=== PATIENT | male | born 1940 | race Caucasian/White ===

== ENCOUNTER → 2021-05-20 15:35 | Outpatient (BNVA) | payer MEDICARE, SELFPAY | PROVIDERS: PCP Internal Medicine; Referring Provider Internal Medicine; Visit Provider Nurse Practitioner Family | DX: K58.2 Mixed irritable bowel syndrome (principal); R19.7 Diarrhea, unspecified; R14.0 Abdominal distension (gaseous) | CPT/HCPCS: 99212 ==

== ENCOUNTER 2021-05-26 08:30 | Outpatient (REF) | payer MEDICARE, SELFPAY ==
[2021-05-26 10:03] LABS: C Reactive Protein 0.17 mg/dL (< or = 0.50)
[2021-05-26 10:14] LABS: TSH reflex Free T4 1.93 uIU/mL (0.32-4.0)
[2021-05-29 09:52] LABS: Transglutaminase Ab IgG <1.0 U/mL; Transglutaminase IgA <1.0 U/mL
== END 2021-05-26 08:31 | disposition home or self-care (01) ==
LOC: HO.LAB 08:30
PROVIDERS: PCP Internal Medicine; Visit Provider Nurse Practitioner Family
DX: R10.11 Right upper quadrant pain (principal); R14.0 Abdominal distension (gaseous); K58.9 Irritable bowel syndrome, unspecified; Z12.11 Encounter for screening for malignant neoplasm of colon
CPT/HCPCS: 36415; 83516; 84443; 86140

== ENCOUNTER 2022-01-04 22:23 | Emergency (ER) | payer MEDICARE, SELFPAY ==
[2022-01-04 22:40] VITALS: BP 160/74; PULSE 76; RESP 18; TEMP 35.8; O2SAT 98; BMI 31.2
--- NOTE | 2022-01-05 00:38 | ED.SKABFB ---
HPI - Skin/Abscess/Foreign Bdy General Chief complaint: Skin/Abscess/Foreign Body Stated complaint: rash all over Time Seen by Provider: 01/05/22 00:38 Source: patient Mode of arrival: ambulatory Limitations: no limitations History of Present Illness HPI narrative: Patient is a 81 year old male presenting to the emergency department today with 3-4 days of a rash. Patient states that he cleaned his women nurse out and ever since has been itchy all over with a rash all over his body. Patient states that the rash is itchy. Patient denies any dizziness, lightheadedness, abdominal pain, nausea, vomiting, fever, chills, blurry vision, double vision, loss of vision, chest pain, difficulty breathing, shortness of breath, back pain, night sweats, pain with urination, increased urinary frequency, increased urinary urgency, blood in his urine or stool, syncope or a near syncopal episode, recent trauma or falls, bowel incontinence, bladder incontinence, bowel retention, bladder retention, or any other complaints at this time. MD complaint: rash Onset (ago): day(s) (4) Location: generalized Severity: mild Severity scale (1-10): 3 Quality: constant Relieving factors: none Exacerbating factors: none Context: none Treatments prior to arrival: none Related Data Home Medications Medication Instructions Recorded Confirmed aspirin 81 mg capsule 81 mg PO DAILY 05/20/21 cholecalciferol (vitamin D3) 50 50 mcg PO DAILY 05/20/21 mcg (2,000 unit) capsule levothyroxine 25 mcg capsule 25 mcg PO DAILY 05/20/21 losartan 100 mg tablet 100 mg PO DAILY 05/20/21 simvastatin 40 mg tablet 40 mg PO DAILY 05/20/21 Previous Rx's Medication Instructions Recorded prednisone 20 mg tablet 20 mg PO DAILY 10 days #15 tabs 01/05/22 Allergies Allergy/AdvReac Type Severity Reaction Status Date / Time No Known Allergies Allergy Verified 05/20/21 15:58 Review of Systems Constitutional: Constitutional: Reports no additional constitutional complaints, Denies chills, Denies fever(s) and Denies night sweats Eyes: Eyes: Reports no additional eye complaints, Denies blurry vision, Denies change in vision, Denies diplopia, Denies eye discharge, Denies loss of vision and Denies eye pain ENT: Denies dizziness Cardiovascular: Cardiovascular: Reports no additional cardiovascular complaints, Denies chest pain, Denies lightheadedness, Denies Loss of Consciousness and Denies dyspnea Respiratory: Respiratory: Reports no additional respiratory complaints and Denies dyspnea Gastrointestinal: Gastrointestinal: Reports no additional gastrointestinal complaints, Denies abdominal pain, Denies melena, Denies hematochezia, Denies change in bowel habits and Denies change in stool character Genitourinary: Genitourinary: Reports no additional male genitourinary complaints, Denies hematuria, Denies oliguria, Denies difficulty urinating, Denies dysuria, Denies urinary frequency, Denies urinary hesitancy, Denies urinary incontinence and Denies urinary urgency Musculoskeletal: Musculoskeletal: Reports no additional musculoskeletal complaints, Denies numbness and Denies tingling Integumentary/Breasts: Skin/Breast: Reports rash Neurologic: Denies dizziness, Denies loss of vision, Denies numbness and Denies tingling Psychiatric: Psychiatric: Reports no additional psychiatric complaints Endocrine: Endocrine: Reports no additional endocrine complaints Hematologic/Lymphatic: Hematologic/Lymphatic: Reports no additional hematologic/lymphatic complaints Allergic/Immunologic: Allergic/Immunologic: Reports no additional allergic/immunologic complaints PMFSH Past Medical History Attestation statement: The following information was validated with the patient. Source: old records reviewed Surgical History H/O melanoma excision History of surgery on arm Hx of colonoscopy Family History Family History Father Lung cancer Mother Heart disease Social History Social History Advance Directives: No Advance Directives Information Provided: Yes Physical Exam Vital Signs: Vital Signs: Last Vital Signs Temp 96.5 F L 01/04/22 22:40 Pulse 76 01/04/22 22:40 Resp 18 01/04/22 22:40 BP 160/74 H 01/04/22 22:40 Pulse Ox 98 01/04/22 22:40 O2 Del Method 01/04/22 22:40 BMI result Body Mass Index 31.2 Const: General: cooperative, no acute distress, alert and awake Nutritional Appearance: well nourished Orientation/consciousness: patient oriented x3 Limitations: no limitations HEENT: Head: Yes normal to inspection and Yes atraumatic Ears: hearing grossly normal bilaterally and external ears normal General nose exam: Normal external nose present, no nasal discharge noted and no epistaxis Face and sinus: Yes normal facial exam, No abrasion and No laceration Mouth: Normal oral and palatal mucosa present, no drooling and no muffled voice Eyes: General: appearance normal, both eyes and all related structures Periorbital: periorbital findings normal Eyelids: Yes eyelids normal Conjunctivae: conjunctivae normal Pupils: Equal, round and reactive pupils present EOM: EOMs intact bilaterally Neck: Neck: Yes normal visual inspection, Yes full ROM and Yes no lymphadenopathy Chest: Chest palpation & inspection: normal inspection of the chest Resp: Effort & Inspection: normal respiratory effort and able to speak in complete sentences GI: Inspection: Yes normal to inspection Skin: Other: urticaria Neuro: General: patient oriented x3 and moves all extremities Cranial nerves: Yes Equal, round and reactive pupils present Cognition (Neuro): normal cognition Motor exam (neuro): 5/5 motor strength present throughout Sensory Exam: Normal double simultaneous stimulation for sensation Coordination: [id number] test normal Extrem: General: Yes normal to inspection, Yes full ROM and Yes capillary refill normal Psych: Appearance: grossly normal Mental Status: mental status grossly normal Affect: normal affect Attitude: cooperative Thought process: Normal thought process present Thought content: Normal thought content present Insight: Good insight present (Psych) MDM - Skin/Abscess/Foreign Bdy MDM Narrative Medical decision making narrative: Patient is a 81 year old male presenting to the emergency department today with a rash. Patient's physical exam showed a diffuse break out of urticaria. I explained my physical exam findings to the patient. I answered all questions asked by the patient. Patient received PO Prednisone which he stated helped his itching significantly. I stressed the importance of the patient taking his medication as prescribed. I stressed the importance of the patient following up with his primary care provider. I stressed the importance of the patient returning to the emergency department immediately if his symptoms were to worsen or if he were to develop any dizziness, shortness of breath, difficulty breathing, chest pain, blurry vision, loss of vision, nausea, vomiting, abdominal pain, fever, chills, back pain, or any other complaints. Patient verbalized agreement and understanding with this treatment plan and discharge. Differential Diagnosis Differential diagnosis: Likely urticaria Medical Records Attestation: I reviewed the patient's medical records. Discharge Plan Discharge Clinical Impression: Urticaria Patient Disposition: Home, Self-Care Instructions: Urticaria (ED) Additional Instructions: Take Benadryl OTC as needed. Follow up with your primary care provider. Return to the emergency department immediately if your symptoms worsen or if you develop any dizziness, shortness of breath, difficulty breathing, chest pain, blurry vision, loss of vision, nausea, vomiting, abdominal pain, fever, chills, back pain, or any other complaints. Prescriptions: New prednisone 20 mg tablet 20 mg PO DAILY 10 Days Qty: 15 0RF Rx Instructions: Take 2 tablets for 5 days then 1 tablet for 5 days No Action levothyroxine 25 mcg capsule 25 mcg PO DAILY aspirin 81 mg capsule 81 mg PO DAILY losartan 100 mg tablet 100 mg PO DAILY simvastatin 40 mg tablet 40 mg PO DAILY cholecalciferol (vitamin D3) 50 mcg (2,000 unit) capsule 50 mcg PO DAILY Referrals: [facility] [Provider Group] (Call to establish and follow up with a primary care provider. If you have a primary care provider, please follow up with them. ) [facility] Primary [facility], [place] [Provider Group] (Call to establish and follow up with a primary care provider. If you have a primary care provider, please follow up with them. ) [facility],[place] [Provider Group] (Call to establish and follow up with a primary care provider. If you have a primary care provider, please follow up with them. ) Adalberto Vasquez MD [Physician] - (If symptoms persist, call to establish and follow up with an sheeter waxer operator. ) Raj Aguirre DO [Physician] - (If symptoms persist, call to establish and follow up with an sheeter waxer operator. ) Interventions: ED Discharge Assessment Last Done: 01/05/22 01:12 Print Language: Canadian
[2022-01-05] MEDS: predniSONE 20 MG TABLET 40 MG PO (01:11)
== END 2022-01-05 01:13 | disposition home or self-care (01) ==
PROVIDERS: Emergency Provider Internal Medicine
DX: L50.9 Urticaria, unspecified (principal)
CPT/HCPCS: 99283; 99284

== ENCOUNTER 2022-02-04 14:20 | Outpatient (REF) | payer MEDICARE, SELFPAY ==
[2022-02-04 15:37] LABS: Influenza A PCR NEGATIVE (Negative); Influenza B PCR NEGATIVE (Negative); Resp Syncy Virus RNA Qual PCR NEGATIVE (Negative); SARS COV2 PCR INHOUSE POSITIVE (Negative)
== END 2022-02-04 14:21 | disposition home or self-care (01) ==
LOC: HO.LNP 14:20
PROVIDERS: Visit Provider Internal Medicine
DX: Z20.822 Contact with and (suspected) exposure to COVID-19 (principal); R09.89 Other specified symptoms and signs involving the circulatory and respiratory systems
CPT/HCPCS: 0241U

== ENCOUNTER 2022-05-13 17:46 | Inpatient (IN) | payer MEDICARE, SELFPAY ==
[2022-05-13] VITALS (7 sets, daily range): BP systolic 87–171; BP diastolic 63–93; PULSE 67–104; RESP 11–22; TEMP 36.7–37.2; O2SAT 98–100; BMI 30.8
--- NOTE | 2022-05-13 | ECG_ITS ---
Test Reason : CHEST PAIN Blood Pressure : / mmHG Vent. Rate : 084 BPM Atrial Rate : 000 BPM P-R Int : 000 ms QRS Dur : 090 ms QT Int : 400 ms P-R-T Axes : 000 -13 048 degrees QTc Int : 472 ms Right sided leads Atrial fibrillation Inferior infarct (cited on or before 13-MAY-2022) Anterolateral infarct , age undetermined Abnormal ECG When compared with ECG of 13-MAY-2022 20:47, Anterior infarct is now Present Anterolateral infarct is now Present T wave inversion now evident in Anterior leads Referred By: Hoa Shetty Electronically Signed By:Gerry Conn
--- NOTE | ~2022-05-13 | XR_ITS ---
EXAMINATION: XR CHEST CLINICAL INFORMATION: Chest pain. COMPARISON: None TECHNIQUE: Frontal view of the chest was obtained. FINDINGS: There is mild interstitial prominence but no focal airspace opacity, pleural effusion or pneumothorax. Cardiomediastinal silhouette is mildly prominent. No acute osseous abnormalities. Left axillary surgical clips are seen. XR/XR chest 1V IMPRESSION: 1. Mild interstitial prominence is indeterminate and could be associated with asthma, bronchitis, reactive airways disease or atypical viral infections. 2. No focal consolidation.
--- NOTE | 2022-05-13 18:30 | ECG_ITS ---
Test Reason : high blood pressure Blood Pressure : / mmHG Vent. Rate : 065 BPM Atrial Rate : 065 BPM P-R Int : 168 ms QRS Dur : 100 ms QT Int : 404 ms P-R-T Axes : 022 -20 054 degrees QTc Int : 420 ms Normal sinus rhythm Cannot rule out inferior infarct Minimal voltage criteria for LVH, may be normal variant ( [place] product ) Borderline ECG No previous ECGs available Referred By: Aníbal Rodriguez Electronically Signed By:Gerry Conn
--- NOTE | 2022-05-13 18:31 | ED_ITS ---
HPI - Chest Pain General Chief Complaint: Chest Pain Stated Complaint: chest and arm pain,elevated bp Time Seen by Provider: 05/13/22 19:48 Related Data Home Medications Medication Instructions Recorded Confirmed aspirin 81 mg capsule 81 mg PO DAILY 05/20/21 05/13/22 cholecalciferol (vitamin D3) 50 50 mcg PO DAILY 05/20/21 05/13/22 mcg (2,000 unit) capsule levothyroxine 25 mcg capsule 25 mcg PO DAILY 05/20/21 05/13/22 hydrochlorothiazide 25 mg tablet 50 mg PO DAILY 02/04/22 05/13/22 triamcinolone acetonide 0.1 % 1 appl topical BID PRN Rash 02/04/22 05/13/22 topical cream docusate sodium 100 mg tablet 100 mg PO DAILY PRN Constipation 05/13/22 05/13/22 Previous Rx's Medication Instructions Recorded atorvastatin 40 mg tablet 40 mg PO BEDTIME #1 tab 05/16/22 heparin (porcine) 25,000 unit/250 25,000 unit (250 mL) continuous IV 05/16/22 mL in 0.45 % sodium chloride IV infusion .Q0M #6,000 mL soln lisinopril 40 mg tablet 40 mg PO DAILY #1 tab 05/16/22 nitroglycerin 0.4 mg sublingual 0.4 mg sublingual Q5MX3 PRN cp #1 05/16/22 tablet (Nitrostat) tab Allergies Allergy/AdvReac Type Severity Reaction Status Date / Time No Known Allergies Allergy Verified 02/11/22 11:08 [facility] Past Medical History Medical History CVA (cerebral vascular accident) Fatigue Hypertension Hypothyroidism Surgical History H/O melanoma excision History of surgery on arm Hx of colonoscopy Family History Family History Father Lung cancer Mother Heart disease Social History Social History Household Members: Spouse Housing: House Do you presently have visiting nurse or other home services: No Patient Tobacco Use Status: Former Tobacco user Use of substances other than those prescribed or required for medical reasons: No Currently Displaying Signs/Symptoms of Drug Intoxication Withdrawal: No Have you been hit, kicked, punched, or otherwise hurt by someone within the past year? If so, by whom?: No Do you feel safe in your current relationship?: Yes Is there a partner from a previous relationship who is making you feel unsafe now?: No Are you made to feel afraid or neglected: No Advance Directives: No Advance Directives Information Provided: No Do you have thoughts of harming others: None Do you have a plan to hurt others: No Plan Recently lost weight without trying: No Eating poorly because of decreased appetite: No Poor oral hygiene: No service: No Physical Exam Vital Signs: Vital Signs: Last Vital Signs Temp 97.8 F 05/16/22 07:33 Pulse 64 05/16/22 07:33 Resp 20 05/16/22 07:33 BP 129/73 05/16/22 07:33 Pulse Ox 98 05/16/22 07:33 O2 Del Method 05/16/22 07:33 O2 Flow Rate 3 05/13/22 22:47 BMI result Body Mass Index 30.8 Course Course Course Narrative: RME: Chest pain and elevated blood pressure beginning this morning. Negative for any neuro deficits. SARS. labs, EKG, and chest xray ordered Medications Administered Generic Name Dose Route Start Last Admin Trade Name Nova PRN Reason Stop Dose Admin Aspirin 81 mg 05/14/22 09:00 05/16/22 07:45 Aspirin Enteric Coated 81 Mg Tablet. PO 81 mg DAILY CONRAD Administration Atorvastatin Calcium 40 mg 05/14/22 21:00 05/15/22 21:26 Atorvastatin Calcium 40 Mg Tablet PO 40 mg BEDTIME CONRAD Administration Heparin Sodium (Porcine) 3,900 unit 05/13/22 20:53 05/16/22 03:50 Heparin Sodium,Porcine 5,000 Unit/Ml Vial 40 unit/kg (3900 unit) 3,900 unit IVPUSH Administration PROTOCOL BOLUS PRN 40 unit/kg - Heparin Protocol Protocol Hydrochlorothiazide 50 mg 05/14/22 09:00 05/16/22 07:46 Hydrochlorothiazide 50 Mg Tablet PO 50 mg DAILY CONRAD Administration Protocol Heparin Sodium/Sodium Chloride 25,000 unit in 250 mls @ 0 mls/hr 05/13/22 21:00 05/16/22 03:53 Heparin Sodium,Porcine/1/2ns IVCONT 11.25 units/kg/hr .Q0M CONRAD 10.97 mls/hr Titration Protocol Per Protocol Levothyroxine Sodium 25 mcg 05/14/22 07:00 05/16/22 05:06 Levothyroxine Sodium 25 Mcg Tablet PO 25 mcg DAILY@0600 CONRAD Administration Lisinopril 40 mg 05/15/22 10:00 05/16/22 07:45 Lisinopril 40 Mg Tablet PO 40 mg DAILY CONRAD Administration Protocol Nitroglycerin 0.4 mg 05/13/22 19:59 05/13/22 20:13 Nitroglycerin 0.4 Mg Tab.Subl SUBLINGUAL 0.4 mg Q5MX3 PRN Administration cp Sodium Chloride 3 ml 05/14/22 00:00 05/16/22 07:46 0.9 % Sodium Chloride Flush 3 Ml Syringe IVFLUSH 3 ml QSHIFT [facility] Administration Vitamin D 50 mcg 05/14/22 09:00 05/16/22 07:46 Cholecalciferol (Vitamin D3) 25 Mcg Tablet PO 50 mcg DAILY [facility] Administration Discontinued Medications Generic Name Dose Route Start Last Admin Trade Name Freq PRN Reason Stop Dose Admin Heparin Sodium (Porcine) 4,000 unit 05/13/22 20:53 05/13/22 21:12 Heparin Sodium,Porcine 5,000 Unit/Ml Vial IVPUSH 05/13/22 20:54 4,000 unit ONCE ONE Administration Sodium Chloride 1,000 mls @ 999 mls/hr 05/13/22 20:45 05/13/22 21:52 Ns IVCONT 05/13/22 21:45 Infused .Q1H1M CONRAD Infusion Lisinopril 20 mg 05/14/22 09:00 05/15/22 23:56 Lisinopril 20 Mg Tablet PO Not Given DAILY [facility] Protocol Metoprolol Tartrate 2.5 mg 05/13/22 21:33 05/13/22 21:41 Metoprolol Tartrate 5 Mg/5 Ml Vial IVPUSH 05/13/22 21:34 2.5 mg ONCE ONE Administration Morphine Sulfate 2 mg 05/13/22 19:59 05/13/22 20:12 Morphine Sulfate 2 Mg/Ml Cartridge IVPUSH 05/13/22 20:00 2 mg ONCE ONE Administration Protocol MDM - Chest Pain Lab Data Result diagrams: 05/16/22 03:08 05/14/22 06:01 Labs: Lab Results 05/13/22 05/13/22 05/13/22 Range/Units 19:10 19:10 19:10 WBC 8.3 (4.8-10.8) X10*3/uL RBC 4.82 (4.60-5.80) X10*6/uL Hgb 14.7 (14.0-18.0) g/dl Hct 41.6 L (42.0-52.0) % MCV 86.3 (80.0-98.0) fL MCH 30.5 (27.0-33.0) pg MCHC 35.3 (31.0-36.0) g/dl RDW 12.6 (11.0-16.0) % Plt Count 217 (160-400) X10*3/uL MPV 10.6 (9.4-12.4) fL Immature Gran % (Auto) 0.2 (0.0-0.4) % Neut % (Auto) 65.7 (45-73) % Lymph % (Auto) 21.1 (20-40) % [place]pie % (Auto) 9.1 (2-11) % Eos % (Auto) 3.1 (0-4) % Baso % (Auto) 0.8 (0-2) % Lymph # (Auto) 1.8 (1.2-4.9) X10*3/uL [place] # (Auto) 0.8 (0.1-1.2) X10*3/uL Eos # (Auto) 0.3 (0.0-0.4) X10*3/uL Baso # (Auto) 0.1 (0.0-0.2) X10*3/uL Abs Immat Gran (auto) 0.02 (0.00-0.03) X10*3/uL Absolute Neuts (auto) 5.5 (2.0-8.3) x10*3/uL Absolute Nucleated RBC 0.000 (0.0-0.012) X10*3/uL Nucleated RBC % (auto) 0.0 (0.0-0.2) /100WBC PT (10.0-13.1) SEC INR (0.9-1.1) APTT (26.0-36.4) SEC Sodium 136 (135-145) mmol/L Potassium 4.0 (3.3-5.1) mmol/L Chloride 99 (96-108) mmol/L Carbon Dioxide 29 (22-29) mmol/L Anion Gap 12 (12-20) BUN 23 H (9-16) mg/dL Creatinine 1.09 (0.5-1.4) mg/dL Estim Creat Clear Calc 64.3 Estimated GFR > 60 Random Glucose 93 (60-115) mg/dL Calcium 9.3 (8.4-10.2) mg/dL Total Bilirubin 0.5 (0.0-1.0) mg/dL AST 24 (5-37) U/L ALT 35 (0-40) U/L Alkaline Phosphatase 69 (39-117) U/L Troponin I High Sens 195.6 H* (<3.5-35.0) ng/L B-Natriuretic Peptide (<100) pg/mL Total Protein 7.0 (6.5-8.0) g/dL Albumin 4.4 (3.5-5.0) g/dL Lipase 46 (8-78) U/L Influenza Type A (PCR) (Negative) Influenza Type B (PCR) (Negative) RSV RNA Qual (PCR) (Negative) SARS-CoV-2 RNA (RT-PCR) (Negative) 05/13/22 05/13/22 05/13/22 Range/Units 19:10 19:10 20:09 WBC (4.8-10.8) X10*3/uL RBC (4.60-5.80) X10*6/uL Hgb (14.0-18.0) g/dl Hct (42.0-52.0) % MCV (80.0-98.0) fL MCH (27.0-33.0) pg MCHC (31.0-36.0) g/dl RDW (11.0-16.0) % Plt Count (160-400) X10*3/uL MPV (9.4-12.4) fL Immature Gran % (Auto) (0.0-0.4) % Neut % (Auto) (45-73) % Lymph % (Auto) (20-40) % [place] % (Auto) (2-11) % Eos % (Auto) (0-4) % Baso % (Auto) (0-2) % Lymph # (Auto) (1.2-4.9) X10*3/uL [place] # (Auto) (0.1-1.2) X10*3/uL Eos # (Auto) (0.0-0.4) X10*3/uL Baso # (Auto) (0.0-0.2) X10*3/uL Abs Immat Gran (auto) (0.00-0.03) X10*3/uL Absolute Neuts (auto) (2.0-8.3) x10*3/uL Absolute Nucleated RBC (0.0-0.012) X10*3/uL Nucleated RBC % (auto) (0.0-0.2) /100WBC PT 11.6 (10.0-13.1) SEC INR 1.0 (0.9-1.1) APTT 32.7 (26.0-36.4) SEC Sodium (135-145) mmol/L Potassium (3.3-5.1) mmol/L Chloride (96-108) mmol/L Carbon Dioxide (22-29) mmol/L Anion Gap (12-20) BUN (9-16) mg/dL Creatinine (0.5-1.4) mg/dL Estim Creat Clear Calc Estimated GFR Random Glucose (60-115) mg/dL Calcium (8.4-10.2) mg/dL Total Bilirubin (0.0-1.0) mg/dL AST (5-37) U/L ALT (0-40) U/L Alkaline Phosphatase (39-117) U/L Troponin I High Sens 218.1 H* (<3.5-35.0) ng/L B-Natriuretic Peptide 21 (<100) pg/mL Total Protein (6.5-8.0) g/dL Albumin (3.5-5.0) g/dL Lipase (8-78) U/L Influenza Type A (PCR) (Negative) Influenza Type B (PCR) (Negative) RSV RNA Qual (PCR) (Negative) SARS-CoV-2 RNA (RT-PCR) (Negative) 05/13/22 Range/Units 21:04 WBC (4.8-10.8) X10*3/uL RBC (4.60-5.80) X10*6/uL Hgb (14.0-18.0) g/dl Hct (42.0-52.0) % MCV (80.0-98.0) fL MCH (27.0-33.0) pg MCHC (31.0-36.0) g/dl RDW (11.0-16.0) % Plt Count (160-400) X10*3/uL MPV (9.4-12.4) fL Immature Gran % (Auto) (0.0-0.4) % Neut % (Auto) (45-73) % Lymph % (Auto) (20-40) % [place] % (Auto) (2-11) % Eos % (Auto) (0-4) % Baso % (Auto) (0-2) % Lymph # (Auto) (1.2-4.9) X10*3/uL [place] # (Auto) (0.1-1.2) X10*3/uL Eos # (Auto) (0.0-0.4) X10*3/uL Baso # (Auto) (0.0-0.2) X10*3/uL Abs Immat Gran (auto) (0.00-0.03) X10*3/uL Absolute Neuts (auto) (2.0-8.3) x10*3/uL Absolute Nucleated RBC (0.0-0.012) X10*3/uL Nucleated RBC % (auto) (0.0-0.2) /100WBC PT (10.0-13.1) SEC INR (0.9-1.1) APTT (26.0-36.4) SEC Sodium (135-145) mmol/L Potassium (3.3-5.1) mmol/L Chloride (96-108) mmol/L Carbon Dioxide (22-29) mmol/L Anion Gap (12-20) BUN (9-16) mg/dL Creatinine (0.5-1.4) mg/dL Estim Creat Clear Calc Estimated GFR Random Glucose (60-115) mg/dL Calcium (8.4-10.2) mg/dL Total Bilirubin (0.0-1.0) mg/dL AST (5-37) U/L ALT (0-40) U/L Alkaline Phosphatase (39-117) U/L Troponin I High Sens (<3.5-35.0) ng/L B-Natriuretic Peptide (<100) pg/mL Total Protein (6.5-8.0) g/dL Albumin (3.5-5.0) g/dL Lipase (8-78) U/L Influenza Type A (PCR) NEGATIVE (Negative) Influenza Type B (PCR) NEGATIVE (Negative) RSV RNA Qual (PCR) NEGATIVE (Negative) SARS-CoV-2 RNA (RT-PCR) NEGATIVE (Negative) Discharge Plan Discharge Clinical Impression: Non-ST elevation NE (NSTEMI) Patient Disposition: Admitted As Inpatient Interventions: Admission Worksheet (ED) Last Done: 05/14/22 01:56 Discharge Date/Time: 05/14/22 01:57
[2022-05-13 19:16] LABS: MANUAL DIFF FLAG NO
[2022-05-13 19:18] LABS: Basophils Absolute Auto 0.1 X10*3/uL (0.0-0.2); Basophils Percent Auto 0.8 % (0-2); Eosinophils Absolute Auto 0.3 X10*3/uL (0.0-0.4); Eosinophils Percent Auto 3.1 % (0-4); Hematocrit 41.6 % (42.0-52.0); Hemoglobin 14.7 g/dl (14.0-18.0); Imm Gran Abs Auto 0.02 X10*3/uL (0.00-0.03); Imm Gran Pct Auto 0.2 % (0.0-0.4); Lymphocytes Absolute Auto 1.8 X10*3/uL (1.2-4.9); Lymphocytes Percent Auto 21.1 % (20-40); Mean Corpuscular HGB Conc 35.3 g/dl (31.0-36.0); Mean Corpuscular Hemoglobin 30.5 pg (27.0-33.0); Mean Corpuscular Volume 86.3 fL (80.0-98.0); Mean Platelet Volume 10.6 fL (9.4-12.4); Monocytes Absolute Auto 0.8 X10*3/uL (0.1-1.2); Monocytes Percent Auto 9.1 % (2-11); Neutrophils Absolute Auto 5.5 x10*3/uL (2.0-8.3); Neutrophils Percent Auto 65.7 % (45-73); Platelet Count 217 X10*3/uL (160-400); Red Blood Count 4.82 X10*6/uL (4.60-5.80); Red Cell Distribution Width 12.6 % (11.0-16.0); White Blood Count 8.3 X10*3/uL (4.8-10.8)
[2022-05-13 19:23] LABS: Prothrombin Time 11.6 SEC (10.0-13.1)
[2022-05-13 19:26] LABS: Partial Thromboplastin Time 32.7 SEC (26.0-36.4)
[2022-05-13 19:32] LABS: Alanine Aminotransferase 35 U/L (0-40); Albumin Level 4.4 g/dL (3.5-5.0); Alkaline Phosphatase 69 U/L (39-117); Anion Gap 12 (12-20); Aspartate Amino Transferase 24 U/L (5-37); Bilirubin Total 0.5 mg/dL (0.0-1.0); Blood Urea Nitrogen 23 mg/dL (9-16); Calcium 9.3 mg/dL (8.4-10.2); Carbon Dioxide 29 mmol/L (22-29); Chloride 99 mmol/L (96-108); Creatinine Clr Calc Pharmacy 64.3; Estimated Glomerular Filt Rate > 60; Glucose Random 93 mg/dL (60-115); Lipase 46 U/L (8-78); Sodium 136 mmol/L (135-145)
[2022-05-13 19:37] LABS: B Type Natriuretic Peptide 21 pg/mL (<100)
[2022-05-13 19:48] LABS: Troponin-I High Sensitivity 195.6 ng/L (<3.5-35.0)
--- NOTE | 2022-05-13 19:49 | ECG_ITS ---
Test Reason : CHEST PAIN Blood Pressure : / mmHG Vent. Rate : 067 BPM Atrial Rate : 067 BPM P-R Int : 178 ms QRS Dur : 100 ms QT Int : 416 ms P-R-T Axes : 033 -26 056 degrees QTc Int : 439 ms Normal sinus rhythm Moderate voltage criteria for LVH, may be normal variant ( R in aVL , [place] product ) Borderline ECG When compared with ECG of 13-MAY-2022 19:01, No significant change was found Referred By: Hoa Shetty Electronically Signed By:Gerry Conn
[2022-05-13] MEDS: Morphine Sulfate 2 MG/ML CARTRIDGE IVPUSH (20:12)
[2022-05-13] MEDS: Nitroglycerin 0.4 MG TAB.SUBL SUBLINGUAL (20:13)
--- NOTE | 2022-05-13 20:17 | PC.NURSE ---
lab called for critical troponin result on this patient. this RN went in room, iv placed, repeat troponin drawn, repeat ekg done by PCT. patient on cardiac surgeon, placed on 2L NC O2 not for oxygenation but for decreased demand on the heart. morphine iv and nitro sublingual given for chest pain and blood pressures. call perez within reach. pt in no apparent distress, only reporting 3/10 pain currently. will continue to monitor closely.
--- NOTE | 2022-05-13 20:30 | ED.CHESTPAIN ---
HPI - Chest Pain General Chief Complaint: Chest Pain <Hoa Shetty NP - Last Filed: 05/14/22 01:48> Stated Complaint: chest and arm pain,elevated bp <Hoa Shetty NP - Last Filed: 05/14/22 01:48> Time Seen by Provider: 05/13/22 19:48 <Hoa Shetty NP - Last Filed: 05/14/22 01:48> Source: patient <Hoa Shetty NP - Last Filed: 05/14/22 01:48> Mode of arrival: ambulatory <Hoa Shetty NP - Last Filed: 05/14/22 01:48> Limitations: no limitations <Hoa Shetty NP - Last Filed: 05/14/22 01:48> History of Present Illness HPI narrative: 81-year-old male presents for substernal chest pain that is radiating to bilateral arms. This pain started at 11:30 while he was walking the [email or web address] for exercise. He has a stop, sit down and catch his breath because of fatigue. He reports intermittent arm pain over the past few days but no significant chest pain, does report having a new medication lisinopril for hypertension that he started a few weeks ago. He has not had a prior cardiac event, denies fevers, chills, edema, dizziness, lightheadedness, palpitations or and diaphoresis. <Hoa Shetty NP - Last Filed: 05/14/22 01:48> MD complaint: chest pain <Hoa Shetty NP - Last Filed: 05/14/22 01:48> Onset (ago): hour(s) (Several hours prior to arrival) <Hoa Shetty NP - Last Filed: 05/14/22 01:48> Timing of current episode: constant <Hoa Shetty NP - Last Filed: 05/14/22 01:48> Prior episodes: No <Hoa Shetty NP - Last Filed: 05/14/22 01:48> Onset: during exertion <Hoa Shetty NP - Last Filed: 05/14/22 01:48> Pain location: substernal <Hoa Shetty NP - Last Filed: 05/14/22 01:48> Pain radiation: right arm and left arm <Hoa Shetty NP - Last Filed: 05/14/22 01:48> Severity: moderate <Hoa Shetty NP - Last Filed: 05/14/22 01:48> Pain scale (0-10): 5 <Hoa Shetty NP - Last Filed: 05/14/22 01:48> Quality: tightness and heaviness <Hoa Shetty NP - Last Filed: 05/14/22 01:48> Relieving factors: nothing <Hoa Shetty NP - Last Filed: 05/14/22 01:48> Exacerbating factors: exertion <Hoa Shetty NP - Last Filed: 05/14/22 01:48> Associated symptoms: dyspnea <Hoa Shetty NP - Last Filed: 05/14/22 01:48> Treatment prior to arrival: none <Hoa Shetty NP - Last Filed: 05/14/22 01:48> Risk Factors Coronary artery disease risk factors: hypertension <Hoa Shetty NP - Last Filed: 05/14/22 01:48> Thoracic aortic dissection risk factors: none <Hoa Shetty NP - Last Filed: 05/14/22 01:48> Related Data Home Medications: Home Medications Medication Instructions Recorded Confirmed aspirin 81 mg capsule 81 mg PO DAILY 05/20/21 05/13/22 cholecalciferol (vitamin D3) 50 50 mcg PO DAILY 05/20/21 05/13/22 mcg (2,000 unit) capsule levothyroxine 25 mcg capsule 25 mcg PO DAILY 05/20/21 05/13/22 simvastatin 40 mg tablet 40 mg PO DAILY 05/20/21 05/13/22 hydrochlorothiazide 25 mg tablet 50 mg PO DAILY 02/04/22 05/13/22 triamcinolone acetonide 0.1 % 1 appl topical BID PRN Rash 02/04/22 05/13/22 topical cream docusate sodium 100 mg tablet 100 mg PO DAILY PRN Constipation 05/13/22 05/13/22 lisinopril 20 mg tablet 1 tab PO DAILY 05/13/22 05/13/22 <Hoa Shetty NP - Last Filed: 05/14/22 01:48> Allergies/Adverse Reactions: Allergies Allergy/AdvReac Type Severity Reaction Status Date / Time No Known Allergies Allergy Verified 02/11/22 11:08 <Hoa Shetty NP - Last Filed: 05/14/22 01:48> Review of Systems Review of Systems: Constitutional: No Weight loss, No Fever, No Chills, No Night Sweats, No Fatigue, No Malaise ENT/Mouth: No Hearing loss, No Ear Pain, No Nasal Congestion, No Sinus Pain, No Hoarseness, No sore throat, No Rhinorrhea, No Swallowing Difficulty Eyes: No Eye Pain, No Swelling, No Redness, No Foreign Body, No Discharge, No Vision Changes Cardiovascular: pos Chest Pain, pos SOB, no Dyspnea on Exertion, No Orthopnea, No Edema, No Palpitations Respiratory: No Cough, No Sputum, No Wheezing, No Smoke Exposure, No Dyspnea Gastrointestinal: No Nausea, No Vomiting, No Diarrhea, No abdominal Pain, No Hematochezia, No Melena Genitourinary: No irregular bleeding, No Dysuria, No Urinary Frequency, No Hematuria, No Urinary Incontinence, No Urgency, No Flank Pain, No Urinary Flow Changes, No Hesitancy Musculoskeletal: No joint pain, No Myalgias, No Joint Swelling Skin: No Skin Lesions, No rash Neuro: No Weakness, No Numbness, No Paresthesias, No Loss of Consciousness, No Dizziness, No Headache Psych: No Anxiety/Panic, No Depression, No SI/HI/AH/VH Heme/Lymph: No Bruising, No Bleeding,No Lymphadenopathy Endocrine: No Polyuria, No Polydipsia, No Temperature Intolerance <Hoa Shetty NP - Last Filed: 05/14/22 01:48> Yes all other systems are reviewed and are negative <Hoa Shetty NP - Last Filed: 05/14/22 01:48> [facility] Past Medical History Attestation statement: The following information was validated with the patient. <Hoa Shetty NP - Last Filed: 05/14/22 01:48> Source: old records reviewed <Hoa Shetty NP - Last Filed: 05/14/22 01:48> Medical History: Medical History Fatigue <Hoa Shetty NP - Last Filed: 05/14/22 01:48> Surgical History: Surgical History H/O melanoma excision History of surgery on arm Hx of colonoscopy <Hoa Shetty NP - Last Filed: 05/14/22 01:48> Family History Family History: Family History Father Lung cancer Mother Heart disease <Hoa Shetty NP - Last Filed: 05/14/22 01:48> Social History Social History: Social History Household Members: Spouse Housing: House Do you presently have visiting nurse or other home services: No Patient Tobacco Use Status: Former Tobacco user Use of substances other than those prescribed or required for medical reasons: No Have you been hit, kicked, punched, or otherwise hurt by someone within the past year? If so, by whom?: No Do you feel safe in your current relationship?: Yes Is there a partner from a previous relationship who is making you feel unsafe now?: No Are you made to feel afraid or neglected: No Advance Directives: No Advance Directives Information Provided: No Do you have thoughts of harming others: None Do you have a plan to hurt others: No Plan Recently lost weight without trying: No Eating poorly because of decreased appetite: No Poor oral hygiene: No <Hoa Shetty NP - Last Filed: 05/14/22 01:48> Physical Exam Vital Signs: Vital Signs: Last Vital Signs Temp 97.1 F 05/14/22 02:50 Pulse 70 05/14/22 02:50 Resp 20 05/14/22 02:50 BP 127/80 05/14/22 02:50 Pulse Ox 98 05/14/22 02:50 O2 Del Method 05/14/22 02:50 O2 Flow Rate 3 05/13/22 22:47 BMI result Body Mass Index 30.8 <Hoa Shetty NP - Last Filed: 05/14/22 01:48> Vital Signs: Last Vital Signs Temp 97.1 F 05/14/22 02:50 Pulse 70 05/14/22 02:50 Resp 20 05/14/22 02:50 BP 127/80 05/14/22 02:50 Pulse Ox 98 05/14/22 02:50 O2 Del Method 05/14/22 02:50 O2 Flow Rate 3 05/13/22 22:47 BMI result Body Mass Index 30.8 <Cole Yeboah MD - Last Filed: 05/14/22 02:56> Appearance: Alert. Oriented X3. No acute distress. Eyes: Pupils equal, round and reactive to light. ENT: Pharynx normal. Neck: Normal inspection. Neck supple. CVS: Normal heart rate and rhythm. Pulses normal. Respiratory: No respiratory distress. Breath sounds normal. Abdomen: Soft and nontender. Obese. Skin: Skin warm and dry. Normal skin color. Normal skin turgor. Extremities: No lower extremity edema. Moves all extremities against resistance. Gait not assessed for safety. Neuro: No motor deficit. No sensory deficit. Cranial nerves 2-12 intact. <Hoa Shetty NP - Last Filed: 05/14/22 01:48> Course Course Course Narrative: 81-year-old male presents with several hours of the sternal chest pain radiating to bilateral arms. Stated that he has had bilateral arm pain for a few days but the chest pain started today around 11 30 while he was walking in the [email or web address]. The pain worsened with exertion, patient needed to sit down to catch his breath and was quite fatigued. Patient reports that this has never happened to him before, he does not have any prior history of cardiac events. Patient's labs were drawn while he was in the emergency department waiting room, upon his arrival to the emergency department main rooms, it was noted that his troponin was elevated at 195.6. 19:55 troponin elevated 195.6, order for stat repeat EKG and troponins. 19:57 discussion with Cardiology via tiger text, plan is to start heparin once patient is pain-free. 20:25 patient's heart rate noted to be in the 40s after 2 mg of morphine, and 1 tablet of sublingual nitro. Patient no longer in pain. Stated that the morphine made him feel worse. Patient has 1 L of fluids running. 20:[address] Conn, multiple EKGs, heparin ordered. Patient no longer has chest pain. Blood pressures have improved, 128/81 at this time. 21:34 patient admitted by hospitalist team for NSTEMI. Patient's heart rate in the 130s, order for metoprolol 2.5 IV. I did discuss this plan with Dr. Conn and Dr Yeboah, all agree with this plan <Hoa Shetty NP - Last Filed: 05/14/22 01:48> Consultations Consultation #1: [email or web address] <Hoa Shetty NP - Last Filed: 05/14/22 01:48> Time: 07:57 <Hoa Shetty NP - Last Filed: 05/14/22 01:48> Consultation #2: [email or web address] <Hoa Shetty NP - Last Filed: 05/14/22 01:48> Time: 21:35 <Hoa Shetty NP - Last Filed: 05/14/22 01:48> Medications Administered Generic Name Dose Route Start Last Admin Trade Name Freq PRN Reason Stop Dose Admin Heparin Sodium/Sodium Chloride 25,000 unit in 250 mls @ 0 mls/hr 05/13/22 21:00 05/13/22 21:35 Heparin Sodium,Porcine/1/2ns IVCONT 10.25 units/kg/hr .Q0M CONRAD 10 mls/hr Administration Protocol Per Protocol Nitroglycerin 0.4 mg 05/13/22 19:59 05/13/22 20:13 Nitroglycerin 0.4 Mg Tab.Subl SUBLINGUAL 0.4 mg Q5MX3 PRN Administration cp Sodium Chloride 3 ml 05/14/22 00:00 05/14/22 01:09 0.9 % Sodium Chloride Flush 3 Ml Syringe IVFLUSH Not Given QSHIFT CONRAD Discontinued Medications Generic Name Dose Route Start Last Admin Trade Name Freq PRN Reason Stop Dose Admin Heparin Sodium (Porcine) 4,000 unit 05/13/22 20:53 05/13/22 21:12 Heparin Sodium,Porcine 5,000 Unit/Ml Vial IVPUSH 05/13/22 20:54 4,000 unit ONCE ONE Administration Sodium Chloride 1,000 mls @ 999 mls/hr 05/13/22 20:45 05/13/22 21:52 Ns IVCONT 05/13/22 21:45 Infused .Q1H1M CONRAD Infusion Metoprolol Tartrate 2.5 mg 05/13/22 21:33 05/13/22 21:41 Metoprolol Tartrate 5 Mg/5 Ml Vial IVPUSH 05/13/22 21:34 2.5 mg ONCE ONE Administration Morphine Sulfate 2 mg 05/13/22 19:59 05/13/22 20:12 Morphine Sulfate 2 Mg/Ml Cartridge IVPUSH 05/13/22 20:00 2 mg ONCE ONE Administration Protocol <Hoa Shetty NP - Last Filed: 05/14/22 01:48> Medications Administered Generic Name Dose Route Start Last Admin Trade Name Freq PRN Reason Stop Dose Admin Heparin Sodium/Sodium Chloride 25,000 unit in 250 mls @ 0 mls/hr 05/13/22 21:00 05/13/22 21:35 Heparin Sodium,Porcine/1/2ns IVCONT 10.25 units/kg/hr .Q0M CONRAD 10 mls/hr Administration Protocol Per Protocol Nitroglycerin 0.4 mg 05/13/22 19:59 05/13/22 20:13 Nitroglycerin 0.4 Mg Tab.Subl SUBLINGUAL 0.4 mg Q5MX3 PRN Administration cp Sodium Chloride 3 ml 05/14/22 00:00 05/14/22 01:09 0.9 % Sodium Chloride Flush 3 Ml Syringe IVFLUSH Not Given QSHIFT CONRAD Discontinued Medications Generic Name Dose Route Start Last Admin Trade Name Freq PRN Reason Stop Dose Admin Heparin Sodium (Porcine) 4,000 unit 05/13/22 20:53 05/13/22 21:12 Heparin Sodium,Porcine 5,000 Unit/Ml Vial IVPUSH 05/13/22 20:54 4,000 unit ONCE ONE Administration Sodium Chloride 1,000 mls @ 999 mls/hr 05/13/22 20:45 05/13/22 21:52 Ns IVCONT 05/13/22 21:45 Infused .Q1H1M CONRAD Infusion Metoprolol Tartrate 2.5 mg 05/13/22 21:33 05/13/22 21:41 Metoprolol Tartrate 5 Mg/5 Ml Vial IVPUSH 05/13/22 21:34 2.5 mg ONCE ONE Administration Morphine Sulfate 2 mg 05/13/22 19:59 05/13/22 20:12 Morphine Sulfate 2 Mg/Ml Cartridge IVPUSH 05/13/22 20:00 2 mg ONCE ONE Administration Protocol <Cole Yeboah MD - Last Filed: 05/14/22 02:56> MDM - Chest Pain MDM Narrative Medical decision making narrative: Patient's troponin drawn in triage was positive. Initial EKG was unremarkable. Patient was treated with aspirin and nitroglycerin sublingual. He became bradycardic and then went into atrial fibrillation, still bradycardic. Patient was bolused with normal saline his blood pressure improved. Dr. Conn was consulted by the PA and reviewed the patient's EKGs. Patient subsequently became tachycardic in AFib and was treated with metoprolol IV. Patient was started on heparin and admitted to the hospital. Critical care time for this life-threatening illness exclusive of all other billable procedures was approximately 45 minutes including initial evaluation of the patient, ordering tests, x-ray interpretation, EKG interpretation, medical consultation, documentation, reevaluation. <Cole Yeboah MD - Last Filed: 05/14/22 02:56> Differential Diagnosis Differential diagnosis: Likely pneumothorax, atypical chest pain, st elevation myocardial infarction, costochondritis and chest pain <Hoa Shetty NP - Last Filed: 05/14/22 01:48> Differential diagnosis: NSTEMI <Hoa Shetty NP - Last Filed: 05/14/22 01:48> Medical Records Data Attestation: I reviewed the patient's medical records. <Hoa Shetty NP - Last Filed: 05/14/22 01:48> Lab Data Attestation: I reviewed the patient's lab results. <Hoa Shetty NP - Last Filed: 05/14/22 01:48> Result diagrams: : 05/13/22 19:10 05/13/22 19:10 <Hoa Shetty NP - Last Filed: 05/14/22 01:48> Labs: Lab Results 05/13/22 05/13/22 05/13/22 Range/Units 19:10 19:10 19:10 WBC 8.3 (4.8-10.8) X10*3/uL RBC 4.82 (4.60-5.80) X10*6/uL Hgb 14.7 (14.0-18.0) g/dl Hct 41.6 L (42.0-52.0) % MCV 86.3 (80.0-98.0) fL MCH 30.5 (27.0-33.0) pg MCHC 35.3 (31.0-36.0) g/dl RDW 12.6 (11.0-16.0) % Plt Count 217 (160-400) X10*3/uL MPV 10.6 (9.4-12.4) fL Immature Gran % (Auto) 0.2 (0.0-0.4) % Neut % (Auto) 65.7 (45-73) % Lymph % (Auto) 21.1 (20-40) % [place] % (Auto) 9.1 (2-11) % Eos % (Auto) 3.1 (0-4) % Baso % (Auto) 0.8 (0-2) % Lymph # (Auto) 1.8 (1.2-4.9) X10*3/uL [place] # (Auto) 0.8 (0.1-1.2) X10*3/uL Eos # (Auto) 0.3 (0.0-0.4) X10*3/uL Baso # (Auto) 0.1 (0.0-0.2) X10*3/uL Abs Immat Gran (auto) 0.02 (0.00-0.03) X10*3/uL Absolute Neuts (auto) 5.5 (2.0-8.3) x10*3/uL Absolute Nucleated RBC 0.000 (0.0-0.012) X10*3/uL Nucleated RBC % (auto) 0.0 (0.0-0.2) /100WBC PT (10.0-13.1) SEC INR (0.9-1.1) APTT (26.0-36.4) SEC Sodium 136 (135-145) mmol/L Potassium 4.0 (3.3-5.1) mmol/L Chloride 99 (96-108) mmol/L Carbon Dioxide 29 (22-29) mmol/L Anion Gap 12 (12-20) BUN 23 H (9-16) mg/dL Creatinine 1.09 (0.5-1.4) mg/dL Estim Creat Clear Calc 64.3 Estimated GFR > 60 Random Glucose 93 (60-115) mg/dL Calcium 9.3 (8.4-10.2) mg/dL Total Bilirubin 0.5 (0.0-1.0) mg/dL AST 24 (5-37) U/L ALT 35 (0-40) U/L Alkaline Phosphatase 69 (39-117) U/L Troponin I High Sens 195.6 H* (<3.5-35.0) ng/L B-Natriuretic Peptide (<100) pg/mL Total Protein 7.0 (6.5-8.0) g/dL Albumin 4.4 (3.5-5.0) g/dL Lipase 46 (8-78) U/L Influenza Type A (PCR) (Negative) Influenza Type B (PCR) (Negative) RSV RNA Qual (PCR) (Negative) SARS-CoV-2 RNA (RT-PCR) (Negative) 05/13/22 05/13/22 05/13/22 Range/Units 19:10 19:10 20:09 WBC (4.8-10.8) X10*3/uL RBC (4.60-5.80) X10*6/uL Hgb (14.0-18.0) g/dl Hct (42.0-52.0) % MCV (80.0-98.0) fL MCH (27.0-33.0) pg MCHC (31.0-36.0) g/dl RDW (11.0-16.0) % Plt Count (160-400) X10*3/uL MPV (9.4-12.4) fL Immature Gran % (Auto) (0.0-0.4) % Neut % (Auto) (45-73) % Lymph % (Auto) (20-40) % [place] % (Auto) (2-11) % Eos % (Auto) (0-4) % Baso % (Auto) (0-2) % Lymph # (Auto) (1.2-4.9) X10*3/uL [place] # (Auto) (0.1-1.2) X10*3/uL Eos # (Auto) (0.0-0.4) X10*3/uL Baso # (Auto) (0.0-0.2) X10*3/uL Abs Immat Gran (auto) (0.00-0.03) X10*3/uL Absolute Neuts (auto) (2.0-8.3) x10*3/uL Absolute Nucleated RBC (0.0-0.012) X10*3/uL Nucleated RBC % (auto) (0.0-0.2) /100WBC PT 11.6 (10.0-13.1) SEC INR 1.0 (0.9-1.1) APTT 32.7 (26.0-36.4) SEC Sodium (135-145) mmol/L Potassium (3.3-5.1) mmol/L Chloride (96-108) mmol/L Carbon Dioxide (22-29) mmol/L Anion Gap (12-20) BUN (9-16) mg/dL Creatinine (0.5-1.4) mg/dL Estim Creat Clear Calc Estimated GFR Random Glucose (60-115) mg/dL Calcium (8.4-10.2) mg/dL Total Bilirubin (0.0-1.0) mg/dL AST (5-37) U/L ALT (0-40) U/L Alkaline Phosphatase (39-117) U/L Troponin I High Sens 218.1 H* (<3.5-35.0) ng/L B-Natriuretic Peptide 21 (<100) pg/mL Total Protein (6.5-8.0) g/dL Albumin (3.5-5.0) g/dL Lipase (8-78) U/L Influenza Type A (PCR) (Negative) Influenza Type B (PCR) (Negative) RSV RNA Qual (PCR) (Negative) SARS-CoV-2 RNA (RT-PCR) (Negative) 05/13/22 Range/Units 21:04 WBC (4.8-10.8) X10*3/uL RBC (4.60-5.80) X10*6/uL Hgb (14.0-18.0) g/dl Hct (42.0-52.0) % MCV (80.0-98.0) fL MCH (27.0-33.0) pg MCHC (31.0-36.0) g/dl RDW (11.0-16.0) % Plt Count (160-400) X10*3/uL MPV (9.4-12.4) fL Immature Gran % (Auto) (0.0-0.4) % Neut % (Auto) (45-73) % Lymph % (Auto) (20-40) % [place] % (Auto) (2-11) % Eos % (Auto) (0-4) % Baso % (Auto) (0-2) % Lymph # (Auto) (1.2-4.9) X10*3/uL [place] # (Auto) (0.1-1.2) X10*3/uL Eos # (Auto) (0.0-0.4) X10*3/uL Baso # (Auto) (0.0-0.2) X10*3/uL Abs Immat Gran (auto) (0.00-0.03) X10*3/uL Absolute Neuts (auto) (2.0-8.3) x10*3/uL Absolute Nucleated RBC (0.0-0.012) X10*3/uL Nucleated RBC % (auto) (0.0-0.2) /100WBC PT (10.0-13.1) SEC INR (0.9-1.1) APTT (26.0-36.4) SEC Sodium (135-145) mmol/L Potassium (3.3-5.1) mmol/L Chloride (96-108) mmol/L Carbon Dioxide (22-29) mmol/L Anion Gap (12-20) BUN (9-16) mg/dL Creatinine (0.5-1.4) mg/dL Estim Creat Clear Calc Estimated GFR Random Glucose (60-115) mg/dL Calcium (8.4-10.2) mg/dL Total Bilirubin (0.0-1.0) mg/dL AST (5-37) U/L ALT (0-40) U/L Alkaline Phosphatase (39-117) U/L Troponin I High Sens (<3.5-35.0) ng/L B-Natriuretic Peptide (<100) pg/mL Total Protein (6.5-8.0) g/dL Albumin (3.5-5.0) g/dL Lipase (8-78) U/L Influenza Type A (PCR) NEGATIVE (Negative) Influenza Type B (PCR) NEGATIVE (Negative) RSV RNA Qual (PCR) NEGATIVE (Negative) SARS-CoV-2 RNA (RT-PCR) NEGATIVE (Negative) <Hoa Stoddardonato, [employer] - Last Filed: 05/14/22 01:48> Lab Results 05/13/22 05/13/22 05/13/22 Range/Units 19:10 19:10 19:10 WBC 8.3 (4.8-10.8) X10*3/uL RBC 4.82 (4.60-5.80) X10*6/uL Hgb 14.7 (14.0-18.0) g/dl Hct 41.6 L (42.0-52.0) % MCV 86.3 (80.0-98.0) fL MCH 30.5 (27.0-33.0) pg MCHC 35.3 (31.0-36.0) g/dl RDW 12.6 (11.0-16.0) % Plt Count 217 (160-400) X10*3/uL MPV 10.6 (9.4-12.4) fL Immature Gran % (Auto) 0.2 (0.0-0.4) % Neut % (Auto) 65.7 (45-73) % Lymph % (Auto) 21.1 (20-40) % [place] % (Auto) 9.1 (2-11) % Eos % (Auto) 3.1 (0-4) % Baso % (Auto) 0.8 (0-2) % Lymph # (Auto) 1.8 (1.2-4.9) X10*3/uL [place] # (Auto) 0.8 (0.1-1.2) X10*3/uL Eos # (Auto) 0.3 (0.0-0.4) X10*3/uL Baso # (Auto) 0.1 (0.0-0.2) X10*3/uL Abs Immat Gran (auto) 0.02 (0.00-0.03) X10*3/uL Absolute Neuts (auto) 5.5 (2.0-8.3) x10*3/uL Absolute Nucleated RBC 0.000 (0.0-0.012) X10*3/uL Nucleated RBC % (auto) 0.0 (0.0-0.2) /100WBC PT (10.0-13.1) SEC INR (0.9-1.1) APTT (26.0-36.4) SEC Sodium 136 (135-145) mmol/L Potassium 4.0 (3.3-5.1) mmol/L Chloride 99 (96-108) mmol/L Carbon Dioxide 29 (22-29) mmol/L Anion Gap 12 (12-20) BUN 23 H (9-16) mg/dL Creatinine 1.09 (0.5-1.4) mg/dL Estim Creat Clear Calc 64.3 Estimated GFR > 60 Random Glucose 93 (60-115) mg/dL Calcium 9.3 (8.4-10.2) mg/dL Total Bilirubin 0.5 (0.0-1.0) mg/dL AST 24 (5-37) U/L ALT 35 (0-40) U/L Alkaline Phosphatase 69 (39-117) U/L Troponin I High Sens 195.6 H* (<3.5-35.0) ng/L B-Natriuretic Peptide (<100) pg/mL Total Protein 7.0 (6.5-8.0) g/dL Albumin 4.4 (3.5-5.0) g/dL Lipase 46 (8-78) U/L Influenza Type A (PCR) (Negative) Influenza Type B (PCR) (Negative) RSV RNA Qual (PCR) (Negative) SARS-CoV-2 RNA (RT-PCR) (Negative) 05/13/22 05/13/22 05/13/22 Range/Units 19:10 19:10 20:09 WBC (4.8-10.8) X10*3/uL RBC (4.60-5.80) X10*6/uL Hgb (14.0-18.0) g/dl Hct (42.0-52.0) % MCV (80.0-98.0) fL MCH (27.0-33.0) pg MCHC (31.0-36.0) g/dl RDW (11.0-16.0) % Plt Count (160-400) X10*3/uL MPV (9.4-12.4) fL Immature Gran % (Auto) (0.0-0.4) % Neut % (Auto) (45-73) % Lymph % (Auto) (20-40) % [place] % (Auto) (2-11) % Eos % (Auto) (0-4) % Baso % (Auto) (0-2) % Lymph # (Auto) (1.2-4.9) X10*3/uL [place] # (Auto) (0.1-1.2) X10*3/uL Eos # (Auto) (0.0-0.4) X10*3/uL Baso # (Auto) (0.0-0.2) X10*3/uL Abs Immat Gran (auto) (0.00-0.03) X10*3/uL Absolute Neuts (auto) (2.0-8.3) x10*3/uL Absolute Nucleated RBC (0.0-0.012) X10*3/uL Nucleated RBC % (auto) (0.0-0.2) /100WBC PT 11.6 (10.0-13.1) SEC INR 1.0 (0.9-1.1) APTT 32.7 (26.0-36.4) SEC Sodium (135-145) mmol/L Potassium (3.3-5.1) mmol/L Chloride (96-108) mmol/L Carbon Dioxide (22-29) mmol/L Anion Gap (12-20) BUN (9-16) mg/dL Creatinine (0.5-1.4) mg/dL Estim Creat Clear Calc Estimated GFR Random Glucose (60-115) mg/dL Calcium (8.4-10.2) mg/dL Total Bilirubin (0.0-1.0) mg/dL AST (5-37) U/L ALT (0-40) U/L Alkaline Phosphatase (39-117) U/L Troponin I High Sens 218.1 H* (<3.5-35.0) ng/L B-Natriuretic Peptide 21 (<100) pg/mL Total Protein (6.5-8.0) g/dL Albumin (3.5-5.0) g/dL Lipase (8-78) U/L Influenza Type A (PCR) (Negative) Influenza Type B (PCR) (Negative) RSV RNA Qual (PCR) (Negative) SARS-CoV-2 RNA (RT-PCR) (Negative) 05/13/22 Range/Units 21:04 WBC (4.8-10.8) X10*3/uL RBC (4.60-5.80) X10*6/uL Hgb (14.0-18.0) g/dl Hct (42.0-52.0) % MCV (80.0-98.0) fL MCH (27.0-33.0) pg MCHC (31.0-36.0) g/dl RDW (11.0-16.0) % Plt Count (160-400) X10*3/uL MPV (9.4-12.4) fL Immature Gran % (Auto) (0.0-0.4) % Neut % (Auto) (45-73) % Lymph % (Auto) (20-40) % [place] % (Auto) (2-11) % Eos % (Auto) (0-4) % Baso % (Auto) (0-2) % Lymph # (Auto) (1.2-4.9) X10*3/uL [place] # (Auto) (0.1-1.2) X10*3/uL Eos # (Auto) (0.0-0.4) X10*3/uL Baso # (Auto) (0.0-0.2) X10*3/uL Abs Immat Gran (auto) (0.00-0.03) X10*3/uL Absolute Neuts (auto) (2.0-8.3) x10*3/uL Absolute Nucleated RBC (0.0-0.012) X10*3/uL Nucleated RBC % (auto) (0.0-0.2) /100WBC PT (10.0-13.1) SEC INR (0.9-1.1) APTT (26.0-36.4) SEC Sodium (135-145) mmol/L Potassium (3.3-5.1) mmol/L Chloride (96-108) mmol/L Carbon Dioxide (22-29) mmol/L Anion Gap (12-20) BUN (9-16) mg/dL Creatinine (0.5-1.4) mg/dL Estim Creat Clear Calc Estimated GFR Random Glucose (60-115) mg/dL Calcium (8.4-10.2) mg/dL Total Bilirubin (0.0-1.0) mg/dL AST (5-37) U/L ALT (0-40) U/L Alkaline Phosphatase (39-117) U/L Troponin I High Sens (<3.5-35.0) ng/L B-Natriuretic Peptide (<100) pg/mL Total Protein (6.5-8.0) g/dL Albumin (3.5-5.0) g/dL Lipase (8-78) U/L Influenza Type A (PCR) NEGATIVE (Negative) Influenza Type B (PCR) NEGATIVE (Negative) RSV RNA Qual (PCR) NEGATIVE (Negative) SARS-CoV-2 RNA (RT-PCR) NEGATIVE (Negative) <Cole Yeboah MD - Last Filed: 05/14/22 02:56> Imaging Data Chest x-ray: Attestation: I personally reviewed and interpreted this imaging study as follows: <Hoa Shetty NP - Last Filed: 05/14/22 01:48> Radiologist's impression: EXAMINATION: XR CHEST CLINICAL INFORMATION: Chest pain. COMPARISON: None TECHNIQUE: Frontal view of the chest was obtained. FINDINGS: There is mild interstitial prominence but no focal airspace opacity, pleural effusion or pneumothorax. Cardiomediastinal silhouette is mildly prominent. No acute osseous abnormalities. Left axillary surgical clips are seen. XR/XR chest 1V IMPRESSION: 1.? Mild interstitial prominence is indeterminate and could be associated with asthma, bronchitis, reactive airways disease or atypical viral infections. 2.? No focal consolidation. <Hoa Shetty NP - Last Filed: 05/14/22 01:48> ECG Data ECG #1: Attestation: I personally reviewed and interpreted this ECG as follows: <Hoa Shetty NP - Last Filed: 05/14/22 01:48> ECG interpretation date: 05/13/22 <Hoa Shetty NP - Last Filed: 05/14/22 01:48> ECG interpretation time: 19:01 <Hoa Shetty NP - Last Filed: 05/14/22 01:48> Prior ECG tracings: not available for review <Hoa Shetty NP - Last Filed: 05/14/22 01:48> Interpretation: Vent. rate 65 BPM HI interval 168 ms QRS duration 100 ms QT/QTc 404/420 ms P-R-T axes 22 -20 54 Normal sinus rhythm Possible Left atrial enlargement Minimal voltage criteria for LVH, may be normal variant ( [place] product ) Borderline ECG No previous ECGs available <Hoa Shetty NP - Last Filed: 05/14/22 01:48> ECG #2: Attestation: I personally reviewed and interpreted this ECG as follows: <Hoa Shetty NP - Last Filed: 05/14/22 01:48> ECG interpretation date: 05/13/22 <Hoa Shetty NP - Last Filed: 05/14/22 01:48> ECG interpretation time: 19:52 <Hoa Shetty NP - Last Filed: 05/14/22 01:48> Prior ECG tracings: available for review <Hoa Shetty NP - Last Filed: 05/14/22 01:48> Interpretation: Vent. rate 67 BPM HI interval 178 ms QRS duration 100 ms QT/QTc 416/439 ms P-R-T axes 33 -26 56 Normal sinus rhythm Moderate voltage criteria for LVH, may be normal variant ( R in aVL , Randolph product ) Borderline ECG When compared with ECG of 13-MAY-2022 19:01, No significant change was found <Hoa Shetty NP - Last Filed: 05/14/22 01:48> ECG #3: Interpretation: <Hoa Shetty NP - Last Filed: 05/14/22 01:48> Critical Care Time Critical Care Time Critical Care Time: Yes <Hoa Shetty NP - Last Filed: 05/14/22 01:48> Total Critical Care Time: 120 <Hoa Shetty NP - Last Filed: 05/14/22 01:48> Attestation: I have personally provided critical care time exclusive of time spent on separately billable procedures. Time includes review of laboratory data, radiology results, discussion with consultants, and monitoring for potential decompensation. Interventions were performed as documented. <VALDO Blackmon Last Filed: 05/14/22 01:48> Discharge Plan Discharge Clinical Impression: Non-ST elevation DE (NSTEMI) <Hoa Shetty NP - Last Filed: 05/14/22 01:48> Patient Disposition: Admitted As Inpatient <Hoa Shetty NP - Last Filed: 05/14/22 01:48> Interventions: Admission Worksheet (ED) Last Done: 05/14/22 01:56 <Hoa Shetty NP - Last Filed: 05/14/22 01:48> Discharge Date/Time: 05/14/22 01:57 <Hoa Shetty NP - Last Filed: 05/14/22 01:48>
--- NOTE | 2022-05-13 20:31 | PC.NURSE ---
pt became nauseous and slightly diaphoretic after morphine / nitro administration - ROLLER MECHANIC Hoa made aware. this RN and ROLLER MECHANIC at bedside to assess. patient stable.
[2022-05-13] MEDS: 0.9 % Sodium Chloride 1,000 ML 999 ML IVCONT (20:33)
--- NOTE | 2022-05-13 20:34 | ECG_ITS ---
Test Reason : BRADYCARDIA Blood Pressure : / mmHG Vent. Rate : 079 BPM Atrial Rate : 000 BPM P-R Int : 000 ms QRS Dur : 092 ms QT Int : 412 ms P-R-T Axes : 000 -12 032 degrees QTc Int : 472 ms Atrial fibrillation Inferior infarct , age undetermined Abnormal ECG No previous ECGs available Referred By: Hoa Shetty Electronically Signed By:Gerry Conn
[2022-05-13 20:41] LABS: Troponin-I High Sensitivity 218.1 ng/L (<3.5-35.0)
[2022-05-13] MEDS: Heparin Sodium,Porcine 5,000 UNIT/ML VIAL 4000 UNIT IVPUSH (21:12)
[2022-05-13] MEDS: Heparin Sodium,Porcine/1/2NS 25,000 UNIT/250 ML IV.SOLN 10 UNIT IVCONT (21:35)
[2022-05-13] MEDS: Metoprolol Tartrate 5 MG/5 ML VIAL 2.5 MG IVPUSH (21:41)
[2022-05-13 21:49] LABS: Influenza A PCR NEGATIVE (Negative); Influenza B PCR NEGATIVE (Negative); Resp Syncy Virus RNA Qual PCR NEGATIVE (Negative); SARS COV2 PCR INHOUSE NEGATIVE (Negative)
--- NOTE | 2022-05-13 22:05 | PHA.MEDREC ---
Pharmacy Consult ? Medication Reconciliation Pharmacy has completed the medication reconciliation. Patient and spouse reported all medications. Comfort Soliman, NathanD
--- NOTE | 2022-05-13 22:38 | PM.IMHP ---
History of Present Illness Date of Service: 05/13/22 Chief Complaint: chest pain 81-year-old male with past medical history of CVA, hypertension, hypothyroidism, presents to the hospital with complaints of midsternal chest pain while walking. Patient reports the chest pain to be pressure-like, radiating to arms bilaterally, as well as his chin lasting few minutes and resolving at rest. Pain is associated with shortness of breath, increased fatigue Patient reports intermittent similar episodes in the past 2 weeks, occurring with exertion, resolving with rest. He is also complaining of increased fatigue for the past 1 month, he reports that he was started on lisinopril about 2 weeks ago which felt like worsened his symptoms. Denies any abdominal pain, has been constipated, no headache or change in vision, no palpitations, no urinary symptoms and no lower extremity edema. No orthopnea or PND On arrival to the ED patient hemodynamically stable with slightly elevated blood pressure Labs are significant for WBC count of 8.3, hemoglobin of 14.7, initial troponin of 195, increased to 218, BNP of 21, COVID-19 positive EKG shows T-wave inversions in anterior leads Patient started on heparin and will be admitted further management Review of Systems Review of Systems: Yes all other systems are reviewed and are negative [facility] Medical History CVA (cerebral vascular accident) Fatigue Hypertension Hypothyroidism Family History Father Lung cancer Mother Heart disease Surgical History H/O melanoma excision History of surgery on arm Hx of colonoscopy Social History Household Members: Spouse Housing: House Do you presently have visiting nurse or other home services: No Patient Tobacco Use Status: Former Tobacco user Use of substances other than those prescribed or required for medical reasons: No Have you been hit, kicked, punched, or otherwise hurt by someone within the past year? If so, by whom?: No Do you feel safe in your current relationship?: Yes Is there a partner from a previous relationship who is making you feel unsafe now?: No Are you made to feel afraid or neglected: No Advance Directives: No Advance Directives Information Provided: No Do you have thoughts of harming others: None Do you have a plan to hurt others: No Plan Recently lost weight without trying: No Eating poorly because of decreased appetite: No Poor oral hygiene: No Meds Allergies Allergy/AdvReac Type Severity Reaction Status Date / Time No Known Allergies Allergy Verified 02/11/22 11:08 Active Medications: Current Medications Acetaminophen (Acetaminophen 325 Mg Tablet) 650 mg PO Q6H PRN PRN Reason: Pain, Mild (Pain Scale 1-3) Docusate Sodium (Docusate Sodium 100 Mg Capsule) 100 mg PO DAILY PRN PRN Reason: Constipation Heparin Sodium (Porcine) (Heparin Sodium,Porcine 5,000 Unit/Ml Vial) 3,900 unit 40 unit/kg (3900 unit) IVPUSH PROTOCOL BOLUS PRN; Protocol PRN Reason: 40 unit/kg - Heparin Protocol Heparin Sodium (Porcine) (Heparin Sodium,Porcine 5,000 Unit/Ml Vial) 7,800 unit 80 unit/kg (7800 unit) IVPUSH PROTOCOL BOLUS PRN; Protocol PRN Reason: 80 unit/kg - Heparin Protocol Heparin Sodium/Sodium Chloride (Heparin Sodium,Porcine/1/2ns) 25,000 unit in 250 mls @ 0 mls/hr IVCONT .Q0M CONRAD; Protocol Last Admin: 05/13/22 21:35 Dose: 10.25 units/kg/hr, 10 mls/hr Morphine Sulfate (Morphine Sulfate 4 Mg/Ml Cartridge) 4 mg IVPUSH Q4H PRN; Protocol PRN Reason: Chest Pain Nitroglycerin (Nitroglycerin 0.4 Mg Tab.Subl) 0.4 mg SUBLINGUAL Q5MX3 PRN PRN Reason: cp Last Admin: 05/13/22 20:13 Dose: 0.4 mg Ondansetron HCl (Ondansetron Hcl 4 Mg/2 Ml Vial) 4 mg IVPUSH Q8H PRN PRN Reason: Nausea and Vomiting Sodium Chloride (0.9 % Sodium Chloride Flush 3 Ml Syringe) 3 ml IVFLUSH QSHIFT [facility] Home Medications Medication Instructions Recorded Confirmed Last Taken Type aspirin 81 mg capsule 81 mg PO DAILY 05/20/21 05/13/22 05/13/22 History cholecalciferol (vitamin D3) 50 50 mcg PO DAILY 05/20/21 05/13/22 05/13/22 History mcg (2,000 unit) capsule levothyroxine 25 mcg capsule 25 mcg PO DAILY 05/20/21 05/13/22 05/13/22 History simvastatin 40 mg tablet 40 mg PO DAILY 05/20/21 05/13/22 05/13/22 History hydrochlorothiazide 25 mg tablet 50 mg PO DAILY 02/04/22 05/13/22 05/13/22 History triamcinolone acetonide 0.1 % 1 appl topical BID PRN Rash 02/04/22 05/13/22 Unknown History topical cream docusate sodium 100 mg tablet 100 mg PO DAILY PRN Constipation 05/13/22 05/13/22 Unknown History lisinopril 20 mg tablet 1 tab PO DAILY 05/13/22 05/13/22 05/13/22 History Physical Exam Vital Signs and Narrative: Vital Signs: Last Vital Signs Temp 98.9 F 05/13/22 19:24 Pulse 84 05/13/22 21:14 Resp 12 05/13/22 21:14 BP 139/91 H 05/13/22 21:14 Pulse Ox 100 05/13/22 21:14 O2 Del Method 05/13/22 21:14 O2 Flow Rate 3 05/13/22 21:14 BMI result Body Mass Index 30.8 Const: General: cooperative and no acute distress Orientation/consciousness: patient oriented x3 Eyes: General: appearance normal, both eyes and all related structures Resp: Effort & Inspection: normal respiratory effort Auscultation: clear to auscultation bilaterally Cardio: Rate: regular rate Rhythm: regular rhythm GI: Palpation (GI): Soft to palpation Auscultation: normal bowel sounds Skin: General skin exam: no rashes or lesions noted Neuro: General: patient oriented x3 Cognition (Neuro): normal cognition Extrem: General: Yes normal to inspection and Yes no pedal edema Results Labs CBC and Chem 7: 05/14/22 06:01 05/14/22 06:01 Labs: Laboratory Results - last 24 hr 05/13/22 05/13/22 05/13/22 19:10 19:10 19:10 MCV 86.3 MCH 30.5 MCHC 35.3 RDW 12.6 Plt Count 217 MPV 10.6 Immature Gran % (Auto) 0.2 Neut % (Auto) 65.7 Lymph % (Auto) 21.1 [place] % (Auto) 9.1 Eos % (Auto) 3.1 Baso % (Auto) 0.8 Lymph # (Auto) 1.8 [place] # (Auto) 0.8 Eos # (Auto) 0.3 Baso # (Auto) 0.1 Abs Immat Gran (auto) 0.02 Absolute Neuts (auto) 5.5 Absolute Nucleated RBC 0.000 Nucleated RBC % (auto) 0.0 PT INR APTT Anion Gap 12 Estim Creat Clear Calc 64.3 Estimated GFR > 60 Random Glucose 93 Calcium 9.3 Total Bilirubin 0.5 AST 24 ALT 35 Alkaline Phosphatase 69 Troponin I High Sens 195.6 H* B-Natriuretic Peptide Total Protein 7.0 Albumin 4.4 Lipase 46 Influenza Type A (PCR) Influenza Type B (PCR) RSV RNA Qual (PCR) SARS-CoV-2 RNA (RT-PCR) 05/13/22 05/13/22 05/13/22 19:10 19:10 20:09 MCV MCH MCHC RDW Plt Count MPV Immature Gran % (Auto) Neut % (Auto) Lymph % (Auto) [place] % (Auto) Eos % (Auto) Baso % (Auto) Lymph # (Auto) [place] # (Auto) Eos # (Auto) Baso # (Auto) Abs Immat Gran (auto) Absolute Neuts (auto) Absolute Nucleated RBC Nucleated RBC % (auto) PT 11.6 INR 1.0 APTT 32.7 Anion Gap Estim Creat Clear Calc Estimated GFR Random Glucose Calcium Total Bilirubin AST ALT Alkaline Phosphatase Troponin I High Sens 218.1 H* B-Natriuretic Peptide 21 Total Protein Albumin Lipase Influenza Type A (PCR) Influenza Type B (PCR) RSV RNA Qual (PCR) SARS-CoV-2 RNA (RT-PCR) 05/13/22 21:04 MCV MCH MCHC RDW Plt Count MPV Immature Gran % (Auto) Neut % (Auto) Lymph % (Auto) [place] % (Auto) Eos % (Auto) Baso % (Auto) Lymph # (Auto) [place] # (Auto) Eos # (Auto) Baso # (Auto) Abs Immat Gran (auto) Absolute Neuts (auto) Absolute Nucleated RBC Nucleated RBC % (auto) PT INR APTT Anion Gap Estim Creat Clear Calc Estimated GFR Random Glucose Calcium Total Bilirubin AST ALT Alkaline Phosphatase Troponin I High Sens B-Natriuretic Peptide Total Protein Albumin Lipase Influenza Type A (PCR) NEGATIVE Influenza Type B (PCR) NEGATIVE RSV RNA Qual (PCR) NEGATIVE SARS-CoV-2 RNA (RT-PCR) NEGATIVE Imaging Radiologist's Impressions: Impressions Chest X-Ray 05/13/22 18:57 IMPRESSION: 1. Mild interstitial prominence is indeterminate and could be associated with asthma, bronchitis, reactive airways disease or atypical viral infections. 2. No focal consolidation. Assessment and Plan (1) Non-ST elevation CO (NSTEMI): Status: Acute (2) SARS-CoV-2 positive: Status: Acute Plan 81-year-old male with past medical history of CVA, as well as hypertension and hypothyroidism presents to the hospital with complaints of chest pain found to have an NSTEMI # acute NSTEMI - elevated troponin, with typical chest pain as well as EKG changes suggestive of T-wave inversions - patient received nitro in the ED with a significant drop in BP - case was discussed with Cardiology, no evidence of posterior wall CO at this time therefore patient will be admitted and started on IV heparin drip - will order echocardiogram, continue aspirin, will switch to high-dose statin, continue lisinopril # hypertension - continue home antihypertensives # hypothyroidism - continue levothyroxine DVT prophylaxis: Heparin ggt given patient's acute NSTEMI patient required minimum tonight inpatient hospital stay for further management and monitor Quality Stroke Does the patient have a stroke diagnosis?: No VTE Prior VTE?: No VTE Risk Level:: Medical - moderate - high VTE Device Contraindication: Treatment Not Indicated VTE Drug Contraindication: N/A - Med Ordered
[2022-05-14 01:09] VITALS: BP 110/68; PULSE 72; RESP 17; O2SAT 100
--- NOTE | 2022-05-14 01:10 | PC.NURSE ---
pt's blood pressures have been holding steady about 100-120s systolic, patient has been laying slightly in trendelenburg position. HR remaining stable around 72. Pt has no current complaints or pain. heparin drip running. report called to [facility] RN.
[2022-05-14 01:51] LABS: Troponin-I High Sensitivity 214.2 ng/L (<3.5-35.0)
[2022-05-14 02:50] VITALS: BP 127/80; PULSE 70; RESP 20; TEMP 36.2; O2SAT 98
[2022-05-14 04:08] LABS: PTT Heparin Drip 48.1 SEC (53-77.9)
[2022-05-14] MEDS: Heparin Sodium,Porcine 5,000 UNIT/ML VIAL 3900 UNIT IVPUSH ×2 (04:16→17:59)
[2022-05-14 06:00] VITALS: BMI 30.2
[2022-05-14 06:08] LABS: MANUAL DIFF FLAG NO
[2022-05-14 06:23] LABS: Basophils Absolute Auto 0.1 X10*3/uL (0.0-0.2); Basophils Percent Auto 0.9 % (0-2); Eosinophils Absolute Auto 0.2 X10*3/uL (0.0-0.4); Eosinophils Percent Auto 3.1 % (0-4); Hematocrit 41.8 % (42.0-52.0); Hemoglobin 14.7 g/dl (14.0-18.0); Imm Gran Abs Auto 0.02 X10*3/uL (0.00-0.03); Imm Gran Pct Auto 0.3 % (0.0-0.4); Lymphocytes Absolute Auto 1.6 X10*3/uL (1.2-4.9); Lymphocytes Percent Auto 21.1 % (20-40); Mean Corpuscular HGB Conc 35.2 g/dl (31.0-36.0); Mean Corpuscular Hemoglobin 30.6 pg (27.0-33.0); Mean Corpuscular Volume 87.1 fL (80.0-98.0); Mean Platelet Volume 10.9 fL (9.4-12.4); Monocytes Absolute Auto 0.7 X10*3/uL (0.1-1.2); Monocytes Percent Auto 9.4 % (2-11); Neutrophils Percent Auto 65.2 % (45-73); Platelet Count 211 X10*3/uL (160-400); Red Cell Distribution Width 12.7 % (11.0-16.0); White Blood Count 7.7 X10*3/uL (4.8-10.8)
[2022-05-14 06:33] LABS: Prothrombin Time 11.9 SEC (10.0-13.1)
[2022-05-14 06:53] LABS: Anion Gap 10 (12-20); Blood Urea Nitrogen 20 mg/dL (9-16); Carbon Dioxide 30 mmol/L (22-29); Chloride 99 mmol/L (96-108); Creatinine Clr Calc Pharmacy 83.6; Estimated Glomerular Filt Rate > 60; Glucose Random 113 mg/dL (60-115); Potassium 3.8 mmol/L (3.3-5.1); Sodium 135 mmol/L (135-145)
--- NOTE | 2022-05-14 07:00 | CA_ITS ---
Transthoracic Echocardiogram Patient (Last, First, Middle): Parish Ibanez W Gender: Male Date of : 1940 Age: 81 Procedure Date: 05/14/2022 Procedure Type: Transthoracic Echocardiogram Location: [facility] [place] Height: 177.8 cm Weight: 95.26 kg BSA: 2.13 m2 Heart Rate: bpm BP: 140 / 90 mmHg Sharepoint Application Developer: Referring MD: Luis Miguel Nolasco MD Director Decision Support: Gerry Conn MD Symptoms: NSTEMI Study Quality: Fair w Contrast ECG Rhythm: Sinus Conclusions: - Normal left ventricular size and systolic function. There is severely increased left ventricular wall thickness. The visually estimated ejection fraction is between 60-65%. - E/E prime ratio is between 8 and 15 consistent with indeterminate filling pressures. - The mid anteroseptal segment is akinetic. - Normal right ventricular cavity size and systolic function. - There is mild dilatation of the ascending aorta measuring 3.80 cm. Findings Procedure Information Contrast agent, definity, is being given per protocol without apparent complications. Left Ventricle Normal left ventricular size and systolic function. There is severely increased left ventricular wall thickness. The visually estimated ejection fraction is between 60-65%. There is evidence of regional wall motion abnormalities. Abnormal diastolic function is noted. Spectral Doppler is indicative of an impaired relaxation filling pattern. E/E prime ratio is between 8 and 15 consistent with indeterminate filling pressures. Wall Motion Rest Echo Findings The mid anteroseptal segment is akinetic. Right Ventricle Normal right ventricular cavity size and systolic function. Atria The left atrium is normal in size. Aortic Valve There is a normal trileaflet aortic valve. There is moderate calcification of the aortic valve. There is moderate thickening of the aortic valve. There is mild aortic valve stenosis. There is no aortic valve regurgitation. Mitral Valve There is moderate mitral annular calcification. There is no mitral valve regurgitation. There is no mitral valve stenosis. Pulmonic Valve The pulmonic valve is likely normal. Tricuspid Valve Normal tricuspid valve structure. There is no tricuspid valve regurgitation. Normal right atrial pressure. There is no evidence of pulmonary hypertension. Great Vessels The pulmonary artery was not well visualized. There is mild dilatation of the ascending aorta measuring 3.80 cm. Venous The inferior vena cava is normal in size and collapses greater than 50% with inspiration. Pericardium/Pleural There is no evidence of pericardial effusion. Prior Study Comparison No prior study available for comparison. Measurements 2D Linear Measurements IVSd: 1.50 0.6-0.9/0.6-1.0 cm LVIDd: 3.50 3.9-5.3/4.2-5.9 cm LVIDd Index: 1.64 2.4-3.2/2.2-3.1 cm/m2 LVIDs: 2.46 2.0-3.6 cm LVPWd: 1.50 0.7-1.1 cm Ao Root: 3.70 2.1-3.5 cm LA Diam: 2.90 2.7-3.8/3.0-4.0 cm LAIDs Index: 1.36 1.5-2.3 cm/m2 LV Mass: 241.02 67-162/88-224 g LV Mass Index: 113.15 43-95/49-115 g/m2 LVOT Diam: 2.00 3.0+(-)1.3 cm Mitral Valve MV Pk E: 0.60 MV PK A: 1.26 MV Decel Time: 152.00 E/A: 0.50 E'Lateral: 7.40 E'Medial: 4.03 E/E' Med: 14.90 E/E' Lat: 8.10 PHT: 45.00 MVA PHT: 4.89 Decel [place]: 3.93 Aortic Valve AoV Pk Onel: 2.39 AoV Mn Onel: 1.57 AoV VTI: 0.45 AoV Pk Grad: 23.00 Aov Mn Grad: 12.00 CLAUDIO Cont.VTI: 1.45 LVOT LVOT Pk Onel: 1.02 LVOT Mn Onel: 0.66 LVOT VTI: 0.21 LVOT Pk Grad: 4.00 LVOT Mn Grad: 2.00 LVOT Diam: 2.00 LVOT Area: 3.14 Diastolic Function MV Pk E: 0.60 MV Pk A: 1.26 E/A: 0.50 E'Medial: 4.03 E/E' Med: 14.90 E' Laterial: 7.40 E/E' Lat: 8.10 Tricuspid Valve TR Pk Onel: 2.05 TR Pk Grad: 17.00 Great Vessels Aorta Ao Root-2D: 3.70 2.0-3.7 cm Ao Asc: 3.80 2.1-3.4 cm Pulmonary Valve PV Pk Onel: 1.28 Peak PV Grad: 7.00 Updated in Other Vendor System with Status of Final Gerry Conn MD electronically signed on 05/14/2022 3:40:16 PM with status of Final
[2022-05-14 07:10] VITALS: BP 140/90; PULSE 70; RESP 16; TEMP 36.3; O2SAT 99
[2022-05-14] MEDS: Levothyroxine Sodium 25 MCG TABLET PO (07:35)
[2022-05-14] MEDS: 0.9 % Sodium Chloride Flush 3 ML SYRINGE IVFLUSH (07:36)
[2022-05-14] MEDS: hydroCHLOROthiazide 50 MG TABLET PO (09:40)
[2022-05-14] MEDS: Aspirin Enteric Coated 81 MG TABLET.DR PO (09:40)
[2022-05-14] MEDS: Cholecalciferol (Vitamin D3) 25 MCG TABLET 50 MCG PO (09:40)
[2022-05-14] MEDS: lisinopriL 20 MG TABLET PO (09:40)
[2022-05-14 10:44] LABS: PTT Heparin Drip 106.7 SEC (53-77.9)
[2022-05-14 11:25] VITALS: BP 135/75; PULSE 75; RESP 17; TEMP 36.6; O2SAT 100
--- NOTE | 2022-05-14 12:10 | MHC.CM.PN ---
pt is covid poasitive left mwessage for pts dc plan tbd
--- NOTE | 2022-05-14 15:40 | P.PNIM_ITS ---
Subjective Subjective Date of Service: 05/14/22 Interval History: seen and examined this morning follow up for chest pain no chest pain at this time. no shortness of breath or palpitaitons Review of Systems Review of Systems: Yes all other systems are reviewed and are negative Constitutional Constitutional: Denies chills and Denies fever(s) Cardiovascular Cardiovascular: Reports chest pain, Denies palpitations and Denies dyspnea Respiratory Respiratory: Denies cough and Denies dyspnea Gastrointestinal Gastrointestinal: Denies abdominal pain, Denies nausea and Denies vomiting Endocrine Endocrine: Denies palpitations Physical Exam Vital Signs: Vital Signs: Last Vital Signs Temp 97.8 F 05/14/22 11:25 Pulse 75 05/14/22 11:25 Resp 17 05/14/22 11:25 BP 135/75 05/14/22 11:25 Pulse Ox 100 05/14/22 11:25 O2 Del Method 05/14/22 11:25 O2 Flow Rate 3 05/13/22 22:47 BMI result Body Mass Index 30.2 Const: General: cooperative, comfortable, alert and awake Nutritional Appearance: overweight Orientation/consciousness: patient oriented x3 Resp: Effort & Inspection: normal respiratory effort and able to speak in complete sentences Auscultation: clear to auscultation bilaterally Cardio: Rate: regular rate Heart sounds: S1 normal heart sound present and S2 normal heart sound present GI: Inspection: No distended Palpation (GI): Soft to palpation and nontender Neuro: General: patient oriented x3 and CN's II-XI intact bilaterally Extrem: General: Yes no pedal edema Objective Data Active Medications Acetaminophen (Acetaminophen 325 Mg Tablet) 650 mg PO Q6H PRN PRN Reason: Pain, Mild (Pain Scale 1-3) Aspirin (Aspirin Enteric Coated 81 Mg Tablet.) 81 mg PO DAILY [facility] Last Admin: 05/14/22 09:40 Dose: 81 mg Documented By: SARAH Atorvastatin Calcium (Atorvastatin Calcium 40 Mg Tablet) 40 mg PO BEDTIME [facility] Docusate Sodium (Docusate Sodium 100 Mg Capsule) 100 mg PO DAILY PRN PRN Reason: Constipation Docusate Sodium (Docusate Sodium 100 Mg Capsule) 100 mg PO DAILY PRN PRN Reason: Constipation Heparin Sodium (Porcine) (Heparin Sodium,Porcine 5,000 Unit/Ml Vial) 3,900 unit 40 unit/kg (3900 unit) IVPUSH PROTOCOL BOLUS PRN; Protocol PRN Reason: 40 unit/kg - Heparin Protocol Last Admin: 05/14/22 04:16 Dose: 3,900 unit Documented By: GURMEET Heparin Sodium (Porcine) (Heparin Sodium,Porcine 5,000 Unit/Ml Vial) 7,800 unit 80 unit/kg (7800 unit) IVPUSH PROTOCOL BOLUS PRN; Protocol PRN Reason: 80 unit/kg - Heparin Protocol Hydrochlorothiazide (Hydrochlorothiazide 50 Mg Tablet) 50 mg PO DAILY [facility]; Protocol Last Admin: 05/14/22 09:40 Dose: 50 mg Documented By: SARAH Heparin Sodium/Sodium Chloride (Heparin Sodium,Porcine/1/2ns) 25,000 unit in 250 mls @ 0 mls/hr IVCONT .Q0M [facility]; Protocol Last Titration: 05/14/22 12:04 Dose: 9.25 units/kg/hr, 9.02 mls/hr Documented By: MAIN Co-signed By: NEVAEH Levothyroxine Sodium (Levothyroxine Sodium 25 Mcg Tablet) 25 mcg PO DAILY@0600 [facility] Last Admin: 05/14/22 07:35 Dose: 25 mcg Documented By: MAIN Lisinopril (Lisinopril 20 Mg Tablet) 20 mg PO DAILY [facility]; Protocol Last Admin: 05/14/22 09:40 Dose: 20 mg Documented By: SARAH Morphine Sulfate (Morphine Sulfate 4 Mg/Ml Cartridge) 4 mg IVPUSH Q4H PRN; Protocol PRN Reason: Chest Pain Nitroglycerin (Nitroglycerin 0.4 Mg Tab.Subl) 0.4 mg SUBLINGUAL Q5MX3 PRN PRN Reason: cp Last Admin: 05/13/22 20:13 Dose: 0.4 mg Documented By: GIORGI Ondansetron HCl (Ondansetron Hcl 4 Mg/2 Ml Vial) 4 mg IVPUSH Q8H PRN PRN Reason: Nausea and Vomiting Sodium Chloride (0.9 % Sodium Chloride Flush 3 Ml Syringe) 3 ml IVFLUSH QSHIFT [facility] Last Admin: 05/14/22 07:36 Dose: 3 ml Documented By: MAIN Vitamin D (Cholecalciferol (Vitamin D3) 25 Mcg Tablet) 50 mcg PO DAILY [facility] Last Admin: 05/14/22 09:40 Dose: 50 mcg Documented By: SARAH Labs CBC & Chem 7: 05/14/22 06:01 05/14/22 06:01 Labs: Laboratory Results - last 24 hr 05/13/22 05/13/22 05/13/22 19:10 19:10 19:10 MCV 86.3 MCH 30.5 MCHC 35.3 RDW 12.6 Plt Count 217 MPV 10.6 Immature Gran % (Auto) 0.2 Neut % (Auto) 65.7 Lymph % (Auto) 21.1 [place] % (Auto) 9.1 Eos % (Auto) 3.1 Baso % (Auto) 0.8 Lymph # (Auto) 1.8 [place] # (Auto) 0.8 Eos # (Auto) 0.3 Baso # (Auto) 0.1 Abs Immat Gran (auto) 0.02 Absolute Neuts (auto) 5.5 Absolute Nucleated RBC 0.000 Nucleated RBC % (auto) 0.0 PT INR APTT aPTT Heparin Protocol Anion Gap 12 Estim Creat Clear Calc 64.3 Estimated GFR > 60 Random Glucose 93 Calcium 9.3 Total Bilirubin 0.5 AST 24 ALT 35 Alkaline Phosphatase 69 Troponin I High Sens 195.6 H* B-Natriuretic Peptide Total Protein 7.0 Albumin 4.4 Lipase 46 Influenza Type A (PCR) Influenza Type B (PCR) RSV RNA Qual (PCR) SARS-CoV-2 RNA (RT-PCR) 05/13/22 05/13/22 05/13/22 19:10 19:10 20:09 MCV MCH MCHC RDW Plt Count MPV Immature Gran % (Auto) Neut % (Auto) Lymph % (Auto) [place] % (Auto) Eos % (Auto) Baso % (Auto) Lymph # (Auto) [place] # (Auto) Eos # (Auto) Baso # (Auto) Abs Immat Gran (auto) Absolute Neuts (auto) Absolute Nucleated RBC Nucleated RBC % (auto) PT 11.6 INR 1.0 APTT 32.7 aPTT Heparin Protocol Anion Gap Estim Creat Clear Calc Estimated GFR Random Glucose Calcium Total Bilirubin AST ALT Alkaline Phosphatase Troponin I High Sens 218.1 H* B-Natriuretic Peptide 21 Total Protein Albumin Lipase Influenza Type A (PCR) Influenza Type B (PCR) RSV RNA Qual (PCR) SARS-CoV-2 RNA (RT-PCR) 05/13/22 05/14/22 05/14/22 21:04 00:55 03:39 MCV MCH MCHC RDW Plt Count MPV Immature Gran % (Auto) Neut % (Auto) Lymph % (Auto) [place] % (Auto) Eos % (Auto) Baso % (Auto) Lymph # (Auto) [place] # (Auto) Eos # (Auto) Baso # (Auto) Abs Immat Gran (auto) Absolute Neuts (auto) Absolute Nucleated RBC Nucleated RBC % (auto) PT INR APTT aPTT Heparin Protocol 48.1 L Anion Gap Estim Creat Clear Calc Estimated GFR Random Glucose Calcium Total Bilirubin AST ALT Alkaline Phosphatase Troponin I High Sens 214.2 H* B-Natriuretic Peptide Total Protein Albumin Lipase Influenza Type A (PCR) NEGATIVE Influenza Type B (PCR) NEGATIVE RSV RNA Qual (PCR) NEGATIVE SARS-CoV-2 RNA (RT-PCR) NEGATIVE 05/14/22 05/14/22 05/14/22 06:01 06:01 06:01 MCV 87.1 MCH 30.6 MCHC 35.2 RDW 12.7 Plt Count 211 MPV 10.9 Immature Gran % (Auto) 0.3 Neut % (Auto) 65.2 Lymph % (Auto) 21.1 [place] % (Auto) 9.4 Eos % (Auto) 3.1 Baso % (Auto) 0.9 Lymph # (Auto) 1.6 [place] # (Auto) 0.7 Eos # (Auto) 0.2 Baso # (Auto) 0.1 Abs Immat Gran (auto) 0.02 Absolute Neuts (auto) 5.0 Absolute Nucleated RBC 0.000 Nucleated RBC % (auto) 0.0 PT 11.9 INR 1.0 APTT aPTT Heparin Protocol Anion Gap 10 L Estim Creat Clear Calc 83.6 Estimated GFR > 60 Random Glucose 113 Calcium 9.0 Total Bilirubin AST ALT Alkaline Phosphatase Troponin I High Sens B-Natriuretic Peptide Total Protein Albumin Lipase Influenza Type A (PCR) Influenza Type B (PCR) RSV RNA Qual (PCR) SARS-CoV-2 RNA (RT-PCR) 05/14/22 10:06 MCV MCH MCHC RDW Plt Count MPV Immature Gran % (Auto) Neut % (Auto) Lymph % (Auto) [place] % (Auto) Eos % (Auto) Baso % (Auto) Lymph # (Auto) [place] # (Auto) Eos # (Auto) Baso # (Auto) Abs Immat Gran (auto) Absolute Neuts (auto) Absolute Nucleated RBC Nucleated RBC % (auto) PT INR APTT aPTT Heparin Protocol 106.7 H D Anion Gap Estim Creat Clear Calc Estimated GFR Random Glucose Calcium Total Bilirubin AST ALT Alkaline Phosphatase Troponin I High Sens B-Natriuretic Peptide Total Protein Albumin Lipase Influenza Type A (PCR) Influenza Type B (PCR) RSV RNA Qual (PCR) SARS-CoV-2 RNA (RT-PCR) Assessment and Plan (1) Non-ST elevation [place] (NSTEMI): Status: Acute Plan 81-year-old male with past medical history of CVA, as well as hypertension and hypothyroidism presents to the hospital with complaints of chest pain found to have an NSTEMI NSTEMI elevated troponin, with typical chest pain as well as EKG changes suggestive of T-wave inversions patient received nitro in the ED with a significant drop in BP continue IV heparin drip echo pending continue aspirin, witch to high-dose statin seen by cardiology - plan for 48 hours of heparin, and likely transfer to [facility] [place] for cardiac cath hypertension continue HCTZ, lisinopril hypothyroidism continue levothyroxine DVT prophylaxis:? Heparin ggt ?given patient's acute NSTEMI patient required minimum tonight inpatient hospital stay for further management and monitor Quality Stroke Does the patient have a stroke diagnosis?: No VTE Prior VTE?: No VTE Risk Level:: Medical - moderate - high VTE Device Contraindication: Treatment Not Indicated VTE Drug Contraindication: N/A - Med Ordered
[2022-05-14 15:58] VITALS: BP 156/86; PULSE 76; RESP 17; TEMP 36.8; O2SAT 99
--- NOTE | 2022-05-14 15:58 | P.CONCA_ITS ---
History of Present Illness History of Present Illness Date of Service: 05/14/22 Requesting physician: Rochelle Parry Chief complaint: NSTEMI Narrative: 81-year-old gentleman who is presenting for chest discomfort. He has been experiencing over the last couple of days chest pain which is a throbbing sensation along with bilateral shoulder and arm discomfort and jaw discomfort. He said these symptoms happened while walking and doing activities but and were happening with minimal activity and decided to come to the emergency department. In the ER he developed atrial fibrillation which it appears was paroxysmal and he is back in sinus rhythm at this stage. He has background of TIA. He also had some dynamic looking EKG changes with V1 V2 ST depressions but these improved without any significant intervention. He has been symptom free since then. He has history of coronary disease in mom who had bypass surgery when she was in her 70s, also has background of hypertension, hyperlipidemia. He is not diabetic. No bleeding issues in the past. COUNT INCLUDES [facility] Past Medical History Medical History CVA (cerebral vascular accident) Fatigue Hypertension Hypothyroidism Family History Family History Father Lung cancer Mother Heart disease Surgical History Surgical History H/O melanoma excision History of surgery on arm Hx of colonoscopy Social History Social History Household Members: Spouse Housing: House Do you presently have visiting nurse or other home services: No Patient Tobacco Use Status: Former Tobacco user Use of substances other than those prescribed or required for medical reasons: No Currently Displaying Signs/Symptoms of Drug Intoxication Withdrawal: No Have you been hit, kicked, punched, or otherwise hurt by someone within the past year? If so, by whom?: No Do you feel safe in your current relationship?: Yes Is there a partner from a previous relationship who is making you feel unsafe now?: No Are you made to feel afraid or neglected: No Advance Directives: No Advance Directives Information Provided: No Do you have thoughts of harming others: None Do you have a plan to hurt others: No Plan Recently lost weight without trying: No Eating poorly because of decreased appetite: No Poor oral hygiene: No service: No Meds Allergies Allergy/AdvReac Type Severity Reaction Status Date / Time No Known Allergies Allergy Verified 02/11/22 11:08 Active Medications: Current Medications Acetaminophen (Acetaminophen 325 Mg Tablet) 650 mg PO Q6H PRN PRN Reason: Pain, Mild (Pain Scale 1-3) Aspirin (Aspirin Enteric Coated 81 Mg Tablet.Dr) 81 mg PO DAILY [facility] Last Admin: 05/14/22 09:40 Dose: 81 mg Atorvastatin Calcium (Atorvastatin Calcium 40 Mg Tablet) 40 mg PO BEDTIME [facility] Docusate Sodium (Docusate Sodium 100 Mg Capsule) 100 mg PO DAILY PRN PRN Reason: Constipation Docusate Sodium (Docusate Sodium 100 Mg Capsule) 100 mg PO DAILY PRN PRN Reason: Constipation Heparin Sodium (Porcine) (Heparin Sodium,Porcine 5,000 Unit/Ml Vial) 3,900 unit 40 unit/kg (3900 unit) IVPUSH PROTOCOL BOLUS PRN; Protocol PRN Reason: 40 unit/kg - Heparin Protocol Last Admin: 05/14/22 04:16 Dose: 3,900 unit Heparin Sodium (Porcine) (Heparin Sodium,Porcine 5,000 Unit/Ml Vial) 7,800 unit 80 unit/kg (7800 unit) IVPUSH PROTOCOL BOLUS PRN; Protocol PRN Reason: 80 unit/kg - Heparin Protocol Hydrochlorothiazide (Hydrochlorothiazide 50 Mg Tablet) 50 mg PO DAILY [facility]; Protocol Last Admin: 05/14/22 09:40 Dose: 50 mg Heparin Sodium/Sodium Chloride (Heparin Sodium,Porcine/1/2ns) 25,000 unit in 250 mls @ 0 mls/hr IVCONT .Q0M [facility]; Protocol Last Titration: 05/14/22 12:04 Dose: 9.25 units/kg/hr, 9.02 mls/hr Levothyroxine Sodium (Levothyroxine Sodium 25 Mcg Tablet) 25 mcg PO DAILY@0600 [facility] Last Admin: 05/14/22 07:35 Dose: 25 mcg Lisinopril (Lisinopril 20 Mg Tablet) 20 mg PO DAILY [facility]; Protocol Last Admin: 05/14/22 09:40 Dose: 20 mg Morphine Sulfate (Morphine Sulfate 4 Mg/Ml Cartridge) 4 mg IVPUSH Q4H PRN; Protocol PRN Reason: Chest Pain Nitroglycerin (Nitroglycerin 0.4 Mg Tab.Subl) 0.4 mg SUBLINGUAL Q5MX3 PRN PRN Reason: cp Last Admin: 05/13/22 20:13 Dose: 0.4 mg Ondansetron HCl (Ondansetron Hcl 4 Mg/2 Ml Vial) 4 mg IVPUSH Q8H PRN PRN Reason: Nausea and Vomiting Sodium Chloride (0.9 % Sodium Chloride Flush 3 Ml Syringe) 3 ml IVFLUSH QSHIFT [facility] Last Admin: 05/14/22 07:36 Dose: 3 ml Vitamin D (Cholecalciferol (Vitamin D3) 25 Mcg Tablet) 50 mcg PO DAILY [facility] Last Admin: 05/14/22 09:40 Dose: 50 mcg Home Medications Medication Instructions Recorded Confirmed Last Taken Type aspirin 81 mg capsule 81 mg PO DAILY 05/20/21 05/13/22 05/13/22 History cholecalciferol (vitamin D3) 50 50 mcg PO DAILY 05/20/21 05/13/22 05/13/22 History mcg (2,000 unit) capsule levothyroxine 25 mcg capsule 25 mcg PO DAILY 05/20/21 05/13/22 05/13/22 History simvastatin 40 mg tablet 40 mg PO DAILY 05/20/21 05/13/22 05/13/22 History hydrochlorothiazide 25 mg tablet 50 mg PO DAILY 02/04/22 05/13/22 05/13/22 History triamcinolone acetonide 0.1 % 1 appl topical BID PRN Rash 02/04/22 05/13/22 Unknown History topical cream docusate sodium 100 mg tablet 100 mg PO DAILY PRN Constipation 05/13/22 05/13/22 Unknown History lisinopril 20 mg tablet 1 tab PO DAILY 05/13/22 05/13/22 05/13/22 History Physical Exam Vital Signs: Vital Signs: Last Vital Signs Temp 97.8 F 05/14/22 11:25 Pulse 75 05/14/22 11:25 Resp 17 05/14/22 11:25 BP 135/75 05/14/22 11:25 Pulse Ox 100 05/14/22 11:25 O2 Del Method 05/14/22 11:25 O2 Flow Rate 3 05/13/22 22:47 BMI result Body Mass Index 30.2 GENERAL APPEARANCE: in no acute distress, pleasant. NECK: no carotid bruit, no jugular venous distention. SKIN: no suspicious lesions, warm and dry. HEART: Systolic murmur aortic area with preserved 2nd heart sound, regular rate and rhythm. LUNGS: clear to auscultation bilaterally. ABDOMEN: soft, nontender. EXTREMITIES: no edema. PERIPHERAL PULSES: equal. NEUROLOGIC: No gross deficits, AAO X 3 Objective Labs and Meds Result diagrams: 05/14/22 06:01 05/14/22 06:01 Lab results: Laboratory Results - last 24 hr 05/13/22 05/13/22 05/13/22 19:10 19:10 19:10 WBC 8.3 RBC 4.82 Hgb 14.7 Hct 41.6 L MCV 86.3 MCH 30.5 MCHC 35.3 RDW 12.6 Plt Count 217 MPV 10.6 Immature Gran % (Auto) 0.2 Neut % (Auto) 65.7 Lymph % (Auto) 21.1 [place] % (Auto) 9.1 Eos % (Auto) 3.1 Baso % (Auto) 0.8 Lymph # (Auto) 1.8 [place] # (Auto) 0.8 Eos # (Auto) 0.3 Baso # (Auto) 0.1 Abs Immat Gran (auto) 0.02 Absolute Neuts (auto) 5.5 Absolute Nucleated RBC 0.000 Nucleated RBC % (auto) 0.0 PT INR APTT aPTT Heparin Protocol Sodium 136 Potassium 4.0 Chloride 99 Carbon Dioxide 29 Anion Gap 12 BUN 23 H Creatinine 1.09 Estim Creat Clear Calc 64.3 Estimated GFR > 60 Random Glucose 93 Calcium 9.3 Total Bilirubin 0.5 AST 24 ALT 35 Alkaline Phosphatase 69 Troponin I High Sens 195.6 H* B-Natriuretic Peptide Total Protein 7.0 Albumin 4.4 Lipase 46 Influenza Type A (PCR) Influenza Type B (PCR) RSV RNA Qual (PCR) SARS-CoV-2 RNA (RT-PCR) 05/13/22 05/13/22 05/13/22 19:10 19:10 20:09 WBC RBC Hgb Hct MCV MCH MCHC RDW Plt Count MPV Immature Gran % (Auto) Neut % (Auto) Lymph % (Auto) [place] % (Auto) Eos % (Auto) Baso % (Auto) Lymph # (Auto) [place] # (Auto) Eos # (Auto) Baso # (Auto) Abs Immat Gran (auto) Absolute Neuts (auto) Absolute Nucleated RBC Nucleated RBC % (auto) PT 11.6 INR 1.0 APTT 32.7 aPTT Heparin Protocol Sodium Potassium Chloride Carbon Dioxide Anion Gap BUN Creatinine Estim Creat Clear Calc Estimated GFR Random Glucose Calcium Total Bilirubin AST ALT Alkaline Phosphatase Troponin I High Sens 218.1 H* B-Natriuretic Peptide 21 Total Protein Albumin Lipase Influenza Type A (PCR) Influenza Type B (PCR) RSV RNA Qual (PCR) SARS-CoV-2 RNA (RT-PCR) 05/13/22 05/14/22 05/14/22 21:04 00:55 03:39 WBC RBC Hgb Hct MCV MCH MCHC RDW Plt Count MPV Immature Gran % (Auto) Neut % (Auto) Lymph % (Auto) [place] % (Auto) Eos % (Auto) Baso % (Auto) Lymph # (Auto) [place] # (Auto) Eos # (Auto) Baso # (Auto) Abs Immat Gran (auto) Absolute Neuts (auto) Absolute Nucleated RBC Nucleated RBC % (auto) PT INR APTT aPTT Heparin Protocol 48.1 L Sodium Potassium Chloride Carbon Dioxide Anion Gap BUN Creatinine Estim Creat Clear Calc Estimated GFR Random Glucose Calcium Total Bilirubin AST ALT Alkaline Phosphatase Troponin I High Sens 214.2 H* B-Natriuretic Peptide Total Protein Albumin Lipase Influenza Type A (PCR) NEGATIVE Influenza Type B (PCR) NEGATIVE RSV RNA Qual (PCR) NEGATIVE SARS-CoV-2 RNA (RT-PCR) NEGATIVE 05/14/22 05/14/22 05/14/22 06:01 06:01 06:01 WBC 7.7 RBC 4.80 Hgb 14.7 Hct 41.8 L MCV 87.1 MCH 30.6 MCHC 35.2 RDW 12.7 Plt Count 211 MPV 10.9 Immature Gran % (Auto) 0.3 Neut % (Auto) 65.2 Lymph % (Auto) 21.1 [place] % (Auto) 9.4 Eos % (Auto) 3.1 Baso % (Auto) 0.9 Lymph # (Auto) 1.6 [place] # (Auto) 0.7 Eos # (Auto) 0.2 Baso # (Auto) 0.1 Abs Immat Gran (auto) 0.02 Absolute Neuts (auto) 5.0 Absolute Nucleated RBC 0.000 Nucleated RBC % (auto) 0.0 PT 11.9 INR 1.0 APTT aPTT Heparin Protocol Sodium 135 Potassium 3.8 Chloride 99 Carbon Dioxide 30 H Anion Gap 10 L BUN 20 H Creatinine 0.83 Estim Creat Clear Calc 83.6 Estimated GFR > 60 Random Glucose 113 Calcium 9.0 Total Bilirubin AST ALT Alkaline Phosphatase Troponin I High Sens B-Natriuretic Peptide Total Protein Albumin Lipase Influenza Type A (PCR) Influenza Type B (PCR) RSV RNA Qual (PCR) SARS-CoV-2 RNA (RT-PCR) 05/14/22 10:06 WBC RBC Hgb Hct MCV MCH MCHC RDW Plt Count MPV Immature Gran % (Auto) Neut % (Auto) Lymph % (Auto) [place] % (Auto) Eos % (Auto) Baso % (Auto) Lymph # (Auto) [place] # (Auto) Eos # (Auto) Baso # (Auto) Abs Immat Gran (auto) Absolute Neuts (auto) Absolute Nucleated RBC Nucleated RBC % (auto) PT INR APTT aPTT Heparin Protocol 106.7 H D Sodium Potassium Chloride Carbon Dioxide Anion Gap BUN Creatinine Estim Creat Clear Calc Estimated GFR Random Glucose Calcium Total Bilirubin AST ALT Alkaline Phosphatase Troponin I High Sens B-Natriuretic Peptide Total Protein Albumin Lipase Influenza Type A (PCR) Influenza Type B (PCR) RSV RNA Qual (PCR) SARS-CoV-2 RNA (RT-PCR) Imaging Radiologist's impression: Impressions Chest X-Ray 05/13/22 18:57 IMPRESSION: 1. Mild interstitial prominence is indeterminate and could be associated with asthma, bronchitis, reactive airways disease or atypical viral infections. 2. No focal consolidation. Assessment and Plan (1) Acute coronary syndrome: Status: Acute (2) PAF (paroxysmal atrial fibrillation): Status: Acute Plan Pleasant 81 gentleman who is presenting for shoulder discomfort, chest discomfort and jaw discomfort off and on over the last couple days. In the ER here some dynamic changes along with hypotension after getting some nitroglycerin and morphine. He also developed paroxysmal atrial fibrillation in the ER. Overall his clinical story is quite concerning for acute coronary syndrome. He is on heparin drip appropriately for ACS as well as atrial fibrillation. We discussed about cardiac catheterization and is agreeable. We are going to transfer him on Tuesday for potential cardiac catheterization on Tuesday or Tuesday. Blood pressure is elevated. Continue home medications and titrate lisinopril if required. He will need long-term anticoagulation for atrial fibrillation. Would not start any Eliquis or Xarelto till cardiac catheterization. Thank you for allowing me to participate in the care of your patient. Please feel free to contact me if you have any questions. Procedures Date of Service Date of Service: 05/14/22
[2022-05-14 17:37] LABS: PTT Heparin Drip 48.9 SEC (53-77.9)
[2022-05-14] MEDS: Heparin Sodium,Porcine/1/2NS 25,000 UNIT/250 ML IV.SOLN 10.97 UNIT IVCONT (17:59)
[2022-05-14 19:24] VITALS: BP 139/74; PULSE 76; RESP 17; TEMP 36.7; O2SAT 99
[2022-05-14] MEDS: Atorvastatin Calcium 40 MG TABLET PO (19:38)
[2022-05-15] VITALS (7 sets, daily range): BP systolic 125–157; BP diastolic 62–77; PULSE 53–84; RESP 14–18; TEMP 36.5–37; O2SAT 95–98
[2022-05-15 00:32] LABS: PTT Heparin Drip 89.4 SEC (53-77.9)
[2022-05-15] MEDS: Levothyroxine Sodium 25 MCG TABLET PO (05:40)
[2022-05-15 07:01] LABS: Hemoglobin 15.4 g/dl (14.0-18.0); Mean Corpuscular HGB Conc 34.2 g/dl (31.0-36.0); Mean Corpuscular Volume 87.7 fL (80.0-98.0); Mean Platelet Volume 11.1 fL (9.4-12.4); Platelet Count 241 X10*3/uL (160-400); Red Blood Count 5.13 X10*6/uL (4.60-5.80); Red Cell Distribution Width 12.8 % (11.0-16.0)
[2022-05-15 07:06] LABS: PTT Heparin Drip 57.3 SEC (53-77.9)
[2022-05-15] MEDS: 0.9 % Sodium Chloride Flush 3 ML SYRINGE IVFLUSH (09:27)
[2022-05-15] MEDS: lisinopriL 40 MG TABLET PO (09:27)
[2022-05-15] MEDS: Aspirin Enteric Coated 81 MG TABLET.DR PO (09:27)
[2022-05-15] MEDS: hydroCHLOROthiazide 50 MG TABLET PO (09:27)
[2022-05-15] MEDS: Cholecalciferol (Vitamin D3) 25 MCG TABLET 50 MCG PO (09:27)
--- NOTE | 2022-05-15 10:54 | HO.PM.IMPN ---
Subjective Subjective Date of Service: 05/15/22 Interval History: seen and examined this morning follow up for chest pain no chest pain overnight or this morning no sob Review of Systems Review of Systems: Yes all other systems are reviewed and are negative Constitutional Constitutional: Denies chills and Denies fever(s) Cardiovascular Cardiovascular: Denies chest pain, Denies palpitations and Denies dyspnea Respiratory Respiratory: Denies cough and Denies dyspnea Gastrointestinal Gastrointestinal: Denies abdominal pain, Denies nausea and Denies vomiting Endocrine Endocrine: Denies palpitations Physical Exam Vital Signs: Vital Signs: Last Vital Signs Temp 98.1 F 05/15/22 08:00 Pulse 74 05/15/22 08:00 Resp 16 05/15/22 08:00 BP 157/62 H 05/15/22 08:00 Pulse Ox 96 05/15/22 08:00 O2 Del Method 05/15/22 08:00 O2 Flow Rate 3 05/13/22 22:47 BMI result Body Mass Index 30.0 Const: General: cooperative, comfortable, alert and awake Nutritional Appearance: overweight Orientation/consciousness: patient oriented x3 Resp: Effort & Inspection: normal respiratory effort and able to speak in complete sentences Auscultation: clear to auscultation bilaterally Cardio: Rate: regular rate Heart sounds: S1 normal heart sound present and S2 normal heart sound present GI: Inspection: No distended Palpation (GI): Soft to palpation and nontender Neuro: General: patient oriented x3 and CN's II-XI intact bilaterally Extrem: General: Yes no pedal edema Objective Data Active Medications Acetaminophen (Acetaminophen 325 Mg Tablet) 650 mg PO Q6H PRN PRN Reason: Pain, Mild (Pain Scale 1-3) Aspirin (Aspirin Enteric Coated 81 Mg Tablet.) 81 mg PO DAILY [facility] Last Admin: 05/15/22 09:27 Dose: 81 mg Documented By: SHARLENE Atorvastatin Calcium (Atorvastatin Calcium 40 Mg Tablet) 40 mg PO BEDTIME [facility] Last Admin: 05/14/22 19:38 Dose: 40 mg Documented By: ZORAIDA Docusate Sodium (Docusate Sodium 100 Mg Capsule) 100 mg PO DAILY PRN PRN Reason: Constipation Docusate Sodium (Docusate Sodium 100 Mg Capsule) 100 mg PO DAILY PRN PRN Reason: Constipation Heparin Sodium (Porcine) (Heparin Sodium,Porcine 5,000 Unit/Ml Vial) 3,900 unit 40 unit/kg (3900 unit) IVPUSH PROTOCOL BOLUS PRN; Protocol PRN Reason: 40 unit/kg - Heparin Protocol Last Admin: 05/14/22 17:59 Dose: 3,900 unit Documented By: MAIN Heparin Sodium (Porcine) (Heparin Sodium,Porcine 5,000 Unit/Ml Vial) 7,800 unit 80 unit/kg (7800 unit) IVPUSH PROTOCOL BOLUS PRN; Protocol PRN Reason: 80 unit/kg - Heparin Protocol Hydrochlorothiazide (Hydrochlorothiazide 50 Mg Tablet) 50 mg PO DAILY [facility]; Protocol Last Admin: 05/15/22 09:27 Dose: 50 mg Documented By: SHARLENE Heparin Sodium/Sodium Chloride (Heparin Sodium,Porcine/1/2ns) 25,000 unit in 250 mls @ 0 mls/hr IVCONT .Q0M [facility]; Protocol Last Titration: 05/15/22 00:43 Dose: 9.25 units/kg/hr, 9.02 mls/hr Documented By: ZORAIDA Co-signed By: MEL Levothyroxine Sodium (Levothyroxine Sodium 25 Mcg Tablet) 25 mcg PO DAILY@0600 [facility] Last Admin: 05/15/22 05:40 Dose: 25 mcg Documented By: ZORAIDA Lisinopril (Lisinopril 40 Mg Tablet) 40 mg PO DAILY [facility]; Protocol Last Admin: 05/15/22 09:27 Dose: 40 mg Documented By: SHARLENE Morphine Sulfate (Morphine Sulfate 4 Mg/Ml Cartridge) 4 mg IVPUSH Q4H PRN; Protocol PRN Reason: Chest Pain Nitroglycerin (Nitroglycerin 0.4 Mg Tab.Subl) 0.4 mg SUBLINGUAL Q5MX3 PRN PRN Reason: cp Last Admin: 05/13/22 20:13 Dose: 0.4 mg Documented By: GIORGI Ondansetron HCl (Ondansetron Hcl 4 Mg/2 Ml Vial) 4 mg IVPUSH Q8H PRN PRN Reason: Nausea and Vomiting Sodium Chloride (0.9 % Sodium Chloride Flush 3 Ml Syringe) 3 ml IVFLUSH QSHIFT [facility] Last Admin: 05/15/22 09:27 Dose: 3 ml Documented By: SHARLENE Vitamin D (Cholecalciferol (Vitamin D3) 25 Mcg Tablet) 50 mcg PO DAILY [facility] Last Admin: 05/15/22 09:27 Dose: 50 mcg Documented By: SHARLENE Labs CBC & Chem 7: 05/15/22 06:27 05/14/22 06:01 Labs: Laboratory Results - last 24 hr 05/14/22 05/14/22 05/14/22 10:06 17:21 23:56 MCV MCH MCHC RDW Plt Count MPV Absolute Nucleated RBC Nucleated RBC % (auto) aPTT Heparin Protocol 106.7 H D 48.9 L D 89.4 H D 05/15/22 05/15/22 06:27 06:27 MCV 87.7 MCH 30.0 MCHC 34.2 RDW 12.8 Plt Count 241 MPV 11.1 Absolute Nucleated RBC 0.000 Nucleated RBC % (auto) 0.0 aPTT Heparin Protocol 57.3 D Assessment and Plan (1) PAF (paroxysmal atrial fibrillation): Status: Acute (2) Acute coronary syndrome: Status: Acute Plan 81-year-old male with past medical history of CVA, as well as hypertension and hypothyroidism presents to the hospital with complaints of chest pain found to have an NSTEMI NSTEMI elevated troponin, with typical chest pain as well as EKG changes suggestive of T-wave inversions patient received nitro in the ED with a significant drop in BP ECHO - preserved EF, mid anteroseptal akinesis continue IV heparin drip continue aspirin, high-dose statin seen by cardiology - plan for 48 hours of heparin, and likely transfer to [facility] [place] for cardiac cath paraoxysmal atrial fibrillation episode in ED on heparin drip - will need AC after cardiac cath hypertension continue HCTZ lisinopril increased to 40 hypothyroidism continue levothyroxine DVT prophylaxis:? Heparin ggt attending - dr. vela Requires ongoing inpatient hospitalization for management of NSTEMI Quality Stroke Does the patient have a stroke diagnosis?: No VTE Prior VTE?: No VTE Risk Level:: Medical - moderate - high VTE Device Contraindication: Treatment Not Indicated VTE Drug Contraindication: N/A - Med Ordered
--- NOTE | 2022-05-15 11:13 | P.PNCA_ITS ---
Subjective Subjective Date of Service: 05/15/22 Interval history: Seen examined at bedside. Somewhat depressed and upset for being in the hospital. Denying any chest discomfort. Blood pressure is elevated. Physical Exam Vital Signs: Last Vital Signs Temp 98.1 F 05/15/22 08:00 Pulse 74 05/15/22 08:00 Resp 16 05/15/22 08:00 BP 157/62 H 05/15/22 08:00 Pulse Ox 96 05/15/22 08:00 O2 Del Method 05/15/22 08:00 O2 Flow Rate 3 05/13/22 22:47 BMI result Body Mass Index 30.0 GENERAL APPEARANCE: in no acute distress, pleasant. NECK: no carotid bruit, no jugular venous distention. SKIN: no suspicious lesions, warm and dry. HEART: Systolic murmur aortic area with preserved 2nd heart sound, regular rate and rhythm. LUNGS: clear to auscultation bilaterally. ABDOMEN: soft, nontender. EXTREMITIES: no edema. PERIPHERAL PULSES: equal. NEUROLOGIC: No gross deficits, AAO X 3 Objective Labs and Meds Result diagrams: 05/15/22 06:27 05/14/22 06:01 Lab results: Laboratory Results - last 24 hr 05/14/22 05/14/22 05/15/22 17:21 23:56 06:27 WBC 8.0 RBC 5.13 Hgb 15.4 Hct 45.0 MCV 87.7 MCH 30.0 MCHC 34.2 RDW 12.8 Plt Count 241 MPV 11.1 Absolute Nucleated RBC 0.000 Nucleated RBC % (auto) 0.0 aPTT Heparin Protocol 48.9 L D 89.4 H D 05/15/22 06:27 WBC RBC Hgb Hct MCV MCH MCHC RDW Plt Count MPV Absolute Nucleated RBC Nucleated RBC % (auto) aPTT Heparin Protocol 57.3 D Progress Note: A&P Assessment and plan (1) PAF (paroxysmal atrial fibrillation): Status: Acute (2) Acute coronary syndrome: Status: Acute Plan [age] gentleman presenting with chest discomfort bilateral shoulder discomfort and jaw discomfort off and on. He had dynamic EKG changes in the ER. Has been stable on heparin drip currently. Blood pressure is elevated. Titrating lisinopril to 40 mg once a day. Continue baby aspirin. Plan is to transfer him eventually to [facility] for cardiac catheterization. For start him on long-term anticoagulation after that. If blood pressure continues to be elevated then we will consider adding some amlodipine. Thank you for allowing me to participate in the care of your patient. Please feel free to contact me if you have any questions. Time Spent With Patient Time: Total time spent is greater than 50% in coordination of care (as documented) at patient's floor/unit and/or counseling patient: Progress Note: Quality Stroke Does the patient have a stroke diagnosis?: No Procedures Date of Service Date of Service: 05/15/22
[2022-05-15 13:47] LABS: PTT Heparin Drip 43.9 SEC (53-77.9)
[2022-05-15] MEDS: Heparin Sodium,Porcine 5,000 UNIT/ML VIAL 3900 UNIT IVPUSH (14:13)
[2022-05-15 20:39] LABS: PTT Heparin Drip 79.1 SEC (53-77.9)
[2022-05-15] MEDS: Atorvastatin Calcium 40 MG TABLET PO (21:26)
[2022-05-15] MEDS: Heparin Sodium,Porcine/1/2NS 25,000 UNIT/250 ML IV.SOLN 9.02 UNIT IVCONT (21:26)
[2022-05-16 03:17] LABS: Hemoglobin 14.3 g/dl (14.0-18.0); Mean Corpuscular HGB Conc 35.8 g/dl (31.0-36.0); Mean Corpuscular Hemoglobin 30.5 pg (27.0-33.0); Mean Corpuscular Volume 85.3 fL (80.0-98.0); Mean Platelet Volume 10.8 fL (9.4-12.4); Platelet Count 201 X10*3/uL (160-400); Red Blood Count 4.69 X10*6/uL (4.60-5.80); Red Cell Distribution Width 12.7 % (11.0-16.0); White Blood Count 7.8 X10*3/uL (4.8-10.8)
[2022-05-16 03:28] LABS: PTT Heparin Drip 48.5 SEC (53-77.9)
[2022-05-16] MEDS: Heparin Sodium,Porcine 5,000 UNIT/ML VIAL 3900 UNIT IVPUSH (03:50)
[2022-05-16 04:00] VITALS: BP 131/68; PULSE 66; RESP 20; TEMP 37.1; O2SAT 2
[2022-05-16] MEDS: Levothyroxine Sodium 25 MCG TABLET PO (05:06)
[2022-05-16 06:00] VITALS: BMI 30.4
[2022-05-16 07:33] VITALS: BP 129/73; PULSE 64; RESP 20; TEMP 36.6; O2SAT 98
[2022-05-16] MEDS: lisinopriL 40 MG TABLET PO (07:45)
[2022-05-16] MEDS: Aspirin Enteric Coated 81 MG TABLET.DR PO (07:45)
[2022-05-16] MEDS: hydroCHLOROthiazide 50 MG TABLET PO (07:46)
[2022-05-16] MEDS: 0.9 % Sodium Chloride Flush 3 ML SYRINGE IVFLUSH (07:46)
[2022-05-16] MEDS: Cholecalciferol (Vitamin D3) 25 MCG TABLET 50 MCG PO (07:46)
--- NOTE | 2022-05-16 10:00 | PM.DS ---
DS: Providers Provider Date of Service: 05/16/22 Date of admission: 05/13/22 22:33 Date of discharge: 05/16/22 Primary care physician: Unknown Physician Consults: 05/13/22 21:36 Consult to Cardiology Stat Consulting Provider: Gerry Conn Reason for consultation: nstemi Attending physician on discharge: Marlon Brown Discharging clinician: Rochelle Parry DS: Diagnosis Discharge Diagnosis (1) PAF (paroxysmal atrial fibrillation): Status: Acute (2) Acute coronary syndrome: Status: Acute DS: Summary Hospital Course Hospital Course: From H&P on day of admission 81-year-old male with past medical history of CVA, hypertension, hypothyroidism,? presents to the hospital with complaints of midsternal chest pain while walking.? Patient reports the chest pain to be pressure-like, radiating to arms bilaterally, as well as his chin lasting few minutes and resolving at rest.? Pain is associated with shortness of breath, increased fatigue Patient reports intermittent similar episodes in the past 2 weeks, occurring with exertion, resolving with rest.? He is also complaining of increased fatigue for the past 1 month, he reports that he was started on lisinopril about 2 weeks ago which felt like worsened his symptoms. Denies any abdominal pain, has been constipated, no headache or change in vision, no palpitations, no urinary symptoms and no lower extremity edema.? No orthopnea or PND On arrival to the ED patient hemodynamically stable with slightly elevated blood pressure Labs are significant for WBC count of 8.3, hemoglobin of 14.7, initial troponin of 195, increased to 218, BNP of 21, COVID-19 positive EKG shows T-wave inversions in anterior leads Patient started on heparin and will be admitted further management NSTEMI. elevated troponin, with typical chest pain as well as EKG T-wave inversions on EKG. patient received nitro in the ED with a significant drop in BP ECHO - preserved EF, mid anteroseptal akinesis. He was started on IV heparin drip. seen by cardiology - plan for 48 hours of heparin plan for transfer to [facility] [place] for cardiac cath. continue aspirin, high-dose statin paraoxysmal atrial fibrillation. noted to have episode in ED. on heparin drip for unstable angina. will need AC after cardiac cath hypertension. continue HCTZ. lisinopril increased to 40 Time Spent with Patient Time attestation: Total time spent providing and/or coordinating discharge services: Discharge coordination time: Greater than 30 minutes Quality: Safe Use of Opioids Does Pt have an Active Cancer Diagnosis on the Problem List?: No Quality: Stroke Does the patient have a stroke diagnosis?: No Physical Exam Vital Signs: Vital Signs: Last Vital Signs Temp 97.8 F 05/16/22 07:33 Pulse 64 05/16/22 07:33 Resp 20 05/16/22 07:33 BP 129/73 05/16/22 07:33 Pulse Ox 98 05/16/22 07:33 O2 Del Method 05/16/22 07:33 O2 Flow Rate 3 05/13/22 22:47 BMI result Body Mass Index 30.4 Const: General: cooperative, comfortable, alert and awake Nutritional Appearance: overweight Orientation/consciousness: patient oriented x3 Resp: Effort & Inspection: normal respiratory effort and able to speak in complete sentences Auscultation: clear to auscultation bilaterally Cardio: Rate: regular rate Heart sounds: S1 normal heart sound present and S2 normal heart sound present GI: Inspection: No distended Palpation (GI): Soft to palpation and nontender Neuro: General: patient oriented x3 and CN's II-XI intact bilaterally Extrem: General: Yes no pedal edema DS: Data Data Completed and Pending Labs on day of discharge: Laboratory Results - last 24 hr 05/15/22 05/15/22 05/16/22 13:30 20:17 03:08 WBC 7.8 RBC 4.69 Hgb 14.3 Hct 40.0 L MCV 85.3 MCH 30.5 MCHC 35.8 RDW 12.7 Plt Count 201 MPV 10.8 Absolute Nucleated RBC 0.000 Nucleated RBC % (auto) 0.0 aPTT Heparin Protocol 43.9 L D 79.1 H D 05/16/22 03:08 WBC RBC Hgb Hct MCV MCH MCHC RDW Plt Count MPV Absolute Nucleated RBC Nucleated RBC % (auto) aPTT Heparin Protocol 48.5 L D Discharge Plan Discharge Anticipated Discharge Date/Time: 05/16/22 09:55 Patient Disposition: Xfer Acute Care Hospital Discharge Diagnosis: chest pain/ACS Referrals: Physician,Unknown J [Primary Care Provider] - 1 Week Discharge Medications: New heparin(porcine) in 0.45% NaCl 25,000 unit/250 mL Parenteral Solution 25,000 unit continuous IV infusion .Q0M Qty: 6000 0RF atorvastatin 40 mg Tablet 40 mg PO BEDTIME Qty: 1 0RF lisinopril 40 mg Tablet 40 mg PO DAILY Qty: 1 0RF Protocol: Hold for SBP< HOLD for SBP < : 90 Continued docusate sodium 100 mg Tablet 100 mg PO DAILY PRN (Reason: Constipation) hydrochlorothiazide 25 mg tablet 50 mg PO DAILY triamcinolone acetonide 0.1 % cream 1 appl topical BID PRN (Reason: Rash) levothyroxine 25 mcg capsule 25 mcg PO DAILY aspirin 81 mg capsule 81 mg PO DAILY cholecalciferol (vitamin D3) 50 mcg (2,000 unit) capsule 50 mcg PO DAILY Discontinued lisinopril 20 mg tablet 1 tab PO DAILY simvastatin 40 mg tablet 40 mg PO DAILY Discharge Orders: Discharge Order (Routine); Ordered 05/16/22 Ordered By: Rochelle Parry Activity on Discharge: As tolerated Stand Alone Forms: Patient Portal Discharge page Care Plan Goals: see below Health Concerns: ACS atrial fibrillation - new onset Plan of Treatment: was started on heparin for management of unstable angina. 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
[2022-05-16 10:05] LABS: PTT Heparin Drip 81.9 SEC (53-77.9)
--- NOTE | 2022-05-16 12:25 | P.PNCA_ITS ---
Subjective Subjective Date of Service: 05/16/22 Interval history: Patient seen and examined at bedside. Has not had any further symptoms since in the hospital. Our plan is to transfer to [facility] [place] for potential cardiac catheterization tomorrow. Physical Exam Vital Signs: Last Vital Signs Temp 97.8 F 05/16/22 07:33 Pulse 64 05/16/22 07:33 Resp 20 05/16/22 07:33 BP 129/73 05/16/22 07:33 Pulse Ox 98 05/16/22 07:33 O2 Del Method 05/16/22 07:33 O2 Flow Rate 3 05/13/22 22:47 BMI result Body Mass Index 30.4 GENERAL APPEARANCE: in no acute distress, pleasant. NECK: no carotid bruit, no jugular venous distention. SKIN: no suspicious lesions, warm and dry. HEART: Systolic murmur aortic area with preserved 2nd heart sound, regular rate and rhythm. LUNGS: clear to auscultation bilaterally. ABDOMEN: soft, nontender. EXTREMITIES: no edema. PERIPHERAL PULSES: equal. NEUROLOGIC: No gross deficits, AAO X 3 Objective Labs and Meds Result diagrams: 05/16/22 03:08 05/14/22 06:01 Lab results: Laboratory Results - last 24 hr 05/15/22 05/15/22 05/16/22 13:30 20:17 03:08 WBC 7.8 RBC 4.69 Hgb 14.3 Hct 40.0 L MCV 85.3 MCH 30.5 MCHC 35.8 RDW 12.7 Plt Count 201 MPV 10.8 Absolute Nucleated RBC 0.000 Nucleated RBC % (auto) 0.0 aPTT Heparin Protocol 43.9 L D 79.1 H D 05/16/22 05/16/22 03:08 09:26 WBC RBC Hgb Hct MCV MCH MCHC RDW Plt Count MPV Absolute Nucleated RBC Nucleated RBC % (auto) aPTT Heparin Protocol 48.5 L D 81.9 H D Progress Note: A&P Assessment and plan (1) PAF (paroxysmal atrial fibrillation): Status: Acute (2) Acute coronary syndrome: Status: Acute Plan 81-year-old gentleman presenting with chest discomfort, bilateral shoulder discomfort and jaw discomfort off and on. He had dynamic EKG changes in the ER. Has been stable on heparin drip currently. Blood pressure is improving. Titrated lisinopril to 40 mg once a day. Continue baby aspirin. Will not give him Plavix as it is possible that he has underlying multivessel disease. He also had paroxysmal atrial fibrillation in the hospital. He has high chads V asc score. Potential transfer today for cardiac catheterization tomorrow. If he is found to have coronary disease and underwent PCI then we will put him on Eliquis and Plavix. He will need long-term anticoagulation for atrial fibrillation. Thank you for allowing me to participate in the care of your patient. Please feel free to contact me if you have any questions. Time Spent With Patient Time: Total time spent is greater than 50% in coordination of care (as documented) at patient's floor/unit and/or counseling patient: Progress Note: Quality Stroke Does the patient have a stroke diagnosis?: No Procedures Date of Service Date of Service: 05/16/22
[2022-05-16 12:34] VITALS: BP 127/65; PULSE 70; RESP 16; TEMP 36.8; O2SAT 96
--- NOTE | 2022-05-16 16:43 | PC.NURSE ---
Alert and oriented. Denies pain, VSS, afebrile, no acute resp. distress noted. Heparin gtt infusing well, dose adjusted per protocol. Report called in to [facility] ([id number], Room19). Report given to oyster harvester. Patient left via stretcher accompanied by 2 oyster harvester around 1520.
== END 2022-05-16 15:20 | disposition short-term general hospital (02) | DRG 282 ==
LOC: HO.ED 21:36 → HO.EDOVER 22:52 → HO.IMC 05-14 00:52
PROVIDERS: Nurse Practitioner Family; Physician Assistant; Admitting Provider Internal Medicine; Emergency Provider Emergency Medicine; Visit Provider Physician Assistant Medical
DX: I21.4 Non-ST elevation (NSTEMI) myocardial infarction (principal); I10 Essential (primary) hypertension; E03.9 Hypothyroidism, unspecified; I95.9 Hypotension, unspecified; I48.0 Paroxysmal atrial fibrillation; Z20.822 Contact with and (suspected) exposure to COVID-19; Z86.73 Personal history of transient ischemic attack (TIA), and cerebral infarction without residual deficits; Z87.891 Personal history of nicotine dependence; Z79.82 Long term (current) use of aspirin; Z79.890 Hormone replacement therapy; Z79.899 Other long term (current) drug therapy
CPT/HCPCS: 0241U; 36415; 71045; 80048; 80053; 83690; 83880; 84484; 85025; 85027; 85610; 85730; 93005; 93306; 99285; J2270; Q9957

== ENCOUNTER 2023-07-28 13:07 | Outpatient (AMB) | payer MEDICARE, SELFPAY ==
--- NOTE | 2023-07-28 13:15 | A.OFFPC_ITS ---
Vital Signs 07/28/23 13:16 07/28/23 14:02 Height 5 ft 9 in Weight 205 lb BMI 30.3 BP 140/76 H 128/70 Blood Pressure Location Lt brachial Lt brachial Position Sitting Sitting Pulse 67 Pulse Source Pulse Oximeter Pulse Oximetry (%) 98 Oxygen Delivery Method Room Air Intake Visit Reasons: New patient- Establish Care Allergies No Known Allergies Allergy (Verified 07/28/23 13:16) Medication List - Last Reconciled 07/28/23 by Nash Brown MD amiodarone 100 mg PO DAILY aspirin 81 mg PO DAILY atorvastatin 40 mg PO BID cholecalciferol (vitamin D3) 50 mcg PO DAILY furosemide 20 mg PO DAILY levothyroxine 25 mcg PO DAILY lisinopril 20 mg PO DAILY metoprolol tartrate 75 mg PO BID multivitamin 1 tab PO DAILY tamsulosin 0.4 mg PO BEDTIME triamcinolone acetonide 0.1% 1 appl topical BID PRN Tobacco use date assessed: 07/28/23 Fall risk assessment: No Falls in past year Last assessed Fall Risk: 07/28/23 Dental Screening Dental Screen Date: 07/28/23 Did you have a dental visit in the last 12 months?: Yes Did you have a dental problem in the last 6 months where you did not have access to dental care?: No Was dental information given to patient?: Patient has dentist HPI New patient- Establish Care HPI Details 83-year-old obese male being seen for e 1st time. Review of the notes follows up with Cardiology coronary artery disease leading to May 2022 coronary artery bypass graft mammary graft to LAD, vein graft to PDA free radial graft to ramus intermedius. Left atrial appendage occluded by atrial cl ip. Suffering a hemidiaphragm and the postoperative atrial fibrillation for which amiodarone and Eliquis were started. Post up had pleural effusion right side had thoracentesis removing 750 cc. Patient has congestive heart failure with preserved ejection fraction 60-65% with postoperative paradoxical septal motion. August 2022 small pleural effusion in November 2022 increased in size. Patient also follows up with Pulmonary for the persistent pleural effusion and was given the option of drainage as well as decortication because of current 's condition will continue to follow-up with daily drainage. Paitent is worried about the pleural effusion still having drainage [facility] Medical History (Updated 07/28/23 @ 14:21 by Nash Brown MD) PUD (peptic ulcer disease) TIA (transient ischemic attack) PAF (paroxysmal atrial fibrillation) Acute coronary syndrome Hypothyroidism CVA (cerebral vascular accident) Hypertension Fatigue Surgical History (Updated 07/28/23 @ 14:10 by Nash Brown MD) H/O thyroidectomy Hx of colonoscopy H/O melanoma excision History of surgery on arm Family History (Updated 07/28/23 @ 13:17 by Rochelle Orlando [facility]) Father Lung cancer Mother Heart disease Social History (Updated 07/28/23 @ 14:11 by Nash Bronw MD) Household Members: Spouse Housing: House Do you presently have visiting nurse or other home services: No Alcohol intake: current Comment: once a week 1 drink Patient Tobacco Use Status: Former Tobacco user Tobacco use type: Cigarette Years Smoked: quit 22 years old e-Cigarette/Vaping Use: Never Used Second Hand Smoke Exposure: No service: No Cognitive needs: No Hearing needs: No Vision needs: Yes Questionnaire PHQ-9 Over the last 2 weeks, how often have you been bothered by any of the following problems? 1. Little interest or pleasure in doing things: not at all 2. Feeling down, depressed, or hopeless: not at all 3. Trouble falling or staying asleep, or sleeping too much: not at all 4. Feeling tired or having little energy: not at all 5. Poor appetite or overeating: not at all 6. Feeling bad about yourself - or that you are a failure or have let yourself or your family down: not at all 7. Trouble concentrating on things, such as reading the newspaper or watching television: not at all 8. Moving or speaking so slowly that other people could have noticed. Or the opposite - being so fidgety or restless that you have been moving around a lot more than usual: not at all 9. Thoughts that you would be better off or of hurting yourself in some way: not at all Total score: 0 Depression Screening Interpretation: Negative Depression Screening Done: Yes Source: Developed by Drs. Madhav Donahue, Sangeeta Nichole, Kalpesh Potter and colleagues, with an educational eliseo from [employer]. Thrive Questionnaire Date Thrive assessed: 07/28/23 I am a: Patient What is your living situation today?: I have a steady place to live Within the past 12 months, did the food you bought not last and you didn't have the money to get more?: Never true Within the past 12 months, did you worry whether your food would run out before you got money to buy more?: Never true Do you have trouble paying for medicines?: No Do you have trouble getting transportation to medical appointments?: No Do you have trouble paying your heating and electricity bill?: No Do you have trouble taking care of your child, family member or friend?: No Do you have trouble with day-to-day activities such as bathing, preparing meals, shopping, managing finances, etc.?: No Are you currently unemployed and looking for a job?: No Are you interested in more education?: No Currently or been in a relationship where the following occur: no concerns reported THRIVE Score: 0 AUDIT C Alcohol Use Questionnaire (AUDIT-C) 1. How often do you have a drink containing alcohol?: 2-4 times a month 2. How many drinks containing alcohol do you have on a typical day when you are drinking?: 1 or 2 3. How often do you have six or more drinks on one occasion?: Never Total Score: 2 TEDDY-7 AMB Questionnaire TEDDY-7 Date TEDDY - 7 assessed: 07/28/23 Feeling nervous, anxious, or on edge: 0 = Not at all Not being able to stop or control worryin = Not at all Worrying too much about different things: 0 = Not at all Trouble relaxin = Not at all Being so restless that it is hard to sit still: 0 = Not at all Becoming easily annoyed or irritable: 0 = Not at all Feeling afraid as if something awful might happen: 0 = Not at all Total TEDDY-7 score (0-4 normal; 5-9 mild; 10-14 moderate; 15-21 severe): 0 Source: Developed by Drs. Madhav Donahue, Sangeeta Nichole, Kalpesh Potter and colleagues, with an educational eliseo from [employer]. Physical exam (Primary Care) Vital Signs: Last Vital Signs Pulse 67 07/28/23 13:16 BP 140/76 H 07/28/23 13:16 Pulse Ox 98 07/28/23 13:16 Oxygen Delivery Method Room Air 07/28/23 13:16 BMI result Body Mass Index 30.3 Tobacco/Smoking Status: Tobacco use Status Tobacco use date assessed 07/28/23 07/28/23 13:29 Patient Tobacco Use Status Former Tobacco user 07/28/23 13:29 Tobacco use type Cigarette 07/28/23 13:29 e-Cigarette/Vaping Use Never Used 07/28/23 13:29 PHQ-9: PHQ-9 Score PHQ-9: Total score 0 07/28/23 13:29 Depression Screening Interpretation: Negative Thrive Assessment: Date of Thrive Assessment Date Thrive assessed 07/28/23 07/28/23 13:29 Currently or been in a relationship where the following occur: no concerns reported Const General: alert; No acute distress Eyes Conjunctivae: conjunctivae normal Resp Auscultation: clear to auscultation bilaterally Cardio Rate: regular rate Rhythm: regular rhythm GI Inspection: Yes normal to inspection Extrem General: Yes normal to inspection and No edema Assessment and Plan Assessment & Plan (1) Hypertension: Code(s): I10 - Essential (primary) hypertension Plan: Continue with blood pressure medication. Decrease salt intake and exercise presently on hydrochlorothiazide 50 mg once a day lisinopril 20 mg once a day metoprolol 75 mg twice a day (2) Hypothyroidism: Code(s): E03.9 - Hypothyroidism, unspecified Plan: Continue with thyroid medication (3) PAF (paroxysmal atrial fibrillation): Comment: Left atrial appendage closure 05/2023 Code(s): I48.0 - Paroxysmal atrial fibrillation Plan: Patient on amiodarone and has had left atrial appendage closure (4) Coronary artery disease: Code(s): I25.10 - Atherosclerotic heart disease of [place] coronary artery without angina pectoris Plan: Control the cholesterol, weight, blood pressure continue with aspirin 81 mg once a day (5) Hypercholesterolemia: Code(s): E78.00 - Pure hypercholesterolemia, unspecified Plan: Avoid fried foods, chicken skin, eggs, butter margarine, pastries and meat. Be it pork or beef they have a lot of cholesterol LDL goal of less than 70. Presently on atorvastatin 40 mg (6) Pleural effusion: Comment: Recurrent since 05/2022 Code(s): J90 - Pleural effusion, not elsewhere classified Plan: follow up with Pulmonary and will let me know if wants further referral Medications: Changed From atorvastatin 40 mg PO BEDTIME 1 tab 0RF To atorvastatin 40 mg PO BID Discontinued lisinopril Discontinued Reason: Doctor's Order 20 mg See Protocol PO DAILY Coding Level of Care Code New Pt Level 4 (54002) Diagnoses Hypertension I10 Hypothyroidism E03.9 PAF (paroxysmal atrial fibrillation) I48.0 Coronary artery disease I25.10 Hypercholesterolemia E78.00 Pleural effusion J90
[2023-07-28 13:16] VITALS: BP 140/76; PULSE 67; O2SAT 98; BMI 30.3
[2023-07-28 14:02] VITALS: BP 128/70
== END 2023-07-28 14:32 | disposition home or self-care (01) ==
PROVIDERS: PCP Internal Medicine; Visit Provider Internal Medicine
DX: I10 Essential (primary) hypertension (principal); E03.9 Hypothyroidism, unspecified; I48.0 Paroxysmal atrial fibrillation; I25.10 Atherosclerotic heart disease of native coronary artery without angina pectoris; E78.00 Pure hypercholesterolemia, unspecified; J90 Pleural effusion, not elsewhere classified
CPT/HCPCS: 99204; 99214

== ENCOUNTER 2023-09-09 09:28 | Outpatient (AMB) | payer MEDICARE, SELFPAY ==
[2023-09-09 09:31] VITALS: BP 130/78; PULSE 60; TEMP 36.2; O2SAT 99; BMI 30.6
--- NOTE | 2023-09-09 09:31 | MHC.OFFWIV ---
Intake Vital Signs 09/09/23 09:31 Height 5 ft 9 in Weight 207 lb BMI 30.6 BP 130/78 Blood Pressure Location Lt brachial Position Sitting Pulse 60 Pulse Source Pulse Oximeter Temp 97.2 F Temp Source Temporal Artery Scan Pulse Oximetry (%) 99 Oxygen Delivery Method Room Air Intake Visit Reasons: EP ?allergic reaction to a medication Intake Note: pt is here today for allergic reaction to a medication started 5 weeks ago Patient Tobacco Use Status: Former Tobacco user Allergies No Known Allergies Allergy (Verified 09/09/23 09:36) HPI HPI Comments History of Present Illness Details This is an 83-year-old male with a past medical history of left pleural effusion, coronary artery disease, atrial fibrillation currently maintained on amiodarone, peptic ulcer disease, hypothyroidism and hypertension presenting for evaluation of redness and blistering on his penis that he 1st noted 3 weeks ago. Patient states that his has been in the hospital and he was doing the laundry at home. Patient believes that his hand was covered in concentrated laundry detergent and he may have touched his penis while going to the bathroom. Patient states that he used Vaseline and A&D ointment that improved his symptoms but he is concerned it may also be related to a new medication that was recently started. Unfortunately the patient is unable to identify the new medication that was initiated. Patient denies any dysuria but notes a burning sensation around the glans of his penis. [facility] Medical History PUD (peptic ulcer disease) TIA (transient ischemic attack) PAF (paroxysmal atrial fibrillation) Acute coronary syndrome Hypothyroidism CVA (cerebral vascular accident) Hypertension Fatigue Surgical History (Updated 07/28/23 @ 14:10 by Nash Brown MD) H/O thyroidectomy Hx of colonoscopy H/O melanoma excision History of surgery on arm Family History (Updated 07/28/23 @ 13:17 by Rochelle Orlando CMA) Father Lung cancer Mother Heart disease Social History (Updated 07/28/23 @ 14:11 by Nash Brown MD) Household Members: Spouse Housing: House Do you presently have visiting nurse or other home services: No Alcohol intake: current Comment: once a week 1 drink Patient Tobacco Use Status: Former Tobacco user Tobacco use type: Cigarette Years Smoked: quit 22 years old e-Cigarette/Vaping Use: Never Used Second Hand Smoke Exposure: No service: No Cognitive needs: No Hearing needs: No Vision needs: Yes Review of Systems Const Denies chills, Denies fever(s) and Denies lethargy Denies hematuria, Denies difficulty urinating, Reports genital lesions, Reports genital pain, Denies dysuria and Denies penile discharge Neuro Reports no additional complaints Physical Exam Vital Signs: Last Vital Signs Temp 97.2 F 09/09/23 09:31 BP 130/78 09/09/23 09:31 BMI result Body Mass Index 30.6 Patient is afebrile. Const General: cooperative, comfortable, no acute distress, well developed, alert and awake Nutritional Appearance: average body habitus Orientation/consciousness: patient oriented x3 Limitations: no limitations Other: There is no penile discharge, penile lesions, ulcerations or blistering noted of the penis; mild erythema at the base of the glans only. Male General Exam: No inguinal lymphadenopathy and No Genital lesions present Penis: circumcised, erythematous (mild erythema at the neck of glans and frenulum of penis without tenderness), no papules, no pustules, no vesicles, no swelling, no ulcerations and No Genital lesions present Meatus: meatus normal, no meatla discharge and No Blood at meatus present Scrotum: scrotum normal Testes: Testes normal Neuro General: patient oriented x3 Psych Appearance: grossly normal Mental Status: mental status grossly normal Insight: Good insight present (Psych) Judgement: Good judgement present (Psych) Assessment & Plan Assessment & Plan (1) Penis pain: Comment: There is no evidence of a cellulitis, STD or overt injury. Patient states the erythema at the base of his glans is burning in nature. Code(s): N48.89 - Other specified disorders of penis Plan: Clotrimazole 1% topically b.i.d. times 10-14 days to his penis at the site of erythema only. Patient will call his primary care physician today to schedule outpatient follow-up within 2 weeks. Patient is instructed to continue all previously prescribed medications. Medications: New clotrimazole 1% 1 appl topical BID 15 grams 1RF Coding Level of Care Code Est Pt Level 3 (22452) Diagnoses Penis pain N48.89 Time Spent (min) 20
== END 2023-09-09 11:06 | disposition home or self-care (01) ==
PROVIDERS: PCP Internal Medicine; Visit Provider Physician Assistant
DX: N48.89 Other specified disorders of penis (principal)
CPT/HCPCS: 99213

== ENCOUNTER 2023-09-26 08:18 | Outpatient (AMB) | payer MEDICARE, SELFPAY ==
[2023-09-26 08:21] VITALS: BP 130/76
--- NOTE | 2023-09-26 08:21 | A.OFFPC_ITS ---
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: No Accompanied by: Self / Same As Patient Allergies No Known Allergies Allergy (Verified 09/26/23 08:33) Medication List - Last Reconciled 09/26/23 by Jemal Villa PA-C amiodarone 100 mg PO DAILY aspirin 81 mg PO DAILY atorvastatin 40 mg PO BID cholecalciferol (vitamin D3) 50 mcg PO DAILY clotrimazole 1% 1 appl topical BID furosemide 20 mg PO DAILY levothyroxine 25 mcg PO DAILY lisinopril 20 mg PO DAILY metoprolol tartrate 75 mg PO BID multivitamin 1 tab PO DAILY tamsulosin 0.4 mg PO BEDTIME triamcinolone acetonide 0.1% 1 appl topical BID PRN Tobacco use date assessed: 07/28/23 Fall risk assessment: No Falls in past year Last assessed Fall Risk: 09/26/23 Dental Screening Dental Screen Date: 07/28/23 HPI Infection on Genital Area 2 HPI0 Details Patient is an 83-year-old male here today for problem visit. This the 1st time I am meeting this 83-year-old male with a past medical history significant for coronary artery disease, hypothyroidism, hypertension. Recently underwent coronary artery bypass that was complicated by pulmonary effusion on left side. He reports he has been suffering with a penis skin irritation over the last month and has tried 2 different rooms, desonide and clotrimazole which have not been giving him long-lasting relief. [facility] Medical History PUD (peptic ulcer disease) TIA (transient ischemic attack) PAF (paroxysmal atrial fibrillation) Acute coronary syndrome Hypothyroidism CVA (cerebral vascular accident) Hypertension Fatigue Surgical History H/O thyroidectomy Hx of colonoscopy H/O melanoma excision History of surgery on arm Family History Father Lung cancer Mother Heart disease Social History Household Members: Spouse Housing: House Do you presently have visiting nurse or other home services: No Alcohol intake: current Comment: once a week 1 drink Patient Tobacco Use Status: Former Tobacco user Tobacco use type: Cigarette Years Smoked: quit 22 years old e-Cigarette/Vaping Use: Never Used Second Hand Smoke Exposure: No service: No Cognitive needs: No Hearing needs: No Vision needs: Yes Questionnaire Thrive Questionnaire Date Thrive assessed: 07/28/23 TEDDY-7 AMB Questionnaire TEDDY-7 Date TEDDY - 7 assessed: 07/28/23 Source: Developed by Drs. Madhav Donahue, Sangeeta Nichole, Kalpesh Potter and colleagues, with an educational eliseo from [employer]. Review of Systems Const Denies headache(s) Eyes Denies loss of vision ENT Denies vertigo, Denies dizziness, Denies headache(s) and Denies sore throat Card Denies chest pain, Denies leg edema and Denies lightheadedness Resp Denies cough, Denies hemoptysis and Denies wheezing GI Denies abdominal pain, Denies melena, Denies constipation, Denies diarrhea and Denies vomiting Denies dysuria, Denies urinary frequency and Denies urinary urgency Musc Denies arthralgias, Denies joint swelling, Denies numbness and Denies tingling Neuro Denies Abnormal speech present, Denies behavioral changes, Denies vertigo, Denies dizziness, Denies headache(s), Denies loss of vision, Denies memory loss, Denies numbness and Denies tingling Psych Denies anxiety, Denies behavioral changes, Denies depression, Denies memory loss and Denies panic attacks [place]/Lymph Denies easy bleeding and Denies easy bruising Aller/Immun Denies wheezing Physical exam (Primary Care) Vital Signs: Last Vital Signs BP 130/76 09/26/23 08:21 BMI result Body Mass Index 30.0 Tobacco/Smoking Status: Tobacco use Status Tobacco use date assessed 07/28/23 09/26/23 08:31 Patient Tobacco Use Status Former Tobacco user 09/26/23 08:31 Tobacco use type Cigarette 09/26/23 08:31 e-Cigarette/Vaping Use Never Used 09/26/23 08:31 Thrive Assessment: Date of Thrive Assessment Date Thrive assessed 07/28/23 09/26/23 08:31 Const General: healthy appearing, no acute distress, alert and awake Nutritional Appearance: well nourished Orientation/consciousness: oriented to person, oriented to place and oriented to time HENMT Ears: TM's normal bilaterally General nose exam: Normal nasal mucous membranes and turbinates present Eyes Conjunctivae: conjunctivae normal Sclerae: sclerae normal Pupils: Equal, round and reactive pupils present Neck Neck: Yes no lymphadenopathy and Yes no JVD Thyroid: Thyroid normal Carotids: no bruits Resp Effort & Inspection: normal respiratory effort and not tachypneic Auscultation: no crackles, no rales, no rhonchi and no wheezes Cardio Rate: regular rate Rhythm: regular rhythm Heart sounds: no murmurs and normal S1 and S2 GI Palpation (GI): Soft to palpation, nontender, no hepatomegaly and no splenomegaly Auscultation: normal bowel sounds Male genitals images: 2 1. SLIGHT REDNESS SURROUNDING THE [place] Skin General skin exam: no rashes or lesions noted and dry skin Neuro General: oriented to person, oriented to place and oriented to time Cranial nerves: Yes Equal, round and reactive pupils present Speech: No Abnormal speech present Gait exam (Neuro): Normal gait present Motor exam (neuro): no tremor noted Extrem Right upper extremity: full ROM Left upper extremity: full ROM Right lower extremity: full ROM; no edema Left lower extremity: full ROM; no edema Psych Mental Status: mental status grossly normal Speech and movement: Normal speech and movement present Affect: normal affect Attitude: cooperative Thought process: Normal thought process present Assessment and Plan Assessment & Plan (1) Balanitis: Code(s): N48.1 - Balanitis Plan: Patient's signs and symptoms most consistent with a balanitis. Has been evident over the last month. Has been using desonide and clotrimazole with only minimal relief, reports after day of using cream the rash continues to a p.r.n. bother him. Will supply patient will fluconazole 100 mg q.d. for 1 week. There are interactions with amiodarone though will discontinue amiodarone as he is well more than 1 month out of open heart surgery for AFib prophylaxis. 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 Orders: Orders 2 Comprehensive [place]. Panel Fast Today I10 - Essential (primary) hypertension Prostate Specific Antigen Scr Today R97.20 - Elevated prostate specific antigen [PSA], Z12.5 - Encounter for screening for malignant neoplasm of prostate TSH reflex Free T4 Today E03.9 - Hypothyroidism, unspecified Lipid Panel Today I25.10 - Atherosclerotic heart disease of [place] coronary artery without angina pectoris Complete Blood Count no Diff Today I48.0 - Paroxysmal atrial fibrillation Medications: New 2 clotrimazole-betamethasone 1-0.05 % 1 appl topical BID 45 grams 0RF 30 days N48.1 - Balanitis fluconazole 100 mg PO DAILY 7 tabs 0RF 7 days N48.1 - Balanitis Discontinued 2 clotrimazole 1% Discontinued Reason: Doctor's Order 1 appl topical BID 15 grams 1RF Coding Level of Care Code Est Pt Level 3 (48221) Diagnoses Balanitis N48.1
== END 2023-09-26 08:58 | disposition home or self-care (01) ==
PROVIDERS: PCP Internal Medicine; Visit Provider Physician Assistant
DX: N48.1 Balanitis (principal)
CPT/HCPCS: 99213

== ENCOUNTER 2023-10-04 07:12 | Outpatient (REF) | payer MEDICARE, SELFPAY ==
[2023-10-04 10:36] LABS: Hematocrit 44.7 % (42.0-52.0); Hemoglobin 14.6 g/dl (14.0-18.0); Mean Corpuscular HGB Conc 32.7 g/dl (31.0-36.0); Mean Corpuscular Hemoglobin 28.8 pg (27.0-33.0); Mean Corpuscular Volume 88.2 fL (80.0-98.0); Mean Platelet Volume 10.9 fL (9.4-12.4); Platelet Count 287 X10*3/uL (160-400); Red Blood Count 5.07 X10*6/uL (4.60-5.80); Red Cell Distribution Width 13.9 % (11.0-16.0); White Blood Count 8.4 X10*3/uL (4.8-10.8)
[2023-10-04 12:00] LABS: Prostate Specific Antigen Scr 5.39 ng/mL (<0.05-4.0)
[2023-10-04 12:02] LABS: Alanine Aminotransferase 28 U/L (0-40); Albumin Level 4.4 g/dL (3.5-5.0); Alkaline Phosphatase 88 U/L (39-117); Anion Gap 11 (12-20); Aspartate Amino Transferase 23 U/L (5-37); Bilirubin Total 0.6 mg/dL (0.0-1.0); Blood Urea Nitrogen 25 mg/dL (9-16); Calcium 9.6 mg/dL (8.4-10.2); Carbon Dioxide 32 mmol/L (22-29); Chloride 104 mmol/L (96-108); Cholesterol 167 mg/dL (<200); Estimated Glomerular Filt Rate > 60; Glucose Fasting 89 mg/dL (60-99); HDL Cholesterol 39 mg/dL (>40); LDL Cholesterol Calculated 110 mg/dL (<100); Potassium 4.8 mmol/L (3.3-5.1); Sodium 142 mmol/L (135-145); TSH reflex Free T4 2.46 uIU/mL (0.32-4.0); Triglycerides 93 mg/dL (<150)
== END 2023-10-04 07:13 | disposition home or self-care (01) ==
LOC: HO.HMGCLDS 07:12
PROVIDERS: PCP Internal Medicine; Visit Provider Physician Assistant
DX: R97.20 Elevated prostate specific antigen [PSA] (principal); I25.10 Atherosclerotic heart disease of native coronary artery without angina pectoris; I10 Essential (primary) hypertension; E03.9 Hypothyroidism, unspecified; I48.0 Paroxysmal atrial fibrillation; Z12.5 Encounter for screening for malignant neoplasm of prostate
CPT/HCPCS: 36415; 80053; 80061; 84153; 84443; 85027

== ENCOUNTER 2023-10-12 13:28 | Outpatient (AMB) | payer MEDICARE, SELFPAY ==
[2023-10-12 13:35] VITALS: BP 150/70; PULSE 79; O2SAT 96; BMI 30.1
--- NOTE | 2023-10-12 13:35 | A.OFFPC_ITS ---
Vital Signs 3 10/12/23 13:35 Height 5 ft 9 in Weight 204 lb BMI 30.1 BP 150/70 H Blood Pressure Location Lt brachial Position Sitting Pulse 79 Pulse Source Pulse Oximeter Pulse Oximetry (%) 96 Oxygen Delivery Method Room Air Intake Visit Reasons: health concerns Allergies No Known Allergies Allergy (Verified 10/12/23 13:36) Tobacco use date assessed: 07/28/23 Fall risk assessment: No Falls in past year Last assessed Fall Risk: 10/12/23 Dental Screening Dental Screen Date: 07/28/23 HPI health concerns 2 HPI0 Details 83-year-old obese male with hypertension hypothyroidism atrial fibrillation coronary artery disease hypercholesterolemia last seen in July 2023. Patient had pleural effusion also and was referred pulmonary. Review of the notes was seen by the nurse practitioner in September 25 having a linitis and was treated with desonide clotrimazole patient was given oral fluconazole.. Received notes from [facility] colon left diaphragmatic dysfunction left pleural effusion after cardiac surgery in May 2022 in January 2023 left Aspira tunneled pleural catheter CT scan done in September 2023 minimal pleural few with left and no reaccumulation catheter take enough.. PAtient states that on putting cream would burn but onexam looks normal nevertheless will refer to urology. complains of L breast swelling since surgery PFSH Medical History PUD (peptic ulcer disease) TIA (transient ischemic attack) PAF (paroxysmal atrial fibrillation) Acute coronary syndrome Hypothyroidism CVA (cerebral vascular accident) Hypertension Fatigue Surgical History H/O thyroidectomy Hx of colonoscopy H/O melanoma excision History of surgery on arm Family History Father Lung cancer Mother Heart disease Social History Household Members: Spouse Housing: House Do you presently have visiting nurse or other home services: No Alcohol intake: current Comment: once a week 1 drink Patient Tobacco Use Status: Former Tobacco user Tobacco use type: Cigarette Years Smoked: quit 22 years old e-Cigarette/Vaping Use: Never Used Second Hand Smoke Exposure: No service: No Cognitive needs: No Hearing needs: No Vision needs: Yes Questionnaire PHQ-9 Over the last 2 weeks, how often have you been bothered by any of the following problems? 1. Little interest or pleasure in doing things: not at all 2. Feeling down, depressed, or hopeless: not at all 3. Trouble falling or staying asleep, or sleeping too much: not at all 4. Feeling tired or having little energy: not at all 5. Poor appetite or overeating: not at all 6. Feeling bad about yourself - or that you are a failure or have let yourself or your family down: not at all 7. Trouble concentrating on things, such as reading the newspaper or watching television: not at all 8. Moving or speaking so slowly that other people could have noticed. Or the opposite - being so fidgety or restless that you have been moving around a lot more than usual: not at all 9. Thoughts that you would be better off or of hurting yourself in some way: not at all Total score: 0 Depression Screening Interpretation: Negative Depression Screening Done: Yes Source: Developed by Drs. Madhav Donahue, Sangeeta Nichole, Kalpesh Potter and colleagues, with an educational eliseo from [employer]. Thrive Questionnaire Date Thrive assessed: 07/28/23 AUDIT C Alcohol Use Questionnaire (AUDIT-C) 1. How often do you have a drink containing alcohol?: 2-4 times a month 2. How many drinks containing alcohol do you have on a typical day when you are drinking?: 1 or 2 3. How often do you have six or more drinks on one occasion?: Never Total Score: 2 TEDDY-7 AMB Questionnaire TEDDY-7 Date TEDDY - 7 assessed: 07/28/23 Source: Developed by Drs. Madhav Donahue, Kalpesh Dawson and colleagues, with an educational eliseo from [employer]. Physical exam (Primary Care) Vital Signs: Last Vital Signs Pulse 79 10/12/23 13:35 BP 150/70 H 10/12/23 13:35 Pulse Ox 96 10/12/23 13:35 Oxygen Delivery Method Room Air 10/12/23 13:35 BMI result Body Mass Index 30.1 Tobacco/Smoking Status: Tobacco use Status Tobacco use date assessed 07/28/23 10/12/23 13:37 Patient Tobacco Use Status Former Tobacco user 10/12/23 13:37 Tobacco use type Cigarette 10/12/23 13:37 e-Cigarette/Vaping Use Never Used 10/12/23 13:37 PHQ-9: PHQ-9 Score PHQ-9: Total score 0 10/12/23 13:53 Depression Screening Interpretation: Negative Thrive Assessment: Date of Thrive Assessment Date Thrive assessed 07/28/23 10/12/23 13:37 Const General: alert; No acute distress Eyes Conjunctivae: conjunctivae normal Chest Chest/axillae images: 2 1. L chest /breast mass 12 oclock postion from the nipple 2 cm, Resp Auscultation: clear to auscultation bilaterally Cardio Rate: regular rate Rhythm: regular rhythm GI Inspection: Yes normal to inspection Extrem General: Yes normal to inspection and No edema Assessment and Plan Assessment & Plan (1) PAF (paroxysmal atrial fibrillation): Comment: Left atrial appendage closure 05/2023 Code(s): I48.0 - Paroxysmal atrial fibrillation Plan: Left atrial appendage closure May 2023 presently on baby aspirin once a day. Patient was taken off the amiodarone by the nurse practitioner and has stayed off of it till now. Patient will be seeing Cardiology in about 3-4 days and so advised patient to continue holding it and just discussed this with the gardening instructor. (2) Coronary artery disease: Code(s): I25.10 - Atherosclerotic heart disease of [place] coronary artery without angina pectoris Plan: Control the cholesterol, weight, blood pressure continue with aspirin 81 mg once a day (3) Pleural effusion: Comment: Recurrent since 05/2022 Code(s): J90 - Pleural effusion, not elsewhere classified Plan: Received notes for draining pleural effusion left with Aspira and no reaccumulation. Will follow-up with a chest x-ray. 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 (5) Hypothyroidism: Code(s): E03.9 - Hypothyroidism, unspecified Plan: Continue with thyroid medication (6) Hypertension: Code(s): I10 - Essential (primary) hypertension Plan: Continue with blood pressure medication. Decrease salt intake and exercise on lisinopril 20 mg once a day metoprolol 75 mg twice a day (7) Hypercholesterolemia: Code(s): E78.00 - Pure hypercholesterolemia, unspecified Plan: Avoid fried foods, chicken skin, eggs, butter margarine, pastries and meat. Be it pork or beef they have a lot of cholesterol LDL goal of less than 70 and triglyceride of less than 150 on atorvastatin 40 mg once a day. With the LDL being high still advised to increase atorvastatin to 80 mg and retest blood work in 3 months. (8) Elevated PSA: Code(s): R97.20 - Elevated prostate specific antigen [PSA] Plan: Discussed with the patient regarding the elevated PSA. Referral to urology (9) Balanitis: Code(s): N48.1 - Balanitis Plan: urology referral (10) Left breast mass: Comment: L chest /breast mass 12 oclock postion from the nipple 2 cm, Code(s): N63.20 - Unspecified lump in the left breast, unspecified quadrant Plan: Mammogram and ultrasound requested Orders: Orders 2 MM tomosynthesis diagnostic BI Today N63.20 - Unspecified lump in the left breast, unspecified quadrant XR chest 2V Today J90 - Pleural effusion, not elsewhere classified US breast LT limited Today N63.20 - Unspecified lump in the left breast, unspecified quadrant Liver Panel 3 Months E78.00 - Pure hypercholesterolemia, unspecified, R79.89 - Other specified abnormal findings of blood chemistry Comprehensive Met. Panel 3 Months E78.00 - Pure hypercholesterolemia, unspecified Referrals 2 Urology Referral N48.1 - Balanitis, R97.20 - Elevated prostate specific antigen [PSA] Medications: New 2 atorvastatin 80 mg PO DAILY 30 tabs 3RF E78.00 - Pure hypercholesterolemia, unspecified Coding Level of Care Code Est Pt Level 4 (18094) Diagnoses PAF (paroxysmal atrial fibrillation) I48.0 Coronary artery disease I25.10 Pleural effusion J90 Hemidiaphragm paralysis J98.6 Hypothyroidism E03.9 Hypertension I10 Hypercholesterolemia E78.00 Elevated PSA R97.20 Balanitis N48.1 Left breast mass N63.20
== END 2023-10-12 14:25 | disposition home or self-care (01) ==
PROVIDERS: PCP Internal Medicine; Visit Provider Internal Medicine
DX: I48.0 Paroxysmal atrial fibrillation (principal); I25.10 Atherosclerotic heart disease of native coronary artery without angina pectoris; J90 Pleural effusion, not elsewhere classified; N63.22 Unspecified lump in the left breast, upper inner quadrant; J98.6 Disorders of diaphragm; E03.9 Hypothyroidism, unspecified; I10 Essential (primary) hypertension; E78.00 Pure hypercholesterolemia, unspecified; R97.20 Elevated prostate specific antigen [PSA]; N48.1 Balanitis
CPT/HCPCS: 99214

== ENCOUNTER 2023-10-24 09:53 | Outpatient (REF) | payer MEDICARE, SELFPAY ==
--- NOTE | ~2023-10-24 | XR_ITS ---
EXAMINATION: XR CHEST CLINICAL INFORMATION: Pleural effusion. COMPARISON: 05/13/2022 TECHNIQUE: 2 views of the chest were obtained. FINDINGS: The right hemithorax is clear. Moderate left pleural effusion with left basilar consolidation. Elevated left hemidiaphragm was previously appreciated. Prior cardiac surgery with median sternal wires. Cardiac silhouette is enlarged. Thoracic aorta is tortuous and ectatic. XR/XR chest 2V IMPRESSION: Moderate left pleural effusion with left basilar consolidation.
== END 2023-10-24 09:54 | disposition home or self-care (01) ==
LOC: HO.HMGCX 09:53
PROVIDERS: PCP Internal Medicine; Visit Provider Internal Medicine Cardiovascular Disease
DX: J90 Pleural effusion, not elsewhere classified (principal)
CPT/HCPCS: 71046

== ENCOUNTER 2023-10-28 08:37 | Outpatient (REF) | payer MEDICARE, SELFPAY ==
--- NOTE | ~2023-10-28 | MM_ITS ---
EXAMINATION: MM DIAGNOSTIC DIGITAL BREAST TOMOSYNTHESIS, BILATERAL US BREAST LIMITED, LEFT CLINICAL INFORMATION: 83-year-old male sustaining diffuse left breast heaviness and swelling since his coronary bypass operation 06/03, in which patient states his left diaphragm was injured. Patient states no discrete palpable mass. Patient has remote history of left basal cell carcinoma left arm with left axillary node biopsy, year unknown. COMPARISON: Mammography: None. Baseline exam. TECHNIQUE: Digital breast tomosynthesis is performed in both the craniocaudal and mediolateral oblique views along with computer-aided detection (CAD). Synthesized 2D images are generated from the tomosynthesis. FINDINGS: The breasts are almost entirely fatty (ACR BI-RADS breast composition Category a). There is minimal retroareolar right gynecomastia. There is no left gynecomastia. There is no evidence of discrete left-sided mass, suspicious calcifications, or architectural distortion. Minimal prominence of the stromal markings and minimal thickening of the skin is present which may reflect mild lymphedema. Mild prominence of the left pectoralis muscle, difficult to resolve on mammography. No axillary abnormalities or lymph nodes seen. ULTRASOUND: CLINICAL INFORMATION: As above. COMPARISON: None TECHNIQUE: Sonographic evaluation was performed left breast using a high frequency linear transducer. Selected archived documentation. FINDINGS: LEFT BREAST: -Within the left pectoralis muscle, 6:00 axis left breast, there is a markedly hypoechoic and irregular mass measuring approximately 2.8 x 1.0 x 2.2 cm. This has predominantly peripheral vascular flow but mild amount of internal vascular flow associated. Possible fatty hilum although unusual to have a lymph node within the pectoralis itself. Patient has remote history of basal cell cancer of left arm with left axillary lizeth biopsy. This mass is indeterminant, and recommendation for ultrasound-guided sampling is recommended. MM/MM tomosynthesis diagnostic BI IMPRESSION: 1. Mild lymphedema of the left breast without mass within the breast tissue itself. 2. Markedly hypoechoic irregular mass within the left pectoralis muscle 6:00 axis, indeterminate, but suspicious. Recommendation is for ultrasound-guided biopsy, precluded by followed by CT scan of the chest. Differential includes basal cell metastasis, scar tissue, or sarcoma. Lengthy discussion was held with the patient, who states a complex medical history of CABG in May 2002 with left diaphragmatic paralysis and recurrent left pleural effusions requiring Pleurx drainage. Pleural effusions are reaccumulating on the left. Patient intends to see a [place] specialist regarding these problems, and intends to address the mass within the left pectoralis muscle at that time. I counseled him that biopsy was likely necessary, sooner rather than later, and that sampling should be performed within the next couple of weeks, whether in [place] or [place] [facility] [place] An appointment was made for biopsy of which the patient can cancel if necessary. Also recommend obtaining latest CT imaging of the chest for reference purposes. Findings relayed to Dr. Brown via secure text at 10:12 AM, 10/28/2023. OVERALL ASSESSMENT: Mammography: BI-RADS 4 - Suspicious finding Ultrasound: BI-RADS 4 - Suspicious finding RECOMMENDATION: Biopsy recommended
== END 2023-10-28 08:38 | disposition home or self-care (01) ==
LOC: HO.MAMMO 08:37
PROVIDERS: PCP Internal Medicine; Visit Provider Internal Medicine
DX: N63.25 Unspecified lump in the left breast, overlapping quadrants (principal)
CPT/HCPCS: 76642; 77062; 77066

== ENCOUNTER → 2023-10-28 09:30 | Outpatient (BNV) | payer MEDICARE, SELFPAY | PROVIDERS: PCP Internal Medicine; Visit Provider Radiology Diagnostic Radiology | DX: N62 Hypertrophy of breast (principal) | CPT/HCPCS: 76642; 77066; G0279 ==

== ENCOUNTER 2023-11-13 09:48 | Emergency (ER) | payer MEDICARE, SELFPAY ==
--- NOTE | ~2023-11-13 | XR_ITS ---
EXAMINATION: XR CHEST CLINICAL INFORMATION: Chest pain COMPARISON: Previous chest x-ray most recent 10/24/2023 TECHNIQUE: 2 views of the chest were obtained. FINDINGS: The cardiac silhouette is enlarged but stable. There are postsurgical changes with median sternotomy wires and atrial appendage clip. There is a small what appears to be loculated left pleural effusion or pleural thickening encasing the left lung. There may be airspace disease at the left lung base. This is similar to prior exam. The right lung is clear. No right pleural effusion. No pneumothorax. Surgical clips in the left axilla. Degenerative changes of the thoracic spine and shoulders. XR/XR chest 2V IMPRESSION: Stable enlargement of the cardiac silhouette. Stable left pleural effusion or pleural thickening that may be loculated and airspace disease at the left lung base. Findings could be better evaluated with chest CT if clinically indicated.
--- NOTE | 2023-11-13 10:05 | ECG_ITS ---
Test Reason : CP Blood Pressure : / mmHG Vent. Rate : 075 BPM Atrial Rate : 075 BPM P-R Int : 188 ms QRS Dur : 102 ms QT Int : 396 ms P-R-T Axes : 040 -04 058 degrees QTc Int : 442 ms Sinus rhythm with Premature atrial complexes Possible Left atrial enlargement Nonspecific ST and T wave abnormality Abnormal ECG When compared with ECG of 13-MAY-2022 20:51, Normal sinus rhythm has replaced Atrial fibrillation Referred By: Generic ED Physician Electronically Signed By:ROSSANA ZAVALA MD
[2023-11-13 10:11] VITALS: BP 170/110; PULSE 92; O2SAT 97
[2023-11-13 10:18] VITALS: BMI 28.7
[2023-11-13 10:25] VITALS: BP 198/110; PULSE 70; RESP 18; TEMP 37.4; O2SAT 98
[2023-11-13 10:30] LABS: MANUAL DIFF FLAG NO
[2023-11-13 10:33] LABS: Basophils Absolute Auto 0.1 X10*3/uL (0.0-0.2); Basophils Percent Auto 0.8 % (0-2); Eosinophils Absolute Auto 0.1 X10*3/uL (0.0-0.4); Eosinophils Percent Auto 2.1 % (0-4); Hematocrit 42.9 % (42.0-52.0); Hemoglobin 14.4 g/dl (14.0-18.0); Imm Gran Abs Auto 0.01 X10*3/uL (0.00-0.03); Imm Gran Pct Auto 0.2 % (0.0-0.4); Lymphocytes Absolute Auto 0.7 X10*3/uL (1.2-4.9); Lymphocytes Percent Auto 11.4 % (20-40); Mean Corpuscular HGB Conc 33.6 g/dl (31.0-36.0); Mean Corpuscular Hemoglobin 28.4 pg (27.0-33.0); Mean Corpuscular Volume 84.6 fL (80.0-98.0); Mean Platelet Volume 9.9 fL (9.4-12.4); Monocytes Absolute Auto 0.6 X10*3/uL (0.1-1.2); Monocytes Percent Auto 9.4 % (2-11); Neutrophils Absolute Auto 4.8 x10*3/uL (2.0-8.3); Neutrophils Percent Auto 76.1 % (45-73); Platelet Count 243 X10*3/uL (160-400); Red Blood Count 5.07 X10*6/uL (4.60-5.80); Red Cell Distribution Width 14.1 % (11.0-16.0); White Blood Count 6.3 X10*3/uL (4.8-10.8)
[2023-11-13 10:43] LABS: Anion Gap 12 (12-20); Blood Urea Nitrogen 16 mg/dL (9-16); Calcium 9.4 mg/dL (8.4-10.2); Carbon Dioxide 29 mmol/L (22-29); Chloride 103 mmol/L (96-108); Creatinine Clr Calc Pharmacy 67.6; Estimated Glomerular Filt Rate > 60; Glucose Random 143 mg/dL (60-115); Potassium 4.2 mmol/L (3.3-5.1); Sodium 140 mmol/L (135-145)
[2023-11-13 10:55] LABS: Troponin-I High Sensitivity 106.2 ng/L (<3.5-35.0)
[2023-11-13 11:01] VITALS: BP 186/118; PULSE 74; RESP 18; O2SAT 98
[2023-11-13 11:07] VITALS: BP 186/114; PULSE 73; RESP 18; O2SAT 98
[2023-11-13 11:17] VITALS: PULSE 74
[2023-11-13] MEDS: Metoprolol Tartrate 25 MG TABLET PO (11:17)
[2023-11-13] MEDS: Aspirin Enteric Coated 81 MG TABLET.DR PO (11:17)
[2023-11-13] MEDS: Morphine Sulfate 2 MG/ML CARTRIDGE 1 MG IVPUSH (11:18)
[2023-11-13] MEDS: Heparin Sodium,Porcine 5,000 UNIT/ML VIAL 4000 UNIT IVPUSH (11:19)
--- NOTE | 2023-11-13 11:19 | ED.CHESTPAIN ---
HPI - Chest Pain General Chief Complaint: Chest Pain Stated Complaint: CHEST PAIN,BP 170/110 PER EMS Time Seen by Provider: 11/13/23 10:55 Source: patient and EMS Mode of arrival: EMS Limitations: no limitations History of Present Illness ED Provider: DR. Childs HPI narrative: 83-year-old male history of CAD and triple vessel bypass in 2021 came in for a chest pain since last night pain is intermittent feel like dull aching pain, comes and goes radiates to the left side of the neck and lower jaw. Patient was given 4 aspirin by EMS and transported to the ED, on arrival to the ED chest pain still intermittent currently has no chest pain, EKG is concern of abnormal ST morphology in the inferior lead case discussed with Dr. Michael from cardiac catheterization at [facility] accepted the transfer. Patient had history bad reaction to nitro in the past. Patient in the ED received Brilinta, heparin bolus, heparin drip is not ready from pharmacy will not delay transportation, aspirin, metoprolol 25 mg p.o.. Related Data Home Medications ?Medication ?Instructions ?Recorded ?Confirmed aspirin 81 mg capsule 81 mg PO DAILY 05/20/21 09/26/23 cholecalciferol (vitamin D3) 50 50 mcg PO DAILY 05/20/21 09/26/23 mcg (2,000 unit) capsule levothyroxine 25 mcg capsule 25 mcg PO DAILY 05/20/21 09/26/23 triamcinolone acetonide 0.1 % 1 appl topical BID PRN Rash 02/04/22 09/26/23 topical cream furosemide 20 mg tablet 20 mg PO DAILY 07/28/23 09/26/23 lisinopril 20 mg tablet 20 mg PO DAILY 07/28/23 09/26/23 metoprolol tartrate 75 mg tablet 75 mg PO BID 07/28/23 09/26/23 multivitamin 1 tab PO DAILY 07/28/23 09/26/23 tamsulosin 0.4 mg capsule 0.4 mg PO BEDTIME 07/28/23 09/26/23 Previous Rx's ?Medication ?Instructions ?Recorded clotrimazole-betamethasone 1 1 appl topical BID 30 days #45 09/26/23 %-0.05 % topical cream grams atorvastatin 80 mg tablet 80 mg PO DAILY #30 tabs 10/12/23 Allergies Allergy/AdvReac Type Severity Reaction Status Date / Time No Known Allergies Allergy Verified 11/13/23 10:18 Review of Systems Review of Systems: All other systems are reviewed and are negative Constitutional: Reports as per HPI and Reports no additional constitutional complaints Eyes: Reports as per HPI and Reports no additional eye complaints Reports system reviewed and no additional complaints, except as documented Cardiovascular: Reports as per HPI and Reports no additional cardiovascular complaints Respiratory: Reports as per HPI and Reports no additional respiratory complaints Gastrointestinal: Reports as per HPI and Reports no additional gastrointestinal complaints Genitourinary: Reports no additional female genitourinary complaints Musculoskeletal: Reports no additional musculoskeletal complaints Skin/Breast: Reports system reviewed and no additional complaints, except as docu Psychiatric: Reports no additional psychiatric complaints Endocrine: Reports no additional endocrine complaints Hematologic/Lymphatic: Reports no additional hematologic/lymphatic complaints Allergic/Immunologic: Reports no additional allergic/immunologic complaints Reports system reviewed and no additional complaints, except as documented and Reports Abnormal speech present [facility] Past Medical History Medical History PUD (peptic ulcer disease) TIA (transient ischemic attack) PAF (paroxysmal atrial fibrillation) Acute coronary syndrome Hypothyroidism CVA (cerebral vascular accident) Hypertension Fatigue Surgical History H/O thyroidectomy Hx of colonoscopy H/O melanoma excision History of surgery on arm Family History Family History Father Lung cancer Mother Heart disease Social History Social History Household Members: Spouse Housing: House Do you presently have visiting nurse or other home services: No Alcohol intake: current Alcohol intake frequency: holidays/special occasions only Comment: once a week 1 drink Patient Tobacco Use Status: Former Tobacco user Tobacco use type: Cigarette Years Smoked: quit 22 years old Smoked in Last 30 Days: No e-Cigarette/Vaping Use: Never Used Second Hand Smoke Exposure: No Use of substances other than those prescribed or required for medical reasons: No service: No Cognitive needs: No Hearing needs: No Vision needs: Yes Physical Exam Vital Signs: Vital Signs: Last Vital Signs Temp 99.3 F 11/13/23 10:25 Pulse 73 11/13/23 11:07 Resp 18 06/02/24 11:07 BP 186/114 H 11/13/23 11:07 Pulse Ox 98 11/13/23 11:07 O2 Del Method Room Air 11/13/23 11:07 BMI result Body Mass Index 28.7 Vital signs have been reviewed and appear to be correct. Blood pressure elevated. Heart rate normal. Respiratory rate normal. Temperature normal. Oxygen saturation normal. Appearance: Alert. Oriented X3. No acute distress. Head: Normal external exam. Normocephalic. Atraumatic. No Penny signs noted. No raccoon eyes noted Eyes: PERRLA. EOMI. Conjunctiva and sclera normal. Eyelids normal. ENT: TM's Normal. Pharynx normal. Uvula midline. Moist mucous membranes. No trismus noted. No drooling noted. No muffled voice noted. Neck: Normal inspection. Neck supple. FROM. No adenopathy. Thyroid Normal. No meningeal signs. No neck mass noted. CVS: Normal heart rate and rhythm. Heart sound normal. No murmurs noted. Pulses normal throughout. Respiratory: No respiratory distress. Painless inspiration. Breath sounds normal. No wheezes/rales/rhonchi noted. Chest nontender. No accessory muscle usage noted or decreased air movement noted. Abdomen: Soft and nontender. Bowel sounds normal in all 4 quadrants. No distention noted. No organomegaly noted. No visible injury noted. Back: No CVA tenderness. Full range of motion noted. Skin: Skin warm and dry. Normal skin color. Normal skin turgor. No rashes/lesions/lacerations noted. Extremities: No lower extremity edema. Extremities exhibit normal range of motion. Extremities nontender. Neuro: Oriented X 3. Cranial nerve exam: II-XII are grossly intact No motor deficit. No sensory deficit. Reflexes normal. Course Reevaluation(s) Reevaluation #1: 83-year-old male with the chest pain EKG is concern of inferior STEMI, patient had emergency transferred to [facility]. Time: 11:28 Medical Decision Making Differential Diagnosis Differential Diagnoses: The differential diagnosis associated with the presentation includes ( STEMI, electrolyte derangement, severe anemia, pneumonia, pneumothorax, pleural effusion.) Admission/Observation Consideration of admission/observation: Escalation of care including admission/observation considered Consult Healthcare Provider Management of the patient was discussed with: Pain Management Nurse Practitioner (Dr. Michael ) Lab Data MDM Lab Attestation statement: I reviewed the patient's lab results. 11/13/23 10:22 11/13/23 10:22 Labs: Lab Results 11/13/23 Range/Units 10:22 WBC 6.3 (4.8-10.8) X10*3/uL RBC 5.07 (4.60-5.80) X10*6/uL Hgb 14.4 (14.0-18.0) g/dl Hct 42.9 (42.0-52.0) % MCV 84.6 (80.0-98.0) fL MCH 28.4 (27.0-33.0) pg MCHC 33.6 (31.0-36.0) g/dl RDW 14.1 (11.0-16.0) % Plt Count 243 (160-400) X10*3/uL MPV 9.9 (9.4-12.4) fL Immature Gran % (Auto) 0.2 (0.0-0.4) % Neut % (Auto) 76.1 H (45-73) % Lymph % (Auto) 11.4 L (20-40) % [place] % (Auto) 9.4 (2-11) % Eos % (Auto) 2.1 (0-4) % Baso % (Auto) 0.8 (0-2) % Lymph # (Auto) 0.7 L (1.2-4.9) X10*3/uL [place] # (Auto) 0.6 (0.1-1.2) X10*3/uL Eos # (Auto) 0.1 (0.0-0.4) X10*3/uL Baso # (Auto) 0.1 (0.0-0.2) X10*3/uL Abs Immat Gran (auto) 0.01 (0.00-0.03) X10*3/uL Absolute Neuts (auto) 4.8 (2.0-8.3) x10*3/uL Absolute Nucleated RBC 0.000 (0.0-0.012) X10*3/uL Nucleated RBC % (auto) 0.0 (0.0-0.2) /100WBC Sodium 140 (135-145) mmol/L Potassium 4.2 (3.3-5.1) mmol/L Chloride 103 (96-108) mmol/L Carbon Dioxide 29 (22-29) mmol/L Anion Gap 12 (12-20) BUN 16 (9-16) mg/dL Creatinine 0.97 (0.5-1.4) mg/dL Estim Creat Clear Calc 67.6 Estimated GFR > 60 Random Glucose 143 H (60-115) mg/dL Calcium 9.4 (8.4-10.2) mg/dL Troponin I High Sens 106.2 H* D (<3.5-35.0) ng/L Independent Interpretation I performed an independent interpretation of an: EKG and Plain X-Ray ( Chest:Stable enlargement of the cardiac silhouette. Stable left pleural effusion or pleural thickening that may be loculated and airspace disease at the left lung base. Findings could be better evaluated with chest CT if clinically indicated.) Interpretation: Normal sinus rhythm at 75 beats per minute with premature atrial complex, ST elevation in leads 3 and AVF with no reciprocal changes. Radiology Impression Discussion of test interpretation with radiology: I have reviewed the radiologist's reading. Critical Care Time Critical Care Time Critical Care Time: Yes Total Critical Care Time: 60 Attestation: The patient was critically ill with a high probability of imminent or life-threatening deterioration. I spent greater than 30 minutes of discontinuous time evaluating the patient, delivering critical care at the bedside, discussing evaluating data with consultants. Critical care time does not include time spent performing separately billable procedures or teaching. Time spent performing critical care was 60 minutes. Discharge Plan Discharge Clinical Impression: ST elevation (STEMI) myocardial infarction Patient Disposition: [facility] Transfer Details: [facility] Prescriptions: No Action triamcinolone acetonide 0.1 % cream 1 appl topical BID PRN (Reason: Rash) metoprolol tartrate 75 mg tablet 75 mg PO BID lisinopril 20 mg tablet 20 mg PO DAILY tamsulosin 0.4 mg capsule 0.4 mg PO BEDTIME multivitamin Tablet 1 tab PO DAILY furosemide 20 mg tablet 20 mg PO DAILY clotrimazole-betamethasone 1-0.05 % cream 1 appl topical BID 30 Days Qty: 45 0RF atorvastatin 80 mg tablet 80 mg PO DAILY Qty: 30 3RF levothyroxine 25 mcg capsule 25 mcg PO DAILY aspirin 81 mg capsule 81 mg PO DAILY cholecalciferol (vitamin D3) 50 mcg (2,000 unit) capsule 50 mcg PO DAILY Print Language: Scottish
[2023-11-13] MEDS: Ticagrelor 90 MG TABLET 180 MG PO (11:22)
--- NOTE | 2023-11-13 11:33 | PC.NURSE ---
Patient arrived via ems to [facility] with complaints of left sided chest pain that started last night and has progressively gotten worse. Reports pain extends to left and right jaw and left arm pain. Patient reports had triple bypass towards end of 2021 and during procedure a nerve was knicked causing issues with his diaphragm including sob and fluid retention. Patient with no sob at rest and that drain was removed x 1month ago. Patient reports left brest mass was found x 1 week ago. States EMS brought patient to [place] d/t him having a 2nd opinion apt in [place] tomorrow that he does not want to miss. EKG/vitals/lab obtained and patient transferred to ED bed 6 and placed on cardiac monitoring. Provider notified of elevated trop, STEMI protocol initiated. Patient medicated per aug. Per provider do not wait to hang heparin drip, ems to transfer to cardiac ccu. Multiple attempts to notify patients unsuccessful at this time.
--- NOTE | 2023-11-13 11:58 | PC.NURSE ---
Report given to Lainey in ICU
== END 2023-11-13 12:16 | disposition short-term general hospital (02) ==
LOC: HO.ED 12:17
PROVIDERS: Emergency Provider Emergency Medicine
DX: I21.3 ST elevation (STEMI) myocardial infarction of unspecified site (principal); R07.9 Chest pain, unspecified; M54.2 Cervicalgia; I48.0 Paroxysmal atrial fibrillation; I10 Essential (primary) hypertension; Z79.899 Other long term (current) drug therapy
CPT/HCPCS: 36415; 71046; 80048; 84484; 85025; 93005; 96374; 96375; 99284; J1644; J2270

== ENCOUNTER → 2023-11-13 10:05 | Outpatient (BNV) | payer MEDICARE, SELFPAY | PROVIDERS: Emergency Provider Emergency Medicine; Visit Provider Internal Medicine Cardiovascular Disease | DX: R94.31 Abnormal electrocardiogram [ECG] [EKG] (principal) | CPT/HCPCS: 93010 ==

== ENCOUNTER 2023-12-02 08:52 | Outpatient (AMB) | payer MEDICARE, SELFPAY ==
--- NOTE | 2023-12-02 08:53 | MHC.PC.OV ---
Vital Signs 12/02/23 08:54 Height 5 ft 10 in Weight 202 lb 8 oz BMI 29.1 BP 110/70 Blood Pressure Location Lt brachial Position Sitting Pulse 80 Pulse Source Pulse Oximeter Pulse Oximetry (%) 96 Oxygen Delivery Method Room Air Intake Visit Reasons: HDF [facility] 11/15/23 Intake Note: Patient is here for hospital discharge follow up. Patient was discharged from [facility] on 11/15/23. Human Resource Assistant Required: No Rn Neurology: Not Required per policy Accompanied by: Self / Same As Patient Allergies nitroglycerin Allergy (Severe, Verified 12/02/23 08:58) low blood pressure Tobacco use date assessed: 12/02/23 Fall risk assessment: No Falls in past year Last assessed Fall Risk: 12/02/23 Dental Screening Dental Screen Date: 07/28/23 HPI HPI Comments History of Present Illness Details 83 y/o male patient who presents to the clinic for HDF. DOS: 11/13/23 and DOD: 11/15/23. Pt was admitted for diagnosis of NSTEMI. 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 Pt followed with his Machine Assistant 11/29/23. New medications added: Atorvastatin 80 mg, Carvedilol and Plavix. Today Pt c/o SOB, tenderness around the scars and generalized body pain and fatigue. [facility] Medical History (Updated 11/14/23 @ 00:00 by Gavin Jimenez) PUD (peptic ulcer disease) TIA (transient ischemic attack) PAF (paroxysmal atrial fibrillation) Acute coronary syndrome Hypothyroidism CVA (cerebral vascular accident) Hypertension Fatigue Surgical History (Updated 12/02/23 @ 09:00 by MARIAM Weathers) History of heart artery stent H/O thyroidectomy Hx of colonoscopy H/O melanoma excision History of surgery on arm Family History Father Lung cancer Mother Heart disease Social History Household Members: Spouse Housing: House Do you presently have visiting nurse or other home services: No Alcohol intake: current Alcohol intake frequency: holidays/special occasions only Comment: once a week 1 drink Patient Tobacco Use Status: Former Tobacco user Tobacco use type: Cigarette Years Smoked: quit 22 years old e-Cigarette/Vaping Use: Never Used Second Hand Smoke Exposure: No service: No Cognitive needs: No Hearing needs: No Vision needs: Yes Questionnaire Thrive Questionnaire Date Thrive assessed: 07/28/23 TEDDY-7 AMB Questionnaire TEDDY-7 Date TEDDY - 7 assessed: 07/28/23 Source: Developed by Drs. Madhav Donahue, Sangeeta Nichole, Kalpesh Potter and colleagues, with an educational eliseo from [employer]. Review of Systems Const All systems reviewed & are unremarkable except as noted in HPI and below Physical exam (Primary Care) Vital Signs: Last Vital Signs Pulse 80 12/02/23 08:54 BP 110/70 12/02/23 08:54 Pulse Ox 96 12/02/23 08:54 Oxygen Delivery Method Room Air 12/02/23 08:54 BMI result Body Mass Index 29.1 Tobacco/Smoking Status: Tobacco use Status Tobacco use date assessed 12/02/23 12/02/23 09:02 Patient Tobacco Use Status Former Tobacco user 12/02/23 08:53 Tobacco use type Cigarette 12/02/23 08:53 e-Cigarette/Vaping Use Never Used 12/02/23 08:53 Thrive Assessment: Date of Thrive Assessment Date Thrive assessed 07/28/23 12/02/23 08:53 Const General: healthy appearing and comfortable Orientation/consciousness: patient oriented x3 HENMT Head: Yes normocephalic Resp Effort & Inspection: normal respiratory effort and able to speak in complete sentences Auscultation: clear to auscultation bilaterally, no crackles, no rales, no rhonchi and no wheezes Cardio Heart sounds: S1 normal heart sound present and S2 normal heart sound present Neuro General: patient oriented x3, gait normal and moves all extremities Psych Speech and movement: Normal speech and movement present Vital Signs: Vital Signs - 24 hr 12/02/23 08:54 Pulse Rate 80 Blood Pressure 110/70 Pulse Oximetry 96 BMI result Body Mass Index 29.1 Const General: healthy appearing and comfortable Orientation/consciousness: patient oriented x3 HENMT Head: Yes normocephalic Resp Effort & Inspection: normal respiratory effort and able to speak in complete sentences Auscultation: clear to auscultation bilaterally, no crackles, no rales, no rhonchi and no wheezes Cardio Heart sounds: S1 normal heart sound present and S2 normal heart sound present Neuro General: patient oriented x3, gait normal and moves all extremities Psych Speech and movement: Normal speech and movement present Assessment and Plan Assessment & Plan (1) Non-ST elevation OR (NSTEMI): Code(s): I21.4 - Non-ST elevation (NSTEMI) myocardial infarction Plan: Continue f/u with Cardiology and PCP as prescribed. Continue on current medications as prescribed. Coding Level of Care Code Est Pt Level 4 (87684) Diagnoses Non-ST elevation OR (NSTEMI) I21.4 Comment Spent 20 minutes reviewing Hospital Notes
[2023-12-02 08:54] VITALS: BP 110/70; PULSE 80; O2SAT 96; BMI 29.1
== END 2023-12-02 09:47 | disposition home or self-care (01) ==
PROVIDERS: PCP Internal Medicine; Visit Provider Nurse Practitioner Family
DX: I25.2 Old myocardial infarction (principal)
CPT/HCPCS: 99214

== ENCOUNTER 2023-12-06 10:37 | Outpatient (AMB) | payer MEDICARE, SELFPAY ==
--- NOTE | 2023-12-06 10:49 | A.OFFVIS_ITS ---
Intake Visit Reasons: balanitis, elevated PSA Intake Note: New Patient presents today for initial visit to establish treatment for : Balanitis and elevated psa PSA: 5.39 Urology Medications: Tamsulosin Allergies to Antibiotic: none Blood Thinner: aspirin and clopidogrel PVR: 0ml's Senior Biostatistician/Group Leader Required: No Accompanied by: Self / Same As Patient Allergies nitroglycerin Allergy (Severe, Verified 12/06/23 11:17) low blood pressure Medication List - Last Reconciled 12/06/23 by SALIMA Chino- aspirin 81 mg PO DAILY atorvastatin 80 mg PO DAILY carvedilol 6.25 mg PO BID cholecalciferol (vitamin D3) 50 mcg PO DAILY clopidogrel 75 mg PO DAILY clotrimazole-betamethasone 1-0.05 % 1 appl topical BID 30 days furosemide 20 mg PO DAILY levothyroxine 25 mcg PO DAILY metoprolol tartrate 75 mg PO BID multivitamin 1 tab PO DAILY tamsulosin 0.4 mg PO BEDTIME 90 days triamcinolone acetonide 0.1% 1 appl topical BID PRN HPI Comments Details: Parish Lizarraga is a very pleasant 83-year-old male patient of . He has a past medical history of peptic ulcer disease, TIA, paroxysmal atrial fibrillation s/p left atrial appendage closure 06/04, acute coronary syndrome, hypothyroidism, hypertension, and fatigue. Presents to the office today as a new patient for balanitis and an elevated PSA. In discussion with the patient today he reports having followed up with his PCP as well as dermatology for ongoing issues he had been experiencing with his penis however symptoms have since resolved since his appointment here. He reports having been prescribed a cream and he no longer has balanitis. He discusses his most recent cardiac surgery with Dr. Eid and is currently awaiting his 2nd opinion in [place] for ongoing left-sided lung issues he has been experiencing status post his cardiac surgery. He reports after his cardiac surgery he had been experiencing weak urinary stream at which time Flomax was prescribed by Dr. Eid and he feels this has been extremely helpful. In review of patient's chart it appears PSA 10/04 5.4. He discusses previously following up with a urologist however is unsure as to who and or where however for this exact issue at which time he was told he should not worry about an elevated PSA given his age. He reports to be happy with current voiding parameters on Flomax 0.4 mg daily. Discussed at length potential causes of elevated PSA. When asked he denies any known family history of prostate cancer. He reports having had GINA previously and no abnormalities were noted. In office urinalysis results reviewed with the patient today. PVR 0 mL. PFSH Medical History PUD (peptic ulcer disease) TIA (transient ischemic attack) PAF (paroxysmal atrial fibrillation) Acute coronary syndrome Hypothyroidism CVA (cerebral vascular accident) Hypertension Fatigue Surgical History History of heart artery stent H/O thyroidectomy Hx of colonoscopy H/O melanoma excision History of surgery on arm Family History Father Lung cancer Mother Heart disease Social History Household Members: Spouse Housing: House Do you presently have visiting nurse or other home services: No Alcohol intake: current Alcohol intake frequency: holidays/special occasions only Comment: once a week 1 drink Patient Tobacco Use Status: Former Tobacco user Tobacco use type: Cigarette Years Smoked: quit 22 years old e-Cigarette/Vaping Use: Never Used Second Hand Smoke Exposure: No service: No Cognitive needs: No Hearing needs: No Vision needs: Yes Review of Systems Const Reports no additional complaints Eyes Reports no additional complaints ENT Reports no additional complaints Card Reports as per HPI Resp Reports no additional complaints GI Reports as per HPI Reports as per HPI Musc Reports no additional complaints Neuro Reports as per HPI Psych Reports no additional complaints Endo Reports as per HPI [place]/Lymph Reports no additional complaints Aller/Immun Reports no additional complaints Physical Exam Const General: cooperative, healthy appearing, comfortable, no acute distress, well developed, alert and awake Orientation/consciousness: patient oriented x3 Limitations: no limitations HEENT Head: Yes normal to inspection, Yes normocephalic and Yes atraumatic Ears: hearing grossly normal bilaterally Eyes General: appearance normal, both eyes and all related structures Neck Neck: Yes normal visual inspection and Yes trachea midline Chest Chest palpation & inspection: normal inspection of the chest Resp Effort & Inspection: normal respiratory effort and able to speak in complete sentences Cardio Rate: regular rate GI Inspection: Yes normal to inspection General: Yes no CVA tenderness Back/Spine/Pelvis Back: no CVA tenderness Skin General skin exam: no rashes or lesions noted Neuro General: patient oriented x3 Extrem General: Yes normal to inspection Psych Appearance: grossly normal and well kempt Mental Status: mental status grossly normal Speech and movement: Normal speech and movement present and Clear speech present Affect: normal affect Attitude: cooperative Thought process: Normal thought process present Thought content: Normal thought content present Insight: Fair insight present (Psych) Judgement: Fair judgement present (Psych) Office Procedures Post Void Residual Post Residual Void Post Void Residual (PVR): 0 [id number] Void Residual by ultrasound Results AMB Urinalysis, Automated UA Leukoctes 0 Breanna/uL Last Edit by [employer] on 12/06/23 11:19 UA Nitrite Negative Last Edit by [employer] on 12/06/23 11:19 UA Urobilinogen 0.2 mg/dL Last Edit by [employer] on 12/06/23 11:19 UA Protein 0 mg/dL Last Edit by [employer] on 12/06/23 11:19 UA pH 6.0 Last Edit by [employer] on 12/06/23 11:19 UA Blood 0 Pipo/uL Last Edit by [employer] on 12/06/23 11:19 UA Specific [place]comb 1.010 Last Edit by [employer] on 12/06/23 11:19 UA Ketone Negative Last Edit by [employer] on 12/06/23 11:19 UA Bilirubin 0 mg/dL Last Edit by [employer] on 12/06/23 11:19 UA Glucose 0 mg/dL Last Edit by [employer] on 12/06/23 11:19 Results Reviewed Results Reviewed: Laboratory Last Values Urine pH (Auto) 6.0 12/06/23 10:52 Specific [place]comb (Auto) 1.010 12/06/23 10:52 Urine Protein (Auto) 0 mg/dL 12/06/23 10:52 Glucose (UA)(Auto) 0 mg/dL 12/06/23 10:52 Urine Ketones (Auto) Negative 12/06/23 10:52 Urine Blood (Auto) 0 Pipo/uL 12/06/23 10:52 Urine Nitrite (Auto) Negative 12/06/23 10:52 Urine Bilirubin (Auto) 0 mg/dL 12/06/23 10:52 Urine Urobilinogen (Auto) 0.2 mg/dL 12/06/23 10:52 Leukocyte Esterase (Auto) 0 Breanna/uL 12/06/23 10:52 Assessment & Plan Assessment & Plan (1) Elevated PSA: Code(s): R97.20 - Elevated prostate specific antigen [PSA] Category: Medical (2) Weak urinary stream: Code(s): R39.12 - Poor urinary stream Category: Medical Plan In office urinalysis results reviewed with the patient today; as noted above. PVR 0 mL. Discussed at length potential causes of elevated PSA. Continue Flomax as discussed and prescribed; refill provided. Will obtain retroperitoneal ultrasound for further assessment evaluation. Will obtain redraw of PSA % and free; with no sex the night before, no caffeine morning of, and no heavy lifting 1-2 days prior. Patient currently denies any bothersome urinary issues. He reports be happy with current voiding parameters on 0.4 mg of Flomax daily. Follow-up in 1-3months with imaging and labs to be completed prior; or sooner with any issues, concerns, and or questions. Orders: Orders AMB Post Void Residual by ultrasound Today Z13.9 - Encounter for screening, un specified PSA,Total (Free>4and<10) Today R97.20 - Elevated prostate specific antigen [PSA] AMB Urinalysis Automated Today Z13.9 - Encounter for screening, unspecified US retroperitoneal comp Today R39.12 - Poor urinary stream, R97.20 - Elevated prostate specific antigen [PSA] Medications: Changed From tamsulosin 0.4 mg PO BEDTIME To tamsulosin 0.4 mg PO BEDTIME 90 days 90 caps 3RF Patient Instructions: The patient had an opportunity to ask questions regarding the treatment plan. All questions were answered. Physical exam, labs, and imaging were discussed and reviewed in detail. As well as risks, benefits, and discussion of treatment choices. No major barriers to understanding were identified. The patient expressed understanding and agreement with the above treatment plan. The patient was made aware they should contact our office by phone for worsening of their current condition, the appearance of new symptoms, or with any questions or concerns. Compliance is encouraged with any medications and follow up testing that is ordered. It is a privilege to be allowed the opportunity to participate in? your urological care.? Again, if you have any questions or concerns If you have any questions or concerns please do not hesitate to contact me. The office is [phone]. This note is constructed using voice recognition software. While every effort has been made to ensure accuracy medical officer psychiatry errors may have been included. Yours sincerely, SARTHAK Chino Coding Level of Care Code New Pt Level 3 (75086) Diagnoses Elevated PSA R97.20 Weak urinary stream R39.12 CPT Codes Post Residual Void - PVR CPT Code: 77506-[id number] Void Residual by ultrasound ([id number])
== END 2023-12-06 11:22 | disposition home or self-care (01) ==
PROVIDERS: PCP Internal Medicine; Visit Provider Nurse Practitioner Family
DX: R97.20 Elevated prostate specific antigen [PSA] (principal); R39.12 Poor urinary stream; Z13.9 Encounter for screening, unspecified
CPT/HCPCS: 99203; 99213

== ENCOUNTER → 2023-12-06 10:37 | Outpatient (BNVA) | payer MEDICARE, SELFPAY | PROVIDERS: PCP Internal Medicine; Visit Provider Nurse Practitioner Family | DX: N48.1 Balanitis (principal); R97.20 Elevated prostate specific antigen [PSA]; R39.12 Poor urinary stream | CPT/HCPCS: 51798; 81003; 99202 ==

== ENCOUNTER 2024-01-10 08:48 | Outpatient (REF) | payer MEDICARE, SELFPAY ==
--- NOTE | ~2024-01-10 | US_ITS ---
EXAMINATION: US RETROPERITONEAL COMPLETE (RENAL) CLINICAL INFORMATION: Poor urinary stream. COMPARISON: CT abdomen and pelvis 01/01/2020. TECHNIQUE: Real-time imaging of the kidneys and bladder. Limited visualization due to bowel gas. FINDINGS: RIGHT KIDNEY: 11.9 x 5.4 x 5.6 cm (SAG x AP x TRV). No hydronephrosis. No renal calculi. Renal cortical thickness is normal. Limited visualization. LEFT KIDNEY: 12.5 x 5.0 x 5.0 cm (SAG x AP x TRV). No hydronephrosis. No renal calculi. Renal cortical thickness is normal. Limited visualization. BLADDER: Well-distended. Mild diffuse irregularity of the bladder wall. Bilateral ureteral jets are demonstrated. Prevoid bladder volume is 402 mL. Postvoid bladder volume is 26.0 mL. ADDITIONAL FINDINGS: Prostate volume 89.7 mL, enlarged. US/US retroperitoneal comp IMPRESSION: 1. No hydronephrosis. No renal calculi. 2. Mild diffuse irregularity of the bladder wall. 3. Enlarged prostate.
== END 2024-01-10 08:49 | disposition home or self-care (01) ==
LOC: HO.HMGCX 08:48
PROVIDERS: PCP Internal Medicine; Visit Provider Nurse Practitioner Family
DX: R97.20 Elevated prostate specific antigen [PSA] (principal); R39.12 Poor urinary stream
CPT/HCPCS: 76770

== ENCOUNTER 2024-01-18 11:17 | Outpatient (AMB) | payer MEDICARE, SELFPAY ==
[2024-01-18 11:26] VITALS: BP 110/60; PULSE 68; TEMP 36.7; O2SAT 98; BMI 29.0
--- NOTE | 2024-01-18 11:26 | AM.OFFWIN_ITS ---
Intake Vital Signs 01/18/24 11:26 Height 5 ft 10 in Weight 202 lb BMI 29.0 BP 110/60 Blood Pressure Location Rt brachial Position Sitting Pulse 68 Pulse Source Pulse Oximeter Temp 98.0 F Temp Source Oral Pulse Oximetry (%) 98 Intake Visit Reasons: EP ?UTI/pain lower area Intake Note: pt is here for possible uti and pain in lower pain Patient Tobacco Use Status: Former Tobacco user Allergies nitroglycerin Allergy (Severe, Verified 01/18/24 11:47) low blood pressure Do you need a note to return to daycare/school/sports/work: No HPI HPI Comments History of Present Illness Details Patient is an 83-year-old male complaining of lower abdominal pain x3 days. He states he was at the beach this weekend and the pain has been getting worse each day. He says it comes and goes and is very painful when it comes. He states he has not had a normal bowel movement in about 3 days, he had a little bit of gabe and then an episode of diarrhea; he denies bloody or black stools. He states he has been passing gas which does give him some relief. He states he has been urinating but not like he usually does, he states it is very painful but he denies any blood in his urine. He states his doctor told him he had an elevated PSA and he is following up with an urologist but has not had the appointment yet. He states he has had his appendix removed and he also admits to a history of diverticulosis. He states he felt like he had a subjective fever this morning. His also mentions a rash around his waist but he thinks that is because he went into the salt water wearing his belt and then had an on for awhile afterwards and he thinks that just irritated his skin. [facility] Medical History PUD (peptic ulcer disease) TIA (transient ischemic attack) PAF (paroxysmal atrial fibrillation) Acute coronary syndrome Hypothyroidism CVA (cerebral vascular accident) Hypertension Fatigue Surgical History History of heart artery stent H/O thyroidectomy Hx of colonoscopy H/O melanoma excision History of surgery on arm Family History Father Lung cancer Mother Heart disease Social History Household Members: Spouse Housing: House Do you presently have visiting nurse or other home services: No Alcohol intake: current Alcohol intake frequency: holidays/special occasions only Comment: once a week 1 drink Patient Tobacco Use Status: Former Tobacco user Tobacco use type: Cigarette Years Smoked: quit 22 years old e-Cigarette/Vaping Use: Never Used Second Hand Smoke Exposure: No service: No Cognitive needs: No Hearing needs: No Vision needs: Yes Review of Systems Const All systems reviewed & are unremarkable except as noted in HPI and below Physical Exam Vital Signs: Last Vital Signs Temp 98.0 F 01/18/24 11:26 Pulse 68 01/18/24 11:26 BP 110/60 01/18/24 11:26 Pulse Ox 98 01/18/24 11:26 BMI result Body Mass Index 29.0 Const General: cooperative, healthy appearing, comfortable, no acute distress and well developed Orientation/consciousness: patient oriented x3 Limitations: no limitations HEENT Head: Yes normal to inspection Eyes General: appearance normal, both eyes and all related structures Neck Neck: Yes normal visual inspection and Yes full ROM Resp Effort & Inspection: normal respiratory effort and able to speak in complete sentences Auscultation: clear to auscultation bilaterally Cardio Rate: regular rate Rhythm: regular rhythm Heart sounds: normal S1 and S2 GI Inspection: Yes normal to inspection Palpation (GI): Soft to palpation and Tenderness to palpation present (GI) in the LLQ (exquisitely tender) Auscultation: High-pitched bowel sounds present and Hyperactive bowel sounds present General: Yes no CVA tenderness Male General Exam: No inguinal lymphadenopathy Back/Spine/Pelvis Back: no CVA tenderness Skin General skin exam: no rashes or lesions noted Neuro General: patient oriented x3 Extrem General: Yes normal to inspection Results AMB Urinalysis, Automated UA Leukoctes 0 Breanna/uL Last Edit by Hai Ruggiero CMA on 01/18/24 11:54 UA Nitrite Negative Last Edit by Hai Ruggiero CMA on 01/18/24 11:54 UA Urobilinogen 0.2 mg/dL Last Edit by Hai Ruggiero CMA on 01/18/24 11:54 UA Protein 0 mg/dL Last Edit by Hai Ruggiero CMA on 01/18/24 11:54 UA pH 6.5 Last Edit by Hai Ruggiero CMA on 01/18/24 11:54 UA Blood 0 Pipo/uL Last Edit by Hai Ruggiero CMA on 01/18/24 11:54 UA Specific [place] 1.015 Last Edit by Hai Ruggiero CMA on 01/18/24 11:54 UA Ketone Last Edit by Hai Ruggiero CMA on 01/18/24 11:54 UA Bilirubin 0 mg/dL Last Edit by Hai Ruggiero CMA on 01/18/24 11:54 UA Glucose 0 mg/dL Last Edit by Hai Ruggiero CMA on 01/18/24 11:54 Assessment & Plan Assessment & Plan (1) Abdominal pain: Code(s): R10.9 - Unspecified abdominal pain Qualifiers: Abdominal location: left lower quadrant Qualified Code(s): R10.32 - Left lower quadrant pain Plan: Vital signs are stable, UA unremarkable, physical exam revealed exquisitely tender left lower quadrant and suprapubic areas, with elevated PSA and history of diverticulosis, sent to ED for further workup, CT Scan etc. Called [facility] ED with expect. Plan See above Orders: Orders AMB Urinalysis Automated Today Z13.9 - Encounter for screening, unspecified Coding Level of Care Code Est Pt Level 5 (45683) Diagnoses Left lower quadrant abdominal pain R10.32 Abdominal location: left lower quadrant
== END 2024-01-18 12:06 | disposition home or self-care (01) ==
PROVIDERS: PCP Internal Medicine; Visit Provider Physician Assistant
DX: R10.32 Left lower quadrant pain (principal)
CPT/HCPCS: 81003; 99215

== ENCOUNTER 2024-01-18 12:41 | Inpatient (IN) | payer MEDICARE, SELFPAY ==
--- NOTE | ~2024-01-18 | CT_ITS ---
EXAMINATION: CT CHEST, ABDOMEN AND PELVIS WITHOUT CONTRAST CLINICAL INFORMATION: Suprapubic tenderness. Dysuria. Left lower quadrant pain. COMPARISON: 01/01/2020 TECHNIQUE: Multidetector volumetric imaging was performed of the chest, abdomen and pelvis without intravenous contrast. Oral contrast was not administered. Sagittal and coronal reformatted images were obtained on the technologist's workstation. This CT examination was performed using dose optimization techniques as appropriate, variously including the following: *Automated exposure control *Adjustment of mA and/or kV according to patient size (this includes techniques or standardized protocols for targeted exams where dose is matched to indication/reason for exam; i.e. extremities or head) *Use of iterative reconstruction technique DLP: 646.08 mGy-cm (accession [id number]), 360.15 mGy-cm (accession [id number]) FINDINGS: CHEST: LUNGS: No suspicious pulmonary nodule. PLEURA: No right pleural effusion. There is a complex small to moderate left pleural effusion with pleural-based thickening and nodularity. MEDIASTINUM: Imaged right thyroid lobe is heterogeneous. The left thyroid lobe appears to be surgically absent. Patulous esophagus. Pretracheal lymph node measures 1.8 x 1.9 cm precarinal lymph node measures 1.5 x 1.6 cm. AP window lymph node measures 2.6 x 2.3 cm. Left cardiophrenic lymph node measures 2.0 x 1.3 cm. Ascending thoracic aorta measures 4.0 x 4.0 in transverse dimension. The heart is enlarged. Small pericardial effusion. There is nodular infiltration of the pericardium. Prior cardiac surgery. CORONARY ARTERY CALCIFICATION: Marked. CHEST WALL/AXILLA: Surgical clips in the right axilla. ABDOMEN AND PELVIS: LIVER AND BILIARY TREE: The liver is normal in size and contour. No biliary ductal dilatation. GALLBLADDER:. Possible minimal layering sludge or small gallstones. PANCREAS: No ductal dilatation. SPLEEN: Capsular calcification. Not enlarged. ADRENAL GLANDS: No adrenal mass. KIDNEYS AND URETERS: No nephrolithiasis or hydronephrosis. GASTROINTESTINAL TRACT: Inflamed diverticulum of the proximal sigmoid colon. There is colonic wall thickening and pericolonic inflammatory change. No small bowel obstruction. VASCULAR: Normal caliber abdominal aorta. Duplicated IVC. LYMPH NODES: No bulky lymphadenopathy. FREE FLUID: No free fluid. BLADDER: Circumferential wall thickening despite underdistention. PELVIC VISCERA: Enlarged prostate gland. OSSEOUS STRUCTURES: No destructive bone lesions. Bilateral fat-containing inguinal hernias. CT/CT chest wo IV con IMPRESSION: Moderate complex left pleural effusion with pleural-based thickening and nodularity. There is nodular infiltration of the pericardium. Small pericardial effusion. There are enlarged mediastinal and cardiophrenic lymph nodes. Findings are concerning for pleural-based malignancy. Focal wall thickening of the proximal sigmoid colon with pericolonic inflammatory changes and underlying inflamed diverticulum. This most likely represents acute sigmoid diverticulitis. Follow-up imaging after treatment is advised. Prostatomegaly. Circumferential wall thickening of the urinary bladder despite underdistention.
--- NOTE | ~2024-01-18 | CT_ITS ---
EXAMINATION: CT CHEST, ABDOMEN AND PELVIS WITHOUT CONTRAST CLINICAL INFORMATION: Suprapubic tenderness. Dysuria. Left lower quadrant pain. COMPARISON: 01/01/2020 TECHNIQUE: Multidetector volumetric imaging was performed of the chest, abdomen and pelvis without intravenous contrast. Oral contrast was not administered. Sagittal and coronal reformatted images were obtained on the technologist's workstation. This CT examination was performed using dose optimization techniques as appropriate, variously including the following: *Automated exposure control *Adjustment of mA and/or kV according to patient size (this includes techniques or standardized protocols for targeted exams where dose is matched to indication/reason for exam; i.e. extremities or head) *Use of iterative reconstruction technique DLP: 646.08 mGy-cm (accession [id number]), 360.15 mGy-cm (accession [id number]) FINDINGS: CHEST: LUNGS: No suspicious pulmonary nodule. PLEURA: No right pleural effusion. There is a complex small to moderate left pleural effusion with pleural-based thickening and nodularity. MEDIASTINUM: Imaged right thyroid lobe is heterogeneous. The left thyroid lobe appears to be surgically absent. Patulous esophagus. Pretracheal lymph node measures 1.8 x 1.9 cm precarinal lymph node measures 1.5 x 1.6 cm. AP window lymph node measures 2.6 x 2.3 cm. Left cardiophrenic lymph node measures 2.0 x 1.3 cm. Ascending thoracic aorta measures 4.0 x 4.0 in transverse dimension. The heart is enlarged. Small pericardial effusion. There is nodular infiltration of the pericardium. Prior cardiac surgery. CORONARY ARTERY CALCIFICATION: Marked. CHEST WALL/AXILLA: Surgical clips in the right axilla. ABDOMEN AND PELVIS: LIVER AND BILIARY TREE: The liver is normal in size and contour. No biliary ductal dilatation. GALLBLADDER:. Possible minimal layering sludge or small gallstones. PANCREAS: No ductal dilatation. SPLEEN: Capsular calcification. Not enlarged. ADRENAL GLANDS: No adrenal mass. KIDNEYS AND URETERS: No nephrolithiasis or hydronephrosis. GASTROINTESTINAL TRACT: Inflamed diverticulum of the proximal sigmoid colon. There is colonic wall thickening and pericolonic inflammatory change. No small bowel obstruction. VASCULAR: Normal caliber abdominal aorta. Duplicated IVC. LYMPH NODES: No bulky lymphadenopathy. FREE FLUID: No free fluid. BLADDER: Circumferential wall thickening despite underdistention. PELVIC VISCERA: Enlarged prostate gland. OSSEOUS STRUCTURES: No destructive bone lesions. Bilateral fat-containing inguinal hernias. CT/CT abdomen pelvis wo IV con IMPRESSION: Moderate complex left pleural effusion with pleural-based thickening and nodularity. There is nodular infiltration of the pericardium. Small pericardial effusion. There are enlarged mediastinal and cardiophrenic lymph nodes. Findings are concerning for pleural-based malignancy. Focal wall thickening of the proximal sigmoid colon with pericolonic inflammatory changes and underlying inflamed diverticulum. This most likely represents acute sigmoid diverticulitis. Follow-up imaging after treatment is advised. Prostatomegaly. Circumferential wall thickening of the urinary bladder despite underdistention.
--- NOTE | ~2024-01-18 | US_ITS ---
EXAMINATION: US CHEST CLINICAL INFORMATION: Left pleural effusion COMPARISON: CT chest January 18, 2024 TECHNIQUE: Grayscale ultrasound left pleural cavity FINDINGS: Small volume of fluid layering dependently in the left pleural cavity. This measures about 1 cm in diameter. US/US chest IMPRESSION: Small volume of fluid layering dependently in the left pleural cavity.
[2024-01-18 12:42] VITALS: BP 151/81; PULSE 68; RESP 18; TEMP 36.6; O2SAT 98; BMI 28.6
--- NOTE | 2024-01-18 12:42 | ED.ABDPAIN ---
HPI - Abdominal Pain General Chief Complaint: Abdominal Pain Stated Complaint: lower stomach pain. urgent care sent for CTscan Time Seen by Provider: 01/18/24 16:46 Source: patient Mode of arrival: ambulatory Limitations: no limitations History of Present Illness HPI narrative: Patient is an 83-year-old male who presents to the emergency department with his Sonia for evaluation. He was seen at the walk-in clinic associated with [facility] earlier today with reports of left lower quadrant abdominal pain. He reports onset yesterday evening but became progressively worse today. He reports intermittent waves of intense pain but pain is overall constant. Reports constipation over the past 3 days, he has passed ?small little gabe? and had an episode of diarrhea without hematochezia or melena. With flatulence he does get some relief in pain. Reports associated dysuria, denies any hematuria or flank pain. Endorsing a subjective fever but no chills. Has nausea but no vomiting. Denies known sick contacts. He states he just [place] home from the beach yesterday. States he has been having ongoing chest pain and shortness of breath since his recent cardiac catheterization in November of 2023 Related Data Home Medications ?Medication ?Instructions ?Recorded ?Confirmed aspirin 81 mg capsule 81 mg PO DAILY 05/20/21 01/18/24 cholecalciferol (vitamin D3) 50 50 mcg PO DAILY 05/20/21 01/18/24 mcg (2,000 unit) capsule levothyroxine 25 mcg capsule 25 mcg PO DAILY 05/20/21 01/18/24 triamcinolone acetonide 0.1 % 1 appl topical BID PRN Rash 02/04/22 01/18/24 topical cream furosemide 20 mg tablet 20 mg PO BID 07/28/23 01/18/24 multivitamin 1 tab PO DAILY 07/28/23 01/18/24 carvedilol 6.25 mg tablet 6.25 mg PO BID 12/02/23 01/18/24 clopidogrel 75 mg tablet 75 mg PO DAILY 12/02/23 01/18/24 Previous Rx's ?Medication ?Instructions ?Recorded atorvastatin 80 mg tablet 80 mg PO DAILY #30 tabs 10/12/23 tamsulosin 0.4 mg capsule 0.4 mg PO BEDTIME 90 days #90 caps 12/06/23 Allergies Allergy/AdvReac Type Severity Reaction Status Date / Time nitroglycerin Allergy Severe low blood Verified 01/18/24 12:44 pressure Review of Systems Review of Systems Yes all other systems are reviewed and are negative [facility] Past Medical History Attestation statement: The following information was validated with the patient. Source: old records reviewed Medical History PUD (peptic ulcer disease) TIA (transient ischemic attack) PAF (paroxysmal atrial fibrillation) Acute coronary syndrome Hypothyroidism CVA (cerebral vascular accident) Hypertension Fatigue Surgical History History of heart artery stent H/O thyroidectomy Hx of colonoscopy H/O melanoma excision History of surgery on arm Family History Family History Father Lung cancer Mother Heart disease Social History Social History Household Members: Spouse Housing: House Do you presently have visiting nurse or other home services: No Alcohol intake: current Alcohol intake frequency: a few times a month Alcohol type: beer Comment: once a week 1 drink Patient Tobacco Use Status: Former Tobacco user Tobacco use type: Cigarette Years Smoked: quit 22 years old e-Cigarette/Vaping Use: Never Used Second Hand Smoke Exposure: No Advance Directives Date on File: 01/18/24 service: No Cognitive needs: No Hearing needs: No Vision needs: Yes Physical Exam ED Vital Signs: Vital Signs - 24 hr 01/18/24 12:42 01/18/24 17:18 Temperature 98 F 97.6 F Pulse Rate 68 84 Respiratory Rate 18 18 Blood Pressure 151/81 H 152/89 H Pulse Oximetry 98 97 Oxygen Delivery Method Room Air Room Air BMI result Body Mass Index 28.6 Appearance: Alert.?Oriented to person, place and time. No acute distress.?Normal affect. Eyes: Pupils equal, round and reactive to light.? ENT: Pharynx normal.?? Neck: Normal inspection.? Neck supple.?? CVS: Heart sounds normal. Normal heart rate and rhythm.? Pulses normal.?? Respiratory: No respiratory distress.?endorses shortness of breath however he has not noted to be tachypneic hypoxic or tachycardic, lung sounds are diminished on the left with fine rales, clear on the right. Chest: Left breast mass at 12:00 o'clock from the areola measures approximately 3 cm Abdomen: Soft and non-tender. Normoactive bowel sounds. ? Skin: Skin warm and dry.? Normal skin color.? ? Extremities: No lower extremity edema.? No calf ttp? Neuro: Moves all extremities spontaneously. Sensation intact bilaterally. CN II-XII intact. No focal neuro deficits. Ambulates with normal steady gait. Course Course Course Narrative: This is a Rapid Medical Exam performed in triage by Leslie Mayers PA-C. Full HPI, ROS and PE to be performed by primary ED provider. 83 year-old M w/ PMHx HLD, PAF on ASA/Plavix presenting to the ED c/o LLQ abdominal pain since last night fluctuating in intensity, w/assoc nausea. +dysuria PE: +LLQ/suprapubic ttp, no CVAT Plan: Labs, UA, CT Reevaluation(s) Reevaluation #1: Received some records from [facility], echocardiogram from 11/14/2023 revealing EF 55-65% no obvious wall motion abnormalities, LV filling pressures are elevated, moderately calcified aortic valve with [id number] aortic stenosis no regurgitation, moderate to severe mitral calcifications, trace mitral regurgitation. 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 On review of CT of the chest abdomen and pelvis obtained prior to my assumption of care, patient has been found to have acute sigmoid diverticulitis without perforation or notable abscess, provided with a dose of Zosyn IV. 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 Upon speaking with patient about this he states when he had his cardiac catheterization in November of 2023 at [facility] they ?nicked my diaphragm? he has since been following with Dr. Moreno cardiothoracic surgeon from [facility] and states that no intervention has been done regarding the ?fluid building up around the lung?. Reports his primary care doctor, Dr. Brown has arranged for him to be seen in [place]. He was evaluated at [facility] by the Cardiology Department he advised there was nothing to be done from there staring point and referred him to see pulmonology but does not have an appointment until February 28. On review of our records he had a chest x-ray in October of 2023 revealing a moderate left pleural effusion with left basilar consolidation. He endorses shortness of breath however he has not noted to be tachypneic hypoxic or tachycardic, lung sounds are diminished on the left with fine rales. He has a known mass on the left chest within the left pectoralis muscle with suspicious appearance based on ultrasound imaging 10/28/2023, unfortunately he has not been able to undergo biopsy as this was scheduled to be done the day following his recent NSTEMI. Differential Diagnosis Differential Diagnoses: The differential diagnosis associated with the presentation includes (Acute diverticulitis, complicated diverticulitis, pleural effusion, pericardial effusion, malignancy) Admission/Observation Consideration of admission/observation: Escalation of care including admission/observation considered Consult Healthcare Provider Management of the patient was discussed with: Hospitalist and Lap Runner I consulted with General surgery/thoracic coverage on-call, Dr. Enriquez, advises appropriate treatment for inpatient admission to medicine service, will consult regarding diverticulitis, and have thoracic consultation for possible thoracentesis and/or biopsy Lab Data MDM Lab Attestation statement: I reviewed the patient's lab results. CBC reveals leukocytosis of 12,500 with left shift, no anemia, no thrombocytopenia. No electrolyte derangement. No KENDRA. LFTs within normal range. Lipase normal. Urinalysis without evidence of infection or microscopic hematuria 01/18/24 13:03 01/18/24 13:03 Labs: Lab Results 01/18/24 01/18/24 Range/Units 13:03 14:58 WBC 12.5 H (4.8-10.8) X10*3/uL RBC 4.97 (4.60-5.80) X10*6/uL Hgb 14.3 (14.0-18.0) g/dl Hct 42.6 (42.0-52.0) % MCV 85.7 (80.0-98.0) fL MCH 28.8 (27.0-33.0) pg MCHC 33.6 (31.0-36.0) g/dl RDW 13.9 (11.0-16.0) % Plt Count 247 (160-400) X10*3/uL MPV 10.2 (9.4-12.4) fL Immature Gran % (Auto) 0.3 (0.0-0.4) % Neut % (Auto) 84.3 H (45-73) % Lymph % (Auto) 4.8 L (20-40) % [place] % (Auto) 9.0 (2-11) % Eos % (Auto) 1.2 (0-4) % Baso % (Auto) 0.4 (0-2) % Lymph # (Auto) 0.6 L (1.2-4.9) X10*3/uL [place] # (Auto) 1.1 (0.1-1.2) X10*3/uL Eos # (Auto) 0.2 (0.0-0.4) X10*3/uL Baso # (Auto) 0.1 (0.0-0.2) X10*3/uL Abs Immat Gran (auto) 0.04 H (0.00-0.03) X10*3/uL Absolute Neuts (auto) 10.6 H (2.0-8.3) x10*3/uL Absolute Nucleated RBC 0.000 (0.0-0.012) X10*3/uL Nucleated RBC % (auto) 0.0 (0.0-0.2) /100WBC Sodium 135 (135-145) mmol/L Potassium 4.0 (3.3-5.1) mmol/L Chloride 98 (96-108) mmol/L Carbon Dioxide 27 (22-29) mmol/L Anion Gap 14 (12-20) BUN 11 (9-16) mg/dL Creatinine 0.81 (0.5-1.4) mg/dL Estim Creat Clear Calc 80.8 Estimated GFR > 60 Random Glucose 89 (60-115) mg/dL Calcium 9.3 (8.4-10.2) mg/dL Magnesium 1.7 (1.6-2.6) mg/dL Total Bilirubin 1.0 (0.0-1.0) mg/dL Direct Bilirubin 0.3 (0.0-0.5) mg/dL AST 23 (5-37) U/L ALT 23 (0-40) U/L Alkaline Phosphatase 82 (39-117) U/L Total Protein 7.6 (6.5-8.0) g/dL Albumin 4.0 (3.5-5.0) g/dL Lipase 27 (8-78) U/L Urine Color Yellow Urine Appearance Clear Urine pH 6.0 (5.0-9.0) Ur Specific [place] 1.010 (1.005-1.025) Urine Protein Negative (Neg-Trace) mg/dL Urine Glucose (UA) Negative (Negative) mg/dL Urine Ketones Negative (Negative) mg/dL Urine Blood Negative (Negative) Urine Nitrite Negative (Negative) Ur Leukocyte Esterase Negative (Negative) Radiology Impression Discussion of test interpretation with radiology: I have reviewed the radiologist's reading. Radiologist Impression: CT/CT chest wo IV con IMPRESSION: Moderate complex left pleural effusion with pleural-based thickening and nodularity. There is nodular infiltration of the pericardium. Small pericardial effusion. There are enlarged mediastinal and cardiophrenic lymph nodes. Findings are concerning for pleural-based malignancy. Focal wall thickening of the proximal sigmoid colon with pericolonic inflammatory changes and underlying inflamed diverticulum. This most likely represents acute sigmoid diverticulitis. Follow-up imaging after treatment is advised. Prostatomegaly. Circumferential wall thickening of the urinary bladder despite underdistention. External Record Review External record reviewed: Outpatient record (See narrative above) Medications Administered Generic Name Dose Route Start Last Admin Trade Name Freq PRN Reason Stop Dose Admin Piperacillin Sod/Tazobactam 100 mls @ 200 mls/hr 01/19/24 00:00 01/19/24 00:17 Sod 4.5 gm/ Sodium Chloride IV Infused Q6H CONRAD Infusion Lactated Ringer's 1,000 mls @ 125 mls/hr 01/18/24 19:00 01/19/24 00:17 Lr IVCONT 125 mls/hr .Q8H CONRAD Infusion Sodium Chloride 3 ml 01/19/24 00:00 01/19/24 00:09 0.9 % Sodium Chloride Flush 3 Ml Syringe IVFLUSH Not Given QSHIFT CONRAD Discontinued Medications Generic Name Dose Route Start Last Admin Trade Name Freq PRN Reason Stop Dose Admin Piperacillin Sod/Tazobactam 50 mls @ 100 mls/hr 01/18/24 16:53 01/18/24 19:39 Sod 3.375 gm/ Sodium Chloride IV 01/18/24 17:22 Infused ONCE ONE Infusion Ondansetron HCl 4 mg 01/18/24 17:03 01/18/24 17:31 Ondansetron Hcl 4 Mg/2 Ml Vial IVPUSH 01/18/24 17:04 4 mg ONCE ONE Administration Discharge Plan Discharge Clinical Impression: Diverticulitis, Pleural effusion Patient Disposition: Admitted As Inpatient Interventions: Admission Worksheet (ED) Last Done: 01/18/24 21:43 Discharge Date/Time: 01/18/24 22:10
[2024-01-18 13:12] LABS: MANUAL DIFF FLAG NO
[2024-01-18 13:16] LABS: Basophils Absolute Auto 0.1 X10*3/uL (0.0-0.2); Basophils Percent Auto 0.4 % (0-2); Eosinophils Absolute Auto 0.2 X10*3/uL (0.0-0.4); Eosinophils Percent Auto 1.2 % (0-4); Hematocrit 42.6 % (42.0-52.0); Hemoglobin 14.3 g/dl (14.0-18.0); Imm Gran Abs Auto 0.04 X10*3/uL (0.00-0.03); Imm Gran Pct Auto 0.3 % (0.0-0.4); Lymphocytes Absolute Auto 0.6 X10*3/uL (1.2-4.9); Lymphocytes Percent Auto 4.8 % (20-40); Mean Corpuscular HGB Conc 33.6 g/dl (31.0-36.0); Mean Corpuscular Hemoglobin 28.8 pg (27.0-33.0); Mean Corpuscular Volume 85.7 fL (80.0-98.0); Mean Platelet Volume 10.2 fL (9.4-12.4); Monocytes Absolute Auto 1.1 X10*3/uL (0.1-1.2); Neutrophils Absolute Auto 10.6 x10*3/uL (2.0-8.3); Neutrophils Percent Auto 84.3 % (45-73); Platelet Count 247 X10*3/uL (160-400); Red Blood Count 4.97 X10*6/uL (4.60-5.80); Red Cell Distribution Width 13.9 % (11.0-16.0); White Blood Count 12.5 X10*3/uL (4.8-10.8)
[2024-01-18 13:50] LABS: Alanine Aminotransferase 23 U/L (0-40); Alkaline Phosphatase 82 U/L (39-117); Anion Gap 14 (12-20); Aspartate Amino Transferase 23 U/L (5-37); Bilirubin Direct 0.3 mg/dL (0.0-0.5); Blood Urea Nitrogen 11 mg/dL (9-16); Calcium 9.3 mg/dL (8.4-10.2); Carbon Dioxide 27 mmol/L (22-29); Chloride 98 mmol/L (96-108); Creatinine Clr Calc Pharmacy 80.8; Estimated Glomerular Filt Rate > 60; Glucose Random 89 mg/dL (60-115); Lipase 27 U/L (8-78); Magnesium 1.7 mg/dL (1.6-2.6); Sodium 135 mmol/L (135-145); Total Protein 7.6 g/dL (6.5-8.0)
[2024-01-18 15:04] LABS: Appearance Urine Clear; Color Urine Yellow; Glucose Urine UA Negative (Negative); Leukocyte Esterase Urine Negative (Negative); Nitrite Urine Negative (Negative); Urine Blood Negative (Negative); Urine Ketones Negative (Negative); Urine Protein Negative (Neg-Trace)
[2024-01-18 17:18] VITALS: BP 152/89; PULSE 84; RESP 18; TEMP 36.4; O2SAT 97
[2024-01-18] MEDS: Piperacillin Sodium/Tazobactam 3.375 GM in 0.9 % Sodium Chloride 50 ML IV (17:29)
[2024-01-18] MEDS: ondansetron HCL 4 MG/2 ML VIAL IVPUSH (17:31)
--- NOTE | 2024-01-18 18:43 | P.HPHOSP_ITS ---
History of Present Illness Date of Service: 01/18/24 Chief Complaint: Abdominal Pain This is a 83-year-old male with pertinent history of CAD status post CABG, mixed hyperlipidemia, atrial fibrillation not on anticoagulation, hypothyroidism, BPH, recurrent left pleural effusions, hypertension who presents to the emergency department for evaluation of abdominal pain. Patient states symptoms started 2 days prior to presentation. He has been having left lower quadrant pain which is intermittent and nonradiating. Patient states the pain has been progressive over the last 2 days. No relief with p.o. oral analgesics over the counter. No change in bowel habits. Patient also endorses dyspnea which is worse with exertion. States he was told that dyspnea is due to his recurrent left pleural effusion. No orthopnea or PND. No chest pain. He denies fever, chills, changes in urinary habits. In the emergency department, imaging with acute sigmoid diverticulitis. Imaging also with moderate left-sided pleural effusion with concern for pleural based malignancy. Review of Systems 2 Constitutional: Constitutional: Reports fatigue Cardiovascular: Cardiovascular: Reports dyspnea on exertion Respiratory: Respiratory: Reports dyspnea on exertion Gastrointestinal: Gastrointestinal: Reports abdominal pain and Reports nausea Genitourinary: Genitourinary: Reports no additional male genitourinary complaints Neurologic: Reports system reviewed and no additional complaints, except as documented Endocrine: Endocrine: Reports fatigue [facility] Medical History PUD (peptic ulcer disease) TIA (transient ischemic attack) PAF (paroxysmal atrial fibrillation) Acute coronary syndrome Hypothyroidism CVA (cerebral vascular accident) Hypertension Fatigue Family History Father Lung cancer Mother Heart disease Surgical History History of heart artery stent H/O thyroidectomy Hx of colonoscopy H/O melanoma excision History of surgery on arm Social History Household Members: Spouse Housing: House Do you presently have visiting nurse or other home services: No Alcohol intake: current Alcohol intake frequency: holidays/special occasions only Comment: once a week 1 drink Patient Tobacco Use Status: Former Tobacco user Tobacco use type: Cigarette Years Smoked: quit 22 years old e-Cigarette/Vaping Use: Never Used Second Hand Smoke Exposure: No Advance Directives: Yes Advance Directives Information Provided: No Advance Directives on File: No service: No Cognitive needs: No Hearing needs: No Vision needs: Yes Meds Allergies Allergy/AdvReac Type Severity Reaction Status Date / Time nitroglycerin Allergy Severe low blood Verified 01/18/24 12:44 pressure Home Medications ?Medication ?Instructions ?Recorded ?Confirmed ?Last Taken ?Type aspirin 81 mg capsule 81 mg PO DAILY 05/20/21 09/26/23 05/13/22 History cholecalciferol (vitamin D3) 50 50 mcg PO DAILY 05/20/21 09/26/23 05/13/22 History mcg (2,000 unit) capsule levothyroxine 25 mcg capsule 25 mcg PO DAILY 05/20/21 09/26/23 05/13/22 History triamcinolone acetonide 0.1 % 1 appl topical BID PRN Rash 02/04/22 09/26/23 Unknown History topical cream furosemide 20 mg tablet 20 mg PO DAILY 07/28/23 09/26/23 Unknown History multivitamin 1 tab PO DAILY 07/28/23 09/26/23 Unknown History carvedilol 6.25 mg tablet 6.25 mg PO BID 12/02/23 Unknown History clopidogrel 75 mg tablet 75 mg PO DAILY 12/02/23 Unknown History Physical Exam 2 Vital Signs and Narrative: Vital Signs: Last Vital Signs Temp 97.6 F 01/18/24 17:18 Pulse 84 01/18/24 17:18 Resp 18 01/18/24 17:18 BP 152/89 H 01/18/24 17:18 Pulse Ox 97 01/18/24 17:18 O2 Del Method Room Air 01/18/24 17:18 BMI result Body Mass Index 28.6 Middle-aged male lying in bed in no distress Neck supple, no JVD Regular rate and rhythm, S1-S2 heard Regular breath sounds bilaterally, no wheezing or crackles appreciated Left lower quadrant tenderness present, no rigidity or rebound tenderness Patient is awake, alert and oriented to self, place, time and person ; no focal motor deficit Psych: Normal mood No pedal edema Results Labs 01/18/24 13:03 01/18/24 13:03 Labs: Laboratory Results - last 24 hr 01/18/24 01/18/24 13:03 14:58 MCV 85.7 MCH 28.8 MCHC 33.6 RDW 13.9 Plt Count 247 MPV 10.2 Immature Gran % (Auto) 0.3 Neut % (Auto) 84.3 H Lymph % (Auto) 4.[address] [place] % (Auto) 9.0 Eos % (Auto) 1.2 Baso % (Auto) 0.4 Lymph # (Auto) 0.[address] [place] # (Auto) 1.1 Eos # (Auto) 0.2 Baso # (Auto) 0.1 Abs Immat Gran (auto) 0.04 H Absolute Neuts (auto) 10.6 H Absolute Nucleated RBC 0.000 Nucleated RBC % (auto) 0.0 Anion Gap 14 Estim Creat Clear Calc 80.8 Estimated GFR > 60 Random Glucose 89 Calcium 9.3 Magnesium 1.7 Total Bilirubin 1.0 Direct Bilirubin 0.3 AST 23 ALT 23 Alkaline Phosphatase 82 Total Protein 7.6 Albumin 4.0 Lipase 27 Urine Color Yellow Urine Appearance Clear Urine pH 6.0 Ur Specific [place] 1.010 Urine Protein Negative Urine Glucose (UA) Negative Urine Ketones Negative Urine Blood Negative Urine Nitrite Negative Ur Leukocyte Esterase Negative Imaging Radiologist's Impressions: Impressions Abdomen/Pelvis CT 01/18/24 13:40 IMPRESSION: Moderate complex left pleural effusion with pleural-based thickening and nodularity. There is nodular infiltration of the pericardium. Small pericardial effusion. There are enlarged mediastinal and cardiophrenic lymph nodes. Findings are concerning for pleural-based malignancy. Focal wall thickening of the proximal sigmoid colon with pericolonic inflammatory changes and underlying inflamed diverticulum. This most likely represents acute sigmoid diverticulitis. Follow-up imaging after treatment is advised. Prostatomegaly. Circumferential wall thickening of the urinary bladder despite underdistention. Chest CT 01/18/24 13:42 IMPRESSION: Moderate complex left pleural effusion with pleural-based thickening and nodularity. There is nodular infiltration of the pericardium. Small pericardial effusion. There are enlarged mediastinal and cardiophrenic lymph nodes. Findings are concerning for pleural-based malignancy. Focal wall thickening of the proximal sigmoid colon with pericolonic inflammatory changes and underlying inflamed diverticulum. This most likely represents acute sigmoid diverticulitis. Follow-up imaging after treatment is advised. Prostatomegaly. Circumferential wall thickening of the urinary bladder despite underdistention. Assessment and Plan (1) Diverticulitis: Status: Acute (2) Recurrent left pleural effusion: Status: Acute Plan This is a 83-year-old male with pertinent history of CAD status post CABG, mixed hyperlipidemia, atrial fibrillation not on anticoagulation, hypothyroidism, BPH, recurrent left pleural effusions, hypertension who presents to the emergency department for evaluation of abdominal pain. #. Acute sigmoid diverticulitis: Will admit patient with IV antibiotics. No sepsis. NPO for bowel rest. Continue IV crystalloid resuscitation. IV opiates p.r.n. for analgesia #. Recurrent left pleural effusion, moderate: Patient has a history of recurrent left pleural effusions requiring PleurX drainage. Imaging concerning for pleural-based malignancy. Will consult thoracic surgery for drainage and possible biopsy. #. CAD status post CABG/Mixed hyperlipidemia: On dual antiplatelet therapy and high-intensity statin. Also on beta-beny #. Hypothyroidism: On Synthroid #. BPH: On Flomax #. Hypertension: Continue home antihypertensives Med rec pending DVT prophylaxis: Mechanical Full code Admit as inpatient and will require two night minimum hospital stay for IV antibiotics (as above), which is not possible in a lesser acute setting. Quality Stroke Does the patient have a stroke diagnosis?: No VTE Prior VTE?: No VTE Risk Level:: Medical - moderate - high VTE Device Contraindication: N/A - Device Ordered VTE Drug Contraindication: Treatment Not Indicated
--- NOTE | 2024-01-18 19:13 | PHA.MEDREC ---
Addendum entered by Thanh Weaver [facility] 01/18/24 20:13: med rec reviewed Original Note: Pharmacy Consult ? Medication Reconciliation Pharmacy has completed the medication reconciliation. Spoke to patient to confirm med list, however patient stated he doesn't know what he takes instructed me to call his Sonia [phone]. Spoke to patient's and was able to confirm med list. Sonia states patient is no longer on Lisinopril 20 mg daily, last fill date 08-25-23 for 90 days, and Metoprolol tartrate 75 mg bid, last fill date was 12-19-23 for 90 day supply. states patient takes Clopidogrel 75 mg daily
[2024-01-18 19:41] VITALS: BP 117/66; PULSE 74; RESP 15; O2SAT 96
[2024-01-18] MEDS: Lactated Ringers 1,000 ML 125 ML IVCONT (19:48)
--- NOTE | 2024-01-18 20:08 | PC.NURSE ---
assumed care of pt at 1900 - pt resting comfortably on stretcher in no apparent distress, A&Ox3, speaking clear full sentences, reporting no pain or distress, using urinal at bedside w/ no issues. worklist and vital signs updated, LR started at 125ml/hr per aug. call perez within reach, pt waiting for bed assignment up on med surg. requesting food/liquids however explained to pt that he is NPO. plan of care ongoing
[2024-01-18 21:33] VITALS: BP 117/63; PULSE 78; RESP 16; TEMP 36.8; O2SAT 95
[2024-01-18 22:21] VITALS: BP 157/75; PULSE 74; RESP 16; TEMP 36.5; O2SAT 95
[2024-01-18] MEDS: Piperacillin Sodium/Tazobactam 4.5 GM in 0.9 % Sodium Chloride 100 ML IV (23:47)
[2024-01-18 23:58] VITALS: BP 124/67; PULSE 73; RESP 17; TEMP 36.8; O2SAT 94
[2024-01-19] MEDS: Lactated Ringers 1,000 ML 125 ML IVCONT (04:00)
[2024-01-19] MEDS: Piperacillin Sodium/Tazobactam 4.5 GM in 0.9 % Sodium Chloride 100 ML IV ×4 (06:00→23:34)
[2024-01-19 06:18] LABS: MANUAL DIFF FLAG NO
[2024-01-19 06:22] LABS: Basophils Percent Auto 0.4 % (0-2); Eosinophils Absolute Auto 0.2 X10*3/uL (0.0-0.4); Eosinophils Percent Auto 1.4 % (0-4); Hematocrit 39.5 % (42.0-52.0); Hemoglobin 13.2 g/dl (14.0-18.0); Imm Gran Abs Auto 0.04 X10*3/uL (0.00-0.03); Imm Gran Pct Auto 0.4 % (0.0-0.4); Lymphocytes Absolute Auto 0.7 X10*3/uL (1.2-4.9); Lymphocytes Percent Auto 7.1 % (20-40); Mean Corpuscular HGB Conc 33.4 g/dl (31.0-36.0); Mean Corpuscular Hemoglobin 28.8 pg (27.0-33.0); Mean Corpuscular Volume 86.1 fL (80.0-98.0); Mean Platelet Volume 10.8 fL (9.4-12.4); Monocytes Absolute Auto 1.2 X10*3/uL (0.1-1.2); Monocytes Percent Auto 11.5 % (2-11); Neutrophils Absolute Auto 8.2 x10*3/uL (2.0-8.3); Neutrophils Percent Auto 79.2 % (45-73); Platelet Count 217 X10*3/uL (160-400); Red Blood Count 4.59 X10*6/uL (4.60-5.80); Red Cell Distribution Width 13.9 % (11.0-16.0); White Blood Count 10.4 X10*3/uL (4.8-10.8)
[2024-01-19 07:01] LABS: Anion Gap 14 (12-20); Blood Urea Nitrogen 10 mg/dL (9-16); Calcium 8.5 mg/dL (8.4-10.2); Carbon Dioxide 28 mmol/L (22-29); Chloride 102 mmol/L (96-108); Creatinine Clr Calc Pharmacy 74.4; Estimated Glomerular Filt Rate > 60; Glucose Random 73 mg/dL (60-115); Potassium 3.6 mmol/L (3.3-5.1); Sodium 140 mmol/L (135-145)
[2024-01-19 08:00] VITALS: BP 122/77; PULSE 67; RESP 18; TEMP 36.6; O2SAT 95
--- NOTE | 2024-01-19 10:12 | HO.THORCON_ITS ---
History of Present Illness Consult details Consult date: 01/19/24 Narrative: Thoracic surgical consult for evaluation of left pleural fluid in the complex left pleural mass. Patient has had several month or longer history of shortness of breath and a left pleural effusion. He was initially admitted with a diagnosis of diverticulitis. 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 The workup in the ER including variety of studies and scans including CT of the chest which demonstrated the above-mentioned findings. Patient has a very distant smoking history. He also had a in environmental exposure to asbestos many years ago. He denies any productive cough, hemoptysis, chest pain, or wheezing. His weight, energy, and appetite are within normal limits. Chart was reviewed and patient evaluated PMFSH Past Medical History Medical History PUD (peptic ulcer disease) TIA (transient ischemic attack) PAF (paroxysmal atrial fibrillation) Acute coronary syndrome Hypothyroidism CVA (cerebral vascular accident) Hypertension Fatigue Family History Family History Father Lung cancer Mother Heart disease Surgical History Surgical History History of heart artery stent H/O thyroidectomy Hx of colonoscopy H/O melanoma excision History of surgery on arm Social History Social History Household Members: Spouse Housing: House Do you presently have visiting nurse or other home services: No Alcohol intake: current Alcohol intake frequency: a few times a month Alcohol type: beer Comment: once a week 1 drink Patient Tobacco Use Status: Former Tobacco user Tobacco use type: Cigarette Years Smoked: quit 22 years old e-Cigarette/Vaping Use: Never Used Second Hand Smoke Exposure: No Advance Directives Date on File: 01/18/24 service: No Cognitive needs: No Hearing needs: No Vision needs: Yes Meds Allergies Allergy/AdvReac Type Severity Reaction Status Date / Time nitroglycerin Allergy Severe low blood Verified 01/18/24 12:44 pressure Active Medications: Current Medications Acetaminophen (Acetaminophen 325 Mg Tablet) 650 mg PO Q6H PRN PRN Reason: Pain, Mild (Pain Scale 1-3), fever or headache Calcium Carbonate (Calcium Carbonate 750 Mg Tab.Chew) 750 mg PO Q4H PRN PRN Reason: Heartburn Piperacillin Sod/Tazobactam (Sod 4.5 gm/ Sodium Chloride) 100 mls @ 200 mls/hr IV Q6H [facility] Last Infusion: 01/19/24 06:30 Dose: Infused Lactated Ringer's (Lr) 1,000 mls @ 125 mls/hr IVCONT .Q8H [facility] Last Infusion: 01/19/24 06:30 Dose: 125 mls/hr Magnesium Hydroxide (Milk Of Magnesia 30 Ml Oral.Susp) 30 ml PO DAILY PRN PRN Reason: Constipation Melatonin (Melatonin 3 Mg Tablet) 6 mg PO BEDTIME PRN PRN Reason: Insomnia Morphine Sulfate (Morphine Sulfate 4 Mg/Ml Cartridge) 4 mg IVPUSH Q4H PRN; Protocol PRN Reason: Pain, Severe (Pain Scale 7-10) Ondansetron HCl (Ondansetron Hcl 4 Mg/2 Ml Vial) 4 mg IVPUSH Q8H PRN PRN Reason: Nausea and Vomiting Sodium Chloride (0.9 % Sodium Chloride Flush 3 Ml Syringe) 3 ml IVFLUSH QSHIFT [facility] Last Admin: 01/19/24 07:05 Dose: Not Given Home Medications ?Medication ?Instructions ?Recorded ?Confirmed ?Last Taken ?Type aspirin 81 mg capsule 81 mg PO DAILY 05/20/21 01/18/24 01/18/24 History cholecalciferol (vitamin D3) 50 50 mcg PO DAILY 05/20/21 01/18/24 01/18/24 History mcg (2,000 unit) capsule levothyroxine 25 mcg capsule 25 mcg PO DAILY 05/20/21 01/18/24 01/18/24 History triamcinolone acetonide 0.1 % 1 appl topical BID PRN Rash 02/04/22 01/18/24 Unknown History topical cream furosemide 20 mg tablet 20 mg PO BID 07/28/23 01/18/24 01/18/24 History multivitamin 1 tab PO DAILY 07/28/23 01/18/24 01/18/24 History carvedilol 6.25 mg tablet 6.25 mg PO BID 12/02/23 01/18/24 01/18/24 History clopidogrel 75 mg tablet 75 mg PO DAILY 06/01/18/24 01/18/24 History Physical Exam 2 Vital Signs: Vital Signs: Last Vital Signs Temp 97.9 F 01/19/24 08:00 Pulse 67 01/19/24 08:00 Resp 18 01/19/24 08:00 BP 122/77 01/19/24 08:00 Pulse Ox 95 01/19/24 08:00 O2 Del Method Room Air 01/19/24 08:00 BMI result Body Mass Index 28.6 Const: Other: Patient was evaluated in presence of his . Chest: Other: Chest breath sounds bilaterally, diminished markedly left base GI: Other: Abdomen very corpulent, mild left lower abdominal tenderness but no evidence of any guarding, rebound, rigidity. Results Labs 01/19/24 05:16 01/19/24 05:16 Labs: Abnormal lab results 01/18/24 01/19/24 Range/Units 13:03 05:16 WBC 12.5 H (4.8-10.8) X10*3/uL RBC 4.59 L (4.60-5.80) X10*6/uL Hgb 13.2 L (14.0-18.0) g/dl Hct 39.5 L (42.0-52.0) % Neut % (Auto) 84.3 H 79.2 H (45-73) % Lymph % (Auto) 4.8 L 7.1 L (20-40) % [place] % (Auto) 11.5 H (2-11) % Lymph # (Auto) 0.6 L 0.7 L (1.2-4.9) X10*3/uL Abs Immat Gran (auto) 0.04 H 0.04 H (0.00-0.03) X10*3/uL Absolute Neuts (auto) 10.6 H (2.0-8.3) x10*3/uL Short CBC 01/18/24 01/19/24 Range/Units 13:03 05:16 WBC 12.5 H 10.4 (4.8-10.8) X10*3/uL Hgb 14.3 13.2 L (14.0-18.0) g/dl Hct 42.6 39.5 L (42.0-52.0) % Plt Count 247 217 (160-400) X10*3/uL BMP 01/18/24 01/19/24 13:03 05:16 Sodium 135 140 Potassium 4.0 3.6 Chloride 98 102 Carbon Dioxide 27 28 BUN 11 10 Creatinine 0.81 0.88 Calcium 9.3 8.5 D Liver Function 01/18/24 Range/Units 13:03 Total Bilirubin 1.0 (0.0-1.0) mg/dL Direct Bilirubin 0.3 (0.0-0.5) mg/dL AST 23 (5-37) U/L ALT 23 (0-40) U/L Alkaline Phosphatase 82 (39-117) U/L Albumin 4.0 (3.5-5.0) g/dL Urine 01/18/24 Range/Units 14:58 Urine Color Yellow Urine Appearance Clear Urine pH 6.0 (5.0-9.0) Ur Specific [place] 1.010 (1.005-1.025) Urine Protein Negative (Neg-Trace) mg/dL Urine Glucose (UA) Negative (Negative) mg/dL All other labs normal. Assessment and Plan (1) Recurrent left pleural effusion: Status: Acute (2) Pleural mass: Status: Acute Plan There is concern that the CT scan findings are consistent with a neoplastic process. Less likely to be an infectious 1 as the patient has no prior history of pneumonia or any symptoms or findings consistent with empyema. I ordered IR placement of many chest tube with pleural fluid to be sent for cytology as well as cultures and further interventions and studies will be directed by the results of the above-mentioned procedure and the patient's clinical course. To follow with you. Procedures Date of Service Date of Service: 01/19/24
--- NOTE | 2024-01-19 12:41 | MHC.CM.PN ---
PT REPORTS HE LIVES WITH HIS AND IS INDEPENDENT WITH CARE AND MOBILITY COPY OF HCP REQUESTED, HE STATES HIS IS HIS AGENT PCP: MITA BARTON IMM DELIVERED DCP: HOME VIA PRIVATE TRANSPORT
--- NOTE | 2024-01-19 14:24 | HO.PM.IMPN ---
Subjective Subjective Date of Service: 01/19/24 Interval History: seen and evaluated this morning pain improved in LLQ IR could not find enough effusion to drain no other events Review of Systems Review of Systems: Yes all other systems are reviewed and are negative Physical Exam Vital Signs: Vital Signs: Last Vital Signs Temp 97.9 F 01/19/24 08:00 Pulse 67 01/19/24 08:00 Resp 18 01/19/24 08:00 BP 122/77 01/19/24 08:00 Pulse Ox 95 01/19/24 08:00 O2 Del Method Room Air 01/19/24 08:00 BMI result Body Mass Index 28.6 Const: Other: Constitutional : Awake, interactive, not in distress Neck : Normal inspection, Supple Cardiovascular : RRR, no JVP, no lower extremity edema Respiratory : decrease air entry over left base, no crackles, wheezes or rhonchi Gastrointestinal: soft, lax, Normal bowel sounds, mild LLQ tenderness with no rebound or surgical signs Skin : Warm, Dry Neurological : Alert & oriented x3, No focal deficit Objective Data Active Medications Acetaminophen (Acetaminophen 325 Mg Tablet) 650 mg PO Q6H PRN PRN Reason: Pain, Mild (Pain Scale 1-3), fever or headache Calcium Carbonate (Calcium Carbonate 750 Mg Tab.Chew) 750 mg PO Q4H PRN PRN Reason: Heartburn Piperacillin Sod/Tazobactam (Sod 4.5 gm/ Sodium Chloride) 100 mls @ 200 mls/hr IV Q6H [facility] Last Infusion: 01/19/24 12:19 Dose: Infused Documented By: AMINAH Lactated Ringer's (Lr) 1,000 mls @ 125 mls/hr IVCONT .Q8H [facility] Last Infusion: 01/19/24 12:47 Dose: Infused Documented By: AMINAH Magnesium Hydroxide (Milk Of Magnesia 30 Ml Oral.Susp) 30 ml PO DAILY PRN PRN Reason: Constipation Melatonin (Melatonin 3 Mg Tablet) 6 mg PO BEDTIME PRN PRN Reason: Insomnia Morphine Sulfate (Morphine Sulfate 4 Mg/Ml Cartridge) 4 mg IVPUSH Q4H PRN; Protocol PRN Reason: Pain, Severe (Pain Scale 7-10) Ondansetron HCl (Ondansetron Hcl 4 Mg/2 Ml Vial) 4 mg IVPUSH Q8H PRN PRN Reason: Nausea and Vomiting Sodium Chloride (0.9 % Sodium Chloride Flush 3 Ml Syringe) 3 ml IVFLUSH QSHIFT [facility] Last Admin: 01/19/24 14:10 Dose: Not Given Documented By: AMINAH Non-Admin Reason: IV Running Labs 01/19/24 05:16 01/19/24 05:16 Labs: Laboratory Results - last 24 hr 01/18/24 01/19/24 14:58 05:16 MCV 86.1 MCH 28.8 MCHC 33.4 RDW 13.9 Plt Count 217 MPV 10.8 Immature Gran % (Auto) 0.4 Neut % (Auto) 79.2 H Lymph % (Auto) 7.1 L [place] % (Auto) 11.5 H Eos % (Auto) 1.4 Baso % (Auto) 0.4 Lymph # (Auto) 0.7 L [place] # (Auto) 1.2 Eos # (Auto) 0.2 Baso # (Auto) 0.0 Abs Immat Gran (auto) 0.04 H Absolute Neuts (auto) 8.2 Absolute Nucleated RBC 0.000 Nucleated RBC % (auto) 0.0 Anion Gap 14 Estim Creat Clear Calc 74.4 Estimated GFR > 60 Random Glucose 73 Calcium 8.5 D Urine Color Yellow Urine Appearance Clear Urine pH 6.0 Ur Specific [place] 1.010 Urine Protein Negative Urine Glucose (UA) Negative Urine Ketones Negative Urine Blood Negative Urine Nitrite Negative Ur Leukocyte Esterase Negative Assessment and Plan (1) Pleural mass: Status: Acute (2) Recurrent left pleural effusion: Status: Acute (3) Diverticulitis: Status: Acute Plan This is a 83-year-old male with pertinent history of CAD status post CABG, mixed hyperlipidemia, atrial fibrillation not on anticoagulation, hypothyroidism, BPH, recurrent left pleural effusions, hypertension who presents to the emergency department for evaluation of abdominal pain. # Acute sigmoid diverticulitis pending cultures continue IV antibiotics. IV crystalloid resuscitation IV opiates p.r.n. for analgesia Start clear liquids, advance as tolerated # Recurrent left pleural effusion, moderate: P Imaging concerning for pleural-based malignancy. Mesothelioma ? Will need a biopsy that will be arrange as outpatient with dr Davidson # CAD status post CABG/Mixed hyperlipidemia On dual antiplatelet therapy and high-intensity statin. beta-beny # Hypothyroidism: On Synthroid # BPH: On Flomax # Hypertension: Continue home antihypertensives DVT prophylaxis: Mechanical will require overnight minimum hospital stay for IV antibiotics (as above), which is not possible in a lesser acute setting. Quality Stroke Does the patient have a stroke diagnosis?: No VTE Prior VTE?: No VTE Risk Level:: Medical - moderate - high VTE Device Contraindication: N/A - Device Ordered VTE Drug Contraindication: Treatment Not Indicated
[2024-01-19 15:17] VITALS: BP 141/70; PULSE 70; RESP 14; TEMP 36.6; O2SAT 96
[2024-01-19 23:34] VITALS: BP 137/65; PULSE 63; RESP 20; TEMP 36.4; O2SAT 96
[2024-01-19] MEDS: 0.9 % Sodium Chloride Flush 3 ML SYRINGE IVFLUSH (23:34)
[2024-01-20] MEDS: Lactated Ringers 1,000 ML 75 ML IVCONT (00:08)
[2024-01-20] MEDS: carvediloL 6.25 MG TABLET PO ×2 (00:09→11:43)
[2024-01-20] MEDS: Tamsulosin HCL 0.4 MG CAPSULE PO (00:09)
[2024-01-20] MEDS: Levothyroxine Sodium 25 MCG TABLET PO (05:40)
[2024-01-20] MEDS: Piperacillin Sodium/Tazobactam 4.5 GM in 0.9 % Sodium Chloride 100 ML IV ×2 (05:43→11:49)
[2024-01-20 06:34] LABS: Hematocrit 39.4 % (42.0-52.0); Hemoglobin 13.3 g/dl (14.0-18.0); Mean Corpuscular HGB Conc 33.8 g/dl (31.0-36.0); Mean Corpuscular Hemoglobin 29.1 pg (27.0-33.0); Mean Corpuscular Volume 86.2 fL (80.0-98.0); Mean Platelet Volume 10.6 fL (9.4-12.4); Platelet Count 219 X10*3/uL (160-400); Red Blood Count 4.57 X10*6/uL (4.60-5.80); White Blood Count 7.4 X10*3/uL (4.8-10.8)
[2024-01-20 06:49] LABS: Anion Gap 11 (12-20); Blood Urea Nitrogen 8 mg/dL (9-16); Calcium 8.8 mg/dL (8.4-10.2); Carbon Dioxide 30 mmol/L (22-29); Chloride 105 mmol/L (96-108); Creatinine Clr Calc Pharmacy 78.8; Estimated Glomerular Filt Rate > 60; Glucose Random 81 mg/dL (60-115); Sodium 142 mmol/L (135-145)
[2024-01-20 08:00] VITALS: BP 137/74; PULSE 63; RESP 20; TEMP 36.5; O2SAT 96
[2024-01-20] MEDS: Multivitamin TABLET 1 TAB PO (11:39)
[2024-01-20] MEDS: 0.9 % Sodium Chloride Flush 3 ML SYRINGE IVFLUSH (11:39)
[2024-01-20] MEDS: Clopidogrel Bisulfate 75 MG TABLET PO (11:39)
[2024-01-20] MEDS: Aspirin Enteric Coated 81 MG TABLET.DR PO (11:40)
[2024-01-20] MEDS: Cholecalciferol (Vitamin D3) 25 MCG TABLET 50 MCG PO (11:40)
[2024-01-20] MEDS: Atorvastatin Calcium 80 MG TABLET PO (11:40)
[2024-01-20 11:43] VITALS: BP 163/77; PULSE 60
--- NOTE | 2024-01-20 12:54 | HO.PM.IMPN ---
Subjective Subjective Date of Service: 01/20/24 Interval History: seen and evaluated this morning tolerating clears pain improving in LLQ IR could not find enough effusion to drain , to do CT guided biopsy today no other events Review of Systems Review of Systems: Yes all other systems are reviewed and are negative Physical Exam Vital Signs: Vital Signs: Last Vital Signs Temp 97.7 F 01/20/24 08:00 Pulse 60 01/20/24 11:43 Resp 20 01/20/24 08:00 BP 163/77 H 01/20/24 11:43 Pulse Ox 96 01/20/24 08:00 O2 Del Method Room Air 01/20/24 08:00 BMI result Body Mass Index 28.6 Const: Other: Constitutional : Awake, interactive, not in distress Neck : Normal inspection, Supple Cardiovascular : RRR, no JVP, no lower extremity edema Respiratory : decrease air entry over left base, no crackles, wheezes or rhonchi Gastrointestinal: soft, lax, Normal bowel sounds, mild LLQ tenderness with no rebound or surgical signs Skin : Warm, Dry Neurological : Alert & oriented x3, No focal deficit Objective Data Active Medications Acetaminophen (Acetaminophen 325 Mg Tablet) 650 mg PO Q6H PRN PRN Reason: Pain, Mild (Pain Scale 1-3), fever or headache Aspirin (Aspirin Enteric Coated 81 Mg Tablet.) 81 mg PO DAILY [facility] Last Admin: 01/20/24 11:40 Dose: 81 mg Documented By: ALBERT Atorvastatin Calcium (Atorvastatin Calcium 80 Mg Tablet) 80 mg PO DAILY [facility] Last Admin: 01/20/24 11:40 Dose: 80 mg Documented By: ALBERT Calcium Carbonate (Calcium Carbonate 750 Mg Tab.Chew) 750 mg PO Q4H PRN PRN Reason: Heartburn Carvedilol (Carvedilol 6.25 Mg Tablet) 6.25 mg PO BIDWM [facility]; Protocol Last Admin: 01/20/24 11:43 Dose: 6.25 mg Documented By: ALBERT Clopidogrel Bisulfate (Clopidogrel Bisulfate 75 Mg Tablet) 75 mg PO DAILY [facility] Last Admin: 01/20/24 11:39 Dose: 75 mg Documented By: ALBERT Piperacillin Sod/Tazobactam (Sod 4.5 gm/ Sodium Chloride) 100 mls @ 200 mls/hr IV Q6H [facility] Last Admin: 01/20/24 11:49 Dose: 200 mls/hr Documented By: ALBERT Levothyroxine Sodium (Levothyroxine Sodium 25 Mcg Tablet) 25 mcg PO DAILY@0630 [facility] Last Admin: 01/20/24 05:40 Dose: 25 mcg Documented By: TEJAS Magnesium Hydroxide (Milk Of Magnesia 30 Ml Oral.Susp) 30 ml PO DAILY PRN PRN Reason: Constipation Melatonin (Melatonin 3 Mg Tablet) 6 mg PO BEDTIME PRN PRN Reason: Insomnia Morphine Sulfate (Morphine Sulfate 4 Mg/Ml Cartridge) 2 mg IVPUSH Q4H PRN; Protocol PRN Reason: Pain, Severe (Pain Scale 7-10) Multivitamins/Vitamin C (Multivitamin Tablet) 1 tab PO DAILY [facility] Last Admin: 01/20/24 11:39 Dose: 1 tab Documented By: ALBERT Ondansetron HCl (Ondansetron Hcl 4 Mg/2 Ml Vial) 4 mg IVPUSH Q8H PRN PRN Reason: Nausea and Vomiting Sodium Chloride (0.9 % Sodium Chloride Flush 3 Ml Syringe) 3 ml IVFLUSH QSHIFT [facility] Last Admin: 01/20/24 11:39 Dose: 3 ml Documented By: ALBERT Tamsulosin HCl (Tamsulosin Hcl 0.4 Mg Capsule) 0.4 mg PO BEDTIME [facility] Last Admin: 01/20/24 00:09 Dose: 0.4 mg Documented By: TEJAS Vitamin D (Cholecalciferol (Vitamin D3) 25 Mcg Tablet) 50 mcg PO DAILY [facility] Last Admin: 01/20/24 11:40 Dose: 50 mcg Documented By: ALBERT Labs 01/20/24 05:49 01/20/24 05:49 Labs: Laboratory Results - last 24 hr 01/20/24 05:49 MCV 86.2 MCH 29.1 MCHC 33.8 RDW 14.0 Plt Count 219 MPV 10.6 Absolute Nucleated RBC 0.000 Nucleated RBC % (auto) 0.0 Anion Gap 11 L Estim Creat Clear Calc 78.8 Estimated GFR > 60 Random Glucose 81 Calcium 8.8 Microbiology Microbiology Results: Microbiology 01/18/24 17:09 Blood Culture - Preliminary Blood - Venous No growth after 24 hours. Assessment and Plan (1) Pleural mass: Status: Acute (2) Recurrent left pleural effusion: Status: Acute (3) Diverticulitis: Status: Acute Plan This is a 83-year-old male with pertinent history of CAD status post CABG, mixed hyperlipidemia, atrial fibrillation not on anticoagulation, hypothyroidism, BPH, recurrent left pleural effusions, hypertension who presents to the emergency department for evaluation of abdominal pain. # Acute sigmoid diverticulitis pending cultures continue IV antibiotics. DC IVF IV opiates p.r.n. for analgesia Advance to regular # Recurrent left pleural effusion, moderate: P Imaging concerning for pleural-based malignancy. Mesothelioma ? CT guided biopsy today OP follow up with dr Davidson # CAD status post CABG/Mixed hyperlipidemia On dual antiplatelet therapy and high-intensity statin. beta-beny # Hypothyroidism: On Synthroid # BPH: On Flomax # Hypertension: Continue home antihypertensives DVT prophylaxis: Mechanical will require overnight minimum hospital stay for IV antibiotics (as above), which is not possible in a lesser acute setting. Quality Stroke Does the patient have a stroke diagnosis?: No VTE Prior VTE?: No VTE Risk Level:: Medical - moderate - high VTE Device Contraindication: N/A - Device Ordered VTE Drug Contraindication: Treatment Not Indicated
--- NOTE | 2024-01-20 13:25 | PM.PNTS ---
Subjective Subjective Date of Service: 01/20/24 Interval history: In discussing with administration (Dr. Ronald Rob), CD guided IR biopsy procedure for pleural left based mass will be ordered as an outpatient procedure. Physical Exam Vital Signs: Vital Signs: Last Vital Signs Temp 97.7 F 01/20/24 08:00 Pulse 60 01/20/24 11:43 Resp 20 01/20/24 08:00 BP 163/77 H 01/20/24 11:43 Pulse Ox 96 01/20/24 08:00 O2 Del Method Room Air 01/20/24 08:00 BMI result Body Mass Index 28.6 Chest: Other: Status quo Procedures Date of Service Date of Service: 01/20/24 Progress Note: A&P Assessment and plan (1) Pleural mass: Status: Acute Plan We will order outpatient follow-up with patient after this and office. Discussed with hospitalist as well Time Spent With Patient Time: Total time managing care of this patient today ____ minutes. Quality Stroke Does the patient have a stroke diagnosis?: No VTE Prior VTE?: No VTE Risk Level:: Medical - moderate - high VTE Device Contraindication: N/A - Device Ordered VTE Drug Contraindication: Treatment Not Indicated
--- NOTE | 2024-01-20 15:26 | PM.DS ---
DS: Providers Provider Date of Service: 01/20/24 Date of admission: 01/18/24 18:42 Primary care physician: Nash Brown MD Consults: 01/18/24 18:47 Consult to Thoracic Surgery Routine Consulting Provider: Fahad Davidson Reason for consultation: pleural effusion DS: Diagnosis Discharge Diagnosis (1) Pleural mass: Status: Acute (2) Recurrent left pleural effusion: Status: Acute (3) Diverticulitis: Status: Acute (4) Abdominal pain: Status: Acute DS: Summary Hospital Course Hospital Course: Admission note HPI This is a 83-year-old male with pertinent history of CAD status post CABG, mixed hyperlipidemia, atrial fibrillation not on anticoagulation, hypothyroidism, BPH, recurrent left pleural effusions, hypertension who presents to the emergency department for evaluation of abdominal pain. Patient states symptoms started 2 days prior to presentation. He has been having left lower quadrant pain which is intermittent and nonradiating. Patient states the pain has been progressive over the last 2 days. No relief with p.o. oral analgesics over the counter. No change in bowel habits. Patient also endorses dyspnea which is worse with exertion. States he was told that dyspnea is due to his recurrent left pleural effusion. No orthopnea or PND. No chest pain. He denies fever, chills, changes in urinary habits. In the emergency department, imaging with acute sigmoid diverticulitis. Imaging also with moderate left-sided pleural effusion with concern for pleural based malignancy. Hospital course The patient was admitted for treatment of acute sigmoid diverticulitis seen on CT scan of abdomen. Treated with IV fluids and Antiibotics of Unasyn with good response over the course of hospital stay As he tolerated oral diet and his blood cultures remained negative. did not require narcotics for pain. advance to regular diet with good tolerance. had a bowel movement. To finish 7 more days of Augmentin and start Metamucil to avoid constipation. He was evaluated by thoracic surgeon for Recurrent left pleural effusion with Imaging concerning for pleural-based malignancy. possible Mesothelioma that will need CT guided biopsy which will be done as outpatient by dr Davidson who he is supposed to follow with in the clinic. The patient maintained O2 sat mid 90s on room air with no reported dyspnea or chest pain. Discharge plan Advance diet as tolerated Tylenol\Advil for pain Continue Augmentin for 1 more week Take Fiber to prevent constipation Avoid hard seeds and corn To follow with dr Davidson as outpatient for biopsy of the pleural cavity Time Attestation Discharge Coordination Time (in mins): 37 Quality: Safe Use of Opioids Does Pt have an Active Cancer Diagnosis on the Problem List?: No Quality: Stroke Does the patient have a stroke diagnosis?: No Physical Exam Vital Signs: Vital Signs: Last Vital Signs Temp 97.7 F 01/20/24 08:00 Pulse 60 01/20/24 11:43 Resp 20 01/20/24 08:00 BP 163/77 H 01/20/24 11:43 Pulse Ox 96 01/20/24 08:00 O2 Del Method Room Air 01/20/24 08:00 BMI result Body Mass Index 28.6 Const: Other: Constitutional : Awake, interactive, not in distress Neck : Normal inspection, Supple Cardiovascular : RRR, no JVP, no lower extremity edema Respiratory : decrease air entry over left base, no crackles, wheezes or rhonchi Gastrointestinal: soft, lax, Normal bowel sounds, no significant LLQ tenderness with no rebound or surgical signs Skin : Warm, Dry Neurological : Alert & oriented x3, No focal deficit DS: Data Data Completed and Pending Labs on day of discharge: Laboratory Results - last 24 hr 01/20/24 05:49 WBC 7.4 RBC 4.57 L Hgb 13.3 L Hct 39.4 L MCV 86.2 MCH 29.1 MCHC 33.8 RDW 14.0 Plt Count 219 MPV 10.6 Absolute Nucleated RBC 0.000 Nucleated RBC % (auto) 0.0 Sodium 142 Potassium 4.0 Chloride 105 Carbon Dioxide 30 H Anion Gap 11 L BUN 8 L Creatinine 0.83 Estim Creat Clear Calc 78.8 Estimated GFR > 60 Random Glucose 81 Calcium 8.8 Preliminary micro results at discharge 01/18/24 17:09 Blood Culture - Preliminary Blood - Venous No growth after [address] scan - abdomen: Radiologist's impression: ITS Impressions Abdomen/Pelvis CT 01/18/24 13:40 IMPRESSION: Moderate complex left pleural effusion with pleural-based thickening and nodularity. There is nodular infiltration of the pericardium. Small pericardial effusion. There are enlarged mediastinal and cardiophrenic lymph nodes. Findings are concerning for pleural-based malignancy. Focal wall thickening of the proximal sigmoid colon with pericolonic inflammatory changes and underlying inflamed diverticulum. This most likely represents acute sigmoid diverticulitis. Follow-up imaging after treatment is advised. Prostatomegaly. Circumferential wall thickening of the urinary bladder despite underdistention. Chest CT 01/18/24 13:42 IMPRESSION: Moderate complex left pleural effusion with pleural-based thickening and nodularity. There is nodular infiltration of the pericardium. Small pericardial effusion. There are enlarged mediastinal and cardiophrenic lymph nodes. Findings are concerning for pleural-based malignancy. Focal wall thickening of the proximal sigmoid colon with pericolonic inflammatory changes and underlying inflamed diverticulum. This most likely represents acute sigmoid diverticulitis. Follow-up imaging after treatment is advised. Prostatomegaly. Circumferential wall thickening of the urinary bladder despite underdistention. Chest Ultrasound 01/19/24 13:30 IMPRESSION: Small volume of fluid layering dependently in the left pleural cavity. Discharge Plan Discharge Anticipated Discharge Date/Time: 01/20/24 15:23 Patient Disposition: Home, Self-Care Discharge Diagnosis: Acute Diverticulitis Left pleural effusion Referrals: Kevin,Nash Rubin MD [Primary Care Provider] - 1 Week Fahad Davidson MD [Physician] - 1 Week Discharge Medications: New amoxicillin-pot clavulanate 875-125 mg tablet 1 tab PO BID Qty: 14 0RF psyllium husk [Metamucil] 0.4 gram capsule 0.4 g PO BEDTIME Qty: 90 0RF Continued triamcinolone acetonide 0.1 % cream 1 appl topical BID PRN (Reason: Rash) multivitamin Tablet 1 tab PO DAILY furosemide 20 mg tablet 20 mg PO BID atorvastatin 80 mg tablet 80 mg PO DAILY Qty: 30 3RF clopidogrel 75 mg tablet 75 mg PO DAILY carvedilol 6.25 mg tablet 6.25 mg PO BID levothyroxine 25 mcg capsule 25 mcg PO DAILY aspirin 81 mg capsule 81 mg PO DAILY cholecalciferol (vitamin D3) 50 mcg (2,000 unit) capsule 50 mcg PO DAILY tamsulosin 0.4 mg capsule 0.4 mg PO BEDTIME 90 Days Qty: 90 3RF Discharge Orders: Discharge Order (Routine); Ordered 01/20/24 Ordered By: Roseanne Grimm Diet: Advance to usual diet Activity on Discharge: As tolerated Stand Alone Forms: Patient Portal Discharge page Print Language: Telugu Care Plan Goals: Advance diet as tolerated Tylenol\Advil for pain Continue Augmentin for 1 more week Take Fiber to prevent constipation Avoid hard seeds and corn To follow with dr Davidson as outpatient for biopsy of the pleural cavity Health Concerns: Read below Plan of Treatment: Read below Assessment: Read below Patient Instructions: Diverticulitis (DC), Diverticulitis Diet (DC)
--- NOTE | 2024-01-20 15:32 | MHC.CM.PN ---
PT WILL DC HOME TODAY WITH NO SERVICES VIA PRIVATE TRANSPORT
[2024-01-20 16:00] VITALS: BP 157/77; PULSE 65; RESP 12; TEMP 36.3; O2SAT 97
== END 2024-01-20 16:45 | disposition home or self-care (01) | DRG 392 ==
LOC: HO.ED 17:16 → HO.EDOVER 18:46 → HO.S3 21:37
PROVIDERS: Physician Assistant; Admitting Provider Student in an Organized Health Care Education/Training Program; Emergency Provider Student in an Organized Health Care Education/Training Program; PCP Internal Medicine; Visit Provider Student in an Organized Health Care Education/Training Program
DX: K57.32 Diverticulitis of large intestine without perforation or abscess without bleeding (principal); C45.0 Mesothelioma of pleura; J90 Pleural effusion, not elsewhere classified; I25.10 Atherosclerotic heart disease of native coronary artery without angina pectoris; E78.2 Mixed hyperlipidemia; N40.0 Benign prostatic hyperplasia without lower urinary tract symptoms; I10 Essential (primary) hypertension; Z95.1 Presence of aortocoronary bypass graft; Z87.891 Personal history of nicotine dependence; Z79.82 Long term (current) use of aspirin; Z79.02 Long term (current) use of antithrombotics/antiplatelets; Z79.890 Hormone replacement therapy; Z79.899 Other long term (current) drug therapy
CPT/HCPCS: 36415; 71250; 74176; 76604; 80048; 80076; 81003; 83690; 83735; 85025; 85027; 87040; 99285; J2405; J2543; J7120

== ENCOUNTER → 2024-01-18 18:42 | Outpatient (BNV) | payer MEDICARE, SELFPAY | PROVIDERS: Admitting Provider Student in an Organized Health Care Education/Training Program; Emergency Provider Student in an Organized Health Care Education/Training Program; PCP Internal Medicine; Visit Provider Surgery | DX: J94.8 Other specified pleural conditions (principal) | CPT/HCPCS: 99223; 99232 ==

== ENCOUNTER → 2024-01-18 18:42 | Outpatient (BNV) | payer MEDICARE, SELFPAY | PROVIDERS: Admitting Provider Student in an Organized Health Care Education/Training Program; Emergency Provider Student in an Organized Health Care Education/Training Program; PCP Internal Medicine; Visit Provider Student in an Organized Health Care Education/Training Program | DX: J94.8 Other specified pleural conditions (principal); J90 Pleural effusion, not elsewhere classified; K57.92 Diverticulitis of intestine, part unspecified, without perforation or abscess without bleeding; R10.32 Left lower quadrant pain | CPT/HCPCS: 99223; 99232; 99239 ==

== ENCOUNTER 2024-01-23 14:36 | Outpatient (REF) | payer MEDICARE, SELFPAY ==
[2024-01-23 17:20] LABS: PSA,Total (Free>4and<10) 5.56 ng/mL (0.00-4.00)
[2024-01-24 10:58] LABS: Free Prostate Spec Ag 1.4 ng/mL; Percent Free Prostate Spec Ag 25 % (calc) (>25); Prostate Specific Ag Total 5.6 ng/mL (< OR = 4.0)
== END 2024-01-23 14:37 | disposition home or self-care (01) ==
LOC: HO.HMGCLDS 14:36
PROVIDERS: PCP Internal Medicine; Visit Provider Nurse Practitioner Family
DX: R97.20 Elevated prostate specific antigen [PSA] (principal); Z12.5 Encounter for screening for malignant neoplasm of prostate
CPT/HCPCS: 36415; 84153; 84154

== ENCOUNTER → 2024-01-25 09:21 | Day surgery (SDC) | payer MEDICARE, SELFPAY ==
[2024-01-25 10:36] LABS: INTERNATIONAL NORM RATIO 1.1 (0.9-1.1); Prothrombin Time 13.2 SEC (11.1-13.3)
== END ==
LOC: HO.SSS 09:22
PROVIDERS: Physician Assistant Surgical; PCP Internal Medicine; Visit Provider Surgery
DX: J94.8 Other specified pleural conditions (principal); Z53.09 Procedure and treatment not carried out because of other contraindication; I48.0 Paroxysmal atrial fibrillation; Z79.02 Long term (current) use of antithrombotics/antiplatelets
CPT/HCPCS: 36415; 85610; 85730

== ENCOUNTER 2024-01-26 09:44 | Outpatient (AMB) | payer MEDICARE, SELFPAY ==
[2024-01-26 09:44] VITALS: BP 132/66; BMI 28.6
--- NOTE | 2024-01-26 09:44 | A.OFFPC_ITS ---
Vital Signs 3 01/26/24 09:44 Height 5 ft 10 in Weight 199 lb BMI 28.6 BP 132/66 Blood Pressure Location Lt brachial Position Sitting Pulse Source Pulse Oximeter Oxygen Delivery Method Room Air Intake Visit Reasons: abdominal pain discharged on 01/20/24 Intake Note: Patient is here for hospital discharge follow up. Patient was discharged from [facility] on 01/20/24 Custodian Blood Bank Required: No Allergies nitroglycerin Allergy (Severe, Verified 01/26/24 09:45) low blood pressure Tobacco use date assessed: 12/02/23 Fall risk assessment: No Falls in past year Last assessed Fall Risk: 01/26/24 Dental Screening Dental Screen Date: 07/28/23 HPI abdominal pain discharged on 01/20/24 2 HPI0 Details 83-year-old male with past medical histo ry coronary artery disease, atrial fibrillation, hypothyroidism, hypertension, hypercholesterolemia last seen by Dr. Brown 10/2023 coming in for hospital follow up.?Interview of the notes, patient was seen in walk-in clinic 01/18/2024 for left lower quadrant abdominal pain and sent to ER for further evaluation.?Presented to the ER 01/18/2024 while in the ED patient was found to have acute sigmoid diverticulitis on imaging along with moderate left-sided pleural effusion and patient was admitted for treatment.?Treated with IV fluids and antibiotics with good response. He was evaluated by thoracic surgeon for recurrent left pleural effusion concern for malignancy possibly mesothelioma and recommended CT-guided biopsy to be completed outpatient.?Patient was discharged 01/20/2024 to complete 1 week of Augmentin and follow up with General surgery. Patient states his abdominal pain and stools have been improving and he has almost completed the antibiotics. He was sceduled to have the aspiration of pleural fluid however due to a miscommunication the procedure had to be rescheduled. He has not followed up with general surgery yet. He is scheduled to meet with Pulmonology in [place] for further evaluation next Tuesday. He has not yet had the US guided needle biopsy of the left breast mass yet due to other medical conditions. He does mention he has been having pain and swelling in the left breast area. He also has pain around the site of his last chest tube. TCM 2 TCM Information0 Date of Discharge 01/20/24 Discharged From [facility] Medical History Pleural effusion Pleural mass Recurrent left pleural effusion CVA (cerebral vascular accident) TIA (transient ischemic attack) Coronary artery disease PAF (paroxysmal atrial fibrillation) Hypertension Hypothyroidism PUD (peptic ulcer disease) Fatigue Surgical History History of coronary artery bypass graft x 3 History of heart artery stent History of lobectomy of thyroid Hx of colonoscopy H/O melanoma excision History of surgery on arm Family History Father Lung cancer Mother Heart disease Social History Household Members: Spouse Housing: House Do you presently have visiting nurse or other home services: No Alcohol intake: current Alcohol intake frequency: a few times a month Alcohol type: beer Comment: once a week 1 drink Patient Tobacco Use Status: Former Tobacco user Tobacco use type: Cigarette Years Smoked: quit 22 years old e-Cigarette/Vaping Use: Never Used Second Hand Smoke Exposure: No Advance Directives Date on File: 01/18/24 service: No Cognitive needs: No Hearing needs: No Vision needs: Yes Questionnaire PHQ-9 Over the last 2 weeks, how often have you been bothered by any of the following problems? 1. Little interest or pleasure in doing things: not at all 2. Feeling down, depressed, or hopeless: not at all 3. Trouble falling or staying asleep, or sleeping too much: not at all 4. Feeling tired or having little energy: not at all 5. Poor appetite or overeating: not at all 6. Feeling bad about yourself - or that you are a failure or have let yourself or your family down: not at all 7. Trouble concentrating on things, such as reading the newspaper or watching television: not at all 8. Moving or speaking so slowly that other people could have noticed. Or the opposite - being so fidgety or restless that you have been moving around a lot more than usual: not at all 9. Thoughts that you would be better off or of hurting yourself in some way: not at all Total score: 0 Depression Screening Interpretation: Negative Depression Screening Done: Yes Source: Developed by Drs. Madhav Donahue, Sangeeta Nichole, Kalpesh Potter and colleagues, with an educational eliseo from [employer]. Thrive Questionnaire Date Thrive assessed: 01/19/24 AUDIT C Alcohol Use Questionnaire (AUDIT-C) 1. How often do you have a drink containing alcohol?: 2-4 times a month 2. How many drinks containing alcohol do you have on a typical day when you are drinking?: 1 or 2 3. How often do you have six or more drinks on one occasion?: Never Total Score: 2 TEDDY-7 AMB Questionnaire TEDDY-7 Date TEDDY - 7 assessed: 07/28/23 Source: Developed by Drs. Madhav Donahue, Sangeeta Nichole, Kalpesh Potter and colleagues, with an educational eliseo from [employer]. Review of Systems Const Denies body aches, Denies chills, Denies fever(s) and Denies poor appetite Eyes Reports no additional complaints ENT Denies dizziness Card Denies chest pain, Denies edema, Denies irregular heart rhythm, Denies lightheadedness and Reports dyspnea Resp Denies cough and Reports dyspnea GI Reports abdominal pain (LLQ), Reports bloating, Denies constipation, Denies diarrhea, Reports loose stools, Denies nausea and Denies vomiting Reports no additional complaints Musc Details: left breast pain and pain around previous chest tube site Reports no additional complaints and Denies abnormal gait Skin/Breast Reports system reviewed and no additional complaints, except as documented Neuro Denies abnormal gait and Denies dizziness Psych Reports no additional complaints Physical exam (Primary Care) Vital Signs: Last Vital Signs BP 132/66 01/26/24 09:44 Oxygen Delivery Method Room Air 01/26/24 09:44 BMI result Body Mass Index 28.6 Tobacco/Smoking Status: Tobacco use Status Tobacco use date assessed 12/02/23 01/26/24 09:45 Patient Tobacco Use Status Former Tobacco user 01/26/24 09:45 Tobacco use type Cigarette 01/26/24 09:45 e-Cigarette/Vaping Use Never Used 01/26/24 09:45 PHQ-9: PHQ-9 Score PHQ-9: Total score 0 01/26/24 09:59 Depression Screening Interpretation: Negative Thrive Assessment: Date of Thrive Assessment Date Thrive assessed 01/19/24 01/26/24 09:45 Const General: cooperative, healthy appearing, comfortable and no acute distress Orientation/consciousness: patient oriented x3 HENNM Head: Yes normocephalic Ears: hearing grossly normal bilaterally General nose exam: Normal external nose present Eyes General: appearance normal, both eyes and all related structures Conjunctivae: conjunctivae normal Neck Neck: Yes full ROM and Yes no lymphadenopathy Chest Other: swelling of the left breast with tenderness to palpation. Palpable lump around the nipple area without overlying skin changes. Resp Effort & Inspection: normal respiratory effort Auscultation: clear to auscultation bilaterally, no crackles, no rales, no rhonchi and no wheezes Cardio Rate: regular rate Rhythm: regular rhythm GI Other: tenderness to palpation of LLQ. mild bloating without rigidity, edema, or guarding. Palpation (GI): Soft to palpation Back/Spine/Pelvis Other: tenderness and swelling over left side of back where chest tube was previously without erythema or warmth Back/spine/pelvis image: 2 1. swelling and tenderness Skin General skin exam: no rashes or lesions noted Neuro General: patient oriented x3 Gait exam (Neuro): Normal gait present Extrem General: Yes normal to inspection, Yes full ROM and No edema Psych Affect: normal affect Attitude: cooperative Insight: Good insight present (Psych) Judgement: Good judgement present (Psych) Assessment and Plan Assessment & Plan (1) Diverticulitis: Code(s): K57.92 - Diverticulitis of intestine, part unspecified, without perforation or abscess without bleeding Plan: Patient is still completing course of antibiotic but his diarrhea and pain has greatly improved since initial hospital visit. His stool has been soft but not liquid. Recommended he take a probiotic to help with bloating and bowel movements which was prescribed at this visit. Will continue to monitor symptoms and follow up at next visit or sooner if symptoms worsen. (2) Pleural effusion: Comment: Recurrent since 05/2022 Code(s): J90 - Pleural effusion, not elsewhere classified Plan: Patient was scheduled to have drainage of the fluid with testing this past week however there was a miscommunication resulting in the procedure being postponed. Recommend additional follow up with general surgery. Patient is scheduled to see [facility] in the upcoming week and will discuss with them prior to rescheduling. Discussed with patient the importance of scheduling this procedure and will contact the office if the [facility] will not be able to schedule this. (3) Left breast mass: Comment: L chest /breast mass 12 oclock postion from the nipple 2 cm, Code(s): N63.20 - Unspecified lump in the left breast, unspecified quadrant Plan: Patient was originally scheduled for US guided breast biopsy which had been postponed at cardiology discretion. Patient then had a complicated medical course which prevented him from rescheduling. Re-ordered for the test today to be completed as soon as possible. Patient may require cardiac clearance. Plan This note was constructed using voice recognition software. While every effort has been made to ensure accuracy and deburr technician, still areas may have been included sometimes these areas may affect the content or meeting of the given symptoms. Total time spent caring for the patient today was 40 minutes. This includes time spent before the visit reviewing the chart, time spent during the visit, and time spent after the visit and documentation. Orders: Orders 2 US breast ndl core biopsy LT Today N63.20 - Unspecified lump in the left breast, unspecified quadrant Referrals 2 General Surgery Referral J90 - Pleural effusion, not elsewhere classified Medications: New 2 lactobacillus combination no.9 (Adult 50 Plus Probiotic) administer with a meal 4,000 mmu cells PO DAILY 30 caps 0RF Coding Level of Care Code TCM Mod MDM <= 7 Days Diagnoses Diverticulitis K57.92 Pleural effusion J90 Left breast mass N63.20
== END 2024-01-26 10:43 | disposition home or self-care (01) ==
PROVIDERS: PCP Internal Medicine
DX: K57.92 Diverticulitis of intestine, part unspecified, without perforation or abscess without bleeding (principal); J90 Pleural effusion, not elsewhere classified; N62 Hypertrophy of breast
CPT/HCPCS: 99495

== ENCOUNTER 2024-02-07 08:39 | Outpatient (AMB) | payer MEDICARE, SELFPAY ==
--- NOTE | 2024-02-07 08:50 | A.OFFVIS_ITS ---
Intake Visit Reasons: 2m/PSA/U/S(set) Intake Note: Patient presents today for follow up visit on: Elevated PSA, Ultrasound and PSA results Imaging Completed: 01/10/24 PSA: 5.6 Urology Medications: Tamsulosin Allergies to Antibiotic: none Blood Thinner: aspirin and clopidogrel PVR: 16ml's Commercial Field Inspector Required: No Accompanied by: Self / Same As Patient Allergies nitroglycerin Allergy (Severe, Verified 02/07/24 10:08) low blood pressure Medication List - Last Reconciled 02/07/24 by SALIMA Chino- aspirin 81 mg PO DAILY atorvastatin 80 mg PO DAILY carvedilol 6.25 mg PO BID cholecalciferol (vitamin D3) 50 mcg PO DAILY clopidogrel 75 mg PO DAILY finasteride 5 mg PO DAILY 90 days furosemide 20 mg PO BID lactobacillus combination no.9 (Adult 50 Plus Probiotic) 4,000 mmu cells PO DAILY levothyroxine 25 mcg PO DAILY multivitamin 1 tab PO DAILY psyllium husk (Metamucil) 0.4 grams PO BEDTIME tamsulosin 0.4 mg PO BEDTIME 90 days triamcinolone acetonide 0.1% 1 appl topical BID PRN HPI Comments Details: Parish Lizarraga is a very pleasant 83-year-old male patient of . He has a past medical history of peptic ulcer disease, TIA, paroxysmal atrial fibrillation s/p left atrial appendage closure 06/04, acute coronary syndrome, hypothyroidism, hypertension, and fatigue. He presents to the office today for follow-up. Of note, patient was seen approximately 2 months ago as a new patient for balanitis and an elevated PSA at which time a retroperitoneal ultrasound and redraw of PSA were ordered. These results reviewed with the patient today. Bilateral kidneys with no hydronephrosis and or renal calculi. The bladder is well distended. Mild diffuse irregularity of the bladder wall. Bilateral ureteral jets are demonstrated. Pre void bladder volume is approximately 400 mL. Postvoid bladder volume is approximately 25 mL. Prostate is enlarged at approximately 90 mL. PSAs are as follows 10/04 5.4, 02/03 5.6 % free PSA 25%. We discussed at length potential causes of elevated PSA. PCPT risk calculator results reviewed with the patient today 76% chance negative prostate biopsy, 15% chance low-grade prostate cancer, and 9% chance of high-grade prostate cancer. Discussed risks and benefits of surveillance monitoring verses trial of finasteride versus prostate biopsy. All questions were answered. He discusses his ongoing left-sided long issues he has been experiencing status post cardiac surgery. He discusses his upcoming procedure in [place] within the next 1-2 weeks. He reports noting significant improvement in weak urinary stream with Flomax. He otherwise denies any bothersome urinary issues. He denies urinary urgency, urinary frequency, incontinence, nocturia, hematuria, dysuria, foul smelling urine, flank pain, fever, and or chills. He is happy with her current voiding parameters. In office urinalysis results reviewed with the patient today. PVR 16 mL. [facility] Medical History Pleural effusion Pleural mass Recurrent left pleural effusion CVA (cerebral vascular accident) TIA (transient ischemic attack) Coronary artery disease PAF (paroxysmal atrial fibrillation) Hypertension Hypothyroidism PUD (peptic ulcer disease) Fatigue Surgical History History of coronary artery bypass graft x 3 History of heart artery stent History of lobectomy of thyroid Hx of colonoscopy H/O melanoma excision History of surgery on arm Family History Father Lung cancer Mother Heart disease Social History Household Members: Spouse Housing: House Do you presently have visiting nurse or other home services: No Alcohol intake: current Alcohol intake frequency: a few times a month Alcohol type: beer Comment: once a week 1 drink Patient Tobacco Use Status: Former Tobacco user Tobacco use type: Cigarette Years Smoked: quit 22 years old e-Cigarette/Vaping Use: Never Used Second Hand Smoke Exposure: No Advance Directives Date on File: 01/18/24 service: No Cognitive needs: No Hearing needs: No Vision needs: Yes Review of Systems Const Reports no additional complaints Eyes Reports no additional complaints ENT Reports no additional complaints Card Reports as per HPI Resp Reports no additional complaints GI Reports as per HPI Reports as per HPI Musc Reports no additional complaints Neuro Reports as per HPI Psych Reports no additional complaints Endo Reports as per HPI [place]/Lymph Reports no additional complaints Aller/Immun Reports no additional complaints Physical Exam Const General: cooperative, healthy appearing, comfortable, no acute distress, well developed, alert and awake Orientation/consciousness: patient oriented x3 Limitations: no limitations HEENT Head: Yes normal to inspection, Yes normocephalic and Yes atraumatic Ears: hearing grossly normal bilaterally Eyes General: appearance normal, both eyes and all related structures Neck Neck: Yes normal visual inspection and Yes trachea midline Chest Chest palpation & inspection: normal inspection of the chest Resp Effort & Inspection: normal respiratory effort and able to speak in complete sentences Cardio Rate: regular rate GI Inspection: Yes normal to inspection General: Yes no CVA tenderness Back/Spine/Pelvis Back: no CVA tenderness Skin General skin exam: no rashes or lesions noted Neuro General: patient oriented x3 Extrem General: Yes normal to inspection Psych Appearance: grossly normal and well kempt Mental Status: mental status grossly normal Speech and movement: Normal speech and movement present and Clear speech present Affect: normal affect Attitude: cooperative Thought process: Normal thought process present Thought content: Normal thought content present Insight: Fair insight present (Psych) Judgement: Fair judgement present (Psych) Office Procedures Post Void Residual Post Residual Void Post Void Residual (PVR): 16 [id number]-[id number] Void Residual by ultrasound Results AMB Urinalysis, Automated UA Leukoctes 0 Breanna/uL Last Edit by [employer] on 02/07/24 09:21 UA Nitrite Negative Last Edit by MelvinBillawayjosé manuel Villanueva on 02/07/24 09:21 UA Urobilinogen 0.2 mg/dL Last Edit by Harrijosé manuel Villanueva on 02/07/24 09:21 UA Protein 0 mg/dL Last Edit by Harrijosé manuel Villanueva on 02/07/24 09:21 UA pH 6.0 Last Edit by Harrijosé manuel [employer] on 02/07/24 09:21 UA Blood 0 Pipo/uL Last Edit by [employer] on 02/07/24 09:21 UA Specific Kemmerer 1.015 Last Edit by Harrijosé manuel Villanueva on 02/07/24 09:21 UA Ketone Last Edit by [employer] on 02/07/24 09:21 UA Bilirubin 0 mg/dL Last Edit by MelvinBillawayjosé manuel Villanueva on 02/07/24 09:21 UA Glucose 0 mg/dL Last Edit by [employer] on 02/07/24 09:21 Results Reviewed Results Reviewed: Laboratory Last Values Urine pH (Auto) 6.0 02/07/24 09:11 Specific Kemmerer (Auto) 1.015 02/07/24 09:11 Urine Protein (Auto) 0 mg/dL 02/07/24 09:11 Glucose (UA)(Auto) 0 mg/dL 02/07/24 09:11 Urine Blood (Auto) 0 Pipo/uL 02/07/24 09:11 Urine Nitrite (Auto) Negative 02/07/24 09:11 Urine Bilirubin (Auto) 0 mg/dL 02/07/24 09:11 Urine Urobilinogen (Auto) 0.2 mg/dL 02/07/24 09:11 Leukocyte Esterase (Auto) 0 Breanna/uL 02/07/24 09:11 Date of Service: 01/10/24 EXAMINATION: US RETROPERITONEAL COMPLETE (RENAL) FINDINGS: RIGHT KIDNEY: 11.9 x 5.4 x 5.6 cm (SAG x AP x TRV). No hydronephrosis. No renal calculi. Renal cortical thickness is normal. Limited visualization. LEFT KIDNEY: 12.5 x 5.0 x 5.0 cm (SAG x AP x TRV). No hydronephrosis. No renal calculi. Renal cortical thickness is normal. Limited visualization. BLADDER: Well-distended. Mild diffuse irregularity of the bladder wall. Bilateral ureteral jets are demonstrated. Prevoid bladder volume is 402 mL. Postvoid bladder volume is 26.0 mL. ADDITIONAL FINDINGS: Prostate volume 89.7 mL, enlarged. IMPRESSION: 1. No hydronephrosis. No renal calculi. 2. Mild diffuse irregularity of the bladder wall. 3. Enlarged prostate. Assessment & Plan Assessment & Plan (1) Elevated PSA: Code(s): R97.20 - Elevated prostate specific antigen [PSA] Category: Medical (2) Weak urinary stream: Code(s): R39.12 - Poor urinary stream Category: Medical (3) Enlarged prostate: Code(s): N40.0 - Benign prostatic hyperplasia without lower urinary tract symptoms Category: Medical Plan In office urinalysis results reviewed with the patient today; PVR 16 mL. Recent PSA results reviewed with the patient today. Discussed at length potential causes of elevated PSA as well as further treatment options to include surveillance monitoring verses trial of finasteride versus prostate biopsy; risks and benefits of these interventions were discussed. Recent retroperitoneal ultrasound results reviewed with the patient today; as noted above. Patient reports be happy with current voiding parameters on 0.4 mg of Flomax daily. Start finasteride as discussed and prescribed. Discussed redraw of PSA in 4 months. Follow-up in 4 months with PSA and PVR; or sooner with any issues, concerns, and or questions. Orders: Orders AMB Urinalysis Automated Today Z13.9 - Encounter for screening, unspecified AMB Post Void Residual by ultrasound Today R39.12 - Poor urinary stream PSA,Total (Free>4and<10) 4 Months R97.20 - Elevated prostate specific antigen [PSA] Medications: New finasteride 5 mg PO DAILY 90 tabs 1RF 90 days N13.8 - Other obstructive and reflux uropathy, N40.1 - Benign prostatic hyperplasia with lower urinary tract symptoms, R33.9 - Retention of urine, unspecified Patient Instructions: The patient had an opportunity to ask questions regarding the treatment plan. All questions were answered. Physical exam, labs, and imaging were discussed and reviewed in detail. As well as risks, benefits, and discussion of treatment choices. No major barriers to understanding were identified. The patient expressed understanding and agreement with the above treatment plan. The patient was made aware they should contact our office by phone for worsening of their current condition, the appearance of new symptoms, or with any questions or concerns. Compliance is encouraged with any medications and follow up testing that is ordered. It is a privilege to be allowed the opportunity to participate in? your urological care.? Again, if you have any questions or concerns If you have any questions or concerns please do not hesitate to contact me. The office is [phone]. This note is constructed using voice recognition software. While every effort has been made to ensure accuracy electric tape slitter errors may have been included. Yours sincerely, SARTHAK Chino Coding Level of Care Code Est Pt Level 4 (21832) Diagnoses Elevated PSA R97.20 Weak urinary stream R39.12 Enlarged prostate N40.0 CPT Codes Post Residual Void - PVR CPT Code: 76403-[id number] Void Residual by ultrasound ([id number])
== END 2024-02-07 10:28 | disposition home or self-care (01) ==
PROVIDERS: PCP Internal Medicine; Visit Provider Nurse Practitioner Family
DX: R97.20 Elevated prostate specific antigen [PSA] (principal); R39.12 Poor urinary stream; N40.0 Benign prostatic hyperplasia without lower urinary tract symptoms; Z13.9 Encounter for screening, unspecified
CPT/HCPCS: 99214

== ENCOUNTER → 2024-02-07 08:39 | Outpatient (BNVA) | payer MEDICARE, SELFPAY | PROVIDERS: PCP Internal Medicine; Visit Provider Nurse Practitioner Family | DX: R97.20 Elevated prostate specific antigen [PSA] (principal); N40.0 Benign prostatic hyperplasia without lower urinary tract symptoms; R39.12 Poor urinary stream | CPT/HCPCS: 51798; 81003; 99212 ==

== ENCOUNTER 2024-02-24 11:04 | Outpatient (AMB) | payer MEDICARE, SELFPAY ==
--- NOTE | 2024-02-24 11:11 | A.OFFPC_ITS ---
Vital Signs 02/24/24 11:12 Height 5 ft 10 in Weight 196 lb BMI 28.1 BP 128/68 Blood Pressure Location Lt brachial Position Sitting Pulse 67 Pulse Source Pulse Oximeter Pulse Oximetry (%) 97 Oxygen Delivery Method Room Air Intake Visit Reasons: 3mth f/u Allergies nitroglycerin Allergy (Severe, Verified 02/24/24 11:12) low blood pressure Tobacco use date assessed: 12/02/23 Fall risk assessment: No Falls in past year Last assessed Fall Risk: 02/24/24 Dental Screening Dental Screen Date: 07/28/23 HPI 3mth f/u HPI Details 83-year-old overweight male with multipl e medical problems atrial fibrillation with coronary artery disease(CABG x3 with left atrial appendage clip 2021) TIA, congestive heart failure preserved ejection fraction, hypertension hypothyroidism hypercholesterolemia noted to have a left breast mass. 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 Patient is here for follow-up. Was seen by the PA in January 25 had diverticulitis treated with antibiotics. Patient has pleural effusion planned drainage. Review of the notes was seen by Cardiology in February 07. There has been no recurrence of atrial fibrillation. Recently noted left chest mass patient underwent angioplasty in the setting of acute coronary syndrome. Patient also had colitis the left chest mass is within the left pectoralis muscle. Also noted intrathoracic lymphadenopathy on CT scan. PET scan requested. 08/30/2022 fluid aspiration no anatomic pathology to assess the typical spells. Patient also has moderate aortic stenosis.. Patient also follows up with urology with the PSA elevated on tamsulosin had balanitis. Presently on Flomax. Added finasteride 5 mg once a day. Biopsy 02/2024 [facility] [place] Medical History (Updated 02/24/24 @ 11:49 by Nash Brown MD) PAF (paroxysmal atrial fibrillation) Enlarged prostate Pleural effusion Pleural mass Recurrent left pleural effusion CVA (cerebral vascular accident) TIA (transient ischemic attack) Coronary artery disease Hypertension Hypothyroidism PUD (peptic ulcer disease) Fatigue Surgical History History of coronary artery bypass graft x 3 History of heart artery stent History of lobectomy of thyroid Hx of colonoscopy H/O melanoma excision History of surgery on arm Family History Father Lung cancer Mother Heart disease Social History Household Members: Spouse Housing: House Do you presently have visiting nurse or other home services: No Alcohol intake: current Alcohol intake frequency: a few times a month Alcohol type: beer Comment: once a week 1 drink Patient Tobacco Use Status: Former Tobacco user Tobacco use type: Cigarette Years Smoked: quit 22 years old e-Cigarette/Vaping Use: Never Used Second Hand Smoke Exposure: No Advance Directives Date on File: 01/18/24 service: No Current occupational status: retired Cognitive needs: No Hearing needs: No Vision needs: Yes Questionnaire PHQ-9 Over the last 2 weeks, how often have you been bothered by any of the following problems? 1. Little interest or pleasure in doing things: not at all 2. Feeling down, depressed, or hopeless: not at all 3. Trouble falling or staying asleep, or sleeping too much: not at all 4. Feeling tired or having little energy: not at all 5. Poor appetite or overeating: not at all 6. Feeling bad about yourself - or that you are a failure or have let yourself or your family down: not at all 7. Trouble concentrating on things, such as reading the newspaper or watching television: not at all 8. Moving or speaking so slowly that other people could have noticed. Or the opposite - being so fidgety or restless that you have been moving around a lot more than usual: not at all 9. Thoughts that you would be better off or of hurting yourself in some way: not at all Total score: 0 Depression Screening Interpretation: Negative Depression Screening Done: Yes Source: Developed by Drs. Madhav Donahue, Sangeeta Nichole, Kalpesh Potter and colleagues, with an educational eliseo from [employer]. Thrive Questionnaire Date Thrive assessed: 01/19/24 AUDIT C Alcohol Use Questionnaire (AUDIT-C) 1. How often do you have a drink containing alcohol?: 2-4 times a month 2. How many drinks containing alcohol do you have on a typical day when you are drinking?: 1 or 2 3. How often do you have six or more drinks on one occasion?: Never Total Score: 2 TEDDY-7 AMB Questionnaire TEDDY-7 Date TEDDY - 7 assessed: 07/28/23 Source: Developed by Drs. Madhav Donahue, Sangeeta Nichole, Kalpesh Potter and colleagues, with an educational eliseo from [employer]. Physical exam (Primary Care) Vital Signs: Last Vital Signs Pulse 67 02/24/24 11:12 BP 128/68 02/24/24 11:12 Pulse Ox 97 02/24/24 11:12 Oxygen Delivery Method Room Air 02/24/24 11:12 BMI result Body Mass Index 28.1 Tobacco/Smoking Status: Tobacco use Status Tobacco use date assessed 12/02/23 02/24/24 11:13 Patient Tobacco Use Status Former Tobacco user 02/24/24 11:13 Tobacco use type Cigarette 02/24/24 11:13 e-Cigarette/Vaping Use Never Used 02/24/24 11:13 PHQ-9: PHQ-9 Score PHQ-9: Total score 0 02/24/24 11:25 Depression Screening Interpretation: Negative Thrive Assessment: Date of Thrive Assessment Date Thrive assessed 01/19/24 02/24/24 11:13 Const General: alert; No acute distress Eyes Conjunctivae: conjunctivae normal Resp Auscultation: clear to auscultation bilaterally Cardio Rate: regular rate Rhythm: regular rhythm GI Inspection: Yes normal to inspection Extrem General: Yes normal to inspection and No edema Assessment and Plan Assessment & Plan (1) BPH (benign prostatic hyperplasia): Code(s): N40.0 - Benign prostatic hyperplasia without lower urinary tract symptoms Plan: Patient is being followed up by Urology and has been placed on finasteride and tamsulosin continue to follow-up with PSA (2) Pleural effusion: Comment: Recurrent since 05/2022 Code(s): J90 - Pleural effusion, not elsewhere classified Plan: Patient has been seeing pulmonary in [place] and has advised PET scan (3) Left breast mass: Comment: L chest /breast mass 12 oclock postion from the nipple 2 cm, Code(s): N63.20 - Unspecified lump in the left breast, unspecified quadrant Plan: Patient is being followed up in [place] advised PET scan. Planned biopsy March 02 2024 (4) Hypertension: Code(s): I10 - Essential (primary) hypertension Plan: Continue with blood pressure medication. Decrease salt intake and exercise on carvedilol 6.25 mg twice a day (5) Hypercholesterolemia: Code(s): E78.00 - Pure hypercholesterolemia, unspecified Plan: Avoid fried foods, chicken skin, eggs, butter margarine, pastries and meat. 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 Panel Today E78.00 - Pure hypercholesterolemia, unspecified Free T4 (Free Thyroxine) Today E78.00 - Pure hypercholesterolemia, unspecified B Type Natriuretic Peptide Today E78.00 - Pure hypercholesterolemia, unspecified Lipid Panel Today E78.00 - Pure hypercholesterolemia, unspecified Thyroid Stimulating Hormone Today E78.00 - Pure hypercholesterolemia, unspecified Complete Blood Count Auto Diff Today E78.00 - Pure hypercholesterolemia, unspecified Medications: Discontinued finasteride Discontinued Reason: Patient Refused 5 mg PO DAILY 90 days 90 tabs 1RF N13.8 - Other obstructive and reflux uropathy, N40.1 - Benign prostatic hyperplasia with lower urinary tract symptoms, R33.9 - Retention of urine, unspecified Coding Level of Care Code Est Pt Level 4 (72368) Complex EM visit Add On G2211 Diagnoses BPH (benign prostatic hyperplasia) N40.0 Pleural effusion J90 Left breast mass N63.20 Hypertension I10 Hypercholesterolemia E78.00 Hypothyroidism E03.9 Hemidiaphragm paralysis J98.6 Coronary artery disease I25.10
[2024-02-24 11:12] VITALS: BP 128/68; PULSE 67; O2SAT 97; BMI 28.1
== END 2024-02-24 12:01 | disposition home or self-care (01) ==
PROVIDERS: PCP Internal Medicine; Visit Provider Internal Medicine
DX: N40.0 Benign prostatic hyperplasia without lower urinary tract symptoms (principal); J90 Pleural effusion, not elsewhere classified; N63.22 Unspecified lump in the left breast, upper inner quadrant; I10 Essential (primary) hypertension; E78.00 Pure hypercholesterolemia, unspecified; E03.9 Hypothyroidism, unspecified; J98.6 Disorders of diaphragm; I25.10 Atherosclerotic heart disease of native coronary artery without angina pectoris
CPT/HCPCS: 99214; G2211

== ENCOUNTER 2024-02-28 08:32 | Outpatient (REF) | payer MEDICARE, SELFPAY ==
[2024-02-28 10:19] LABS: MANUAL DIFF FLAG NO
[2024-02-28 10:26] LABS: B Type Natriuretic Peptide 155 pg/mL (<100)
[2024-02-28 10:27] LABS: Basophils Absolute Auto 0.1 X10*3/uL (0.0-0.2); Basophils Percent Auto 0.9 % (0-2); Eosinophils Absolute Auto 0.3 X10*3/uL (0.0-0.4); Eosinophils Percent Auto 3.5 % (0-4); Hematocrit 44.1 % (42.0-52.0); Hemoglobin 14.6 g/dl (14.0-18.0); Imm Gran Abs Auto 0.01 X10*3/uL (0.00-0.03); Imm Gran Pct Auto 0.1 % (0.0-0.4); Lymphocytes Absolute Auto 0.7 X10*3/uL (1.2-4.9); Lymphocytes Percent Auto 9.9 % (20-40); Mean Corpuscular HGB Conc 33.1 g/dl (31.0-36.0); Mean Corpuscular Hemoglobin 28.4 pg (27.0-33.0); Mean Corpuscular Volume 85.8 fL (80.0-98.0); Mean Platelet Volume 10.7 fL (9.4-12.4); Monocytes Absolute Auto 0.8 X10*3/uL (0.1-1.2); Neutrophils Absolute Auto 5.6 x10*3/uL (2.0-8.3); Neutrophils Percent Auto 75.6 % (45-73); Platelet Count 270 X10*3/uL (160-400); Red Blood Count 5.14 X10*6/uL (4.60-5.80); Red Cell Distribution Width 13.8 % (11.0-16.0); White Blood Count 7.5 X10*3/uL (4.8-10.8)
[2024-02-28 11:25] LABS: Alanine Aminotransferase 27 U/L (0-40); Alkaline Phosphatase 81 U/L (39-117); Anion Gap 13 (12-20); Aspartate Amino Transferase 22 U/L (5-37); Bilirubin Total 0.6 mg/dL (0.0-1.0); Blood Urea Nitrogen 11 mg/dL (9-16); Calcium 9.3 mg/dL (8.4-10.2); Carbon Dioxide 29 mmol/L (22-29); Chloride 106 mmol/L (96-108); Cholesterol 132 mg/dL (<200); Estimated Glomerular Filt Rate > 60; Free T4 (Free Thyroxine) 0.92 ng/dL (0.71-1.85); Glucose Random 80 mg/dL (60-115); HDL Cholesterol 32 mg/dL (>40); LDL Cholesterol Calculated 81 mg/dL (<100); Potassium 4.9 mmol/L (3.3-5.1); Sodium 143 mmol/L (135-145); Thyroid Stimulating Hormone 2.43 uIU/mL (0.32-4.0); Total Protein 7.7 g/dL (6.5-8.0); Triglycerides 95 mg/dL (<150)
== END 2024-02-28 08:33 | disposition home or self-care (01) ==
LOC: HO.HMGCLDS 08:32
PROVIDERS: PCP Internal Medicine; Visit Provider Internal Medicine
DX: E78.00 Pure hypercholesterolemia, unspecified (principal)
CPT/HCPCS: 36415; 80053; 80061; 83880; 84439; 84443; 85025

== ENCOUNTER 2024-03-28 12:13 | Outpatient (AMB) | payer MEDICARE, SELFPAY ==
[2024-03-28 12:32] VITALS: BP 108/62; PULSE 70; O2SAT 98; BMI 28.8
--- NOTE | 2024-03-28 12:32 | A.OFFVIS_ITS ---
Intake Vital Signs 03/28/24 12:32 Height 5 ft 10 in Weight 201 lb BMI 28.8 BP 108/62 Blood Pressure Location Rt brachial Position Sitting Pulse 70 Pulse Source Pulse Oximeter Pulse Oximetry (%) 98 Oxygen Delivery Method Room Air Intake Visit Reasons: AWV G0438 Allergies nitroglycerin Allergy (Severe, Verified 03/28/24 12:32) low blood pressure HPI AWV G0438 HPI Details 83-year-old overweight male with BPH hyp ertension hypercholesterolemia hypothyroidism coronary artery disease and recent diagnosis of epithelioid mesothelioma. Patient is here for annual well visit. Review of the notes March 26 seen dermatology patient has seen the thoracic surgeon March 12 patient has complained of left breast/chest wall mass that is painful. Patient had and STEMI 12/01/2023 DS placed(history of CABG 2021 and left atrial appendage clip) thoracic surgeon Dr. Gallardo, cardiology [facility]iology and Dr. Eid, Urology [facility] Urology. PAtient has seen Oncology [facility], [facility] [place], [phone] [facility] chemotherapy is next week. PRESNETLY L lower abdomen pain February treated for diverticulitis but got better left message on the phone twice. Called and updated [facility] practice nurse [facility] Medical History (Updated 03/28/24 @ 15:04 by Nash Brown MD) PAF (paroxysmal atrial fibrillation) Enlarged prostate Pleural effusion Pleural mass Recurrent left pleural effusion CVA (cerebral vascular accident) TIA (transient ischemic attack) Coronary artery disease Hypertension Hypothyroidism PUD (peptic ulcer disease) Fatigue Surgical History History of coronary artery bypass graft x 3 History of heart artery stent History of lobectomy of thyroid Hx of colonoscopy H/O melanoma excision History of surgery on arm Family History Father Lung cancer Mother Heart disease Social History Household Members: Spouse Housing: House Do you presently have visiting nurse or other home services: No Alcohol intake: current Alcohol intake frequency: a few times a month Alcohol type: beer Comment: once a week 1 drink Patient Tobacco Use Status: Former Tobacco user Tobacco use type: Cigarette Years Smoked: quit 22 years old e-Cigarette/Vaping Use: Never Used Second Hand Smoke Exposure: No Advance Directives Date on File: 01/18/24 service: No Current occupational status: retired Cognitive needs: No Hearing needs: No Vision needs: Yes Questionnaire Medicare Wellness Checkup What is your age?: 80 or older What gender do you identify with?: male During the past 4 weeks, how much have you been bothered by emotional problems such as feeling anxious, depressed, irritable, sad or downhearted, and blue?: quite a bit During the past 4 weeks, has your physical & emotional health limited your social activities with family, friends, neighbors, or groups?: quite a bit During the past 4 weeks, how much bodily pain have you generally had?: moderate pain During the past 4 weeks, was someone available to help you if you needed & wanted help?: yes, quite a bit During the past 4 weeks, what was the hardest physical activity you could do for at least 2 minutes?: light Can you get to places out of walking distance without help? (For eg., can you travel alone on buses, taxis or drive your car?): Yes Can you go shopping for groceries or clothes without someone's help?: No Can you prepare your own meals?: No Can you do your housework without help?: No Because of any health problems, do you need the help of another person with your personal care needs such as eating, bathing, dressing or getting around the house?: No Can you handle your own money without help?: Yes During the past 4 weeks, how would you rate your health in general?: fair During the past 4 weeks how have things been going for you?: pretty bad Are you having difficulties driving your car?: no Do you always fasten your seat belt when you are in a car?: yes, usually During past 4 weeks, have you been bothered by the following: never: Falling or dizzy when standing up and sometimes: Trouble eating well? Have you fallen 2 or more times in the past year?: No Are you afraid of falling?: No Are you a smoker?: no During the past 4 weeks, how many drinks of wine, beer, or other alcoholic beverages did you have?: no alcohol at all Do you exercise for about 20 minutes 3 or more times a week?: yes, some of the time Have you been given information to help with the following?: yes: Hazards in yo ur house that might hurt you? and yes: Keeping track of your medications? How often do you have trouble taking medicines the way you have been told to take them?: I always take medicine as prescribed How confident are you that you can control & manage most of your health problems?: not very confident What is your race?: White PHQ-9 Over the last 2 weeks, how often have you been bothered by any of the following problems? 1. Little interest or pleasure in doing things: not at all 2. Feeling down, depressed, or hopeless: not at all 3. Trouble falling or staying asleep, or sleeping too much: not at all 4. Feeling tired or having little energy: not at all 5. Poor appetite or overeating: not at all 6. Feeling bad about yourself - or that you are a failure or have let yourself or your family down: not at all 7. Trouble concentrating on things, such as reading the newspaper or watching television: not at all 8. Moving or speaking so slowly that other people could have noticed. Or the opposite - being so fidgety or restless that you have been moving around a lot more than usual: not at all 9. Thoughts that you would be better off or of hurting yourself in some way: not at all Total score: 0 Depression Screening Interpretation: Negative Depression Screening Done: Yes 79363 - PHQ-9 Billing: Yes Source: Developed by Drs. Madhav Donahue, Sangeeta Nichole, Kalpesh Potter and colleagues, with an educational eliseo from [employer]. Review of Systems Const Denies poor appetite and Denies weakness Eyes Denies no additional complaints ENT Reports Normal hearing present, Denies dizziness, Denies nasal congestion, Denies tinnitus and Denies sore throat Card Denies chest pain, Denies syncope, Denies rapid heart rate and Denies dyspnea Resp Denies cough and Denies dyspnea GI Denies change in stool character, Reports constipation, Denies diarrhea, Denies nausea and Denies vomiting Denies dysuria and Denies urinary frequency Neuro Reports Normal hearing present, Denies confusion, Denies dizziness, Denies syncope and Denies weakness Psych Denies confusion Physical Exam Vital Signs: Last Vital Signs Pulse 70 03/28/24 12:32 BP 108/62 03/28/24 12:32 Pulse Ox 98 03/28/24 12:32 Oxygen Delivery Method Room Air 03/28/24 12:32 BMI result Body Mass Index 28.8 Const General: No confusion Orientation/consciousness: No confusion HEENT Head: Yes normocephalic Ears: external ears normal and TM's normal bilaterally Face and sinus: Yes normal facial exam Mouth: moist mucous membranes Throat: Yes tonsils normal Eyes Conjunctivae: conjunctivae normal Pupils: Equal, round and reactive pupils present and Pupil accommodation reflex normal Direct Ophthalmoscopy: normal light reflex Neck Neck: No lymphadenopathy Thyroid: Thyroid normal Chest Chest palpation & inspection: normal inspection of the chest Resp Effort & Inspection: normal respiratory effort and no audible wheezes Auscultation: clear to auscultation bilaterally, no crackles, no wheezes and lung sounds not diminished Cardio Rate: regular rate Rhythm: regular rhythm Peripheral pulses: radial pulses present and dorsalis pedis present GI Other: tender with rebound and guarding LLQ Palpation (GI): no masses Auscultation: normal bowel sounds and normoactive bowel sounds Rectal Exam - Male: Yes deferred Skin General skin exam: no rashes or lesions noted Rashes: no rashes Neuro General: No confusion Cranial nerves: Yes Equal, round and reactive pupils present and Yes Normal hearing present Cognition (Neuro): normal cognition Gait exam (Neuro): Normal gait present Motor exam (neuro): 5/5 motor strength present throughout Deep tendon reflexes (DTR's): Right brachioradialis reflex intensity grade: 2+, Left brachioradialis reflex intensity grade: 2+, Right patellar reflex intensity grade: 2+ and Left patellar reflex intensity grade: 2+ Extrem General: No edema Assessment & Plan Assessment & Plan (1) Epithelioid mesothelioma: Comment: 03/12/2024 Code(s): C45.9 - Mesothelioma, unspecified Plan: Patient has been referred to Hematology Oncology for chemotherapy (2) BPH (benign prostatic hyperplasia): Code(s): N40.0 - Benign prostatic hyperplasia without lower urinary tract symptoms Qualifiers: Lower urinary tract symptom presence: symptoms present Lower urinary tract symptom detail: urinary frequency Qualified Code(s): N40.1 - Benign prostatic hyperplasia with lower urinary tract symptoms; R35.0 - Frequency of micturition Plan: Continue with tamsulosin (3) Hypertension: Code(s): I10 - Essential (primary) hypertension Qualifiers: Hypertension type: primary hypertension Qualified Code(s): I10 - Essential (primary) hypertension Plan: Continue with blood pressure medication. Decrease salt intake and exercise patient is on carvedilol 6.25 mg twice a day (4) Hypothyroidism: Code(s): E03.9 - Hypothyroidism, unspecified Qualifiers: Hypothyroidism type: acquired Qualified Code(s): E03.9 - Hypothyroidism, unspecified Plan: Continue with thyroid medication (5) Hypercholesterolemia: Code(s): E78.00 - Pure hypercholesterolemia, unspecified Plan: Avoid fried foods, chicken skin, eggs, butter margarine, pastries and meat. Be it pork or beef they have a lot of cholesterol LDL goal of less than 70 and triglyceride of less than 150. On atorvastatin 80 mg once a day (6) Coronary artery disease: Comment: CABG 2021 Code(s): I25.10 - Atherosclerotic heart disease of [place] coronary artery without angina pectoris Qualifiers: Coronary Disease-Associated Artery/Lesion type: [place] artery Pl[place] vs. transplanted heart: [place] heart Associated angina: without angina Qualified Code(s): I25.10 - Atherosclerotic heart disease of [place] coronary artery without angina pectoris Plan: Control the cholesterol, weight, blood pressure, continue with aspirin 81 mg once a day (7) Diverticulitis: Code(s): K57.92 - Diverticulitis of intestine, part unspecified, without perforation or abscess without bleeding Plan: will send in Antibiotic and request for CT scan Orders: Orders Blood Urea Nitrogen Today K57.92 - Diverticulitis of intestine, part unspecified, without perforation or abscess without bleeding CT abdomen pelvis w IV con Today K57.92 - Diverticulitis of intestine, part unspecified, without perforation or abscess without bleeding Creatinine Today K57.92 - Diverticulitis of intestine, part unspecified, without perforation or abscess without bleeding Medications: New metronidazole 500 mg PO Q8H 21 tabs 0RF 7 days K57.92 - Diverticulitis of intestine, part unspecified, without perforation or abscess without bleeding ciprofloxacin HCl (Cipro) 500 mg PO BID 14 tabs 0RF K57.92 - Diverticulitis of intestine, part unspecified, without perforation or abscess without bleeding Quality Reporting (2019) Depression/Bipolar (159/160/161/177) PHQ-9: Total score: 0 Coding Level of Care Code Est Pt Level 4 (80973) Diagnoses Epithelioid mesothelioma C45.9 Benign prostatic hyperplasia with urinary frequency N40.1; R35.0 Lower urinary tract symptom presence: symptoms present Lower urinary tract symptom detail: urinary frequency Primary hypertension I10 Hypertension type: primary hypertension Acquired hypothyroidism E03.9 Hypothyroidism type: acquired Hypercholesterolemia E78.00 Coronary artery disease involving [place] coronary artery of [place] heart without angina pectoris I25.10 Coronary Disease-Associated Artery/Lesion type: [place] artery [place] vs. transplanted heart: [place] heart Associated angina: without angina Diverticulitis K57.92
== END 2024-03-28 13:49 | disposition home or self-care (01) ==
PROVIDERS: PCP Internal Medicine; Visit Provider Internal Medicine
DX: C45.9 Mesothelioma, unspecified (principal); N40.1 Benign prostatic hyperplasia with lower urinary tract symptoms; R35.0 Frequency of micturition; I10 Essential (primary) hypertension; E03.9 Hypothyroidism, unspecified; E78.00 Pure hypercholesterolemia, unspecified; I25.10 Atherosclerotic heart disease of native coronary artery without angina pectoris; K57.92 Diverticulitis of intestine, part unspecified, without perforation or abscess without bleeding

== ENCOUNTER → 2024-03-28 12:13 | Outpatient (BNVA) | payer MEDICARE, SELFPAY | PROVIDERS: PCP Internal Medicine; Visit Provider Internal Medicine | DX: C45.9 Mesothelioma, unspecified (principal); N40.1 Benign prostatic hyperplasia with lower urinary tract symptoms; R35.0 Frequency of micturition; I10 Essential (primary) hypertension; E03.9 Hypothyroidism, unspecified; E78.00 Pure hypercholesterolemia, unspecified; I25.10 Atherosclerotic heart disease of native coronary artery without angina pectoris; K57.92 Diverticulitis of intestine, part unspecified, without perforation or abscess without bleeding | CPT/HCPCS: 96127; 99212 ==

== ENCOUNTER 2024-06-12 13:37 | Outpatient (AMB) | payer MEDICARE, SELFPAY ==
--- OUTSIDE RECORDS SUMMARY | 2024-06-12 13:39 | XMS_ITS ---
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 Name Role Phone Nash Brown Primary Care Provider Nika Reardon Unavailable [phone] Allergies Allergen (clinical drug ingredient) Drug/Non Drug Allergy documented on EMR Reaction Allergy Type Onset Date Status Substance with 4-iovpods-6-methylgluta ryl-coenzyme A reductase inhibitor mechanism of action (substance) statins (uncoded) Unknown Allergy Active REASON FOR VISIT Painful nail(s) aggravated by shoes causing difficulty standing/walking Medications Medication SIG (Take, Route, Frequency, Duration) Notes Start Date End Date Status Lisinopril 20 MG 1 tablet Orally Once a day Active Multivitamin Active Amiodarone HCl 200 MG 1 tablet Orally On ce a day Active Furosemide 20 MG 1 tablet Orally Once a day Active Tamsulosin HCl 0.4 MG 1 capsule Orally Once a day Active Medrol 4 MG as directed Orally 04/18/2019 Not-Taking Celecoxib 200 MG 1 capsule with food Orally Once a day Not-Taking Naprosyn 500 MG 1 tablet with food or milk as needed Orally every 12 hrs for 10 days 10/27/2017 Not-Taking Keflex Not-Taking Walking Boot/Pneumatic As directed Wear Daily for Until further notice 10/27/2017 Unknown Simvastatin 40 MG TAKE 1 TABLET BY MOUTH EVERY EVENING Oral for 90 Not-Taking Losartan Potassium 100 MG 1 tablet Orall y Once a day Not-Taking Levothyroxine Sodium 25 MCG 1 tablet in the morning on an empty stomach Orally Once a day for 30 day(s) Not-Taking hydroCHLOROthiazide Not-Taking Metoprolol Succinate Not-Taking Atorvastatin Calcium 80 MG Oral for 30 Days Active Aspirin Active Vitamin D3 2000 UNIT 1 capsule Orally Once a day Active Social History Tobacco Use: Social History Observation Description Date Details (start date - stop date) Former Smoker NA - NA Tobacco Use/Smoking Question Answer Notes Are you a: former smoker Additional Findings: Tobacco Non-User Current no n-smoker Alcohol Screen Question Answer Notes Did you have a drink contain ing alcohol in the past year? Yes How often did you have a dri nk containing alcohol in the past year? Monthly or less (1 point) Points 1 Interpretation Negative Tobacco use other than smoking: Question Answer Notes Are you an other tobacco user? No Vital Signs Height 5 ft 11 in in 01/04/2024 Weight 195 lbs 01/04/2024 BMI 27.19 kg/m2 01/04/2024 Heart Rate 70 /min 01/04/2024 Encounters Encounter Location Date Provider Diagnosis [facility] [address] [place] [address] 01/04/2024 Nika Gale Tinea unguium B35.1 ; Pain in right toe(s) M79.674 and Pain in left toe(s) M79.675 Assessments Encounter Date Diagnosis (ICD Code) Assessment Notes Treatment Notes Treatment Clinical Notes Section Notes 01/04/2024 Tinea unguium (ICD-10 - B35.1) 01/04/2024 Pain in right toe(s) (ICD-10 - M79.674) 01/04/2024 Pain in left toe(s) (ICD-10 - M79.675) Plan Of Treatment Next Appt Details Follow Up: 2 Months, Reason: Provider Name:Nika arciniega, 06/22/2024 12:00:00 PM, [address] [place], [address], Procedure Notes * Category Sub-Category Detail Notes Debride Nail 6-10 Nail debridement Nail debridem ent performed extensively to reduce/remove overall nail length, girth, thickness, subungual debris, and necrotic tissue, by manual and electrical means through the use of a nail nipper and/or dremel, to more viable healthy nail plate or bed tissue 1-5. Silver nitrate used for any petechial bleeding as necessary. Patient chooses, no pharmaceutical tx (03867) Progress Notes * Leonel IBANEZ:[birth year] (83 yo M)Acc No.[id number]:01/04/2024 Progress Note Patient:?Neville Ibanez Provider:?Nika Gale DPM :1940???Age:83 Y???Sex:Male Huy e:01/04/2024 Address:[address] [place], [place] [id number] Pcp:Nash Brown Subjective: * Chief Complaints: * ???Painful nail(s) aggravate d by shoes causing difficulty standing/walking * HPI: ???Painful Nails:?Pt States Last PCP Visit:?Date:?10/10/2023 * ROS:?General/Constitutional:?Nausea?denies.?Vomiting?denies.?Hunger Thirst?denies.?Loss appetite?denies.?Chills?denies.?Fatigue?denies.?Fever?denies.?Night Sweats?denies.?Unexplained weight loss?denies.?Unexplained weight gain?denies.?HEENTM:?Dentures?denies.?Dizziness?denies.?Glasses/contacts?admits.?Retinopathy?de nies.?Blurred/double vision?denies.?TMJ?denies.?Discharge/drainage?denies.?Implants?denies.?Sore throat?denies.?Dental implants?denies.?Hard of hearing ?denies.?Difficulty chewing/swallowing/speaking?denies.?Nose bleeds?denies.?Sore mouth?denies.?Respiratory:?On Oxygen?denies.?Pneumonia/pleurisy?denies.?Bronchitis?denies.?Emphysema?denies.?C oughing?denies.?Cough blood?denies.?Shortness of breath?denies.?Wheezing?denies.?Cardiovascular:?Pacemaker?denies.?MVP?denies.?WPW?denies.?CHF?denies.?Heart attack?denies.?Septal defect?denies.?Rapid beat?denies.?Chest pain ?denies.?Atrial Fib.?denies.?Murmur/Palpitations?denies.?Gastrointestinal:?Hemorrhoids?denies.?Stomach/Abdominal pain?denies.?Dark blood stool?denies.?Irritable bowel ?denies.?Constipation?denies.?Diarrhea?denies.?Hematology:?Swelling?denies.?Clots?denies.?Varicose Veins?denies.?Bruising?denies.?Bleeding problem?denies.?Genitourinary:?Blood urine?denies.?Frequent/Painfu/urination/bladder control?denies.?Kidney stones?denies.?Infection (UTI)?denies.?Nephropathy?denies.?sex trans dis (STD)?denies.?Prostate?denies.?Musculoskeletal:?Hammertoes?denies.?Bunions?denies.?Back Pain?denies.?Muscle Cramps/ Resting?denies.?Muscle cramps / walking?denies.?Generalized aches and pains?admits.?Weakness?denies.?Integ.:?Gonzalez?denies.?Scars?denies.?Corns/calluses?denies.?Ingrown nails?denies.?Painful nails?admits.?Open Sores?denies.?Rashes?denies.?Neurologic:?Difficulty sleeping?denies.?Brain disorder?denies.?Numbness?admits.?Balance trouble?denies.?Confusion?denies.?Fainting/blackouts?denies.?Tingling?admits.?Tr emors?denies.? * Medical History:? * Surgical History:?Thyroid Montes rgery 02/2017melanoma 2016triple bypass 05/19/2023Stent 11/2023 * Hospitalization/Major Diagno stic Procedure:?[facility] stomach issues 09/2023 * Family History:?Mother: dece ased, diagnosed with Unspecified essential hypertension, Unspecified heart disease, Unspecified cerebral artery occlusion with cerebral infarction, Family history of arthritis.?Father: , diagnosed with Other malignant neoplasm of unspecified site.?Siblings: diabetes.?Paternal Grand Father: diagnosed with Family history of arthritis, Diabetic - NIDDM.?Maternal Grand Mother: diagnosed with Other malignant neoplasm of unspecified site.? * Social History:?Tobacco Use:?Tobacco Use/Smoking?Are you a:?former smoker ?Additional Findings: Tobacco Non-User?Current non-smoker ?Tobacco use other than smoking?Are you an other tobacco user??No ???Drugs/Alcohol:?Drugs?Have you used drugs other than those for medical reasons in the past 12 months??No ?Alcohol Screen?Did you have a drink containing alcohol in the past year??Yes ?How often did you have a drink containing alcohol in the past year??Monthly or less (1 point) ?Points?1 ?Interpretation?Negative ???Miscellaneous:?Caffeine: yes, frequency: 1 cups per day. ?Children: yes. ?Exercise: yes, walking. ?Marital status: . 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 * Medications:?TakingFurosemid e 20 MG Tablet 1 tablet Orally Once a dayTamsulosin HCl 0.4 MG Capsule 1 capsule Orally Once a dayMultivitamin Amiodarone HCl 200 MG Tablet 1 tablet Orally Once a dayLisinopril 20 MG Tablet 1 tablet Orally Once a dayAspirin Vitamin D3 2000 UNIT Capsule 1 capsule Orally Once a dayAtorvastatin Calcium 80 MG Tablet Oral Taking Furosemide 20 MG Tablet 1 tablet Orally Once a dayTaking Tamsulosin HCl 0.4 MG Capsule 1 capsule Orally Once a dayTaking Multivitamin Taking Amiodarone HCl 200 MG Tablet 1 tablet Orally Once a dayTaking Lisinopril 20 MG Tablet 1 tablet Orally Once a dayTaking Aspirin Taking Vitamin D3 2000 UNIT Capsule 1 capsule Orally Once a dayTaking Atorvastatin Calcium 80 MG Tablet Oral Not-Taking/PRNMetoprolol Succinate Levothyroxine Sodium 25 MCG Tablet 1 tablet in the morning on an empty stomach Orally Once a dayhydroCHLOROthiazide Simvastatin 40 MG Tablet TAKE 1 TABLET BY MOUTH EVERY EVENING Oral Losartan Potassium 100 MG Tablet 1 tablet Orally Once a dayCelecoxib 200 MG Capsule 1 capsule with food Orally Once a dayNaprosyn 500 MG Tablet 1 tablet with food or milk as needed Orally every 12 hrsMedrol 4 MG Tablet Therapy Pack as directed Orally Keflex Not-Taking/PRN Metoprolol Succinate Not-Taking/PRN Levothyroxine Sodium 25 MCG Tablet 1 tablet in the morning on an empty stomach Orally Once a dayNot-Taking/PRN hydroCHLOROthiazide Not-Taking/PRN Simvastatin 40 MG Tablet TAKE 1 TABLET BY MOUTH EVERY EVENING Oral Not-Taking/PRN Losartan Potassium 100 MG Tablet 1 tablet Orally Once a dayNot-Taking/PRN Celecoxib 200 MG Capsule 1 capsule with food Orally Once a dayNot-Taking/PRN Naprosyn 500 MG Tablet 1 tablet with food or milk as needed Orally every 12 hrsNot-Taking/PRN Medrol 4 MG Tablet Therapy Pack as directed Orally Not-Taking/PRN Keflex UnknownWalking Boot/Pneumatic As directed Wear DailyMedication List reviewed and reconciled with the patientUnknown Walking Boot/Pneumatic As directed Wear DailyMedication List reviewed and reconciled with the patient * Allergies:?statinsyes[Allerg ies Verified] Objective: * Vitals:?Ht: 5 ft 11 in, Wt: 195, BMI: 27.19, Shoe size: 10, HR: 70 /min, Wt-k.45 kg. * Examination: ???Nails: ?NAILS are:?Elongated, overgrown, dystrophic, lytic, greater than 3mm thick, discolored and friable with crumbly malodorous subungual debris, with pain on palpation 1-5 B/L.? Assessment: * Assessment: 1.?Tinea unguium - B35.1 (Pr imary)?2.?Pain in right toe(s) - M79.674?3.?Pain in left toe(s) - M79.675? Plan: * Treatment: * Procedures:?Debride Nail 6-10:?Nail debridement?Nail debridement performed extensively to reduce/remove overall nail length, girth, thickness, subungual debris, and necrotic tissue, by manual and electrical means through the use of a nail nipper and/or dremel, to more viable healthy nail plate or bed tissue 1-5. Silver nitrate used for any petechial bleeding as necessary. Patient chooses, no pharmaceutical tx ([id number]).? * Procedure Codes:?19791 DEBRI DE NAIL, 6 OR MORE, Modifiers: XS * Follow Up:?2 Months * Images: * Sign off status: Completed true * Provider:?Nika Gale, JIMMY Date:? Generated for Leonila leuvano/Tino/Roland on:?06/12/2024 01:39 PM EST History and Physical Notes * HPI (History of Present Illness) Category Sub-Category Detail Notes Category Not es Painful Nails Pt States Last PCP Visit: Date:: 10/10/2023 Examination Category Sub-Category Detail Notes Category Not es Nails NAILS are: Elongated, overg rown, dystrophic, lytic, greater than 3mm thick, discolored and friable with crumbly malodorous subungual debris, with pain on palpation 1-5 B/L
--- OUTSIDE RECORDS SUMMARY | 2024-06-12 13:40 | XMS_ITS ---
Author Organization [facility] Address [address] [place] [id number] Care Team Providers Care Program Developer Name Role Phone Nash Brown Primary Care Provider Nika Reardon [phone] REASON FOR VISIT SEEN ON 10/31/2023 Encounters Encounter Location Date Provider Diagnosis [address] [address] 11/18/2023 Nika Gale Plan Of Treatment Next Appt Details Provider Name:Nika arciniega, 06/22/2024 12:00:00 PM, [address] [place] [address], [phone], Progress Notes * Parish IBANEZDOB:[birth year] (83 yo M)Acc No.[id number]:11/18/2023 Progress Note Patient:?Neville IBANEZ Provider:?Nika Gale DPM :1940???Age:83 Y???Sex:Male Huy e:11/18/2023 Address:[address] [place] [address] [place], [place]-[id number] Pcp:Nash Brown Subjective: * Chief Complaints: * ???1. SEEN ON 10/31/2023. * Medical History:? Objective: * Vitals:? Assessment: Plan: * Treatment: * Images: * The named appointment provid er may or may not be the originator of this progress note, and it is not deemed complete until electronically signed by the appointment provider. Sign off status: Pending * Provider:?Nika Gale DPM Date:?12/2023 Generated for Leonila luevano/Tino/Roland on:?06/12/2024 01:39 PM EST
--- OUTSIDE RECORDS SUMMARY | 2024-06-12 13:40 | XMS_ITS | Patient Health Record ---
Author Organization [facility] Aaliyah elisa Landeros Address [address] [facility] [place] [address] Care Team Providers Care Sociology Research Assistant Name Role Phone Nash Brown Primary Care Provider Nika Reardon Unavailable [phone] Allergies Allergen (clinical drug ingredient) Drug/Non Drug Allergy documented on EMR Reaction Allergy Type Onset Date Status Substance with 7-hmtlakq-8-methylgluta ryl-coenzyme A reductase inhibitor mechanism of action (substance) statins (uncoded) Unknown Allergy Active Reason For Referral No Information Medications Medication SIG (Take, Route, Frequency, Duration) Notes Start Date End Date Status Multivitamin Active Tamsulosin HCl 0.4 MG 1 capsule Orally Once a day Active Losartan Potassium 100 MG 1 tablet Orall y Once a day Not-Taking Aspirin Active Naprosyn 500 MG 1 tablet with food or milk as needed Orally every 12 hrs for 10 days 10/27/2017 Not-Taking Celecoxib 200 MG 1 capsule with food Orally Once a day Not-Taking Atorvastatin Calcium 80 MG Oral for 30 Days Active Keflex Not-Taking Vitamin D3 2000 UNIT 1 capsule Orally Once a day Active Medrol 4 MG as directed Orally 04/18/2019 Not-Taking Lisinopril 20 MG 1 tablet Orally Once a day Not-Taking Amiodarone HCl 200 MG 1 tablet Orally On ce a day Not-Taking Walking Boot/Pneumatic As directed Wear Daily for Until further notice 10/27/2017 Not-Taking Clopidogrel Bisulfate 75 MG 1 tablet Ora lly Once a day Active Levothyroxine Sodium 25 MCG 1 tablet in the morning on an empty stomach Orally Once a day for 30 day(s) Not-Taking Levothyroxine Sodium Active Metoprolol Succinate Not-Taking Furosemide 20 MG 1 tablet Orally Once a day Active Simvastatin 40 MG TAKE 1 TABLET BY MOUTH EVERY EVENING Oral for 90 Not-Taking Carvedilol 6.25 MG 1 tablet with food Orally Twice a day Active hydroCHLOROthiazide Not-Taking Immunizations Vaccine Route Administration Date Status Comme nts COVID-19 Pfizer BioNTech Vaccine Unknown 08/12/2020 Administered first dose 02/2021 Social History Tobacco Use: Social History Observation [...] Are you an other tobacco user? 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 Problem Nath's neuroma of left foot (389973320554326) Nath's neuroma of left foot (G57.62) Active confirmed Problem 471858618533957 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) Active confirmed Problem Localized, primary osteoarthritis of the ankle and/or foot (809641880) Arthritis of joint of lesser toe, left (M19.072) Active confirmed Vital Signs Heart Rate 70 /min 01/04/2024 Height 5 ft 11 in in 03/23/2024 Weight 195 lbs 03/23/2024 BMI 27.19 kg/m2 03/23/2024 Encounters Encounter Location Date Provider Diagnosis [address] [address] 08/12/2023 Nika Perica Tinea unguium B35.1 ; Pain in right toe(s) M79.674 and Pain in left toe(s) M79.[address] [address] 10/31/2023 Nika Perica Tinea unguium B35.1 ; Other hammer toe(s) (acquired), left foot M20.42 ; Pain in right toe(s) M79.674 and Pain in left toe(s) M79.[address] [address] 01/04/2024 Nika Perica Tinea unguium B35.1 ; Pain in right toe(s) M79.674 and Pain in left toe(s) M79.[address] [address] 03/23/2024 Nika Perica Tinea unguium B35.1 ; Pain in right toe(s) M79.674 and Pain in left toe(s) M79.[address] [address] 10/28/2023 Nika Perica Assessments Encounter Date Diagnosis (ICD Code) Assessment Notes Treatment Notes Treatment Clinical Notes Section Notes 08/12/2023 Tinea unguium (ICD-10 - B35.1) 08/12/2023 Pain in right toe(s) (ICD-10 - M79.674) 10/31/2023 Tinea unguium (ICD-10 - B35.1) 10/31/2023 Other hammer toe(s) (acquired), left foot (ICD-10 - M20.42) 01/04/2024 Tinea unguium (ICD-10 - B35.1) 01/04/2024 Pain in right toe(s) (ICD-10 - M79.674) 03/23/2024 Tinea unguium (ICD-10 - B35.1) 01/04/2024 Pain in left toe(s) (ICD-10 - M79.675) 10/31/2023 Pain in right toe(s) (ICD-10 - M79.674) 08/12/2023 Pain in left toe(s) (ICD-10 - M79.675) 03/23/2024 Pain in right toe(s) (ICD-10 - M79.674) 10/31/2023 Pain in left toe(s) (ICD-10 - M79.675) 03/23/2024 Pain in left toe(s) (ICD-10 - M79.675) Plan Of Treatment Pending Test Test Name Order Date MRI : Foot, right 01/02/2018 *Uric Acid, Serum 04/18/2019 ESR 04/18/2019 X ray : Foot, left 3V 03/20/2019 X ray : Foot, left 3V 04/29/2011 X ray : Foot, right 3V 04/18/2019 43327-MCYOQYI NAIL, 6 OR MORE 01/26/2018 96383-UMPYOGR NAIL, 6 OR MORE 04/10/2018 89245-QGXLQUG NAIL, 1-5 07/19/2017 65393-AFVCONM NAIL, 1-5 10/05/2017 10904-DQTSIVV NAIL, 1-5 10/20/2020 27302- Debride <25 sq cm 07/10/2013 85098 I&D ABSCESS- SIMPLE,SINGLE 014 15537, J0702- Neuroma/Injection 04/29/20 11 08685, J0702- Neuroma/Injection 06/20/19 13 X ray : Ankle, right 3V 04/18/2019 Next Appt Details Provider Name:Nika arciniega, 06/22/2024 12:00:00 PM, [address] [facility], [place], [address], Insurance Providers Payer Name Payer Address Payer Phone Subscriber Number Group Number Insured Name Patient Relationship to Insured Coverage Start Date Coverage End Date Medicare [facility] [employer] [address] [facility] [place] [address] [id number] Parish Montez Self - patient is the insured [employer] [address] [place] [address] [id number] Parish Montez Self - patient is the insured 8 Medical (General) History Medical History History ICD Code chicken pox measles mumps Cancer Thyroid disorder Heart attack Mesothelioma Surgical History Surgery Date(Month/Year) Thyroid Surgery 02/2017 melanoma 2016 triple bypass 05/19/2023 Stent 11/2023 Hospitalization History Reason Date(Month/[facility]) [facility] 05/2022 [facility] stomach issues 09/2023
[2024-06-12 13:41] VITALS: BP 116/74; PULSE 75; O2SAT 99; BMI 28.0
--- NOTE | 2024-06-12 13:41 | MHC.PC.OV ---
Vital Signs 06/12/24 13:41 Height 5 ft 10 in Weight 195 lb 2 oz BMI 28.0 BP 116/74 Blood Pressure Location Lt brachial Position Sitting Pulse 75 Pulse Source Pulse Oximeter Pulse Oximetry (%) 99 Oxygen Delivery Method Room Air Intake Visit Reasons: f/u chemo Allergies nitroglycerin Allergy (Severe, Verified 06/12/24 13:44) low blood pressure Tobacco use date assessed: 06/12/24 Fall risk assessment: No Falls in past year Last assessed Fall Risk: 06/12/24 Dental Screening Dental Screen Date: 06/12/24 Did you have a dental visit in the last 12 months?: Yes Did you have a dental problem in the last 6 months where you did not have access to dental care?: No Was dental information given to patient?: Patient has dentist HPI f/u chemo HPI Details The patient is an 83-year-old male presenting with epistaxis and concern about anticoagulation management in the context of his malignancy history. The patient reports recurrent nosebleeds, which he associates with his anticoagulant medication regimen, specifically aspirin and clopidogrel, which are prescribed for his cardiovascular conditions. The nosebleeds have primarily occurred in the right nostril and have been managed by pinching the nose and using nasal saline spray. The patient has also been using ice to help constrict the blood vessels and manage the bleeds. 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 There is a concern about reactivation of the malignancy due to the surgical site on the nose. The patient had a recent chemotherapy regimen, noting difficulty recovering from the cycle and increased frequency of epistaxis. He had a reported history of a CAT scan scheduled to assess his oncological state further. The patient expresses worries that the nosebleeds could be associated with the cancer surgery and questions the completeness of the previous excision. Additionally, the patient is on long-term management with medications including levothyroxine for thyroid dysfunction and carvedilol for hypertension. He was concerned about running out of these medications. The patient also described being careful about nasal hygiene due to home environmental factors, including dryness related to heating. [facility] Medical History PAF (paroxysmal atrial fibrillation) Enlarged prostate Pleural effusion Pleural mass Recurrent left pleural effusion CVA (cerebral vascular accident) TIA (transient ischemic attack) Coronary artery disease Hypertension Hypothyroidism PUD (peptic ulcer disease) Fatigue Surgical History History of coronary artery bypass graft x 3 History of heart artery stent History of lobectomy of thyroid Hx of colonoscopy H/O melanoma excision History of surgery on arm Family History Father Lung cancer Mother Heart disease Social History Household Members: Spouse Housing: House Do you presently have visiting nurse or other home services: No Alcohol intake: current Alcohol intake frequency: a few times a month Alcohol type: beer Comment: once a week 1 drink Patient Tobacco Use Status: Former Tobacco user Tobacco use type: Cigarette Years Smoked: quit 22 years old e-Cigarette/Vaping Use: Never Used Second Hand Smoke Exposure: No Advance Directives Date on File: 01/18/24 service: No Current occupational status: retired Cognitive needs: No Hearing needs: No Vision needs: Yes Questionnaire PHQ-9 Over the last 2 weeks, how often have you been bothered by any of the following problems? 1. Little interest or pleasure in doing things: not at all 2. Feeling down, depressed, or hopeless: not at all 3. Trouble falling or staying asleep, or sleeping too much: not at all 4. Feeling tired or having little energy: not at all 5. Poor appetite or overeating: not at all 6. Feeling bad about yourself - or that you are a failure or have let yourself or your family down: not at all 7. Trouble concentrating on things, such as reading the newspaper or watching television: not at all 8. Moving or speaking so slowly that other people could have noticed. Or the opposite - being so fidgety or restless that you have been moving around a lot more than usual: not at all 9. Thoughts that you would be better off or of hurting yourself in some way: not at all Total score: 0 Depression Screening Interpretation: Negative Depression Screening Done: Yes 27319 - PHQ-9 Billing: Yes Source: Developed by Drs. Madhav Donahue, Sangeeta Nichole, Kalpesh Potter and colleagues, with an educational eliseo from [employer]. Thrive Questionnaire Date Thrive assessed: 06/12/24 I am a: Patient What is your living situation today?: I have a steady place to live Within the past 12 months, did the food you bought not last and you didn't have the money to get more?: Never true Within the past 12 months, did you worry whether your food would run out before you got money to buy more?: Never true Do you have trouble paying for medicines?: No Do you have trouble getting transportation to medical appointments?: No Do you have trouble paying your heating and electricity bill?: No Do you have trouble taking care of your child, family member or friend?: No Do you have trouble with day-to-day activities such as bathing, preparing meals, shopping, managing finances, etc.?: No Are you currently unemployed and looking for a job?: No Are you interested in more education?: No THRIVE Score: 0 AUDIT C Alcohol Use Questionnaire (AUDIT-C) 1. How often do you have a drink containing alcohol?: Monthly or less 2. How many drinks containing alcohol do you have on a typical day when you are drinking?: 1 or 2 3. How often do you have six or more drinks on one occasion?: Never Total Score: 1 TEDDY-7 AMB Questionnaire TEDDY-7 Date TEDDY - 7 assessed: 06/12/24 Feeling nervous, anxious, or on edge: 0 = Not at all Not being able to stop or control worryin = Not at all Worrying too much about different things: 0 = Not at all Trouble relaxin = Not at all Being so restless that it is hard to sit still: 0 = Not at all Becoming easily annoyed or irritable: 0 = Not at all Feeling afraid as if something awful might happen: 0 = Not at all Total TEDDY-7 score (0-4 normal; 5-9 mild; 10-14 moderate; 15-21 severe): 0 Source: Developed by Drs. Madhav Donahue, Sangeeta Nichole, Kalpesh Potter and colleagues, with an educational eliseo from [employer]. Physical exam (Primary Care) Vital Signs: Last Vital Signs Pulse 75 06/12/24 13:41 BP 116/74 06/12/24 13:41 Pulse Ox 99 06/12/24 13:41 Oxygen Delivery Method Room Air 06/12/24 13:41 BMI result Body Mass Index 28.0 Tobacco/Smoking Status: Tobacco use Status Tobacco use date assessed 06/12/24 06/12/24 13:51 Patient Tobacco Use Status Former Tobacco user 06/12/24 13:51 Tobacco use type Cigarette 06/12/24 13:51 e-Cigarette/Vaping Use Never Used 06/12/24 13:51 PHQ-9: PHQ-9 Score PHQ-9: Total score 0 06/12/24 14:09 Depression Screening Interpretation: Negative Thrive Assessment: Date of Thrive Assessment Date Thrive assessed 06/12/24 06/12/24 13:51 Const General: alert; No acute distress Eyes Conjunctivae: conjunctivae normal Resp Auscultation: clear to auscultation bilaterally Cardio Rate: regular rate Rhythm: regular rhythm GI Inspection: Yes normal to inspection Extrem General: Yes normal to inspection and No edema Immunizations pneumoc 20-hari conj-dip cr(PF) 0.5 mL IM syringe Performing Provider: Nash Brown MD [facility] Administered by: Shagufta Zepeda CMA on 06/12/24 14:28 Dose Route Admin Location Dispensed Lot Number Expiration Date [facility] [employer] Field Technician 0.5 mL IM Left Tricep 0.5 mL [id number] 10/10/25 [id number] [employer] VIS Given Date VIS Provided VIS Publication Date 06/12/24 Single Vaccine 21 Eligibility Eligibility Date Funding Source Not [facility] Eligible 06/12/24 Private Coding Level of Care Code Est Pt Level 4 (64608) Complex EM visit Add On G2211 Diagnoses 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 transplanted heart: hoh heart Associated angina: without angina Acquired hypothyroidism E03.9 Hypothyroidism type: acquired Epistaxis R04.0 Additional Codes PHQ-9 - 56227 - PHQ-9 Billing: Yes ([id number]) Assessment & Plan Assessment & Plan (1) Epithelioid mesothelioma: Comment: 03/12/2024 Code(s): C45.9 - Mesothelioma, unspecified Category: Medical (2) Hypertension: Code(s): I10 - Essential (primary) hypertension Category: Medical Qualifiers: Hypertension type: primary hypertension Qualified Code(s): I10 - Essential (primary) hypertension (3) Hypercholesterolemia: Code(s): E78.00 - Pure hypercholesterolemia, unspecified Category: Medical (4) Coronary artery disease: Comment: CABG 2021 Code(s): I25.10 - Atherosclerotic heart disease of hoh coronary artery without angina pectoris Category: Medical Qualifiers: Coronary Disease-Associated Artery/Lesion type: hoh artery [place] vs. transplanted heart: hoh heart Associated angina: without angina Qualified Code(s): I25.10 - Atherosclerotic heart disease of hoh coronary artery without angina pectoris (5) Hypothyroidism: Code(s): E03.9 - Hypothyroidism, unspecified Category: Medical Qualifiers: Hypothyroidism type: acquired Qualified Code(s): E03.9 - Hypothyroidism, unspecified (6) Epistaxis: Code(s): R04.0 - Epistaxis Category: Medical Plan - Epistaxis secondary to anticoagulant therapy: Discussed conservative management techniques, including nasal compression and saline spray for control of bleeding. Recommended continuation of anticoagulant therapy. If increased frequency or severity of epistaxis persists, consider referral to otolaryngology for possible cautery. - Malignancy with history of surgery: A pending CAT scan will assess current status and monitor for any changes suggestive of malignancy recurrence. - Cardiovascular disease with anticoagulant management: Continue aspirin and clopidogrel as per current hydrogeology professor recommendations. - Essential Hypertension: Continue current antihypertensive medication regimen. - Thyroid dysfunction: Continue Levothyroxine, emphasizing compliance with daily supplementation as it is a long-term requirement. - Elevated cholesterol: Continue current statin therapy; ensure adequate supply with 90-day refill. - Preventative care: Administer pneumococcal vaccination as needed; consider flu vaccination if not up to date. - For all chronic conditions: Reinforce the importance of regular follow-up with specialists and primary care for comprehensive management. Orders: Orders Pneumococcal 20 Immunization Today Z23 - Encounter for immunization Medications: New carvedilol 6.25 mg PO BID 180 tabs 2RF
== END 2024-06-12 14:34 | disposition home or self-care (01) ==
PROVIDERS: PCP Internal Medicine; Visit Provider Internal Medicine
DX: C45.9 Mesothelioma, unspecified (principal); I10 Essential (primary) hypertension; E78.00 Pure hypercholesterolemia, unspecified; I25.10 Atherosclerotic heart disease of native coronary artery without angina pectoris; E03.9 Hypothyroidism, unspecified; R04.0 Epistaxis; Z23 Encounter for immunization

== ENCOUNTER → 2024-06-12 13:37 | Outpatient (BNVA) | payer MEDICARE, SELFPAY | PROVIDERS: PCP Internal Medicine; Visit Provider Internal Medicine | DX: Z23 Encounter for immunization (principal); C45.9 Mesothelioma, unspecified; I10 Essential (primary) hypertension; E78.00 Pure hypercholesterolemia, unspecified; I25.10 Atherosclerotic heart disease of native coronary artery without angina pectoris; E03.9 Hypothyroidism, unspecified; R04.0 Epistaxis | CPT/HCPCS: 90471; 90677; 96127; 99212 ==

== ENCOUNTER 2024-07-31 13:46 | Outpatient (AMB) | payer MEDICARE, SELFPAY ==
[2024-07-31 13:56] VITALS: BP 122/68; PULSE 65; O2SAT 99; BMI 27.8
--- NOTE | 2024-07-31 13:56 | A.OFFVIS_ITS ---
Intake Vital Signs 07/31/24 13:56 Height 5 ft 10 in Weight 194 lb BMI 27.8 BP 122/68 Blood Pressure Location Lt brachial Position Sitting Pulse 65 Pulse Source Pulse Oximeter Pulse Oximetry (%) 99 Oxygen Delivery Method Room Air Intake Visit Reasons: SWV G0439 Allergies nitroglycerin Allergy (Severe, Verified 07/31/24 13:56) low blood pressure Medication List - Last Reconciled 07/31/24 by Nash Brown MD aspirin 81 mg PO DAILY atorvastatin 80 mg PO DAILY carvedilol 6.25 mg PO BID cholecalciferol (vitamin D3) 50 mcg PO DAILY clopidogrel 75 mg PO DAILY folic acid 1 mg PO DAILY furosemide 20 mg PO BID levothyroxine 25 mcg PO DAILY multivitamin 1 tab PO DAILY psyllium husk (Metamucil) 0.4 grams PO BEDTIME tamsulosin 0.4 mg PO BEDTIME 90 days triamcinolone acetonide 0.1% 1 appl topical BID PRN HPI V G0439 HPI Details cardiology [place] [facility] concern thoracic surgery [place] [facility] [place] [facility] pulmonary The patient is an 84-year-old male presenting with an annual wellness visit. He has a complex medical history, including coronary artery disease with previous coronary artery bypass graft surgery ?3 and a history of atrial fibrillation postoperatively managed with amiodarone and Eliquis, which were discontinued after a year. He underwent an urgent angioplasty for acute coronary syndrome. The patient has been diagnosed with epithelioid mesothelioma and is currently receiving chemotherapy, particularly noting a transition from carboplatin to another regimen. Previously, he experienced anemia revealed during a workup for chest pain; further imaging identified a left-sided pleural effusion and thickening. He has a history of transient ischemic attack with a preserved left ventricular ejection fraction of 55-60% as per the echocardiogram from November. The patient reports adequate blood pressure control and thyroid function management. Additionally, he has hypertension, hypercholesterolemia managed on atorvastatin 80 mg daily, and hypothyroidism treated with a low-dose thyroid medication. During his last visit to the emergency room in July due to chest pain, his condition was found to be stable apart from anemia. He also has benign prostatic hyperplasia managed with tamsulosin and dental complications leading to short- term antibiotic usage and relying on acetaminophen for pain management. Patient denies alcohol consumption presently but reports occasional cravings. The patient reports experiencing a degree of functional limitation and dissatisfaction related to his health condition changes. - Continued chemotherapy under a specifi c regimen for mesothelioma - Ongoing aspirin and clopidogrel until November 2024 for coronary artery disease - Cholesterol management with atorvastat in 80 mg daily - Regular blood pressure monitoring - Current use of thyroid medications at a stable dose - Current multivitamin, folic acid, leana min D supplementation - Dietary fiber support with Metamucil f or bowel regularity - Prostate symptoms managed with tamsulo sin - Pneumonia and flu vaccinations are up to date - COVID precautionary measures advised - Recently an enrollment continues in emotherapy regimen - No current alcohol use but acknowledge s cravings - Experiencing functional limitations an d frustration regarding his ability to execute daily activities - Reports familial support from spouse - Constitutional: Denies fever - Respiratory: Reports nocturnal shortne ss of breath and one episode of chest pain; denies current cough or wheezing - Gastrointestinal: Reports regular duyen l movements, denies nausea or vomiting - Genitourinary: Reports waking once nig htly for urination - Musculoskeletal: Denies recent injurie s or acute joint pain - Neurological: Denies dizziness, denies swallowing difficulties - Psychiatric: Reports feeling upset and crying at times - Eyes: Reports tearing, denies vision c hanges - Labs: Normal blood count; electrolytes within normal limits - Imaging: Previous CT scans: no pulmona ry embolism, noted unchanged pleural thickening and lymphadenopathy, left pleural effusion - Echocardiogram: Preserved ejection fra ction of 55%-60%, with no regional wall motion abnormalities PFSH Medical History PAF (paroxysmal atrial fibrillation) Enlarged prostate Pleural effusion Pleural mass Recurrent left pleural effusion CVA (cerebral vascular accident) TIA (transient ischemic attack) Coronary artery disease Hypertension Hypothyroidism PUD (peptic ulcer disease) Fatigue Surgical History History of coronary artery bypass graft x 3 History of heart artery stent History of lobectomy of thyroid Hx of colonoscopy H/O melanoma excision History of surgery on arm Family History Father Lung cancer Mother Heart disease Social History (Updated 07/31/24 @ 14:27 by Nash Brown MD) Household Members: Spouse Housing: House Do you presently have visiting nurse or other home services: No Alcohol intake: current Alcohol intake frequency: a few times a month Alcohol type: beer Comment: once a week 1 drink stopped 07/2024 Patient Tobacco Use Status: Former Tobacco user Tobacco use type: Cigarette Years Smoked: quit 22 years old e-Cigarette/Vaping Use: Never Used Second Hand Smoke Exposure: No Advance Directives Date on File: 01/18/24 service: No Current occupational status: retired Cognitive needs: No Hearing needs: No Vision needs: Yes Questionnaire Medicare Wellness Checkup What is your age?: 82 or older What gender do you identify with?: male During the past 4 weeks, how much have you been bothered by emotional problems such as feeling anxious, depressed, irritable, sad or downhearted, and blue?: slightly During the past 4 weeks, has your physical & emotional health limited your social activities with family, friends, neighbors, or groups?: slightly During the past 4 weeks, how much bodily pain have you generally had?: very mild pain During the past 4 weeks, was someone available to help you if you needed & wanted help?: yes, as much as I wanted During the past 4 weeks, what was the hardest physical activity you could do for at least 2 minutes?: light Can you get to places out of walking distance without help? (For eg., can you travel alone on buses, taxis or drive your car?): Yes Can you go shopping for groceries or clothes without someone's help?: No Can you prepare your own meals?: No Can you do your housework without help?: No Because of any health problems, do you need the help of another person with your personal care needs such as eating, bathing, dressing or getting around the house?: No Can you handle your own money without help?: Yes During the past 4 weeks, how would you rate your health in general?: fair During the past 4 weeks how have things been going for you?: pretty well Are you having difficulties driving your car?: sometimes Do you always fasten your seat belt when you are in a car?: yes, usually During past 4 weeks, have you been bothered by the following: never: Falling or dizzy when standing up, Sexual problems?, Problems using the telephone? and Tiredness or fatigue? and sometimes: Trouble eating well? and Teeth or denture problems? Have you fallen 2 or more times in the past year?: No Are you afraid of falling?: No Are you a smoker?: no During the past 4 weeks, how many drinks of wine, beer, or other alcoholic beverages did you have?: no alcohol at all Do you exercise for about 20 minutes 3 or more times a week?: no, I usually do not exercise this much Have you been given information to help with the following?: no: Hazards in your house that might hurt you? and no: Keeping track of your medications? How often do you have trouble taking medicines the way you have been told to take them?: I always take medicine as prescribed How confident are you that you can control & manage most of your health problems?: somewhat confident What is your race?: White PHQ-9 Over the last 2 weeks, how often have you been bothered by any of the following problems? 1. Little interest or pleasure in doing things: more than half the days 2. Feeling down, depressed, or hopeless: more than half the days 3. Trouble falling or staying asleep, or sleeping too much: not at all 4. Feeling tired or having little energy: more than half the days 5. Poor appetite or overeating: several days 6. Feeling bad about yourself - or that you are a failure or have let yourself or your family down: not at all 7. Trouble concentrating on things, such as reading the newspaper or watching television: not at all 8. Moving or speaking so slowly that other people could have noticed. Or the opposite - being so fidgety or restless that you have been moving around a lot more than usual: not at all 9. Thoughts that you would be better off or of hurting yourself in some way: not at all Total score: 7 Depression Screening Interpretation: Positive Depression Screening Done: Yes 28051 - PHQ-9 Billing: Yes Source: Developed by Drs. Madhav Donahue, Sangeeta Nichole, Kalpesh Potter and colleagues, with an educational eliseo from [employer]. Thrive Questionnaire Date Thrive assessed: 07/31/24 I am a: Patient What is your living situation today?: I have a steady place to live Within the past 12 months, did the food you bought not last and you didn't have the money to get more?: Never true Within the past 12 months, did you worry whether your food would run out before you got money to buy more?: Never true Do you have trouble paying for medicines?: No Do you have trouble getting transportation to medical appointments?: No Do you have trouble paying your heating and electricity bill?: No Do you have trouble taking care of your child, family member or friend?: No Do you have trouble with day-to-day activities such as bathing, preparing meals, shopping, managing finances, etc.?: No Are you currently unemployed and looking for a job?: No Are you interested in more education?: No Currently or been in a relationship where the following occur: No concerns reported THRIVE Score: 0 TEDDY-7 AMB Questionnaire TEDDY-7 Date TEDDY - 7 assessed: 07/31/24 Feeling nervous, anxious, or on edge: 0 = Not at all Not being able to stop or control worryin = Not at all Worrying too much about different things: 0 = Not at all Trouble relaxin = Not at all Being so restless that it is hard to sit still: 0 = Not at all Becoming easily annoyed or irritable: 0 = Not at all Feeling afraid as if something awful might happen: 0 = Not at all Total TEDDY-7 score (0-4 normal; 5-9 mild; 10-14 moderate; 15-21 severe): 0 Source: Developed by Drs. Madhav Donahue, Sangeeta Nichole, Kalpesh Potter and colleagues, with an educational eliseo from [employer]. TEDDY-7 Assessment Billing TEDDY-7 Assessment Tool: TEDDY-7 Assessment 64062 Review of Systems Const Denies poor appetite and Denies weakness Eyes Denies no additional complaints ENT Reports Normal hearing present, Denies dizziness, Denies nasal congestion, Denies tinnitus and Denies sore throat Card Denies chest pain, Denies syncope, Denies rapid heart rate and Denies dyspnea Resp Denies cough and Denies dyspnea GI Denies change in stool character, Reports constipation, Denies diarrhea, Denies nausea and Denies vomiting Denies dysuria and Denies urinary frequency Neuro Reports Normal hearing present, Denies confusion, Denies dizziness, Denies syncope and Denies weakness Psych Denies confusion Physical Exam Vital Signs: Last Vital Signs Pulse 65 07/31/24 13:56 BP 122/68 02/18/25 13:56 Pulse Ox 99 07/31/24 13:56 Oxygen Delivery Method Room Air 07/31/24 13:56 BMI result Body Mass Index 27.8 Const General: No confusion Orientation/consciousness: No confusion HEENT Head: Yes normocephalic Ears: external ears normal and TM's normal bilaterally Face and sinus: Yes normal facial exam Mouth: moist mucous membranes Throat: Yes tonsils normal Eyes Conjunctivae: conjunctivae normal Pupils: Equal, round and reactive pupils present and Pupil accommodation reflex normal Direct Ophthalmoscopy: normal light reflex Neck Neck: No lymphadenopathy Thyroid: Thyroid normal Chest Chest palpation & inspection: normal inspection of the chest Resp Effort & Inspection: normal respiratory effort and no audible wheezes Auscultation: clear to auscultation bilaterally, no crackles, no wheezes and lung sounds not diminished Cardio Rate: regular rate Rhythm: regular rhythm Peripheral pulses: radial pulses present and dorsalis pedis present GI Other: guaiac negative prostate mild enlarged Palpation (GI): no masses Auscultation: normal bowel sounds and normoactive bowel sounds Male General Exam: Yes normal external exam Skin General skin exam: no rashes or lesions noted Rashes: no rashes Neuro General: No confusion Cranial nerves: Yes Equal, round and reactive pupils present and Yes Normal hea ring present Cognition (Neuro): normal cognition Gait exam (Neuro): Normal gait present Motor exam (neuro): 5/5 motor strength present throughout Deep tendon reflexes (DTR's): Right brachioradialis reflex intensity grade: 2+, Left brachioradialis reflex intensity grade: 2+, Right patellar reflex intensity grade: 2+ and Left patellar reflex intensity grade: 2+ Extrem General: No edema Assessment & Plan Assessment & Plan (1) Medicare annual wellness visit, subsequent: Code(s): Z00.00 - Encounter for general adult medical examination without abnormal findings Plan: Patient is advised to eat healthy, keep well hydrated, keep active and have adequate sleep. (2) Epithelioid mesothelioma: Comment: 03/12/2024 Code(s): C45.9 - Mesothelioma, unspecified Plan: Continue with chemotherapy under bring cm. (3) Coronary artery disease: Comment: CABG 2021 Code(s): I25.10 - Atherosclerotic heart disease of [place] coronary artery without angina pectoris Qualifiers: Associated angina: without angina Coronary Disease-Associated Artery/Lesion type: [place] artery [place] vs. transplanted heart: [place] heart Qualified Code(s): I25.10 - Atherosclerotic heart disease of [place] coronary artery without angina pectoris Plan: Control the cholesterol, weight, blood pressure, diabetes on aspirin and Plavix which is to continue until 11/30/2024 (4) Hypothyroidism: Code(s): E03.9 - Hypothyroidism, unspecified Qualifiers: Hypothyroidism type: acquired Qualified Code(s): E03.9 - Hypothyroidism, unspecified Plan: Continue with thyroid medication (5) Hypertension: Code(s): I10 - Essential (primary) hypertension Qualifiers: Hypertension type: primary hypertension Qualified Code(s): I10 - Essential (primary) hypertension Plan: Continue with blood pressure medication. Decrease salt intake and exercise (6) Hypercholesterolemia: Code(s): E78.00 - Pure hypercholesterolemia, unspecified Plan: Avoid fried foods, chicken skin, eggs, butter margarine, pastries and meat. Be it pork or beef they have a lot of cholesterol on atorvastatin 80 mg once a (7) BPH (benign prostatic hyperplasia): Code(s): N40.0 - Benign prostatic hyperplasia without lower urinary tract symptoms Qualifiers: Lower urinary tract symptom detail: urinary frequency Lower urinary tract symptom presence: symptoms present Qualified Code(s): N40.1 - Benign prostatic hyperplasia with lower urinary tract symptoms; R35.0 - Frequency of micturition Plan: Continue with tamsulosin. (8) Depression: Code(s): F32.A - Depression, unspecified Plan: decline any referral for counselling or treatment Plan - Ensure continuation of chemotherapy regimen for mesothelioma - Maintain dual antiplatelet therapy with aspirin and clopidogrel until at least November 2024 - Monitor atorvastatin adherence and efficacy for hypercholesterolemia, aiming for further LDL reduction - Manage benign prostatic hyperplasia with ongoing tamsulosin therapy - Address hypothyroidism with continued low-dose thyroid medication - Recommend dental follow-up if dental complications exacerbate - Ensure preventive respiratory and influenza vaccinations remain current - Advise lifestyle modifications for weight management and dietary adjustments to maintain general health - Monitor for signs of depression and discuss further support if needed I discussed with the patient the importance of adhering to his current medication regimen to manage his coronary artery disease and improve cholesterol levels. We reviewed the implications of stopping blood thinners and emphasized the need to continue aspirin and clopidogrel to reduce cardiovascular risks. I reinforced the positive report of normal blood test results, indicating successful control of hypertension and normal electrolyte balance. The patient understands the significance of complying with the chemotherapy protocol for mesothelioma management. He is also aware of the effects of carboplatin discontinuation and the potential side effects of ongoing treatment. We discussed the importance of maintaining pneumococcal and influenza vaccines, and the enhanced need for COVID-19 precautions due to the rising cases in the past weeks. For the psychiatric symptoms related to mood changes and crying spells, we talked about coping strategies, and he is not currently interested in further intervention or referrals at this stage. - Take all medications as prescribed, including chemotherapy and cardiovascular medications - Maintain follow-up schedules for routine monitoring of cholesterol and general health - Follow lifestyle recommendations to support health, including weight management - Consider revisiting the dentist if dental pain increases - Continue with regular physical activity within comfortable limits - Use COVID-19 precautions and avoid large gatherings - Monitor mood and reach out if feelings of depression become overwhelming - Return for regular check-ups and seek care earlier if symptoms worsen Orders: Orders Lipid Panel Today E78.00 - Pure hypercholesterolemia, unspecified Complete Blood Count Auto Diff Today E78.00 - Pure hypercholesterolemia, unspecified Free T4 (Free Thyroxine) Today E78.00 - Pure hypercholesterolemia, unspecified Thyroid Stimulating Hormone Today E78.00 - Pure hypercholesterolemia, unspecified Magnesium Today E78.00 - Pure hypercholesterolemia, unspecified UA CC w/rflx Micro + Cult Today E78.00 - Pure hypercholesterolemia, unspecified, R30.0 - Dysuria Comprehensive Met. Panel Today E78.00 - Pure hypercholesterolemia, unspecified Vitamin B12 and Folate Today E78.00 - Pure hypercholesterolemia, unspecified B Type Natriuretic Peptide Today E78.00 - Pure hypercholesterolemia, unspecified Quality Reporting (2019) Depression/Bipolar (159/160/161/177) PHQ-9: Total score: 7 Coding Level of Care Code Medicare Subsequent (G0439) Diagnoses Medicare annual wellness visit, subsequent Z00.00 Epithelioid mesothelioma C45.9 Coronary artery disease involving [place] coronary artery of [place] heart without angina pectoris I25.10 Associated angina: without angina Coronary Disease-Associated Artery/Lesion type: [place] artery [place] vs. transplanted heart: [place] heart Acquired hypothyroidism E03.9 Hypothyroidism type: acquired Primary hypertension I10 Hypertension type: primary hypertension Hypercholesterolemia E78.00 Benign prostatic hyperplasia with urinary frequency N40.1; R35.0 Lower urinary tract symptom detail: urinary frequency Lower urinary tract symptom presence: symptoms present Depression F32.A Additional Codes TEDDY-7 Assessment Billing - TEDDY-7 Assessment Tool: TEDDY-7 Assessment 80192 ([id number]) PHQ-9 - 49002 - PHQ-9 Billing: Yes ([id number])
--- OUTSIDE RECORDS SUMMARY | 2024-07-31 14:45 | XMS_ITS ---
Author Organization [facility] Address [address] 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 Name Role Phone Nash Brown Primary Care Provider Nika Reardon Unavailable [phone] Allergies Allergen (clinical drug ingredient) Drug/Non Drug Allergy documented on EMR Reaction Allergy Type Onset Date Status Substance with 2-ebxdtou-2-methylgluta ryl-coenzyme A reductase inhibitor mechanism of action (substance) statins (uncoded) Unknown Allergy Active REASON FOR VISIT Painful nail(s) aggravated by shoes causing difficulty standing/walking Medications Medication SIG (Take, Route, Frequency, Duration) Notes Start Date End Date Status Aspirin Active Atorvastatin Calcium 80 MG Oral for 30 Days Active Vitamin D3 2000 UNIT 1 capsule Orally Once a day Active Lisinopril 20 MG 1 tablet Orally Once a day Not-Taking Amiodarone HCl 200 MG 1 tablet Orally On ce a day Not-Taking Multivitamin Active Tamsulosin HCl 0.4 MG 1 capsule Orally Once a day Active Clopidogrel Bisulfate 75 MG 1 tablet Ora lly Once a day Active Furosemide 20 MG 1 tablet Orally Once a day Active Carvedilol 6.25 MG 1 tablet with food Orally Twice a day Active Naprosyn 500 MG 1 tablet with food or milk as needed Orally every 12 hrs for 10 days 10/27/2017 Not-Taking Keflex Not-Taking Medrol 4 MG as directed Orally 04/18/2019 Not-Taking Walking Boot/Pneumatic As directed Wear Daily for Until further notice 10/27/2017 Not-Taking Levothyroxine Sodium Active Losartan Potassium 100 MG 1 tablet Orall y Once a day Not-Taking Celecoxib 200 MG 1 capsule with food Orally Once a day Not-Taking Levothyroxine Sodium 25 MCG 1 tablet in the morning on an empty stomach Orally Once a day for 30 day(s) Not-Taking Simvastatin 40 MG TAKE 1 TABLET BY MOUTH EVERY EVENING Oral for 90 Not-Taking hydroCHLOROthiazide Not-Taking Metoprolol Succinate Not-Taking Social History Tobacco Use: Social History Observation [...] you an other tobacco user? No Problems No Known Problems Vital Signs Height 5 ft 11 in in 03/23/2024 Weight 195 lbs 03/23/2024 BMI 27.19 kg/m2 03/23/2024 Encounters Encounter Location Date Provider Diagnosis [facility] [place] [address] [place] [address] 03/23/2024 Nika Gale Tinea unguium B35.1 ; Pain in right toe(s) M79.674 and Pain in left toe(s) M79.675 Assessments Encounter Date Diagnosis (ICD Code) Assessment Notes Treatment Notes Treatment Clinical Notes Section Notes 03/23/2024 Tinea unguium (ICD-10 - B35.1) 03/23/2024 Pain in right toe(s) (ICD-10 - M79.674) 03/23/2024 Pain in left toe(s) (ICD-10 - M79.675) Plan Of Treatment Next Appt Details Follow Up: 2 Months, Reason: Provider Name:Nika arciniega, 09/14/2024 12:30:00 PM, [address] [place], [address], Procedure Notes * Category Sub-Category Detail Notes [...] as necessary. Patient chooses, no pharmaceutical tx (60011) Progress Notes * Parish IBANEZDOB:[birth year] (83 yo M)Acc No.[id number]:03/23/2024 Progress Note Patient:?Neville Ibanez Provider:?Nika Gale DPM :1940???Age:83 Y???Sex:Male Huy e:03/23/2024 Address:[address] [place] [address], [id number] Pcp:Nash Brown Subjective: * Chief Complaints: * ???Painful nail(s) aggravate d by shoes causing difficulty standing/walking * HPI: ???Painful Nails:?Pt States Last PCP Visit:?Date:?10/10/2023 * ROS:?General/Constitutional:?Nausea?denies, denies.?Vomiting?denies, denies.?Hunger Thirst?denies, denies.?Loss appetite?denies, denies.?Chills?denies, denies.?Fatigue?denies, denies.?Fever?denies, denies.?Night Sweats denies, denies.?Unexplained weight loss?denies, denies.?Unexplained weight gain?denies, denies.?HEENTM:?Dentures?denies, denies.?Dizziness?denies, denies.?Glasses/contacts?admits, admits.?Retinopathy?denies, denies.?Blurred/double vision?denies, denies.?TMJ?denies, denies.?Discharge/drainage?denies, denies.?Implants?denies, denies.?Sore throat?denies, denies.?Dental implants?denies, denies.?Hard of hearing ?denies, denies.?Difficulty chewing/swallowing/speaking?denies, denies.?Nose bleeds?denies, denies.?Sore mouth?denies, denies.?Respiratory:?On Oxygen?denies, denies.?Pneumonia/pleurisy?denies, denies.?Bronchitis?denies, denies.?Emphysema?denies, denies.?Coughing?denies, denies.?Cough blood?denies, denies.?Shortness of breath?denies, denies.?Wheezing?denies, denies.?Cardiovascular:?Pacemaker?denies, denies.?MVP?denies, denies.?WPW?denies, denies.?CHF?denies, denies.?Heart attack?denies, denies.?Septal defect?denies, denies.?Rapid beat?denies, denies.?Chest pain ?denies, denies.?Atrial Fib.?denies, denies.?Murmur/Palpitations?denies, denies.?Gastrointestinal:?Hemorrhoids?denies, denies.?Stomach/Abdominal pain?denies, denies.?Dark blood stool?denies, denies.?Irritable bowel ?denies, denies.?Constipation?denies, denies.?Diarrhea?denies, denies.?Hematology:?Swelling?denies, denies.?Clots?denies, denies.?Varicose Veins?denies, denies.?Bruising?denies, denies.?Bleeding problem?denies, denies.?Genitourinary:?Blood urine?denies, denies.?Frequent/Painfu/urination/bladder control?denies, denies.?Kidney stones?denies, denies.?Infection (UTI)?denies, denies.?Nephropathy?denies, denies.?sex trans dis (STD)?denies, denies.?Prostate?denies, denies.?Musculoskeletal:?Hammertoes?denies, denies.?Bunions?denies, denies.?Back Pain?denies, denies.?Muscle Cramps/ Resting?denies, denies.?Muscle cramps / walking?denies, denies.?Generalized aches and pains?admits, admits.?Weakness?denies, denies.?Integ.:?Gonzalez?denies, denies.?Scars?denies, denies.?Corns/calluses?denies, denies.?Ingrown nails?denies, denies.?Painful nails?admits,admits.?Open Sores?denies, denies.?Rashes?denies, denies.?Neurologic:?Difficulty sleeping?denies, denies.?Brain disorder?denies, denies.?Numbness?admits, admits.?Balance trouble?denies, denies.?Confusion?denies, denies.?Fainting/blackouts?denies, denies.?Tingling?admits, admits.?Tremors?denies, denies.? * Medical History:? * Surgical History:?Thyroid Montes rgery 02/2017melanoma 2016triple bypass 05/19/2023Stent 11/2023 * Hospitalization/Major Diagno stic Procedure:[place] [place] * Family History:?Mother: dece ased, diagnosed with Family history of arthritis, Unspecified essential hypertension, Unspecified heart disease, Unspecified cerebral artery occlusion with cerebral infarction.?Father: , diagnosed with Other malignant neoplasm of [...] yes, frequency: 1 cups per day. ?Children: yes, 2. ?Exercise: yes, walking. ?Marital status: . 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 * Medications:?TakingLevothyro xine Sodium Clopidogrel Bisulfate 75 MG Tablet 1 tablet Orally Once a dayCarvedilol 6.25 MG Tablet 1 tablet with food Orally Twice a dayFurosemide 20 MG Tablet 1 tablet Orally Once a dayTamsulosin HCl 0.4 MG Capsule 1 capsule Orally Once a dayMultivitamin Aspirin Vitamin D3 2000 UNIT Capsule 1 capsule Orally Once a dayAtorvastatin Calcium 80 MG Tablet Oral Taking Levothyroxine Sodium Taking Clopidogrel Bisulfate 75 MG Tablet 1 tablet Orally Once a dayTaking Carvedilol 6.25 MG Tablet 1 tablet with food Orally Twice a dayTaking Furosemide 20 MG Tablet 1 tablet Orally Once a dayTaking Tamsulosin HCl 0.4 MG Capsule 1 capsule Orally Once a dayTaking Multivitamin Taking Aspirin Taking Vitamin D3 2000 UNIT Capsule 1 capsule Orally Once a dayTaking Atorvastatin Calcium 80 MG Tablet Oral Not-Taking/PRNAmiodarone HCl 200 MG Tablet 1 tablet Orally Once a dayLisinopril 20 MG Tablet 1 tablet Orally Once a dayMetoprolol Succinate Levothyroxine Sodium 25 MCG Tablet 1 [...] Tablet Therapy Pack as directed Orally Keflex Walking Boot/Pneumatic As directed Wear DailyMedication List reviewed and reconciled with the patientNot-Taking/PRN Amiodarone HCl 200 MG Tablet 1 tablet Orally Once a dayNot-Taking/PRN Lisinopril 20 MG Tablet 1 tablet Orally Once a dayNot-Taking/PRN Metoprolol Succinate Not-Taking/PRN Levothyroxine Sodium 25 MCG Tablet 1 tablet in the morning on an empty stomach Orally Once a dayNot- Taking/PRN hydroCHLOROthiazide Not-Taking/PRN Simvastatin 40 MG Tablet TAKE [...] Therapy Pack as directed Orally Not-Taking/PRN Keflex Not-Taking/PRN Walking Boot/Pneumatic As directed Wear DailyMedication List reviewed and reconciled with the patient * Allergies:?statinsyes[Allerg ies Verified] Objective: * Vitals:?Ht: 5 ft 11 in, Wt: 195, BMI: 27.19, Shoe size: 10, Wt-k.45 kg. * Examination: ???Nails: ?NAILS are:?Elongated, [...] the use of a nail nipper and/or alemel, to more viable healthy nail plate or bed tissue 1-5. Silver nitrate used for any petechial bleeding as necessary. Patient chooses, no pharmaceutical tx (88280).? * Procedure Codes:?36668 DEBRI DE NAIL, 6 OR MORE, Modifiers: XS * Follow Up:?2 Months * Images: * Sign off status: Completed true * Provider:?Nika Gale, JIMMY Date:?04/2024 Generated for Leonila luevano/Tino/eTransmitting on:?07/31/2024 02:45 PM EST History and Physical Notes * [...]
--- OUTSIDE RECORDS SUMMARY | 2024-07-31 14:45 | XMS_ITS ---
Author Organization [facility] Address [address] [place] [address] Care Team Providers Care Portfolio Manager Name Role Phone Nash Brown Primary Care Provider Nika Reardon Unavailable [phone] Allergies Allergen (clinical drug ingredient) Drug/Non Drug Allergy documented on EMR Reaction Allergy Type Onset Date Status Substance with 5-zssgagm-1-methylgluta ryl-coenzyme A reductase inhibitor mechanism of action [...] No Problems No Known Problems Vital Signs Heart Rate 70 /min 01/04/2024 Height 5 ft 11 in in 01/04/2024 Weight 195 lbs 01/04/2024 BMI 27.19 kg/m2 01/04/2024 Encounters Encounter Location Date Provider Diagnosis [facility] [address] [address] 01/04/2024 Nika Gale Tinea unguium B35.1 ; [...] Provider Name:Nika arciniega, 09/14/2024 12:30:00 PM, [address] [place], [address], Procedure Notes * Category Sub-Category Detail Notes [...] as necessary. Patient chooses, no pharmaceutical tx (79447) Progress Notes * Parish IBANEZDOB:[birth year] (83 yo M)Acc No.[id number]:01/04/2024 Progress Note Patient:?Neville Ibanez Provider:?Nika Gale DPM :1940???Age:83 Y???Sex:Male Huy e:01/04/2024 Address:[address] [place] [id number] Pcp:Nash Brown Subjective: * Chief Complaints: * [...] Surgical History:?Thyroid Montes rgery 02/2017melanoma 2016triple bypass 12/07/2023Stent 11/2023 * Hospitalization/Major Diagno stic Procedure:?[facility] stomach issues 09/2023 * Family History:?Mother: dece [...] as necessary. Patient chooses, no pharmaceutical tx (47182).? * Procedure Codes:?61849 DEBRI DE NAIL, 6 OR MORE, Modifiers: XS * Follow Up:?2 Months * Images: * Sign off status: Completed true * Provider:?Nika Gale, JIMMY Date:? Generated for Leonila luevano/Tino/Roland on:?07/31/2024 02:45 PM EST History and Physical [...]
--- OUTSIDE RECORDS SUMMARY | 2024-07-31 14:46 | XMS_ITS | Clinical Summary ---
Author Organization [facility] Address [address] [facility] [place] [address] Phone Care Team Providers Care Armored Car Driver Name Role Phone Nash Brown MD Primary Care Provider Allergies Active Allergy Reactions Criticality Noted Date Comments Nitroglycerin Other 02/20/2024 BP drops Medications folic acid (FOLVITE) 1 mg tablet Take 1 Tablet by mouth daily. Active clopidogreL (PLAVIX) 75 mg tablet Take 1 Tablet by mouth daily. 12/05/2023 Active tamsulosin (FLOMAX) 0.4 mg 24 hr capsule Take by mouth. TAKE 1 CAPSULE BY MOUTH DAILY. TAKE 30 MINS AFTER SAME MEAL EVERY DAY. 08/17/2023 Active docusate calcium (Stool Softener, docusate caity,) 240 mg capsule Take 1 Tablet by mouth daily. Active levothyroxine (SYNTHROID, LEVOTHROID) 25 mcg tablet Take 1 Tablet by mouth daily. Active multivit-min/fol ic acid/lutein (CENTRUM SILVER ORAL) Take 1 Tablet by mouth daily. Multiple Vitamins-Min erals (Centrum Silver 50+Men) Tab Active aspirin 81 mg EC tablet Take by mouth. Take 1 Tablet by mouth daily. Active cholecalciferol (VITAMIN D-3) 50 mcg (2,000 unit) tablet Take 1 Tablet by mouth daily. 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 30 each 11 06/29/2024 06/29/19 26 Active amiodarone (PACERONE) 200 mg tablet Take 1 tablet (200 mg total) by mouth 1 (one) time each day. 1/2 tablet daily Active Active Problems Problem Noted Date Diagnosed Date Aortic ejection murmur 06/29/2024 Assessment & Plan (06/29/2024 2:38 PM EST): Patient's last echocardiogram at [facility] showed an EF of 65 to 70% RV was suboptimally visualized. No mitral insufficiency no tricuspid insufficiency and a 9 mmHg peak gradient across the aortic valve patient does have a fairly substantial aortic outflow tract murmur without CAD (coronary artery disease) 05/07/2024 Assessment & Plan (06/29/2024 2:38 PM EST): Patient with a history of episodic coronary disease status post bypass with subsequent need for angioplasty of an unbypassed ramus branch due to unstable angina in the setting of an NSTEMI. Patient is doing well status post angioplasty. No recurrent anginal symptoms. Patient with a history of episodic coronary disease status post bypass with subsequent need for angioplasty of an unbypassed ramus branch due to unstable angina in the setting of an NSTEMI. Patient is doing well status post angioplasty. No recurrent anginal symptoms. Patient is enteroplasty occurred in November 2023 he will need to continue antiplatelet therapy until November 2024 Orders: atorvastatin (LIPITOR) 40 mg tablet; Take 1 tablet (40 mg total) by mouth 1 (one) time each day. Atrial fibrillation 05/07/2024 Dyspnea 05/07/2024 Muscle pain 05/07/2024 Pleural effusion 05/07/2024 Assessment & Plan (06/29/2024 2:38 PM EST): Patient has had no further pleural effusions drained. 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 He states that he is feeling better now that his had several rounds of chemo. The chemo has to be on different days because of side effects. 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 (CMS/HCC) (Primary Dx); Pleural effusion; Aortic ejection murmur from Last 3 Months Social History Tobacco Use Types Packs/Day Years Used Date Smoking Tobacco: Former Cigarettes Smokeless Tobacco: Never Tobacco Cessation:Counseling Given: Not Answered Comments:Quit x 60 years---2024 Alcohol Use Standard Drinks/Week Comments Not Currently 0 (1 standard drink = 0.6 oz pur e alcohol) Sex and Gender Information Value Date Recorded Sex Assigned at Not on file Legal Sex Male 1:08 AM EST Gender Identity Not on file Sexual Orientation Not on file Obstetrics History Last Filed Vital Signs Vital Sign Reading Time Taken Comments Blood Pressure - - Pulse 73 06/29/2024 9:02 AM EST Temperature - - Respiratory Rate - - Oxygen Saturation 99% 06/29/2024 9:02 AM EST Inhaled Oxygen Concentration - - Weight 90.3 kg (199 lb 1.6 oz) 06/29/2024 9:02 A M EST Height 177.8 cm (5' 10 ) 06/29/2024 9:02 AM EST Body Mass Index 28.57 06/29/2024 9:02 AM EST Plan of Treatment Upcoming Encounters Date Type Department Care Team (Late st Contact Info) Description 11/08/2024 10:50 AM EDT Office Visit [facility] [address] [place] [address] Tone Eid MD [address] [place] [address] [address] [place] [address] Health Maintenance Due Date Last Done Comments DTaP,Tdap,and Td Vaccines (1 - Tdap) 1961 Zoster Vaccines (1 of 2) 1961 RSV Immunization Patients 60+ Years Old (1 - 1-dose 75+ series) 2017 Cholesterol Screening (Lipid Panel) 2023 Depression Screening 2023 Falls Risk Assessment 2023 Medicare Annual Wellness Visit 2023 04/27/2022 Social Influencers of Health Screening 2023 COVID-19 Vaccine ( season) 2024 04/07/2021, 08/12/2020, 07/22/2020 Hypertension/CHF/CAD Annual BMP Blood Test 06/25/2025 06/25/2024, 06/04/2024, 05/14/2024, Additional history exists Influenza Vaccine Completed 03/30/2024, , 03/27/2022, Additional history exists Pneumococcal Vaccine: 50+ Years Completed 06/12/2024 HIB Vaccines Aged Out No longer eligi ble based on patient's age to complete this topic HPV Vaccines Aged Out No longer eligi ble based on patient's age to complete this topic Hepatitis A Vaccines Aged Out No long er eligible based on patient's age to complete this topic Hepatitis B Vaccines Aged Out No long er eligible based on patient's age to complete this topic IPV Vaccines Aged Out No longer eligi ble based on patient's age to complete this topic MMR Vaccines Aged Out No longer eligi ble based on patient's age to complete this topic Meningococcal ACWY Vaccine Aged Out N o longer eligible based on patient's age to complete this topic Meningococcal B Vacine Aged Out No lo nger eligible based on patient's age to complete this topic RSV Immunization Patients Under 20 months Aged Out No longer eligible based on patient's age to complete this topic Varicella Vaccines Aged Out No longer eligible based on patient's age to complete this topic Procedures Procedure Name Priority Date/Time Associated Diagnosis Comments ANNUAL BMP BLOOD TEST Routine 02/20/2024 from Last 3 Months or Most Recently Relevant to Health Maintenance Insurance MEDICARE [facility] Care Teams Armored Car Driver Relationship Specialty Start Date End Date Nash Brown MD [address] [place] [address] [address] [facility] [place] [address] PCP - General Internal Medicine 05/07/24
--- OUTSIDE RECORDS SUMMARY | 2024-07-31 14:46 | XMS_ITS ---
Author Organization [facility] Address [address] [place] [address] Care Team Providers Care Silver Recovery Operator Name Role Phone Nash Brown Primary Care Provider Nika Reardon Unavailable [phone] Allergies Allergen (clinical drug ingredient) Drug/Non Drug Allergy documented on EMR Reaction Allergy Type Onset Date Status Substance with 9-ndddxcv-5-methylgluta ryl-coenzyme A reductase inhibitor mechanism of action (substance) statins (uncoded) Unknown Allergy Active REASON FOR VISIT Painful nail(s) aggravated by shoes causing difficulty standing/walking Medications Medication SIG (Take, Route, Frequency, Duration) Notes Start Date End Date Status Celecoxib 200 MG 1 capsule with food Orally Once a day Not-Taking Naprosyn 500 MG 1 tablet with food or milk as needed Orally every 12 hrs for 10 days 10/27/2017 Not-Taking Medrol 4 MG as directed Orally 04/18/2019 Not-Taking Keflex Not-Taking Walking Boot/Pneumatic As directed Wear Daily for Until further notice 10/27/2017 Not-Taking Levothyroxine Sodium 25 MCG 1 tablet in the morning on an empty stomach Orally Once a day for 30 day(s) Not-Taking hydroCHLOROthiazide Not-Taking Simvastatin 40 MG TAKE 1 TABLET BY MOUTH EVERY EVENING Oral for 90 Not-Taking Losartan Potassium 100 MG 1 tablet Orall y Once a day Not-Taking Metoprolol Succinate Not-Taking Aspirin Active Vitamin D3 2000 UNIT 1 capsule Orally Once a day Active Atorvastatin Calcium 80 MG Oral for 30 Days Active Amiodarone HCl 200 MG 1 tablet Orally On ce a day Not-Taking Lisinopril 20 MG 1 tablet Orally Once a day Not-Taking Carvedilol 6.25 MG 1 tablet with food Orally Twice a day Active Furosemide 20 MG 1 tablet Orally Once a day Active Tamsulosin HCl 0.4 MG 1 capsule Orally Once a day Active Multivitamin Active Clopidogrel Bisulfate 75 MG 1 tablet Ora lly Once a day Active Folic Acid Active Levothyroxine Sodium Active Social History Tobacco Use: Social History Observation Description Date Details (start date - stop date) Never Smoker NA - NA Tobacco use other than smoking: Question Answer Notes Are you an other tobacco user? No Tobacco Control (Standard) Question Answer Notes Tobacco use: Nonsmoker Additional Findings: Tobacco non-user Current no nsmoker AUDIT-C (Standard) Question Answer Notes Did you have a drink containing alcohol in the p ast year? No Points 0 Interpretation Negative Problems No Known Problems Vital Signs Height 5 ft 11 in in 06/22/2024 Weight 185 lbs 06/22/2024 BMI 25.8 kg/m2 06/22/2024 Blood pressure systolic 120 mm Hg 06/22/19 25 Blood pressure diastolic 70 mm Hg 025 Encounters Encounter Location Date Provider Diagnosis [facility] [address] [address] 06/22/2024 Nika Gale Tinea unguium B35.1 ; Pain in right toe(s) M79.674 and Pain in left toe(s) M79.675 Assessments Encounter Date Diagnosis (ICD Code) Assessment Notes Treatment Notes Treatment Clinical Notes Section Notes 06/22/2024 Tinea unguium (ICD-10 - B35.1) 06/22/2024 Pain in right toe(s) (ICD-10 - M79.674) 06/22/2024 Pain in left toe(s) (ICD-10 - M79.675) Plan Of Treatment Next Appt Details Follow Up: 2 Months, Reason: Provider Name:Nika arciniega, 09/14/2024 12:30:00 PM, [address] [place] [address], [phone], Procedure Notes * Category Sub-Category Detail Notes Debride Nail 6-10 Nail debridement Due to the cl inical pathology outlined in the exam findings, performance of this nail treatment is medically necessary as its management by an unskilled/untrained nonprofessional would put this patients foot and overall health at risk. Therefore, debridement to affected nail(s), as described in exam (TA, T1, T2, T3, T4, T5, T6, T7, T8, T9, ), was performed exclusively by the physician of record to reduce/remove overall nail length, girth, thickness, subungual debris, and necrotic tissue, by manual and/or electrical means through the use of a nail nipper and/or dremel-type automatic corn grinder operator, to a more viable healthy nail plate or bed tissue 6-10 nails in total. Silver nitrate was used for any petechial bleeding as necessary. Definitive antifungal treatment options, both pharmaceutical and surgical, have been reviewed and discussed with the patient. The patient solely prefers the use of intermittent/as needed professional debridement services for their nail condition and understands the need for additional periodic treatments to maintain effectiveness in symptomatic relief - 96687 Progress Notes * Parish IBANEZDOB:[birth year] (83 yo M)Acc No.[id number]:06/22/2024 Progress Note Patient:?Neville IBANEZ Provider:?Nika Gale DPM :1940???Age:83 Y???Sex:Male Huy e:06/22/2024 Address:[address] [place] [id number] Pcp:Nash Brown Subjective: * Chief Complaints: * ???Painful nail(s) aggravate d by shoes causing difficulty standing/walking * HPI: ???Painful Nails:?Pt States Last PCP Visit:?Date:?05/14/2024 * ROS:?General/Constitutional:?Nausea?denies, denies, denies, denies.?Vomiting?denies, denies, denies, denies.?Hunger Thirst?denies, denies, denies, denies.?Loss appetite?denies, denies, denies, denies.?Chills?denies, denies, denies, denies.?Fatigue?denies, denies, denies, denies.?Fever?denies, denies, denies, denies.?Night Sweats?denies, denies, denies, denies.?Unexplained weight loss?denies, denies, denies, denies.?Unexplained weight gain?denies, denies, denies, denies.?HEENTM:?Dentures?denies, denies, denies, denies.?Dizziness?denies, denies, denies, denies.?Glasses/contacts?admits, admits, admits, admits.?Retinopathy?denies, denies, denies, denies.?Blurred/double vision?denies, denies, denies, denies.?TMJ?denies, denies, denies, denies.?Discharge/drainage?denies, denies, denies, denies.?Implants?denies, denies, denies, denies.?Sore throat?denies, denies, denies, denies.?Dental implants?denies, denies, denies, denies.?Hard of hearing ?denies, denies, denies, denies.?Difficulty chewing/swallowing/speaking?denies, denies, denies, denies.?Nose bleeds?denies, denies, denies, denies.?Sore mouth?denies, denies, denies, denies.?Respiratory:?On Oxygen?denies, denies, denies, denies.?Pneumonia/pleurisy?denies, denies, denies, denies.?Bronchitis?denies, denies, denies, denies.?Emphysema?denies, denies, denies, denies.?Coughing?denies, denies, denies, denies. Cough blood?denies, denies, denies, denies.?Shortness of breath?denies, denies, denies, denies.?Wheezing?denies, denies, denies, denies.?Cardiovascular:?Pacemaker?denies, denies, denies, denies.?MVP?denies, denies, denies, denies.?WPW?denies, denies, denies, denies.?CHF?denies, denies, denies, denies.?Heart attack?denies, denies, denies, denies.?Septal defect?denies, denies, denies, denies.?Rapid beat?denies, denies, denies, denies.?Chest pain ?denies, denies, denies, denies.?Atrial Fib.?denies, denies, denies, denies.?Murmur/Palpitations?denies, denies, denies, denies.?Gastrointestinal:?Hemorrhoids?denies, denies, denies, denies.?Stomach/Abdominal pain?denies, denies, denies, denies.?Dark blood stool?denies, denies, denies, denies.?Irritable bowel ?denies, denies, denies, denies.?Constipation?denies, denies, denies, denies.?Diarrhea?denies, denies, denies, denies.?Hematology:?Swelling?denies, denies, denies, denies.?Clots?denies, denies, denies, denies.?Varicose Veins?denies, denies, denies, denies.?Bruising?denies, denies, denies, denies.?Bleeding problem?denies, denies, denies, denies.?Genitourinary:?Blood urine?denies, denies, denies, denies.?Frequent/Painfu/urination/bladder control?denies, denies, denies, denies.?Kidney stones?denies, denies, denies, denies.?Infection (UTI)?denies, denies, denies, denies.?Nephropathy denies, denies, denies, denies.?sex trans dis (STD)?denies, denies, denies, denies.?Prostate?denies, denies, denies, denies.?Musculoskeletal:?Hammertoes?denies, denies, denies, denies.?Bunions?denies, denies, denies, denies.?Back Pain?denies, denies, denies, denies.?Muscle Cramps/ Resting?denies, denies, denies, denies.?Muscle cramps / walking?denies, denies, denies, denies.?Generalized aches and pains?admits, admits, admits, admits.?Weakness?denies, denies, denies, denies.?Integ.:?Gonzalez?denies, denies, denies, denies.?Scars?denies, denies, denies, denies.?Corns/calluses?denies, denies, denies, denies.?Ingrown nails?denies, denies, denies, denies.?Painful nails?admits,admits,admits,admits.?Open Sores?denies, denies, denies, denies.?Rashes?denies, denies, denies, denies.?Neurologic:?Difficulty sleeping?denies, denies, denies, denies.?Brain disorder?denies, denies, denies, denies.?Numbness?admits, admits, admits, admits.?Balance trouble?denies, denies, denies, denies.?Confusion?denies, denies, denies, denies.?Fainting/blackouts?denies, denies, denies, denies.?Tingling?admits, admits, admits, admits.?Tremors?denies, denies, denies, denies.? * Medical History:? * Surgical History:?Thyroid Montes rgery 02/2017melanoma 2016triple bypass 05/19/2023Stent 11/2023 * Hospitalization/Major Diagno stic Procedure:?[facility] stomach issues 09/2023 * Family History:?Mother: dece ased, diagnosed with Family history of arthritis, Unspecified heart disease, Unspecified cerebral artery occlusion with cerebral infarction, Unspecified essential hypertension.?Father: , diagnosed with Other malignant neoplasm of unspecified site.?Siblings: diabetes.?Paternal Grand Father: diagnosed with Diabetic - NIDDM, Family history of arthritis.?Maternal Grand Mother: diagnosed with Other malignant neoplasm of unspecified site.? * Social History:?Tobacco Use:?Tobacco use other than smoking?Are you an other tobacco user??No ?Tobacco Control (Standard)?Tobacco use:?Nonsmoker ?Additional Findings: Tobacco non-user?Current nonsmoker ???Drugs/Alcohol:?Drugs?Have you used drugs other than those for medical reasons in the past 12 months??No ???Miscellaneous:?Caffeine: yes, frequency: 1 cups per day. ?Children: yes, 2. ?Exercise: yes, walking. ?Marital status: . 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 ???Drug/Alcohol:?AUDIT-C (Standard)?Did you have a drink containing alcohol in the past year??No ?Points?0 ?Interpretation?Negative * Medications:?TakingFolic Aci d Levothyroxine Sodium Clopidogrel Bisulfate 75 MG Tablet 1 tablet Orally Once a day Carvedilol 6.25 MG Tablet 1 tablet with food Orally Twice a day Furosemide 20 MG Tablet 1 tablet Orally Once a day Tamsulosin HCl 0.4 MG Capsule 1 capsule Orally Once a day Multivitamin Aspirin Vitamin D3 2000 UNIT Capsule 1 capsule Orally Once a day Atorvastatin Calcium 80 MG Tablet Oral Taking Folic Acid Taking Levothyroxine Sodium Taking Clopidogrel Bisulfate 75 MG Tablet 1 tablet Orally Once a day Taking Carvedilol 6.25 MG Tablet 1 tablet with food Orally Twice a day Taking Furosemide 20 MG Tablet 1 tablet Orally Once a day Taking Tamsulosin HCl 0.4 MG Capsule 1 capsule Orally Once a day Taking Multivitamin Taking Aspirin Taking Vitamin D3 2000 UNIT Capsule 1 capsule Orally Once a day Taking Atorvastatin Calcium 80 MG Tablet Oral Not-Taking/PRNAmiodarone HCl 200 MG Tablet 1 tablet Orally Once a day Lisinopril 20 MG Tablet 1 tablet Orally Once a day Metoprolol Succinate Levothyroxine Sodium 25 MCG Tablet 1 tablet in the morning on an empty stomach Orally Once a day hydroCHLOROthiazide Simvastatin 40 MG Tablet TAKE 1 TABLET BY MOUTH EVERY EVENING Oral Losartan Potassium 100 MG Tablet 1 tablet Orally Once a day Celecoxib 200 MG Capsule 1 capsule with food Orally Once a day Naprosyn 500 MG Tablet 1 tablet with food or milk as needed Orally every 12 hrs Medrol 4 MG Tablet Therapy Pack as directed Orally Keflex Walking Boot/Pneumatic As directed Wear Daily Medication List reviewed and reconciled with the patientNot-Taking/PRN Amiodarone HCl 200 MG Tablet 1 tablet Orally Once a day Not-Taking/PRN Lisinopril 20 MG Tablet 1 tablet Orally Once a day Not-Taking/PRN Metoprolol Succinate Not-Taking/PRN Levothyroxine Sodium 25 MCG Tablet 1 tablet in the morning on an empty stomach Orally Once a day Not- Taking/PRN hydroCHLOROthiazide Not-Taking/PRN Simvastatin 40 MG Tablet TAKE 1 TABLET BY MOUTH EVERY EVENING Oral Not-Taking/PRN Losartan Potassium 100 MG Tablet 1 tablet Orally Once a day Not-Taking/PRN Celecoxib 200 MG Capsule 1 capsule with food Orally Once a day Not-Taking/PRN Naprosyn 500 MG Tablet 1 tablet with food or milk as needed Orally every 12 hrs Not-Taking/PRN Medrol 4 MG Tablet Therapy Pack as directed Orally Not-Taking/PRN Keflex Not-Taking/PRN Walking Boot/Pneumatic As directed Wear Daily Medication List reviewed and reconciled with the patient * Allergies:?statinsyes[Allerg ies Verified] Objective: * Vitals:?Ht: 5 ft 11 in, Wt: 185, BMI: 25.8, Shoe size: 10, BP: 120/70 mm Hg, Wt- k.91 kg. * Examination: ???Nails: ?NAILS are:?Elongated, overgrown, dystrophic, lytic, greater than 3mm thick, discolored and friable with crumbly malodorous subungual debris, with pain on palpation, TA, T1, T2, T3, T4, T5, T6, T7, T8, T9.? Assessment: * Assessment: 1.?Tinea unguium - B35.1 (Pr imary)???2.?Pain in right toe(s) - M79.674???3.?Pain in left toe(s) - M79.675??? Plan: * Treatment: * Procedures:?Debride Nail 6-10:?Nail debridement?Due to the clinical pathology outlined in the exam findings, performance of this nail treatment is medically necessary as its management by an unskilled/untrained nonprofessional would put this patients foot and overall health at risk. Therefore, debridement to affected nail(s), as described in exam (TA, T1, T2, T3, T4, T5, T6, T7, T8, T9, ), was performed exclusively by the physician of record to reduce/remove overall nail length, girth, thickness, subungual debris, and necrotic tissue, by manual and/or electrical means through the use of a nail nipper and/or dremel-type automatic corn grinder operator, to a more viable healthy nail plate or bed tissue 6- 10 nails in total. Silver nitrate was used for any petechial bleeding as necessary. Definitive antifungal treatment options, both pharmaceutical and surgical, have been reviewed and discussed with the patient. The patient solely prefers the use of intermittent/as needed professional debridement services for their nail condition and understands the need for additional periodic treatments to maintain effectiveness in symptomatic relief - 10471.? * Procedure Codes:?68371 DEBRI DE NAIL, 6 OR MORE, Modifiers: XS * Follow Up:?2 Months * Images: * Sign off status: Completed true * Provider:?Nika Gale DPM Date:?03/2025 Generated for Leonila luevano/Tino/Roland on:?07/31/2024 02:46 PM EST History and Physical Notes * HPI (History of Present Illness) Category Sub-Category Detail Notes Category Not es Painful Nails Pt States Last PCP Visit: Date:: 05/14/2024 Examination Category Sub-Category Detail Notes Category Not es Nails NAILS are: Elongated, overg rown, dystrophic, lytic, greater than 3mm thick, discolored and friable with crumbly malodorous subungual debris, with pain on palpation, TA, T1, T2, T3, T4, T5, T6, T7, T8, T9
--- OUTSIDE RECORDS SUMMARY | 2024-07-31 14:46 | XMS_ITS | Patient Health Record ---
Author Organization [facility] elisa Landeros Address [address] [place] [address] Care Team Providers Care Senior Label Specialist Name Role Phone Nash Brown Primary Care Provider Nika Reardon Unavailable [phone] Allergies Allergen (clinical drug ingredient) Drug/Non Drug Allergy documented on EMR Reaction Allergy Type Onset Date Status Substance with 2-nqrojyu-4-methylgluta ryl-coenzyme A reductase inhibitor mechanism of action (substance) statins (uncoded) Unknown Allergy Active Reason For Referral No Information Medications Medication SIG (Take, Route, Frequency, Duration) Notes Start Date End Date Status Levothyroxine Sodium 25 MCG 1 tablet in the morning on an empty stomach Orally Once a day for 30 day(s) Not-Taking Carvedilol 6.25 MG 1 tablet with food Orally Twice a day Active hydroCHLOROthiazide Not-Taking Furosemide 20 MG 1 tablet Orally Once a day Active Simvastatin 40 MG TAKE 1 TABLET BY MOUTH EVERY EVENING Oral for 90 Not-Taking Tamsulosin HCl 0.4 MG 1 capsule Orally Once a day Active Losartan Potassium 100 MG 1 tablet Orall y Once a day Not-Taking Multivitamin Active Celecoxib 200 MG 1 capsule with food Orally Once a day Not-Taking Aspirin Active Naprosyn 500 MG 1 tablet with food or milk as needed Orally every 12 hrs for 10 days 10/27/2017 Not-Taking Vitamin D3 2000 UNIT 1 capsule Orally Once a day Active Medrol 4 MG as directed Orally 04/18/2019 Not-Taking Atorvastatin Calcium 80 MG Oral for 30 Days Active Keflex Not-Taking Amiodarone HCl 200 MG 1 tablet Orally On ce a day Not-Taking Walking Boot/Pneumatic As directed Wear Daily for Until further notice 10/27/2017 Not-Taking Folic Acid Active Lisinopril 20 MG 1 tablet Orally Once a day Not-Taking Levothyroxine Sodium Active Metoprolol Succinate Not-Taking Clopidogrel Bisulfate 75 MG 1 tablet Ora lly Once a day Active Immunizations Vaccine Route Administration Date Status Comme [...] Negative Problems No Known Problems Vital Signs Heart Rate 70 /min 01/04/2024 Blood pressure diastolic 70 mm Hg 06/22/2024 Height 5 ft 11 in in 06/22/2024 Blood pressure systolic 120 mm Hg 06/22/2024 Weight 185 lbs 06/22/2024 BMI 25.8 kg/m2 06/22/2024 Encounters Encounter Location Date Provider Diagnosis [address] [address] 08/12/2023 Nika Perica Tinea unguium B35.1 ; Pain in right toe(s) M79.674 and Pain in left toe(s) M79.[address] [address] 10/31/2023 Nika Perica Tinea unguium B35.1 ; Other hammer toe(s) (acquired), left foot M20.42 ; Pain in right toe(s) M79.674 and Pain in left toe(s) M79.[address] [address] 01/04/2024 Nika Perica Tinea unguium B35.1 ; Pain in right toe(s) M79.674 and Pain in left toe(s) M79.[address] [address] 03/23/2024 Nika Perica Tinea unguium B35.1 ; Pain in right toe(s) M79.674 and Pain in left toe(s) M79.[address] [address] 06/22/2024 Nika Gale Tinea unguium B35.1 ; Pain in right toe(s) M79.674 and Pain in left toe(s) M79.[address] [address] 10/28/2023 Nika Gale Assessments Encounter Date Diagnosis (ICD Code) Assessment [...] M79.674) 03/23/2024 Tinea unguium (ICD-10 - B35.1) 06/22/2024 Tinea unguium (ICD-10 - B35.1) 03/23/2024 Pain in right toe(s) (ICD-10 - M79.674) 06/22/2024 Pain in right toe(s) (ICD-10 - M79.674) 01/04/2024 Pain in left toe(s) (ICD-10 - M79.675) 10/31/2023 Pain in right toe(s) (ICD-10 - M79.674) 08/12/2023 Pain in left toe(s) (ICD-10 - M79.675) 10/31/2023 Pain in left toe(s) (ICD-10 - M79.675) 03/23/2024 Pain in left toe(s) (ICD-10 - M79.675) 06/22/2024 Pain in left toe(s) (ICD-10 - M79.675) Plan Of Treatment Pending Test Test Name Order Date MRI : Foot, right 01/02/2018 *Uric Acid, Serum 04/18/2019 ESR 04/18/2019 X ray : Foot, left 3V 03/20/2019 X ray : Foot, left 3V 04/29/2011 X ray : Foot, right 3V 04/18/2019 [id number] NAIL, 6 OR MORE 01/26/2018 76863-ECBWSRN NAIL, 6 OR MORE 04/10/2018 34384-[id number] NAIL, 1-5 07/19/2017 [id number] NAIL, 1-5 10/05/2017 35492-[id number] NAIL, 1-5 10/20/2020 97282- Debride <25 sq cm 07/10/2013 62810 I&D ABSCESS- SIMPLE,SINGLE 014 22126, J0702- Neuroma/Injection 04/29/20 11 66025, J0702- Neuroma/Injection 06/20/19 13 X ray : Ankle, right 3V 04/18/2019 Next Appt Details Provider Name:Nika arciniega, 09/14/2024 12:30:00 PM, [address] [facility], [place], [address], Insurance Providers Payer Name Payer Address Payer Phone Subscriber Number Group Number Insured Name Patient Relationship to Insured Coverage Start Date Coverage End Date Medicare National Govt [facility] [address] [facility] [place] [address] [id number] Tino Parish ortiz Self - patient is the insured [employer] [address] [place] [address] [phone] [id number] Parish Montez Self - patient is the insured 8 Medical (General) History Medical History History ICD Code chicken pox measles mumps Cancer Thyroid disorder Heart attack Mesothelioma Surgical History Surgery Date(Month/Year) Thyroid Surgery 02/2017 melanoma 2016 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
== END 2024-07-31 14:50 | disposition home or self-care (01) ==
PROVIDERS: PCP Internal Medicine; Visit Provider Internal Medicine
DX: Z00.00 Encounter for general adult medical examination without abnormal findings (principal); C45.9 Mesothelioma, unspecified; I25.10 Atherosclerotic heart disease of native coronary artery without angina pectoris; E03.9 Hypothyroidism, unspecified; I10 Essential (primary) hypertension; E78.00 Pure hypercholesterolemia, unspecified; N40.1 Benign prostatic hyperplasia with lower urinary tract symptoms; R35.0 Frequency of micturition; F32.A Depression, unspecified

== ENCOUNTER → 2024-07-31 13:46 | Outpatient (BNVA) | payer MEDICARE, SELFPAY | PROVIDERS: PCP Internal Medicine; Visit Provider Internal Medicine | DX: Z00.00 Encounter for general adult medical examination without abnormal findings (principal); C45.9 Mesothelioma, unspecified; I25.10 Atherosclerotic heart disease of native coronary artery without angina pectoris; E03.9 Hypothyroidism, unspecified; I10 Essential (primary) hypertension; E78.00 Pure hypercholesterolemia, unspecified; N40.1 Benign prostatic hyperplasia with lower urinary tract symptoms; R35.0 Frequency of micturition; F32.A Depression, unspecified | CPT/HCPCS: 96127 ==

== ENCOUNTER 2024-11-14 13:39 | Outpatient (AMB) | payer MEDICARE, SELFPAY ==
[2024-11-14 13:43] VITALS: BP 110/72; PULSE 72; O2SAT 97; BMI 28.1
--- NOTE | 2024-11-14 13:43 | MHC.PC.OV ---
Vital Signs 11/14/24 13:43 Height 5 ft 10 in Weight 195 lb 12.328 oz BMI 28.1 BP 110/72 Blood Pressure Location Lt brachial Position Sitting Pulse 72 Pulse Source Pulse Oximeter Pulse Oximetry (%) 97 Oxygen Delivery Method Room Air Intake Visit Reasons: CHF, CAD Public Relations Associate Required: No Accompanied by: Self / Same As Patient Allergies nitroglycerin Allergy (Severe, Verified 11/14/24 13:44) low blood pressure Medication List - Last Reconciled 11/14/24 by Nash Brown MD amoxicillin-pot clavulanate 875-125 mg 1 tab PO BID aspirin 81 mg PO DAILY atorvastatin 80 mg PO DAILY carvedilol 6.25 mg PO BID cholecalciferol (vitamin D3) 50 mcg PO DAILY clopidogrel 75 mg PO DAILY folic acid 1 mg PO DAILY furosemide 20 mg PO BID hydrocortisone 2.5% (Proctosol HC) 1 appl LA BID-QID PRN levothyroxine 25 mcg PO DAILY multivitamin 1 tab PO DAILY psyllium husk (Metamucil) 0.4 grams PO BEDTIME tamsulosin 0.4 mg PO BEDTIME 90 days triamcinolone acetonide 0.1% 1 appl topical BID PRN Tobacco use date assessed: 11/14/24 Fall risk assessment: No Falls in past year Last assessed Fall Risk: 11/14/24 Dental Screening Dental Screen Date: 11/14/24 Did you have a dental visit in the last 12 months?: Yes Did you have a dental problem in the last 6 months where you did not have access to dental care?: No Was dental information given to patient?: Patient has dentist [facility] Medical History PAF (paroxysmal atrial fibrillation) Enlarged prostate Pleural effusion Pleural mass Recurrent left pleural effusion CVA (cerebral vascular accident) TIA (transient ischemic attack) Coronary artery disease Hypertension Hypothyroidism PUD (peptic ulcer disease) Fatigue Surgical History History of coronary artery bypass graft x 3 History of heart artery stent History of lobectomy of thyroid Hx of colonoscopy H/O melanoma excision History of surgery on arm Family History Father Lung cancer Mother Heart disease Social History Household Members: Spouse Housing: House Do you presently have visiting nurse or other home services: No Alcohol intake: current Alcohol intake frequency: a few times a month Alcohol type: beer Comment: once a week 1 drink stopped 07/2024 Patient Tobacco Use Status: Former Tobacco user Tobacco use type: Cigarette Years Smoked: quit 22 years old e-Cigarette/Vaping Use: Never Used Second Hand Smoke Exposure: No Advance Directives Date on File: 01/18/24 service: No Current occupational status: retired Current occupational exposures/hazards: No Cognitive needs: No Hearing needs: No Vision needs: Yes Questionnaire PHQ-9 Over the last 2 weeks, how often have you been bothered by any of the following problems? 1. Little interest or pleasure in doing things: more than half the days 2. Feeling down, depressed, or hopeless: more than half the days 3. Trouble falling or staying asleep, or sleeping too much: not at all 4. Feeling tired or having little energy: more than half the days 5. Poor appetite or overeating: several days 6. Feeling bad about yourself - or that you are a failure or have let yourself or your family down: not at all 7. Trouble concentrating on things, such as reading the newspaper or watching television: not at all 8. Moving or speaking so slowly that other people could have noticed. Or the opposite - being so fidgety or restless that you have been moving around a lot more than usual: not at all 9. Thoughts that you would be better off or of hurting yourself in some way: not at all Total score: 7 Depression Screening Interpretation: Positive Depression Screening Done: Yes 75803 - PHQ-9 Billing: Yes Source: Developed by Drs. Madhav Donahue, Sangeeta Nichole, Kalpesh Potter and colleagues, with an educational eliseo from [employer]. Thrive Questionnaire Date Thrive assessed: 11/14/24 I am a: Patient What is your living situation today?: I have a steady place to live Within the past 12 months, did the food you bought not last and you didn't have the money to get more?: Never true Within the past 12 months, did you worry whether your food would run out before you got money to buy more?: Never true Do you have trouble paying for medicines?: No Do you have trouble getting transportation to medical appointments?: No Do you have trouble paying your heating and electricity bill?: No Do you have trouble taking care of your child, family member or friend?: No Do you have trouble with day-to-day activities such as bathing, preparing meals, shopping, managing finances, etc.?: No Are you currently unemployed and looking for a job?: No Are you interested in more education?: No Currently or been in a relationship where the following occur: No concerns reported THRIVE Score: 0 AUDIT C Alcohol Use Questionnaire (AUDIT-C) 1. How often do you have a drink containing alcohol?: Monthly or less 2. How many drinks containing alcohol do you have on a typical day when you are drinking?: 1 or 2 3. How often do you have six or more drinks on one occasion?: Never Total Score: 1 TEDDY-7 AMB Questionnaire TEDDY-7 Date TEDDY - 7 assessed: 11/14/24 Feeling nervous, anxious, or on edge: 0 = Not at all Not being able to stop or control worryin = Not at all Worrying too much about different things: 0 = Not at all Trouble relaxin = Not at all Being so restless that it is hard to sit still: 0 = Not at all Becoming easily annoyed or irritable: 0 = Not at all Feeling afraid as if something awful might happen: 0 = Not at all Total TEDDY-7 score (0-4 normal; 5-9 mild; 10-14 moderate; 15-21 severe): 0 Source: Developed by Drs. Madhav Donahue, Sangeeta Nichole, Kalpesh Potter and colleagues, with an educational eliseo from [employer]. TEDDY-7 Assessment Billing TEDDY-7 Assessment Tool: TEDDY-7 Assessment 06276 Physical exam (Primary Care) Vital Signs: Last Vital Signs Pulse 72 11/14/24 13:43 BP 110/72 11/14/24 13:43 Pulse Ox 97 11/14/24 13:43 Oxygen Delivery Method Room Air 11/14/24 13:43 BMI result Body Mass Index 28.1 Tobacco/Smoking Status: Tobacco use Status Tobacco use date assessed 11/14/24 11/14/24 13:46 Patient Tobacco Use Status Former Tobacco user 11/14/24 13:46 Tobacco use type Cigarette 11/14/24 13:46 e-Cigarette/Vaping Use Never Used 11/14/24 13:46 PHQ-9: PHQ-9 Score PHQ-9: Total score 7 11/14/24 13:59 Depression Screening Interpretation: Positive Thrive Assessment: Date of Thrive Assessment Date Thrive assessed 11/14/24 11/14/24 13:46 Currently or been in a relationship where the following occur: No concerns reported Const General: alert; No acute distress Eyes Conjunctivae: conjunctivae normal Resp Auscultation: clear to auscultation bilaterally Cardio Rate: regular rate Rhythm: regular rhythm GI Inspection: Yes normal to inspection Extrem General: Yes normal to inspection and No edema Office Procedures Cerumen Removal From which ear canal was the cerumen removed: bilateral Removal: irrigation, otoscope w/curette and cerumen loop/spoon Notes: patient tolerated procedure well, no complications and ear canal clear 37852-Gog Irrigation/Lavage Coding Level of Care Code Est Pt Level 4 (42421) Complex EM visit Add On G2211 Diagnoses 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 transplanted heart: [place] heart Acquired hypothyroidism E03.9 Hypothyroidism type: acquired Primary hypertension I10 Hypertension type: primary hypertension Hypercholesterolemia E78.00 Benign prostatic hyperplasia with urinary frequency N40.1; R35.0 Lower urinary tract symptom detail: urinary frequency Lower urinary tract symptom presence: symptoms present Impacted cerumen of both ears H61.23 Acute otitis media of left ear with perforated tympanic membrane H66.92; H72.92 Hemorrhoid K64.9 CPT Codes Office Procedure - CPT: 64595-Noy Irrigation/Lavage ([id number]) Additional Codes TEDDY-7 Assessment Billing - TEDDY-7 Assessment Tool: TEDDY-7 Assessment 46659 ([id number]) PHQ-9 - 18636 - PHQ-9 Billing: Yes ([id number]) Assessment & Plan Assessment & Plan (1) Epithelioid mesothelioma: Comment: 03/12/2024 Code(s): C45.9 - Mesothelioma, unspecified Category: Medical Plan: Patient is being followed up by hematology oncology in november (2) Coronary artery disease: Comment: CABG 2021 Code(s): I25.10 - Atherosclerotic heart disease of [place] coronary artery without angina pectoris Category: Medical Qualifiers: Associated angina: without angina Coronary Disease-Associated Artery/Lesion type: [place] artery [place] vs. transplanted heart: [place] heart Qualified Code(s): I25.10 - Atherosclerotic heart disease of [place] coronary artery without angina pectoris Plan: Control the cholesterol, weight, blood pressure patient on aspirin 81 mg once a day (3) Hypothyroidism: Code(s): E03.9 - Hypothyroidism, unspecified Category: Medical Qualifiers: Hypothyroidism type: acquired Qualified Code(s): E03.9 - Hypothyroidism, unspecified Plan: Continue with thyroid medication (4) Hypertension: Code(s): I10 - Essential (primary) hypertension Category: Medical Qualifiers: Hypertension type: primary hypertension Qualified Code(s): I10 - Essential (primary) hypertension Plan: Continue with blood pressure medication. Decrease salt intake and exercise patient on atenolol carvedilol 6.25 mg twice a day (5) Hypercholesterolemia: Code(s): E78.00 - Pure hypercholesterolemia, unspecified Category: Medical Plan: Avoid fried foods, chicken skin, eggs, butter margarine, pastries and meat. Be it pork or beef they have a lot of cholesterol on atorvastatin 80 mg once a day (6) BPH (benign prostatic hyperplasia): Code(s): N40.0 - Benign prostatic hyperplasia without lower urinary tract symptoms Category: Medical Qualifiers: Lower urinary tract symptom detail: urinary frequency Lower urinary tract symptom presence: symptoms present Qualified Code(s): N40.1 - Benign prostatic hyperplasia with lower urinary tract symptoms; R35.0 - Frequency of micturition Plan: Continue with tamsulosin (7) Impacted cerumen of both ears: Code(s): H61.23 - Impacted cerumen, bilateral Category: Medical (8) Acute otitis media of left ear with perforated tympanic membrane: Code(s): H66.92 - Otitis media, unspecified, left ear; H72.92 - Unspecified perforation of tympanic membrane, left ear Category: Medical Plan: scoop and irrigation done bilateral perforated TM left (9) Hemorrhoid: Code(s): K64.9 - Unspecified hemorrhoids Category: Medical Plan History of Present Illness The patient is an 84-year-old male presenting for follow-up concerning his mesothelioma and addressing dizziness and anemia. He has coronary artery disease, hypothyroidism, hypertension, hypercholesterolemia, and benign prostatic hyperplasia. The patient was diagnosed with mesothelioma in February 2024, with metastatic spread noted in the initial PET scan. Recent chemotherapy treatment was reportedly favorable but has contributed to anemia, documented in prior tests, and ongoing dizziness, particularly noted during urination. Intermittent swelling of hemorrhoids and nausea are post-chemotherapy complaints. Ear wax buildup has been identified as a factor contributing to dizziness. Health Maintenance - Continue aspirin 81 mg daily for cardiovascular protection. - Continue thyroid hormone replacement therapy. - Maintain atenolol and carvedilol regimen for hypertension. - Continue atorvastatin 80 mg daily for hypercholesterolemia. - Evaluation and cleaning of earwax buildup. Social History - Functional status: Uses a cane for walking. - Level of activity: Limited due to dizziness and post-chemotherapy fatigue. - Reports of bowel disturbances following chemotherapy, affecting daily activities. Review of Systems - General: Reports fatigue. - Neurological: Reports dizziness, especially when urinating; denies fainting. - Genitourinary: Reports frequent urination. - Gastrointestinal: Reports constipation following chemotherapy. - Rectal: Denies blood in stools. - Ears: Reports dizziness, improved post earwax removal. - Musculoskeletal: Denies significant activity due to dizziness. - Constitutional: Denies fever. Physical Exam - Vital Signs- Blood pressure 110/72 mmHg; oxygen saturation satisfactory. - Ears- Earwax buildup present; removal improved hearing. - Respiratory- Normal lung sounds. - Neurological- Normal orientation and interaction. Results - Labs: Hemoglobin 10.2 g/dL (anemia), other blood counts within normal limits. - Tests: Previous PET scan in February 2024 showing mesothelioma with metastatic involvement. Plan Continued focus on mesothelioma management by monitoring progression and evaluating chemotherapy response. Anemia and dizziness were addressed by cleaning earwax to improve balance and prescribing an antibiotic for potentially lingering infections. Dietary improvement and hydration were emphasized to support recovery and prevent exacerbation of symptoms. Toileting strategies, such as using topical creams, and hygiene for hemorrhoids were recommended. Maintaining current cardiovascular and lipid control medication is essential. Monitoring for further interventions will occur at the next follow-up. Patient was informed and verbally consented to the use of an ambient scribe for clinic note documentation during this visit. Discussion Notes In our discussion, I emphasized the need to manage mesothelioma carefully, particularly with ongoing therapy, and outlined potential adverse effects commonly seen, like anemia. We reviewed the patient's ear-related symptoms and appreciated improved hearing and balance post removal of impacted wax; instructions were given for future preventive measures. Expressed understanding of treatment options, consented to prescribed antibiotic and hemorrhoidal cream, and acknowledged benefits of consistent medication adherence and hydration to enhance recovery following chemotherapy. Patient was educated on regular follow-up for ear cleaning and to report worsening dizziness promptly. Encouraged increased physical activity as tolerated and ensured family awareness of symptoms that warrant immediate return to care. Patient Instructions - Continue taking aspirin 81 mg daily. - Keep up with the current thyroid and blood pressure medication regimen. - Take atorvastatin 80 mg each day. - Clean your ears regularly to prevent wax buildup. - Use prescribed antibiotic and cream for hemorrhoids as directed. - Engage in moderate physical activity and ensure hydration. - Return for follow-up if dizziness worsens or fails to improve. Medications: New hydrocortisone 2.5% (Proctosol HC) 1 appl LA BID-QID PRN 30 grams 2RF hemorrhoids K64.9 - Unspecified hemorrhoids amoxicillin-pot clavulanate 875-125 mg 1 tab PO BID 14 tabs 0RF H66.92 - Otitis media, unspecified, left ear, H72.92 - Unspecified perforation of tympanic membrane, left ear
--- OUTSIDE RECORDS SUMMARY | 2024-11-14 13:52 | XMS_ITS | Patient Health Record ---
Author Organization [facility] Aaliyah elisa Landeros Address [address] [place] [address] Care Team Providers Care Circuit Board Drafter Name Role Phone Nash Brown Primary Care Provider Nika Reardon Unavailable [phone] Allergies Allergen (clinical drug ingredient) Drug/Non Drug Allergy documented on EMR Reaction Allergy Type Onset Date Status Substance with 9-ayimkiq-1-methylgluta ryl-coenzyme A reductase inhibitor mechanism of action (substance) statins (uncoded) Unknown Allergy Active Reason For Referral No Information Medications Medication SIG (Take, Route, Frequency, Duration) Notes Start Date End Date Status Vitamin D3 2000 UNIT 1 capsule Orally Once a day Active Medrol 4 MG as directed Orally 04/18/2019 Not-Taking Atorvastatin Calcium 80 MG Oral for 30 Days Active Keflex Not-Taking Naprosyn 500 MG 1 tablet with food or milk as needed Orally every 12 hrs for 10 days 10/27/2017 Not-Taking Aspirin Active Tamsulosin HCl 0.4 MG 1 capsule Orally Once a day Active Losartan Potassium 100 MG 1 tablet Orall y Once a day Not-Taking Multivitamin Active Celecoxib 200 MG 1 capsule with food Orally Once a day Not-Taking Carvedilol 6.25 MG 1 tablet with food Orally Twice a day Active hydroCHLOROthiazide Not-Taking Furosemide 20 MG 1 tablet Orally Once a day Active Simvastatin 40 MG TAKE 1 TABLET BY MOUTH EVERY EVENING Oral for 90 Not-Taking Levothyroxine Sodium Active Metoprolol Succinate Not-Taking Clopidogrel Bisulfate 75 MG 1 tablet Ora lly Once a day Active Levothyroxine Sodium 25 MCG 1 tablet in the morning on an empty stomach Orally Once a day for 30 day(s) Not-Taking Amiodarone HCl 200 MG 1 tablet Orally On ce a day Not-Taking Walking Boot/Pneumatic As directed Wear Daily for Until further notice 10/27/2017 Not-Taking Folic Acid Active Lisinopril 20 MG 1 tablet Orally Once a day Not-Taking Immunizations Vaccine Route Administration Date Status [...] year? 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 Vital Signs Heart Rate 70 /min 01/04/2024 Blood pressure diastolic 70 mm Hg 09/14/2024 Height 5 ft 11 in in 09/14/2024 Blood pressure systolic 120 mm Hg 09/14/2024 Weight 190 lbs 09/14/2024 BMI 26.5 kg/m2 09/14/2024 Encounters Encounter Location Date Provider Diagnosis [address] [address] 01/04/2024 Nika Perica Tinea unguium B35.1 ; Pain in right toe(s) M79.674 and Pain in left toe(s) M79.[address] [address] 03/23/2024 Nika Perica Tinea unguium B35.1 ; Pain in right toe(s) M79.674 and Pain in left toe(s) M79.[address] [address] 06/22/2024 Nika Perica Tinea unguium B35.1 ; Pain in right toe(s) M79.674 and Pain in left toe(s) M79.[address] [address] 09/14/2024 Nika Gale Tinea unguium B35.1 ; Pain in right toe(s) M79.674 ; Pain in left toe(s) M79.675 ; Drug-induced polyneuropathy G62.0 and Adverse effect of antineoplastic and immunosuppressive drugs, initial encounter T45.1X5A Assessments Encounter Date Diagnosis (ICD Code) Assessment Notes Treatment Notes Treatment Clinical Notes Section Notes 01/04/2024 Tinea unguium (ICD-1 0 - B35.1) 01/04/2024 Pain in right toe(s) (ICD-10 - M79.674) 03/23/2024 Tinea unguium (ICD-1 0 - B35.1) 06/22/2024 Tinea unguium (ICD-1 0 - B35.1) 09/14/2024 Tinea unguium (ICD-1 0 - B35.1) 09/14/2024 Pain in right toe(s) (ICD-10 - M79.674) 03/23/2024 Pain in right toe(s) (ICD-10 - M79.674) 09/14/2024 Pain in left toe(s) (ICD-10 - M79.675) 06/22/2024 Pain in right toe(s) (ICD-10 - M79.674) 01/04/2024 Pain in left toe(s) (ICD-10 - M79.675) 03/23/2024 Pain in left toe(s) (ICD-10 - M79.675) 09/14/2024 Drug-induced polyneuropathy (ICD-10 - G62.0) 06/22/2024 Pain in left toe(s) (ICD-10 - M79.675) 09/14/2024 Adverse effect of antineoplastic and immunosuppressive drugs, initial encounter (ICD-10 - T45.1X5A) Plan Of Treatment Pending Test Test Name Order Date MRI : Foot, right 01/02/2018 *Uric Acid, Serum 04/18/2019 ESR 04/18/2019 X ray : Foot, left 3V 03/20/2019 X ray : Foot, left 3V 04/29/2011 X ray : Foot, right 3V 04/18/2019 [id number] NAIL, 6 OR MORE 01/26/2018 [id number] NAIL, 6 OR MORE 04/10/2018 [id number] NAIL, 1-5 07/19/2017 [id number] NAIL, 1-5 10/05/2017 [id number] NAIL, 1-5 10/20/2020 26735- Debride <25 sq cm 07/10/2013 28796 I&D ABSCESS- SIMPLE,SINGLE 014 89651, J0702- Neuroma/Injection 04/29/20 11 79758, J0702- Neuroma/Injection 06/20/19 13 X ray : Ankle, right 3V 04/18/2019 Next Appt Details Provider Name:Nika arciniega, 12/11/2024 11:15:00 AM, [address] [place], [address], Insurance Providers Payer Name Payer Address Payer Phone Subscriber Number Group Number Insured Name Patient Relationship to Insured Coverage Start Date Coverage End Date Medicare National [facility] [address] [place] [address] [id number] Angel ttParish georges Self - patient is the insured [employer] [address] [place] [address] [id number] Parish Montez Self - patient is the insured 8 Medical (General) History Medical History History ICD Code chicken pox measles mumps Cancer Thyroid disorder Heart attack Mesothelioma Surgical History Surgery Date(Month/Year) Thyroid Surgery 02/2017 melanoma 2016 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
== END 2024-11-14 14:31 | disposition home or self-care (01) ==
LOC: HO.HMCH 13:40
PROVIDERS: PCP Internal Medicine; Visit Provider Internal Medicine
DX: I25.10 Atherosclerotic heart disease of native coronary artery without angina pectoris (principal); C45.9 Mesothelioma, unspecified; E03.9 Hypothyroidism, unspecified; I10 Essential (primary) hypertension; E78.00 Pure hypercholesterolemia, unspecified; N40.1 Benign prostatic hyperplasia with lower urinary tract symptoms; R35.0 Frequency of micturition; H61.23 Impacted cerumen, bilateral; H66.92 Otitis media, unspecified, left ear; H72.92 Unspecified perforation of tympanic membrane, left ear; K64.9 Unspecified hemorrhoids

== ENCOUNTER → 2024-11-14 13:39 | Outpatient (BNVA) | payer MEDICARE, SELFPAY | PROVIDERS: PCP Internal Medicine; Visit Provider Internal Medicine | DX: C45.9 Mesothelioma, unspecified (principal); I25.10 Atherosclerotic heart disease of native coronary artery without angina pectoris; E03.9 Hypothyroidism, unspecified; I10 Essential (primary) hypertension; E78.00 Pure hypercholesterolemia, unspecified; N40.1 Benign prostatic hyperplasia with lower urinary tract symptoms; R35.0 Frequency of micturition; H61.23 Impacted cerumen, bilateral; H66.92 Otitis media, unspecified, left ear; H72.92 Unspecified perforation of tympanic membrane, left ear; K64.9 Unspecified hemorrhoids | CPT/HCPCS: 69210; 96127; 99212 ==

== ENCOUNTER 2025-02-01 13:38 | Outpatient (AMB) | payer MEDICARE, SELFPAY ==
--- OUTSIDE RECORDS SUMMARY | 2025-02-01 13:41 | XMS_ITS | Patient Health Record ---
Author Organization [facility] Aaliyah elisa Landeros Address [address] [place] [address] Care Team Providers Care Sign Fabricator Name Role Phone Nash Brown Primary Care Provider Nika Reardon Unavailable [phone] Allergies Allergen (clinical drug ingredient) Drug/Non Drug Allergy documented on EMR Reaction Allergy Type Onset Date Status Substance with 5-mizjrgz-2-methylgluta ryl-coenzyme A reductase inhibitor mechanism of action (substance) statins (uncoded) Unknown Allergy Active Reason For Referral No Information Medications Medication SIG (Take, Route, Frequency, Duration) Notes Start Date End Date Status Clopidogrel Bisulfate 75 MG 1 tablet Ora lly Once a day Active Levothyroxine Sodium 25 MCG 1 tablet in the morning on an empty stomach Orally Once a day; Duration: 30 day(s) Not-Taking Levothyroxine Sodium Active Metoprolol Succinate Not-Taking Furosemide 20 MG 1 tablet Orally Once a day Active Simvastatin 40 MG TAKE 1 TABLET BY MOUTH EVERY EVENING Oral; Duration: 90 Not-Taking Carvedilol 6.25 MG 1 tablet with food Orally Twice a day Active hydroCHLOROthiazide Not-Taking Multivitamin Active Tamsulosin HCl 0.4 MG 1 capsule Orally Once a day Active Losartan Potassium 100 MG 1 tablet Orall y Once a day Not-Taking Aspirin Active Naprosyn 500 MG 1 tablet with food or milk as needed Orally every 12 hrs; Duration: 10 days 10/27/2017 Not-Taking Celecoxib 200 MG 1 capsule with food Orally Once a day Not-Taking Atorvastatin Calcium 80 MG Oral; Duratio n: 30 Days Active Keflex Not-Taking Vitamin D3 2000 UNIT 1 capsule Orally Once a day Active Medrol 4 MG as directed Orally 04/18/2019 Not-Taking Folic Acid Active Lisinopril 20 MG 1 tablet Orally Once a day Not-Taking Amiodarone HCl 200 MG 1 tablet Orally On ce a day Not-Taking Walking Boot/Pneumatic As directed Wear Daily; Duration: Until further notice 10/27/2017 Not-Taking Immunizations Vaccine Route Administration Date Status Comme nts COVID-19 Pfizer BioNTech Vaccine Unknown 08/12/2020 Administered first dose 02/2021 Influenza Unknown 02/12/2024 Administered Social History Tobacco Use: Social History Observation [...] Problem Status W/U Status Risk Notes Problem Chronic painful polyneuropathy following chemotherapy ([id number]) 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 Problem 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 confirmed Vital Signs Blood pressure diastolic 70 mm Hg 12/11/2024 Height 5 ft 11 in in 12/11/2024 Blood pressure systolic 120 mm Hg 12/11/2024 Weight 190 lbs 12/11/2024 BMI 26.5 kg/m2 12/11/2024 Encounters Encounter Location Date Provider Diagnosis [address] [address] 03/23/2024 Nika Perica Tinea unguium B35.1 ; Pain in right toe(s) M79.674 and Pain in left toe(s) M79.[address] [address] 06/22/2024 Nika Perica Tinea unguium B35.1 ; Pain in right toe(s) M79.674 and Pain in left toe(s) M79.[address] [address] 09/14/2024 Nika Perica Tinea unguium B35.1 ; Pain in right toe(s) M79.674 ; Pain in left toe(s) M79.675 ; Drug-induced polyneuropathy G62.0 and Adverse effect of antineoplastic and immunosuppressive drugs, initial encounter T45.1X5A [facility] [address] [address] 12/11/2024 Nika Gale Pain in right ankle and joints of right foot M25.571 ; Acute idiopathic gout of right foot M10.071 ; Tinea unguium B35.1 ; Pain in right toe(s) M79.674 ; Pain in left toe(s) M79.675 ; Drug-induced polyneuropathy G62.0 and Adverse effect of antineoplastic and immunosuppressive drugs, initial encounter T45.1X5A [facility] [address] 12/11/2024 Nika Gale [facility] [address] [address] 12/13/2024 Nika Gale Assessments Encounter Date Diagnosis (ICD Code) Assessment Notes Treatment Notes Treatment Clinical Notes Section Notes 03/23/2024 Tinea unguium (ICD-1 0 - B35.1) 06/22/2024 Tinea unguium (ICD-1 0 - B35.1) 09/14/2024 Tinea unguium (ICD-1 0 - B35.1) 09/14/2024 Pain in right toe(s) (ICD-10 - M79.674) 12/11/2024 Pain in right ankle and joints of right foot (ICD-10 - M25.571) 12/11/2024 Acute idiopathic gou t of right foot (ICD-10 - M10.071) Patient Educated with: GOUT.pdf (GOUT.pdf) Patient Educated with: LOW PURINE DIET.pdf (LOW PURINE DIET.pdf) 12/11/2024 Tinea unguium (ICD-1 0 - B35.1) 03/23/2024 Pain in right toe(s) (ICD-10 - M79.674) 09/14/2024 Pain in left toe(s) (ICD-10 - M79.675) 06/22/2024 Pain in right toe(s) (ICD-10 - M79.674) 03/23/2024 Pain in left toe(s) (ICD-10 - M79.675) 09/14/2024 Drug-induced polyneuropathy (ICD-10 - G62.0) 06/22/2024 Pain in left toe(s) (ICD-10 - M79.675) 12/11/2024 Pain in right toe(s) (ICD-10 - M79.674) 12/11/2024 Pain in left toe(s) (ICD-10 - M79.675) 09/14/2024 Adverse effect of antineoplastic and immunosuppressive drugs, initial encounter (ICD-10 - T45.1X5A) 12/11/2024 Drug-induced polyneuropathy (ICD-10 - G62.0) 12/11/2024 Adverse effect of antineoplastic and immunosuppressive drugs, initial encounter (ICD-10 - T45.1X5A) Plan Of Treatment Pending Test Test Name Order Date MRI : Foot, right 01/02/2018 *Uric Acid, Serum 04/18/2019 *Uric Acid, Serum 12/11/2024 C-Reactive Protein, Quant 12/11/2024 ESR 04/18/2019 ESR 12/11/2024 X ray : Foot, left 3V 03/20/2019 X ray : Foot, left 3V 04/29/2011 X ray : Foot, right 3V 12/11/2024 X ray : Foot, right 3V 04/18/2019 [id number] NAIL, 6 OR MORE 01/26/2018 [id number] NAIL, 6 OR MORE 04/10/2018 [id number] NAIL, 1-5 07/19/2017 [id number] NAIL, 1-5 10/05/2017 [id number] NAIL, 1-5 10/20/2020 27063- Debride <25 sq cm 07/10/2013 40142 I&D ABSCESS- SIMPLE,SINGLE 014 05018, J0702- Neuroma/Injection 04/29/20 11 18221, J0702- Neuroma/Injection 06/20/19 13 X ray : Ankle, right 3V 04/18/2019 Next Appt Details Provider Name:Nika arciniega, 03/15/2025 11:15:00 AM, [address] [facility], [place], [address], Insurance Providers Payer Name Payer Address Payer Phone Subscriber Number Group Number Insured Name Patient Relationship to Insured Coverage Start Date Coverage End Date Medicare National [facility] [employer] [address] [place] [address] [id number] Angel Zia ortizmond Self - patient is the insured [employer] [address] [place] [address] [id number] Parish Montez Self - patient is the insured 8 Medical (General) History Medical History History ICD Code chicken pox measles mumps Cancer Thyroid disorder Heart attack Mesothelioma Surgical History Surgery Date(Month/Year) Thyroid Surgery 02/2017 melanoma 2016 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
--- OUTSIDE RECORDS SUMMARY | 2025-02-01 13:41 | XMS_ITS | Clinical Summary ---
Author Organization [facility] Address [address] [place] [address] Phone Care Team Providers Care Station Gateman Name Role Phone Nash Brown MD Primary Care Provider [phone] Allergies Active Allergy Reactions Criticality Noted Date Comments Nitroglycerin Other 02/20/2024 BP drops Medications folic acid (FOLVITE) 1 mg tablet Take 1 Tablet by mouth daily. Active tamsulosin (FLOMAX) 0.4 mg 24 hr [...] artery disease involving coronary bypass graft of mechoopda heart with other forms of angina pectoris (CMS/HCC V24) Take 1 tablet (40 mg total) by mouth 1 (one) time each day. 30 each 11 06/29/2024 06/29/19 26 Active clopidogreL (PLAVIX) 75 mg tablet TAKE 1 TABLET BY MOUTH EVERY DAY 90 tablet 2 08/15/2024 Active Active Problems Problem Noted Date Diagnosed Date Dizziness 11/20/2024 Assessment & Plan (11/20/2024 4:16 PM EDT): Patient reports some ongoing symptoms with dizziness since starting chemotherapy. He is being worked up for this and will be having an MRI later tonight. He reports dizziness with certain head positions. Symptoms sound like vertigo however given his history of cancer he is being evaluated thoroughly with MRI. He will follow-up with his primary care provider for ongoing symptoms. His blood pressure is well- controlled and he has no evidence of orthostasis. Aortic ejection murmur 06/29/2024 Assessment & Plan (06/29/2024 2:38 PM EST): Patient's last echocardiogram at [facility] showed an EF of 65 to 70% RV was suboptimally visualized. No mitral insufficiency no tricuspid insufficiency and a 9 mmHg peak gradient across the aortic valve patient does have a fairly substantial aortic outflow tract murmur without CAD (coronary artery disease) 05/07/2024 Assessment & Plan (11/20/2024 4:16 PM EDT): Patient has history of coronary artery disease status post bypass and subsequent need for angioplasty of an unbypassed ramus branch due to unstable angina in the setting of NSTEMI. He is doing well and denies any recurrent anginal symptoms. Patient's last angioplasty was 11/2023. He has been on dual antiplatelet therapy with aspirin and Plavix since then. At this point he can stop his Plavix and remain on aspirin indefinitely. He will continue on cardioprotective medical therapy with carvedilol and atorvastatin as prescribed. I have reviewed with the patient the importance of a heart healthy lifestyle which includes eating a low-fat low-salt diet, getting regular exercise, maintaining a healthy weight, not smoking, and following up with routine medical care. Assessment & Plan (06/29/2024 2:38 PM EST): [...] 1 (one) time each day. Atrial fibrillation (CMS/HCC V24, CMS/HCC V28) 1 07/07/2023 Assessment & Plan (11/20/2024 4:16 PM EDT): Patient has history of episodic atrial fibrillation after cardiac surgery. He was on amiodarone for some time and Eliquis but then this was discontinued with no evidence of recurrent atrial fibrillation. Dyspnea 05/07/2024 Muscle pain 05/07/2024 Pleural effusion [...] breath or peripheral edema Aortic stenosis 05/07/2024 Assessment & Plan (11/20/2024 4:16 PM EDT): Patient's last echocardiogram was completed at [facility] 03/2024. He denies any clinical symptoms of heart failure and appears euvolemic on physical examination. Blood pressure abnormally low 05/07/2024 Hemidiaphragm paralysis 05/07/2024 Chest pain 05/07/2024 NSTEMI (non-ST elevated myoc ardial infarction) (CMS/HCC V24, CMS/HCC V28) 05/07/2024 Encounters Date Type Department Care Team Description 11/20/2024 1:10 PM EDT Office Visit [facility] Cardiology [facility] [address] [facility] [address] [place] [phone] Camryn Carlos NP Coronary artery disease, unspecified vessel or lesion type, unspecified whether angina present, unspecified whether mechoopda or transplanted heart (Primary Dx); Atrial fibrillation, unspecified type (CMS/HCC V24, CMS/HCC V28); Aortic valve stenosis, etiology of cardiac valve disease unspecified; Dizziness from Last 3 Months Social History Tobacco [...] Sign Reading Time Taken Comments Blood Pressure 130/80 11/20/2024 1:03 PM EDT Pulse 68 11/20/2024 1:03 PM EDT Temperature - - Respiratory Rate - - Oxygen Saturation 99% 11/20/2024 1:03 PM EDT Inhaled Oxygen Concentration - - Weight 89.4 kg (197 lb) 11/20/2024 1:03 PM EDT Height 177.8 cm (5' 10 ) 11/20/2024 1:03 PM EDT Body Mass Index 28.27 11/20/2024 1:03 PM EDT Plan of Treatment Upcoming Encounters Date Type Department Care Team (Late st Contact Info) Description 02/26/2025 8:10 AM EDT Office Visit [facility] Cardiology [facility] [address] [facility] [address] [place] [id number] Camryn Carlos NP [address] [place] [address] Health Maintenance Due Date Last Done Comments DTaP,Tdap,and Td Vaccines (1 - Tdap) 1961 Zoster Vaccines (1 of 2) 1992 RSV Immunization Adult Patients (1 - 1-dose 75+ series) 2017 Cholesterol Screening (Lipid Panel) 2023 Falls Risk Assessment 2023 Medicare Annual Wellness Visit 2023 04/27/2022 Social Influencers of Health Screening 2023 COVID-19 Vaccine ( season) 2024 04/07/2021, 08/12/2020, 07/22/2020 Depression Screening 06/13/2024 Influenza Vaccine (#1) 2025 , 03/11/2023, 03/27/2022, Additional history exists Hypertension/CHF/CAD Annual BMP Blood Test 11/06/2025 11/06/2024, 10/31/2024, 10/10/2024, Additional history exists Pneumococcal Vaccine: 50+ Years [...] age to complete this topic Meningococcal B Vaccine Aged Out No l onger eligible based on patient's age to complete this topic RSV Immunization Patients Under 20 months Aged Out No longer eligible based on patient's age to complete this topic Varicella Vaccines Aged Out No longer eligible based on patient's age to complete this topic Procedures Procedure Name Priority Date/Time Associated Diagnosis Comments ECG 12-LEAD Routine 11/20/2024 1:13 PM EDT Coronary artery disease, unspecified vessel or lesion type, unspecified whether angina present, unspecified whether mechoopda or transplanted heart Atrial fibrillation, unspecified type (CMS/HCC V24, CMS/HCC V28) ANNUAL BMP BLOOD TEST Routine 02/20/2024 from Last 3 Months or Most Recently Relevant to Health Maintenance Results * ECG 12 lead (11/20/2024 1:13 PM EDT) Ventricular Rate ECG 68 BPM GEMUSE Atrial Rate 68 BPM GEMUSE QRS Duration 96 ms GEMUSE Q-T Interval 402 ms GEMUSE QTc 427 ms GEMUSE R [place] 104 degrees GEMUSE T [place] 147 degrees GEMUSE ECG Interpretation Normal sinus rhythm Lateral infarct , age undetermined Abnormal ECG No previous ECGs available Confirmed by Minnie KANG JAMES ([id number]) on 11/20/2024 3:37:51 PM GEMUSE 11/20/2024 1:13 PM EDT 11/20/2024 3:37 PM EDT us Camryn Carlos [employer] FORESTER ECG ORDERABLES Final Result GEMUSE from Last 3 Months Insurance MEDICARE [facility] Care Teams Station Gateman Relationship Specialty Start Date End Date Nash Brown MD [address] [facility] [address] [facility] [place] [address] PCP - General Internal Medicine 05/07/24
[2025-02-01 13:58] VITALS: BP 138/64; PULSE 82; TEMP 36.5; O2SAT 98; BMI 27.8
--- NOTE | 2025-02-01 13:58 | AM.OFFWIN_ITS ---
Intake Vital Signs 02/01/25 13:58 Height 5 ft 10 in Weight 194 lb BMI 27.8 BP 138/64 Blood Pressure Location Lt brachial Position Sitting Pulse 82 Pulse Source Pulse Oximeter Temp 97.7 F Temp Source Oral Pulse Oximetry (%) 98 Oxygen Delivery Method Room Air Intake Visit Reasons: ep rt hand swollen Intake Note: pt presents with right hand and arm pain & swelling- reports a recent u/s at [facility], resulted neg. for DVT. Chemo (for EM) is on hold for 1 mo and the swelling to arm/hand began afterwards. Patient Tobacco Use Status: Former Tobacco user Allergies nitroglycerin Allergy (Severe, Verified 02/01/25 14:02) low blood pressure Do you need a note to return to daycare/school/sports/work: No HPI HPI Comments History of Present Illness Details History of Present Illness - The patient is an 84-year-old male pre senting with swelling and discomfort in the left arm following the cessation of chemotherapy. - The swelling began after stopping chem otherapy two weeks ago, with the arm being primarily used for intravenous chemotherapy administration. - A palpable mass and swelling in the le ft upper arm was noticed and he has swelling thay obscures the knuckles, with no history of trauma to the area. - An ultrasound performed last week rule d out deep vein thrombosis. - The patient has a history of cancer, w ith metastasis around the heart, lungs, intestines, and stomach, leading to 15 chemotherapy sessions. - Increasing side effects from chemother apy led to the decision to stop treatment. - He denies fever, chills, CP - Has SOB which is not new today - Also has edema to the legs which he nieves s had and he has compression stockings for. Physical Exam General: Cooperative, healthy appearing, comfortable, no acute distress and well developed Orientation: Patient oriented x3 Limitations: No limitations Respiratory: Normal respiratory effort and able to speak in complete sentences. Clear to auscultation bilaterally. No w/r/r noted. Cardiovascular: Regular rate and rhythm. Normal S1 and S2. No m/r/g noted Skin: No rashes or lesions noted Neuro: Sensation intact. Extremities: Normal to inspection. Left arm is swollen, cooler in temperature. Pulses are 2+ radially and cap refill is less than 3 seconds. No erythema or warmth noted. Mass noted in the upper left arm. No fluctuance, tender to touch. No warmth noted. Patient was informed and verbally consented to the use of an ambient scribe for clinic note documentation during this visit. [facility] Medical History PAF (paroxysmal atrial fibrillation) Enlarged prostate Pleural effusion Pleural mass Recurrent left pleural effusion CVA (cerebral vascular accident) TIA (transient ischemic attack) Coronary artery disease Hypertension Hypothyroidism PUD (peptic ulcer disease) Fatigue Surgical History History of coronary artery bypass graft x 3 History of heart artery stent History of lobectomy of thyroid Hx of colonoscopy H/O melanoma excision History of surgery on arm Family History Father Lung cancer Mother Heart disease Social History Household Members: Spouse Housing: House Do you presently have visiting nurse or other home services: No Alcohol intake: current Alcohol intake frequency: a few times a month Alcohol type: beer Comment: once a week 1 drink stopped 07/2024 Patient Tobacco Use Status: Former Tobacco user Tobacco use type: Cigarette Years Smoked: quit 22 years old e-Cigarette/Vaping Use: Never Used Second Hand Smoke Exposure: No Advance Directives Date on File: 01/18/24 service: No Current occupational status: retired Current occupational exposures/hazards: No Cognitive needs: No Hearing needs: No Vision needs: Yes Review of Systems Const All systems reviewed & are unremarkable except as noted in HPI and below Physical Exam Vital Signs: Last Vital Signs Temp 97.7 F 02/01/25 13:58 Pulse 82 02/01/25 13:58 BP 138/64 02/01/25 13:58 Pulse Ox 98 02/01/25 13:58 Oxygen Delivery Method Room Air 02/01/25 13:58 BMI result Body Mass Index 27.8 Assessment & Plan Assessment & Plan (1) Left arm swelling: Code(s): M79.89 - Other specified soft tissue disorders Plan Most likely lymphedema vs infection vs fluid retention, unlikely DVT due to negative u/s Had an u/s done last week at [facility] that was negative Plan - Elevate the left arm - A compression sleeve for the left arm will be provided to manage the swelling. - A message will be sent to Dr. Prabhakar to determine if a repeat ultrasound is necessary. - The patient is advised to monitor for any changes such as increased swelling, redness, or loss of sensation. Medications: New compression sleeve and gauntlet As directed 1 ea 0RF left arm edema Coding Level of Care Code Est Pt Level 3 (14875) Diagnoses Left arm swelling M79.89
== END 2025-02-01 14:55 | disposition home or self-care (01) ==
PROVIDERS: PCP Internal Medicine; Visit Provider Physician Assistant Medical
DX: M79.89 Other specified soft tissue disorders (principal)

== ENCOUNTER → 2025-02-01 13:38 | Outpatient (BNVA) | payer MEDICARE, SELFPAY | PROVIDERS: PCP Internal Medicine; Visit Provider Physician Assistant Medical | DX: M79.89 Other specified soft tissue disorders (principal) | CPT/HCPCS: 99212 ==

== ENCOUNTER 2025-02-05 12:55 | Outpatient (AMB) | payer MEDICARE, SELFPAY ==
--- NOTE | 2025-02-05 13:02 | MHC.PC.OV ---
Vital Signs 02/05/25 13:03 Height 5 ft 10 in Weight 194 lb 8 oz BMI 27.9 BP 128/66 Blood Pressure Location Lt brachial Position Sitting Pulse 88 Pulse Source Pulse Oximeter Temp 97.0 F Temp Source Temporal Artery Scan Pulse Oximetry (%) 100 Oxygen Delivery Method Room Air Intake Visit Reasons: swollen left arm Allergies nitroglycerin Allergy (Severe, Verified 02/05/25 13:22) low blood pressure Medication List - Last Reconciled 02/05/25 by Farhan Franco MD aspirin 81 mg PO DAILY atorvastatin 80 mg PO DAILY carvedilol 6.25 mg PO BID cholecalciferol (vitamin D3) 50 mcg PO DAILY compression sleeve and gauntlet As directed folic acid 1 mg PO DAILY furosemide 20 mg PO BID hydrocortisone 2.5% (Proctosol HC) 1 appl WI BID-QID PRN levothyroxine 25 mcg PO DAILY multivitamin 1 tab PO DAILY psyllium husk (Metamucil) 0.4 grams PO BEDTIME tamsulosin 0.4 mg PO BEDTIME 90 days Tobacco use date assessed: 02/05/25 Fall risk assessment: No Falls in past year Last assessed Fall Risk: 02/05/25 Dental Screening Dental Screen Date: 02/05/25 Did you have a dental visit in the last 12 months?: Yes Did you have a dental problem in the last 6 months where you did not have access to dental care?: No Was dental information given to patient?: Patient has dentist HPI swollen left arm HPI Details Patient comes in today for follow up of his increased right arm swelling, which he states started about a week ago States that he had an ultrasound done at [facility] about a week ago and was advised that he does not have a blood clot in his arm He also went to the walk-in clinic 4 days ago for the same complaint and as he just had doppler done confirming the absence of DVT in his arm, he was not sent for any further diagnostic tests Rx for compression sleeve and gauntlet were ordered for him to help with his arm swelling but he states that he has not heard back from anyone regarding this so far He was reportedly getting 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 and has received already about 15 sessions so far but had to put this on hold a couple of months ago due to intolerable side effects - states that he could hardly walk or move around when he was getting his treatments He hopes to be able to resume Tx sometime in the next month or two He denies any fever, headaches or dizziness Denies any chest pains, no increased SOB No nausea/vomiting, no abdominal pain No change in bowel habits noted [facility] Medical History PAF (paroxysmal atrial fibrillation) Enlarged prostate Pleural effusion Pleural mass Recurrent left pleural effusion CVA (cerebral vascular accident) TIA (transient ischemic attack) Coronary artery disease Hypertension Hypothyroidism PUD (peptic ulcer disease) Fatigue Surgical History History of coronary artery bypass graft x 3 History of heart artery stent History of lobectomy of thyroid Hx of colonoscopy H/O melanoma excision History of surgery on arm Family History Father Lung cancer Mother Heart disease Social History Household Members: Spouse Housing: House Do you presently have visiting nurse or other home services: No Alcohol intake: current Alcohol intake frequency: a few times a month Alcohol type: beer Comment: once a week 1 drink stopped 07/2024 Patient Tobacco Use Status: Former Tobacco user Tobacco use type: Cigarette Years Smoked: quit 22 years old e-Cigarette/Vaping Use: Never Used Second Hand Smoke Exposure: No Advance Directives Date on File: 01/18/24 service: No Current occupational status: retired Current occupational exposures/hazards: No Cognitive needs: No Hearing needs: No Vision needs: Yes Questionnaire PHQ-9 Over the last 2 weeks, how often have you been bothered by any of the following problems? 1. Little interest or pleasure in doing things: more than half the days 2. Feeling down, depressed, or hopeless: more than half the days 3. Trouble falling or staying asleep, or sleeping too much: not at all 4. Feeling tired or having little energy: more than half the days 5. Poor appetite or overeating: several days 6. Feeling bad about yourself - or that you are a failure or have let yourself or your family down: not at all 7. Trouble concentrating on things, such as reading the newspaper or watching television: not at all 8. Moving or speaking so slowly that other people could have noticed. Or the opposite - being so fidgety or restless that you have been moving around a lot more than usual: not at all 9. Thoughts that you would be better off or of hurting yourself in some way: not at all Total score: 7 Depression Screening Interpretation: Positive Depression Screening Follow-up: Existing condition and Follow-up Visit Requested Depression Screening Done: Yes 27065 - PHQ-9 Billing: Yes Source: Developed by Drs. Madhav Donahue, Sangeeta Nichole, Kalpesh Potter and colleagues, with an educational eliseo from [employer]. Thrive Questionnaire Date Thrive assessed: 11/14/24 I am a: Patient What is your living situation today?: I have a steady place to live Within the past 12 months, did the food you bought not last and you didn't have the money to get more?: Never true Within the past 12 months, did you worry whether your food would run out before you got money to buy more?: Never true Do you have trouble paying for medicines?: No Do you have trouble getting transportation to medical appointments?: No Do you have trouble paying your heating and electricity bill?: No Do you have trouble taking care of your child, family member or friend?: No Do you have trouble with day-to-day activities such as bathing, preparing meals, shopping, managing finances, etc.?: No Are you currently unemployed and looking for a job?: No Are you interested in more education?: No Currently or been in a relationship where the following occur: No concerns reported THRIVE Score: 0 AUDIT C Alcohol Use Questionnaire (AUDIT-C) 1. How often do you have a drink containing alcohol?: Monthly or less 2. How many drinks containing alcohol do you have on a typical day when you are drinking?: 1 or 2 3. How often do you have six or more drinks on one occasion?: Never Total Score: 1 Score Reviewed/Action Taken: Yes TEDDY-7 AMB Questionnaire TEDDY-7 Date TEDDY - 7 assessed: 11/14/24 Feeling nervous, anxious, or on edge: 0 = Not at all Not being able to stop or control worryin = Not at all Worrying too much about different things: 0 = Not at all Trouble relaxin = Not at all Being so restless that it is hard to sit still: 0 = Not at all Becoming easily annoyed or irritable: 0 = Not at all Feeling afraid as if something awful might happen: 0 = Not at all Total TEDDY-7 score (0-4 normal; 5-9 mild; 10-14 moderate; 15-21 severe): 0 Source: Developed by Drs. Madhav Donahue, Sangeeta Nichole, Kalpesh Potter and colleagues, with an educational eliseo from [employer]. Review of Systems Const Denies chills, Reports fatigue, Denies fever(s) and Denies headache(s) ENT Denies dysphagia, Denies dizziness, Denies headache(s), Denies neck pain, Denies odynophagia and Denies sore throat Card Denies chest pain, Denies palpitations and Reports dyspnea on exertion (mild) Resp Denies chest congestion, Denies cough and Reports dyspnea on exertion (mild) GI Denies abdominal pain, Denies constipation, Denies dysphagia, Denies heartburn, Denies diarrhea, Denies nausea, Denies odynophagia and Denies vomiting Denies difficulty urinating, Denies dysuria, Denies nocturia and Denies urinary frequency Musc Details: increased swelling and some pain in the right arm Denies back pain and Denies neck pain Skin/Breast Denies rash Neuro Denies dizziness and Denies headache(s) Endo Reports fatigue and Denies palpitations Physical exam (Primary Care) Vital Signs: Last Vital Signs Temp 97.0 F 02/05/25 13:03 Pulse 88 02/05/25 13:03 BP 128/66 02/05/25 13:03 Pulse Ox 100 02/05/25 13:03 Oxygen Delivery Method Room Air 02/05/25 13:03 BMI result Body Mass Index 27.9 Tobacco/Smoking Status: Tobacco use Status Tobacco use date assessed 02/05/25 02/05/25 13:07 Patient Tobacco Use Status Former Tobacco user 02/05/25 13:07 Tobacco use type Cigarette 02/05/25 13:07 e-Cigarette/Vaping Use Never Used 02/05/25 13:07 PHQ-9: PHQ-9 Score PHQ-9: Total score 7 02/05/25 13:23 Depression Screening Interpretation: Positive Depression Screening Follow-up: Existing condition and Follow-up Visit Requested Thrive Assessment: Date of Thrive Assessment Date Thrive assessed 11/14/24 02/05/25 13:07 Currently or been in a relationship where the following occur: No concerns reported Const General: no acute distress and alert HENMT Throat: Yes posterior oropharynx normal and Yes tonsils normal (no TP congestion) Neck Neck: Yes supple and No lymphadenopathy Thyroid: Thyroid normal Resp Auscultation: clear to auscultation bilaterally, no rales and no wheezes Cardio Rate: regular rate Rhythm: regular rhythm Heart sounds: no murmurs GI Palpation (GI): Soft to palpation and nontender Auscultation: normal bowel sounds General: Yes no CVA tenderness Back/Spine/Pelvis Back: no CVA tenderness Thoracic/Lumbar Spine: No lumbar spinal tenderness Skin Rashes: no rashes Extrem Other: 3+ edema of the entire right upper extremity General: Yes no pedal edema Coding Level of Care Code Est Pt Level 3 (81557) Diagnoses Lymphedema of right upper extremity I89.0 Epithelioid mesothelioma C45.9 Additional Codes PHQ-9 - 31283 - PHQ-9 Billing: Yes ([id number]) Assessment & Plan Assessment & Plan (1) Lymphedema of right upper extremity: Code(s): I89.0 - Lymphedema, not elsewhere classified Category: Medical Plan: Patient reports getting a venous doppler of the right upper extremity at [facility] last week, which came back negative for DVT He was also seen at the walk-in clinic a few days ago and was prescribed a compression sleeve, which he states he has not gotten yet and has not heard back from anyone regarding this Will send in a new Rx for this to the [facility] in [place] and patient is advised that they will contact him when they are ready to measure and size him up for this Have advised patient to let us know if he does not hear from the [facility] in a week's time He is also advised to continue to try to keep his right arm elevated as often as he can througout the day to help keep his arm swelling down (2) Epithelioid mesothelioma: Comment: 03/12/2024 Code(s): C45.9 - Mesothelioma, unspecified Category: Medical Plan: Patient states that he was receiving chemotherapy for the past few months but had to put this on hold for the last month or so due to intolerable side effects States that he will have some follow up imaging done soon to reassess his condition and will likely try to resume his treatments sometime in March 2025 Plan Follow up with PCP as scheduled next month Medications: Refilled compression sleeve and gauntlet As directed 1 ea 0RF left arm edema compression sleeve and gauntlet As directed 1 ea 0RF left arm edema
[2025-02-05 13:03] VITALS: BP 128/66; PULSE 88; TEMP 36.1; O2SAT 100; BMI 27.9
--- OUTSIDE RECORDS SUMMARY | 2025-02-05 13:38 | XMS_ITS | Encounter Summary ---
Author Organization [facility] Address [address] [place] [address] [address] [place] [address] Phone Care Team Providers Care Coldfusion Name Role Phone Nash Brown MD Primary Care Provider [phone] Jaciel Roberts DO Unavailable Bhavya Hudson INTERNET DEVELOPER Unavailable [phone] Josefina Erazo DIGITAL SALES REPRESENTATIVE Unavailable Nika Otto TRANSPORTATION ESCORT Unavailable Encounter Details Date Type Department Care Team (Late st Contact Info) Description 12/26/2024 Procedure Pass [facility], Ct Scan - [address] [address] Social History Tobacco Use Types Packs/Day Years Used Date Smoking Tobacco: Former Cigarettes Smokeless Tobacco: Never Comments:20 PY history (age 22-40, 1PPD) Alcohol Use Standard Drinks/Week Comments Yes 0 (1 standard drink = 0.6 oz pur e alcohol) rarely Home Health Assessment: Transportation Answer Date Recorded Lack of Transportation (Medical) No 06/29/2024 Lack of Transportation (Non-Medical) No 06/29/2024 Patient Unable or Declines to Respond No 06/29/2024 Education Answer Date Recorded Are you interested in more education? Not on marilyn e 10/24/2022 Are you concerned about learning? Not on file 10/24/2022 No 10/24/2022 No 10/24/2022 Digital Access Answer Date Recorded No 11/07/2022 No 11/07/2022 Reliable internet access at home? Not on file 11/07/2022 Device with a working camera? Not on file Intimate Partner Violence Answer Date R ecorded Are you denied basic needs s uch as food, clothing, or medical care? No 07/23/2024 In the past 12 months have y ou been in a relationship with a person who hurts, threatens, or tries to control you? No 07/23/2024 Are you denied basic needs s uch as food, clothing, or medical care? No 07/23/2024 In the past 12 months have y ou been in a relationship with a person who hurts, threatens, or tries to control you? No 07/23/2024 Sex and Gender Information Value Date Recorded Sex Assigned at Male 09/07/2023 9:21 AM EDT Legal Sex Male 5:02 PM EST Gender Identity Male 09/07/2023 9:21 AM EDT Sexual Orientation Straight 09/07/2023 9: 21 AM EDT documented as of this encounter Plan of Treatment Upcoming Encounters Date Type Department Care Team (Latest Contact Info) Description 01/11/2025 Procedure Pass [address] [address] 01/11/2025 Procedure Pass [address] [address] 02/06/2025 2:30 PM EDT Office Visit [facility] Services [address] [place] [address] Jaciel Roberts, [address] [place] [address] [email or web address] Annika Bowles, PT [address] [place] [address] 03/27/2025 11:15 AM EDT Appointment [address] [address] Nika Otto, TRANSPORTATION ESCORT [address] [place] [address] 04/03/2025 2:30 PM EDT Appointment [facility] [address] [place] [address] Jaciel Roberts, DO [address] [place] [address] [email or web address] 04/03/2025 3:30 PM EDT Office Visit [facility] [address] [place] [address] Jaciel Roberts, DO [address] [place] [address] [email or web address] 10:00 AM EST Telemedicine - audio only [facility] [address] [place] [phone] Jonathon Gallardo MD [address] [place] [address] Division [place] [address] [email or web address] documented as of this encounter Visit Diagnoses Not on filedocumented in this encounter Additional Health Concerns Assessment Noted Time PHQ-2 Depression Total Score: 0 03/12/20 24 12:23 PM EDT documented as of this encounter Care Teams Coldfusion Relationship Specialty Start Date End Date Nash Brown MD [address] [place] [phone] PCP - General Internal Medicine 09/07/23 Jaciel Roberts DO [address] [place] [address] [email or web address] Primary Oncologist Hematology and Oncology 03/14/24 Bhavya Hudson FNP [address] [place] [address] [email or web address] Nurse Practitioner Medical Oncology 05/15/24 Josefina Erazo NP [address] [place] [address] [email or web address] Nurse Practitioner 11/26/24 Nika Otto CNP [address] [place] [address] [email or web address] Nurse Practitioner Nurse Practitioner 01/10/25 documented as of this encounter Additional Source Comments The information contained in this document represents components of the legal health record. It is not the complete legal health record.[facility]
--- OUTSIDE RECORDS SUMMARY | 2025-02-05 13:38 | XMS_ITS | Encounter Summary ---
Author Organization [facility] Address [address] [place] [address] [address] [place] [address] Phone Care Team Providers Care Dramatic Critic Name Role Phone Nash Brown MD Primary Care Provider [phone] Jaciel Roberts DO Unavailable Bhavya Hudson HYDRAULIC TECHNICIAN Unavailable Josefina Erazo KILN STOKER Unavailable [phone] Nika Otto DIRECTOR CHILD ABUSE THERAPY Unavailable Encounter Details Date Type Department Care Team (Late st Contact Info) Description 11/16/2024 Procedure Pass [facility], [address] [address] Social History Tobacco Use Types Packs/Day Years [...] AM EDT documented as of this encounter Last Filed Vital Signs Vital Sign Reading Time Taken Comments Blood Pressure - - Pulse - - Temperature - - Respiratory Rate - - Oxygen Saturation - - Inhaled Oxygen Concentration - - Weight 86.2 kg (190 lb) 11/19/2024 3:17 PM EDT Height 177.8 cm (5' 10 ) 11/19/2024 3:17 PM EDT 06/14 Body Mass Index 27.26 11/19/2024 3:17 PM EDT documented in this encounter Plan of Treatment Upcoming Encounters Date Type Department Care Team (Latest Contact Info) Description 01/11/2025 Procedure Pass [facility], Ct Scan - [address] [address] 01/11/2025 Procedure Pass [facility], Ct Scan - [address] [address] 02/06/2025 2:30 PM EDT Office Visit [facility] Rehabilitation Services [address] [place] [address] Jaciel Roberts, DO [address] [place] [address] [email or web address] Annika Bowles, PT [address] [place] [address] [email or web address] 03/27/2025 11:15 AM EDT Appointment [facility], Ct Scan - [address] [address] Nika Otto CNP [address] [place] [address] [email or web address] 04/03/2025 2:30 PM EDT Appointment [facility] [address] [place] [address] Jaciel Roberts, DO [address] [place] [address] [email or web address] 04/03/2025 3:30 PM EDT Office Visit [facility] at [address] [address] Jaciel Roberts, DO [address] [place] [address] [email or web address] 2025 10:00 AM EST Telemedicine - audio only [facility] [address] [place] [address] Jonathon Gallardo MD [address] [place] [address] Division [place] [address] [email or web address] documented as of this encounter Visit Diagnoses Not on filedocumented in this encounter Additional Health Concerns Assessment Noted Time PHQ-2 Depression Total Score: 0 03/12/20 24 12:23 PM EDT documented as of this encounter Care Teams Dramatic Critic Relationship Specialty Start Date End Date Nash Brown MD [address] [place] [address] [address] [place] [phone] PCP - General Internal Medicine 09/07/23 Jaciel Roberts DO [address] [place] [address] [email or web address] Primary Oncologist Hematology and Oncology 03/14/24 Bhavya Hudson FNP [address] [place] [address] [email or web address] Nurse Practitioner Medical Oncology 05/15/24 Josefina Erazo NP [address] [place] [address] [email or web address] Nurse Practitioner 11/26/24 Nika Otto CNP [address] [place] [address] Nurse Practitioner Nurse Practitioner 01/10/25 documented as of this encounter Additional Source Comments The information contained in this document represents components of the legal health record. It is not the complete legal health record.[facility]
--- OUTSIDE RECORDS SUMMARY | 2025-02-05 13:38 | XMS_ITS ---
Author Organization [facility] Address [address] [place] [address] Phone Care Team Providers Care Senior Electronics Engineer Name Role Phone Nash Brown MD Primary Care Provider Jaciel Roberts DO Unavailable [phone] Bhavya Hudson PROFESSOR OF ENVIRONMENTAL SCIENCE Unavailable [phone] Josefina Erazo COMPUTATIONAL GENETICIST Unavailable Nika Otto REJECTOR Unavailable Active Problems Problem Noted Date Diagnosed Date Chemotherapy management, encounter for Mesothelioma (pleural) 03/21/2024 CAD (coronary artery disease) 02/20/2024 Dyslipidemia 02/20/2024 Gouty arthritis of right ankle 02/20/2024 Nontoxic multinodular goiter 02/20/2024 NSTEMI (non-ST elevated myocardial infarction) 0 02/20/2024 Skin cancer 11/24/2020 High cholesterol 11/24/2020 Primary localized osteoarthrosis of right lower leg 11/24/2020 Current Treatment and Therapy Plans PEMETREXED/CARBOPLATIN-THORACIC* Plan Start Date:04/03/2024 Plan Provider:Jaciel Roberts DO Linked Problems Mesothelioma (pleural) Treatment Medications Current Day (Day 1 , Cycle 14 - Planned for 01/17/2025) CARBOplatin (PARAPLATIN) IVP B (by AUC) 270 mLPEMEtrexed (ALIMTA)PEMEtrexed (ALIMTA) IVPB PEMEtrexed disodium (ALIMTA) 1,050 mg in sodium chloride 0.9% 152 mL IVPB VITAMIN B-12 (CYANOCOBALAMIN)* Plan Start Date:03/28/2024 Plan Provider:Jaciel Roberts DO Linked Problems Mesothelioma (pleural) Treatment Medications No medications scheduled. Past Treatment and Therapy Plans No past plan information found.
--- OUTSIDE RECORDS SUMMARY | 2025-02-05 13:38 | XMS_ITS | Encounter Summary ---
Author Organization [facility] Address [address] [place] [address] [address] [place] [address] Phone Care Team Providers Care Christian Counselor Name Role Phone Nash Brown MD Primary Care Provider [phone] Jaciel Roberts DO Unavailable Bhavya Hudson GROUND CREW CHIEF Unavailable [phone] Josefina Erazo BROKE HANDLER Unavailable Nika Otto TUBE MACHINE OPERATOR Unavailable Encounter Details Date Type Department Care Team (Late st Contact Info) Description 10/12/2024 Procedure Pass [facility], Ct Scan - [address] [address] Social History Tobacco Use Types Packs/Day Years [...] (Latest Contact Info) Description 01/11/2025 Procedure Pass [address] [address] 01/11/2025 Procedure Pass [address] [address] 02/06/2025 2:30 PM EDT Office Visit [facility] 8 [place] [address] Jaciel Roberts, [address] [place] [address] [email or web address] Annika Bowles, PT 8 [place] [address] 03/27/2025 11:15 AM EDT Appointment [address] [address] Nika Otto, TUBE MACHINE OPERATOR [address] [place] [address] 04/03/2025 2:30 PM EDT Appointment [facility] [address] [place] [address] Jaciel Roberts, DO [address] [place] [address] [email or web address] 04/03/2025 3:30 PM EDT Office Visit [facility] [address] [place] [address] Jaciel Roberts, DO [address] [place] [address] [email or web address] 2025 10:00 AM EST Telemedicine - audio only [facility] [address] [place] [address] Jonathon Gallardo MD [address] [place] [address] Division [place] [address] [email or web address] documented as of this encounter Visit Diagnoses Not on filedocumented in this encounter Additional Health Concerns Assessment Noted Time PHQ-2 Depression Total Score: 0 03/12/20 24 12:23 PM EDT documented as of this encounter Care Teams Christian Counselor Relationship Specialty Start Date End Date Nash Brown MD [address] [place] [phone] PCP - General Internal Medicine 09/07/23 Jaciel Roberts DO [address] [place] [address] [email or web address] Primary Oncologist Hematology and Oncology 03/14/24 Bhavya Hudson FNP [address] [place] [address] [email or web address] Nurse Practitioner Medical Oncology 05/15/24 Josefina Erazo NP [address] [place] [address] [email or web address] Nurse Practitioner 11/26/24 Nika Otto CNP [address] [place] [address] [email or web address] Nurse Practitioner Nurse Practitioner 01/10/25 documented as of this encounter Additional Source Comments The information contained in this document represents components of the legal health record. It is not the complete legal health record.[facility]
--- OUTSIDE RECORDS SUMMARY | 2025-02-05 13:38 | XMS_ITS | Encounter Summary ---
Author Organization [facility] Address [address] [place] [address] [address] [place] [address] Phone Care Team Providers Care Business Law Teacher Name Role Phone Nash Brown MD Primary Care Provider [phone] Jaciel Roberts DO Unavailable Bhavya Hudson GOLF SHOE SPIKE ASSEMBLER Unavailable Josefina Erazo CNC MILL OPERATOR Unavailable Nika Otto ROTO GRAVURE PRESS OPERATOR Unavailable Encounter Details Date Type Department Care Team (Late st Contact Info) Description 07/23/2024 Procedure Pass [facility], Ct Scan - [address] [address] Social History Tobacco Use Types Packs/Day Years [...] AM EDT documented as of this encounter Functional Status * Calculated C-SSRS Risk Score (Lifetime/Recent) Answer Date of Assessment Author No Risk Indicated 07/23/2024 10:00 AM Melody Mendoza RN * [place] Suicide Severity Rating Scale (Screener/Recent Self-Report) Question Answer Date of Assessment Author 1. Wish to be (Past 1 Month) No 07/23/2024 10:00 AM Jet Daily cie, RN 2. Non-Specific Active Suicidal Thoughts (Past 1 Month) No 07/23/2024 10:00 AM Jet Daily cie, RN 6. Suicidal Behavior (Lifetime) No 07/23/2024 10:00 AM Jet Daily cie, RN documented as of this encounter Plan of Treatment Upcoming Encounters Date Type Department Care Team (Latest Contact Info) Description 01/11/[address] [address] 01/11/[address] [address] 02/06/2025 2:30 PM EDT Office Visit [facility] 8 [place] [address] Jaciel Roberts, DO [address] [place] [address] [email or web address] Annika Bowles, PT 8 [place] [address] [email or web address] 03/27/2025 11:15 AM EDT Appointment [facility], Ct Scan - [address] [address] Nika Otto, GIGI [address] [place] [address] [email or web address] 04/03/2025 2:30 PM EDT Appointment [facility] [address] [place] [address] Jaciel Roberts, DO [address] [place] [address] [email or web address] 04/03/2025 3:30 PM EDT Office Visit [facility] at [address] [address] Jaciel Roberts, DO 30 [place] [address] [email or web address] 2025 10:00 AM EST Telemedicine - audio only [facility] [address] [place] [address] Jonathon Gallardo MD [address] [place] [address] Division [place] [address] [email or web address] documented as of this encounter Visit Diagnoses Not on filedocumented in this encounter Additional Health Concerns Infection Onset Date Last Indicated Resolved Time CoV-Risk 07/23/2024 07/23/2024 08/03/2024 1:21 AM EST Assessment Noted Time PHQ-2 Depression Total Score: 0 03/12/20 12:23 PM EDT documented as of this encounter Care Teams Business Law Teacher Relationship Specialty Start Date End Date Nash Brown MD [address] [place] [phone] PCP - General Internal Medicine 09/07/23 Jaciel Roberts DO [address] [place] [address] [email or web address] Primary Oncologist Hematology and Oncology 03/14/24 Bhavya Hudson FNP [address] [place] [address] Nurse Practitioner Medical Oncology 05/15/24 Josefina Erazo NP [address] [place] [address] Nurse Practitioner 11/26/24 Nika Otto CNP [address] [place] [address] Nurse Practitioner Nurse Practitioner 01/10/25 documented as of this encounter Additional Source Comments The information contained in this document represents components of the legal health record. It is not the complete legal health record.[facility]
--- OUTSIDE RECORDS SUMMARY | 2025-02-05 13:38 | XMS_ITS | Patient Health Record ---
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 confirmed Vital Signs Blood pressure diastolic 70 mm Hg 12/11/2024 Height 5 ft 11 in in 12/11/2024 Blood pressure systolic 120 mm Hg 12/11/2024 Weight 190 lbs 12/11/2024 BMI 26.5 kg/m2 12/11/2024 Encounters Encounter Location Date Provider Diagnosis [address] [phone] 03/23/2024 Nika Perica Tinea unguium B35.1 ; Pain in right toe(s) M79.674 and Pain in left toe(s) M79.[address] [address] 06/22/2024 Nika Perica Tinea unguium B35.1 ; Pain in right toe(s) M79.674 and Pain in left toe(s) M79.[address] [address] 09/14/2024 Nika Perica Tinea unguium B35.1 ; Pain in right toe(s) M79.674 ; Pain in left toe(s) M79.675 ; Drug-induced polyneuropathy G62.0 and Adverse effect of antineoplastic and immunosuppressive drugs, initial encounter T45.1X5A [facility] [address] [address] 12/11/2024 Nika Gale Pain in right ankle and joints of right foot M25.571 ; Acute idiopathic gout of right foot M10.071 ; Tinea unguium B35.1 ; Pain in right toe(s) M79.674 ; Pain in left toe(s) M79.675 ; Drug-induced polyneuropathy G62.0 and Adverse effect of antineoplastic and immunosuppressive drugs, initial encounter T45.1X5A [facility] [address] 12/11/2024 Nika Gale [facility] [address] [address] 12/13/2024 Nika Gale Assessments Encounter Date Diagnosis [...] X ray : Foot, right 3V 04/18/2019 [id number] NAIL, 6 OR MORE 01/26/2018 [id number] NAIL, 6 OR MORE 04/10/2018 [id number] NAIL, 1-5 07/19/2017 [id number] NAIL, 1-5 10/05/2017 [id number] NAIL, 1-5 10/20/2020 78303- Debride <25 sq cm 07/10/2013 13439 I&D ABSCESS- SIMPLE,SINGLE 014 27006, J0702- Neuroma/Injection 04/29/20 11 20922, J0702- Neuroma/Injection 06/20/19 13 X ray : Ankle, right 3V 04/18/2019 Next Appt Details Provider Name:Nika arciniega, 03/15/2025 11:15:00 AM, [address] [facility], [place], [address], Insurance Providers Payer Name Payer Address Payer Phone Subscriber Number Group Number Insured Name Patient Relationship to Insured Coverage Start Date Coverage End Date Medicare National [facility] [employer] [address] [place] [address] [id number] Angel Zia ortizmond Self - patient is the insured [employer] Blue [employer] [address] [place] [address] [phone] [id number] Parish Montez Self - patient is the insured 8 Medical (General) History Medical History History ICD Code chicken pox measles mumps Cancer Thyroid disorder Heart attack Mesothelioma Surgical History Surgery Date(Month/Year) Thyroid Surgery 02/2017 melanoma 2016 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
--- OUTSIDE RECORDS SUMMARY | 2025-02-05 13:38 | XMS_ITS | Encounter Summary ---
Author Organization [facility] Address [facility] [address] [place] [address] Phone Care Team Providers Care Bisque Finisher Name Role Phone Nash Brown MD Primary Care Provider [phone] Jaciel Roberts DO Unavailable Bhavya Hudson CERTIFIED RETINAL ANGIOGRAPHER Unavailable [phone] Josefina Erazo END FINDER TWISTING DEPARTMENT Unavailable [phone] Nika Otto ROCK SPLITTER Unavailable Encounter Details Date Type Department Care Team (Late st Contact Info) Description 02/01/2024 Procedure Pass [facility] [address] [place] [address] Social History Tobacco Use Types Packs/Day Years Used Date Smoking Tobacco: Former Smokeless Tobacco: Never Alcohol Use Standard Drinks/Week Comments Yes 0 (1 standard drink = 0.6 oz pur e alcohol) rarely Education Answer Date Recorded Are you interested in more education? Not on marilyn e 10/24/2022 Are you concerned about learning? Not on file 10/24/2022 No 10/24/2022 No 10/24/2022 Digital Access Answer Date Recorded No 11/07/2022 No 11/07/2022 Reliable internet access at home? Not on file 11/07/2022 Device with a working camera? Not on file Sex and Gender Information Value Date Recorded Sex Assigned at Male 09/07/2023 9:21 AM EDT Legal Sex Male 5:02 PM EST Gender Identity Male 09/07/2023 9:21 AM EDT Sexual Orientation Straight 09/07/2023 9: 21 AM EDT documented as of this encounter Plan of Treatment Upcoming Encounters Date Type Department Care Team (Latest Contact Info) Description 01/11/2025 Procedure Pass [facility], [address] [address] 01/11/2025 Procedure Pass [address] [address] 02/06/2025 2:30 PM EDT Office Visit [facility] 8 [place] [address] Jaciel Roberts, [address] [address] [email or web address] Annika Bowles, PT 8 [place] [address] 03/27/2025 11:15 AM EDT Appointment [address] [address] Nika Otto, GIGI [address] [place] [address] 04/03/2025 2:30 PM EDT Appointment [facility] [address] [place] [address] Jaciel Roberts, DO [address] [place] [address] [email or web address] 04/03/2025 3:30 PM EDT Office Visit [facility] at [address] [address] Jaciel Roberts, DO [address] [place] [address] [email or web address] 2025 10:00 AM EST Telemedicine - audio only [facility] [address] [place] [address] Jonathon Gallardo MD [address] [place] [address] Division of [place]acic [place] [address] [email or web address] documented as of this encounter Visit Diagnoses Not on filedocumented in this encounter Additional Health Concerns Infection Onset Date Last Indicated Resolved Time CDiff-Risk 04/02/2024 04/04/2024 04/04/2024 4:35 PM EDT CoV-Risk 07/23/2024 07/23/2024 08/03/2024 1:21 AM EST Assessment Noted Time PHQ-2 Depression Total Score: 0 02/01/20 10:26 AM EDT documented as of this encounter Care Teams Bisque Finisher Relationship Specialty Start Date End Date Po, Nash Chirinos MD [address] [place] [address] [address] [place] [phone] PCP - General Internal Medicine 09/07/23 Jaciel Roberts DO [address] [place] [address] [email or web address] Primary Oncologist Hematology and Oncology 03/14/24 Bhavya Hudson FNP [address] [place] [address] [email or web address] Nurse Practitioner Medical Oncology 05/15/24 Josefina Erazo NP [address] [place] [address] [email or web address] Nurse Practitioner 11/26/24 Nika Otto CNP [address] [place] [address] [email or web address] Nurse Practitioner Nurse Practitioner 01/10/25 documented as of this encounter Additional Source Comments The information contained in this document represents components of the legal health record. It is not the complete legal health record.[facility]
--- OUTSIDE RECORDS SUMMARY | 2025-02-05 13:38 | XMS_ITS | Clinical Summary ---
Author Organization [facility] Address [address] [place] [id number] Phone Care Team Providers Care School Bus Attendant Name Role Phone Nash Brown MD Primary Care Provider [phone] Jaciel Roberts DO Unavailable Bhavya Hudson HARD CANDY BATCH MIXER Unavailable [phone] Josefina Erazo COTTAGE PARENT Unavailable Nika Otto SAFETY AND HEALTH MANAGER Unavailable Allergies Active Allergy Reactions Criticality Noted Date Comments Nitroglycerin Other (See Comments) 02/20/2024 Medications aspirin 81 mg chewable tablet Take 81 mg by mouth daily. Active cholecalciferol (VITAMIN D3) 2,000 unit capsule Take by mouth daily. Active levothyroxine (SYNTHROID,LEVOT HROID) 25 MCG tablet Take 25 mcg by mouth every morning. Active atorvastatin (LIPITOR) 80 MG tablet Take 80 mg by mouth daily. 4 Active furosemide (LASIX) 20 MG tablet Take 20 mg by mouth daily. 3 Active tamsulosin (FLOMAX) 0.4 mg Cap Take 0.4 mg by mouth daily. 3 Active therapeutic multivitamin tablet Take 1 tablet by mouth daily. Active docusate sodium (COLACE) 50 MG capsule Take 50 mg by mouth daily. Active clopidogrel (PLAVIX) 75 mg tablet Take 75 mg by mouth daily. Active carvedilol (COREG) 6.25 MG tablet Take 6.25 mg by mouth 2 (two) times a day with meals. Active celecoxib (CELEBREX) 200 MG capsule Active clotrimazole-bet amethasone (LOTRISONE) cream Apply topically 2 (two) times a day. APPLY TO AFFECTED AREA 4 Active finasteride (PROSCAR) 5 mg tablet 4 Active losartan (COZAAR) 100 MG tablet Active psyllium (METAMUCIL) 0.4 gram capsule 4 Active dexAMETHasone (DECADRON) 4 MG tablet 4 mg tab, 4 mg po bid the day before and daily x 2 days starting the day after chemotherapy. 24 tablet 3 4 Active folic acid (FOLVITE) 1 MG tablet Take 1 tablet (1 mg total) by mouth daily. 90 tablet 3 4 Active metroNIDAZOLE (FLAGYL) 500 MG tablet Take 500 mg by mouth every 8 (eight) hours. 4 Active nystatin (MYCOSTATIN) 100,000 units/mL suspension Take 5 mL (500,000 Units total) by mouth 4 (four) times a day. 437 mL 4 Active hydrocortisone 2.5 % ointment Apply 1 Application topically 2 (two) times a day. 4 Active simethicone 125 mg Cap Take 1 capsule (125 mg total) by mouth 4 (four) times a day as needed (gas). 28 capsule 3 4 Active fluorouraciL (EFUDEX) 5 % cream Apply 1 Application topically 2 (two) times a day. prescribed by 4 Active clotrimazole (MYCELEX MIGUEL ÁNGEL) 10 mg miguel ángel Take 1 Miguel Ángel (10 mg total) by mouth 5 (five) times a day. For 14 days. 70 Miguel Ángel 4 Active chlorhexidine (PERIDEX) 0.12 % solution Use as directed 15 mL in the mouth or throat 2 (two) times a day. 120 mL 1 5 Active lidocaine 2 % Soln Use as directed 15 mL in the mouth or throat every 4 (four) hours as needed (pain from mouth sore.). 100 mL 5 Active metoclopramide HCl (REGLAN) 10 MG tablet Take 1 tablet (10 mg total) by mouth every 6 (six) hours as needed for nausea or vomiting. 30 tablet Active Active Problems Problem Noted Date Diagnosed Date Chemotherapy management, encounter for Mesothelioma (pleural) 03/21/2024 CAD (coronary artery disease) 02/20/2024 Dyslipidemia 02/20/2024 Gouty arthritis of right ankle 02/20/2024 Nontoxic multinodular goiter 02/20/2024 NSTEMI (non-ST elevated myocardial infarction) 0 02/20/2024 Skin cancer 11/24/2020 High cholesterol 11/24/2020 Primary localized osteoarthrosis of right lower leg 11/24/2020 Encounters Date Type Department Care Team Description 01/23/2025 2:35 PM EDT - 01/23/2025 11:59 PM EDT Hospital Encounter [address] [address] Bhavya Hudson, HARD CANDY BATCH MIXER Discharge Disposition: Home or Self Care 01/23/2025 Orders Only [facility] at [address] [address] Bhavya Hudson, HARD CANDY BATCH MIXER Edema, unspecified type (Primary Dx) 01/11/2025 10:00 AM EDT Infusion [facility] at [address] [address] Nika tOto CNP Bang, Samantha J, RN Mesothelioma (pleural) (Primary Dx) 01/11/2025 9:30 AM EDT Infusion [facility] at [address] [address] Nika Otto CNP Mesothelioma (pleural) (Primary Dx); Dermatitis 01/10/2025 Orders Only [facility] at [address] [address] Uma Reyna Mesothelioma (pleural) (Primary Dx) 01/10/2025 Telephone [facility] at [address] [address] Jaciel Roberts, DO ?blood clot (BN) 01/09/2025 Telephone [facility] at [address] [address] Jaciel Roberts, treatment schedule 01/08/[address] [facility] Thoracic Surgery [address] [place] [phone] Lisa Menard CNP 01/04/2025 10:00 AM EDT Telemedicine - audio only [facility] [address] [place] [id number] Jonathon Gallardo MD Mesothelioma (Primary Dx) 12/27/2024 12:45 PM EDT Office Visit [facility] [address] [place] [address] Maykel Lombardo MD Palliative care encounter (Primary Dx); Mesothelioma (pleural) 12/27/2024 12:00 PM EDT Infusion [facility] at [address] [address] Jonathon Gallardo MD Romero Losada, Julieta Gomez, SEBASTIAN Mesothelioma (pleural) (Primary Dx) 12/27/2024 9:18 AM EDT - 12/27/2024 11:59 PM EDT Hospital Encounter [address] [address] Jonathon Gallardo MD Discharge Disposition: Home or Self Care 12/26/2024 2:30 PM EDT Office Visit [facility] at [address] [address] Josefina Erazo NP Mesothelioma (pleural) (Primary Dx); Chemotherapy management, encounter for 12/26/2024 1:50 PM EDT - 12/26/2024 11:59 PM EDT Hospital Encounter [facility] [address] [place] [address] Jaciel Roberts, Discharge Disposition: Home or Self Care 12/26/2024 Procedure Pass [address] [address] 12/26/2024 Orders Only [facility] at [address] [address] Josefina Erazo, VALDO 12/19/2024 Orders Only [facility] at [address] [address] [place] Mesothelioma (pleural) (Primary Dx) 12/18/2024 1:00 PM EDT Office Visit [facility] [address] [place] [address] Jaciel Roberts, Annika Burnette, PT BPPV (benign paroxysmal positional vertigo), right (Primary Dx) 12/17/2024 Telephone [facility] at [address] [address] Suly Cheung, RN Dental Pain 12/11/2024 Telephone [facility] at [address] [address] Jaciel Roberts DO Provider call / med question 12/04/2024 10:00 AM EDT Office Visit [facility] [address] [place] [address] Jaciel Roberts, Brenda Isaac, PT BPPV (benign paroxysmal positional vertigo), right (Primary Dx) 11/30/2024 1:20 PM EDT Infusion [facility] at [address] [address] Jaciel Roberts, Duncan Antonio, SEBASTIAN Mesothelioma (pleural) (Primary Dx) 11/28/2024 1:00 PM EDT Office Visit [facility] at [address] [address] Josefina Erazo, VALDO Mesothelioma (pleural) (Primary Dx) 11/28/2024 11:47 AM EDT - 11/28/2024 11:59 PM EDT Hospital Encounter [address] [address] Jaciel Roebrts DO Discharge Disposition: Home or Self Care 11/26/2024 Orders Only [facility] at [address] [address] [place] Mesothelioma (pleural) (Primary Dx) 11/23/2024 11:15 AM EDT Office Visit [address] [place] [address] Jaciel Roberts DO Engel, Lori A, PT BPPV (benign paroxysmal positional vertigo), right (Primary Dx) 11/23/2024 Plan of Care Documentation [address] [place] [address] 11/21/2024 4:00 PM EDT Office Visit [facility] at [address] [address] Jaciel Roberts DO Mesothelioma (pleural) (Primary Dx); Nausea; Dizziness; Vertigo 11/21/2024 2:43 PM EDT - 11/21/2024 11:59 PM EDT Hospital Encounter [facility] [address] [place] [address] Jaciel Roberts DO Discharge Disposition: Home or Self Care 11/21/2024 Telephone [facility] at [address] [address] Jaciel Roberts DO held chemo 11/20/2024 9:34 PM EDT - 11/20/2024 11:59 PM EDT Hospital Encounter [address] [address] Jaciel Roberts DO Discharge Disposition: Home or Self Care 11/19/2024 Telephone [facility] at [address] [address] Jaciel Roberts DO Appointment 11/16/2024 8:30 AM EDT Office Visit [facility] at [address] [address] Jaciel Roberts DO Mesothelioma (pleural) (Primary Dx) 11/16/2024 Procedure Pass [address] [address] 11/14/2024 Orders Only [facility] at [address] [address] Uma Reyna Skin cancer (Primary Dx) 11/10/2024 9:36 AM EDT - 11/10/2024 11:59 PM EDT Hospital Encounter [address] [address] Bhavya Hudson, HARD CANDY BATCH MIXER Discharge Disposition: Home or Self Care 11/09/2024 Telephone [facility] at [address] [address] Yaquelin Villa, SEBASTIAN CT scan instructions 11/06/2024 2:40 PM EDT Infusion [facility] at [address] [address] Bhavya Hudson, HARD CANDY BATCH MIXER Zora Vieira RN 11/06/2024 1:30 PM EDT Infusion [facility] at [address] [address] Bhavya Hudson, HARD CANDY BATCH MIXER Mesothelioma (pleural) (Primary Dx); Nausea; Weight loss 11/06/2024 1:00 PM EDT - 11/06/2024 11:59 PM EDT Hospital Encounter [facility] [address] [place] [address] Bhavya Hudson, HARD CANDY BATCH MIXER Discharge Disposition: Home or Self Care 11/06/2024 Procedure Pass [address] [address] 11/06/2024 Procedure Pass [address] [address] 11/06/2024 Telephone [facility] at [address] [address] Jaciel Roberts, DO Nausea (BN) 10/12/2024 Procedure Pass [address] [address] from Last 3 Months Immunizations Immunization Administration Dates Next Due INFLUENZA, SPLIT VIRUS, TRIV ALENT W/ PRESERVATIVE IM 04/01/2014,03/09/2010 Influenza High-Dose Quadriva lent Preservative Free IM 03/11/2023,03/27/2022 Influenza High-Dose Trivalen t Preservative Free IM 04/12/2019,03/03/2017,05/14/2015 Influenza Quadrivalent Adjuv anted Preservative Free IM 03/26/2021 Influenza Trivalent Adjuvant ed Preservative free IM 03/30/2024 Pneumococcal conjugate PCV20 06/12/2024 Family History Medical History Relation Comments Lung cancer Brother smoker Lung cancer Father smoker Breast cancer Sister Relation Status Comments Brother Father Sister Social History Tobacco Use Types Packs/Day Years [...] Orientation Straight 09/07/2023 9: 21 AM EDT Last Filed Vital Signs Vital Sign Reading Time Taken Comments Blood Pressure 125/77 01/11/2025 9:06 AM EDT Pulse 72 01/11/2025 9:06 AM EDT Temperature 36.2 C (97.2 F) 01/11/2025 9:06 AM EDT Respiratory Rate 16 12/27/2024 12:05 PM EDT Oxygen Saturation 99% 01/11/2025 9:06 AM EDT Inhaled Oxygen Concentration - - Weight 86.2 kg (190 lb 1.6 oz) 01/11/2025 9:06 A M EDT Height 180.3 cm (5' 10.98 ) 01/11/2025 9:06 AM E DT Body Mass Index 26.53 01/11/2025 9:06 AM EDT Plan of Treatment Upcoming Encounters Date Type Department Care Team (Latest Contact Info) Description 01/11/2025 Procedure Pass [address] [address] 01/11/2025 Procedure Pass [address] [address] 02/06/2025 2:30 PM EDT Office Visit [facility] [address] [place] [address] Jaciel Roberts DO [address] [place] [address] [email or web address] Annika Bowles, PT [address] [place] [address] 03/27/2025 11:15 AM EDT Appointment [address] [address] Nika Otto, SAFETY AND HEALTH MANAGER [address] [place] [address] [email or web address] 04/03/2025 2:30 PM EDT Appointment [facility] [address] [place] [address] Jaciel Roberts, DO [address] [place] [address] [email or web address] 04/03/2025 3:30 PM EDT Office Visit [facility] [place] [address] [place] [address] Jaciel Roberts, DO [address] [place] [address] [email or web address] 2025 10:00 AM EST Telemedicine - audio only [facility] [address] [place] [phone] Jonathon Gallardo MD [address] [place] [address] Division [place] [address] [email or web address] Health Maintenance Due Date Last Done Comments Adult Td,Tdap Booster 1942 TSH LEVEL 1942 ZOSTER VACCINES (1 of 2) 1961 RSV VACCINE (1 - 1-dose 75+ series) 2017 COVID-19 VACCINE ( season) 2024 04/07/2021, 08/12/2020, 07/22/2020 INFLUENZA VACCINE (#1) 2025 , 03/11/2023, 03/27/2022, Additional history exists DEPRESSION SCREENING 03/12/2025 03/12/2024 BLOOD PRESSURE 07/14/2025 01/11/2025 CREATININE LEVEL 12/26/2025 12/26/2024, , 11/21/2024, Additional history exists POTASSIUM LEVEL 12/26/2025 12/26/2024, 11/11, 11/21/2024, Additional history exists PNEUMOCOCCAL VACCINES (50+ years) Completed 06/12/2024 HEPATITIS A VACCINES Aged Out No long er eligible based on patient's age to complete this topic HIB VACCINES Aged Out No longer eligi ble based on patient's age to complete this topic MENINGOCOCCAL VACCINES (ACWY) Aged Out No longer eligible based on patient's age to complete this topic MENINGOCOCCAL VACCINES (B) Aged Out N o longer eligible based on patient's age to complete this topic Medical Devices Not on file Procedures Procedure Name Priority Date/Time Associated Diagnosis Comments US UPPER EXTREMITY VEINS DUPLEX (RIGHT) STAT 01/23/2025 4:10 PM EDT Edema, unspecified type CT ABDOMEN/PELVIS WITH CONTRAST Routine 12/27/2024 11:02 AM EDT Mesothelioma (pleural) Chemotherapy management, encounter for CT CHEST WITHOUT CONTRAST Routine 12/27/2024 11:02 AM EDT Mesothelioma COMPREHENSIVE METABOLIC PANEL Routine 12/26/2024 1:51 PM EDT Mesothelioma (pleural) CBC AND DIFFERENTIAL Routine 12/26/2024 1:51 PM EDT Mesothelioma (pleural) COMPREHENSIVE METABOLIC PANEL Routine 11/28/2024 11:47 AM EDT Mesothelioma (pleural) CBC AND DIFFERENTIAL Routine 11/28/2024 11:47 AM EDT Mesothelioma (pleural) AMB REFERRAL TO [facility] PHYSICAL THERAPY Routine 11/23/2024 12:31 PM EDT COMPREHENSIVE METABOLIC PANEL Routine 11/21/2024 2:43 PM EDT Skin cancer CBC AND DIFFERENTIAL Routine 11/21/2024 2:43 PM EDT Skin cancer MRI BRAIN WITH AND WITHOUT CONTRAST Routine 11/20/2024 10:17 PM EDT Mesothelioma (pleural) CT ABDOMEN/PELVIS WITH CONTRAST Routine 11/10/2024 10:54 AM EDT Mesothelioma (pleural) CT CHEST WITH CONTRAST Routine 10:54 AM EDT Mesothelioma (pleural) COMPREHENSIVE METABOLIC PANEL Routine 11/06/2024 1:01 PM EDT Skin cancer CBC AND DIFFERENTIAL Routine 11/06/2024 1:01 PM EDT Skin cancer from Last 3 Months Results * US Upper Extremity Veins Duplex (Right) (01/23/2025 4:10 PM EDT) Anatomical Region Laterality Modality Ultrasound 01/23/2025 4:14 PM EDT Impressions 01/23/2025 4:19 PM EDT * No evidence of deep or superficial venous thrombosis in the visualized veins of the right upper extremity. 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 Right upper extremity pain and swelling. TECHNIQUE: Upper extremity venous ultrasound with color and spectral Doppler. COMPARISON: No relevant comparison imaging. FINDINGS: Exam Quality: Technically adequate exam demonstrates: Right upper extremity Internal jugular vein: Normal compressibility and flow characteristics. Subclavian vein: Normal flow characteristics. Axillary vein: Normal compressibility and flow characteristics. Brachial veins: Normal compressibility. Basilic vein: Normal compressibility. Cephalic vein: Normal compressibility. Contralateral upper extremity Internal jugular vein: Normal compressibility and flow characteristics. Subclavian vein: Normal flow characteristics. Procedure Note Justo Payne MD - 01/23/2025 US UPPER EXTREMITY VEINS DUPLEX (RIGHT) Referring clinician's provided indication for this examination in [facility]:Arm deep vein thrombosis (DVT) suspected; Edema Additional clinical information: Metastatic mesothelioma epithelioid typereceiving multimodality therapy. Right upper extremity pain andswelling. TECHNIQUE: Upper extremity venous ultrasound with color and spectralDoppler. COMPARISON: No relevant comparison imaging. FINDINGS: Exam Quality: Technically adequate exam demonstrates: Right upper extremity Internal jugular vein: Normal compressibility and flow characteristics. Subclavian vein: Normal flow characteristics. Axillary vein: Normal compressibility and flow characteristics. Brachial veins: Normal compressibility. Basilic vein: Normal compressibility. Cephalic vein: Normal compressibility. Contralateral upper extremity Internal jugular vein: Normal compressibility and flow characteristics. Subclavian vein: Normal flow characteristics. IMPRESSION: * No evidence of deep or superficial venous thrombosis in the visualizedveins of the right upper extremity. us Bhavya A Hudson HARD CANDY BATCH MIXER CV US VASCULAR Final Result * CT CHEST WITHOUT CONTRAST (12/27/2024 11:02 AM EDT) Anatomical Region Laterality Modality Chest Computed Tomogra phy 01/02/2025 9:43 AM EDT Impressions 01/02/2025 9:51 AM EDT 1. No substantial change in the left pleural thickening. 2. Decreased size of a left anterior diaphragmatic lymph node and similar subaortic lymph node. Narrative 01/02/2025 9:[address] CHEST WITHOUT CONTRAST Referring clinician's provided indication for this examination in Epic: Mesothelioma staging TECHNIQUE: Multidetector CT of the chest was performed without intravenous contrast using tailored dose modulation. COMPARISON: CT CHEST WITH CONTRAST FINDINGS: Devices/Tubes/Lines: None. Lungs: There is a similar mild atelectasis at the left lung base. Stable minimal biapical pleural-parenchymal scarring. Few scattered calcified granulomas. Patent central airways. Pleura: No substantial change in the left pleural thickening. For example, unchanged 10 mm thickness of the lower medial pleura (2:70). Mediastinum: Status post left antonio-thyroidectomy. Trace pericardial fluid. Status post CABG. Patulous esophagus. Lymph Nodes: Similar 9 mm short axis subaortic lymph node (2:29), previously 10 mm. Decreased left anterior diaphragmatic lymph node measuring 6 mm (2:64), previously measured as 9 mm. Upper Abdomen: Please see concurrent abdominal CT for abdominal findings. Chest Wall: Postsurgical changes are in the left chest wall. Bones: No destructive lesions. Status post median sternotomy. Redemonstrated partial fusion of the T9, T10, and T11 vertebral bodies. Degenerative changes are in the imaged spine. Procedure Note Gloria Mitchell MD - 01/02/2025 CT CHEST WITHOUT CONTRAST Referring clinician's provided indication for this examination in Epic:Mesothelioma staging TECHNIQUE: Multidetector CT of the chest was performed without intravenouscontrast using tailored dose modulation. COMPARISON: CT CHEST WITH CONTRAST 2024- FINDINGS: Devices/Tubes/Lines: None. Lungs: There is a similar mild atelectasis at the left lung base. Stableminimal biapical pleural-parenchymal scarring. Few scattered calcifiedgranulomas. Patent central airways. Pleura: No substantial change in the left pleural thickening. For example,unchanged 10 mm thickness of the lower medial pleura (2:70). Mediastinum: Status post left antonio-thyroidectomy. Trace pericardial fluid.Status post CABG. Patulous esophagus. Lymph Nodes: Similar 9 mm short axis subaortic lymph node (2:29),previously 10 mm. Decreased left anterior diaphragmatic lymph nodemeasuring 6 mm (2:64), previously measured as 9 mm. Upper Abdomen: Please see concurrent abdominal CT for abdominalfindings. Chest Wall: Postsurgical changes are in the left chest wall. Bones: No destructive lesions. Status post median sternotomy.Redemonstrated partial fusion of the T9, T10, and T11 vertebral bodies.Degenerative changes are in the imaged spine. IMPRESSION: 1. No substantial change in the left pleural thickening. 2. Decreased size of a left anterior diaphragmatic lymph node and similarsubaortic lymph node. us Jonathon Gallardo MD IM CT CHEST Final Result * CT ABDOMEN/PELVIS WITH CONTRAST (12/27/2024 11:02 AM EDT) Anatomical Region Laterality Modality Abdomen, Pelvis Computed Tomogra phy 01/04/2025 4:54 PM EDT Impressions 01/04/2025 5:14 PM EDT 1. Development of mild free fluid within the upper abdomen (would be difficult to drain). 2. No evidence of metastatic disease within the abdomen and pelvis. 3. 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 Narrative 01/04/2025 5:[address] ABDOMEN/PELVIS WITH CONTRAST Review of the Electronic Medical Record reveals History of malignant mesothelioma, epithelioid type. Restaging/follow-up. TECHNIQUE: Multidetector-row CT of the abdomen and pelvis was performed after administration of intravenous contrast using tailored dose modulation techniques. Images were reconstructed in the axial, coronal, and sagittal planes. COMPARISON: CT abdomen and pelvis 11/10/2024, 09/12/2024 and 03/29/2024. PET/CT 02/14/2024 and 10/04/2024. FINDINGS: Lower Chest: Left-sided pleural thickening again evident, similar to that shown previously, shown to have uptake on PET/CT. Liver: Normal size, shape and density to the liver. No liver mass or surface irregularity. Biliary: Nondistended gallbladder. Mild dependent density within the gallbladder may represent sludge or small non-calcified calculi. No biliary dilation. Spleen: Normal size, shape and density to the spleen other than for redemonstration of focal calcification lateral aspect of the spleen posteriorly. Pancreas: Normal. No masses or ductal dilatation. Adrenal Glands: Normal. No nodules. Kidneys/Ureters: Normal. No solid masses, stones, or hydronephrosis. Bowel: Multiple diverticula within the left colon and sigmoid colon without wall thickening or acute change in adjacent fat density. No evidence of superimposed diverticulitis. No intestinal dilation. Peritoneum/Retroperitoneum: Localized fluid within the upper abdomen immediately underneath the diaphragm, adjacent to the liver, spleen and stomach. No sizable collection within the lower abdomen/pelvic. Lymph Nodes: Normal. No lymphadenopathy. Pelvic Organs/Bladder: Normal. No mass. Vessels: Mural calcification affects nondilated abdominal aorta. No flow limiting stenosis identified affecting aorta or major branch vessels. Normal portal venous and mesenteric enhancement. Variant venous anatomy within the abdomen. 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 Bones/Soft Tissues: Multilevel degenerative changes throughout the spine. Mild scoliosis convex left thoracolumbar junction and right within the mid to lower lumbar spine. No aggressive focal bony lesion identified. Procedure Note Justo Payne MD - 01/04/2025 CT ABDOMEN/PELVIS WITH CONTRAST Review of the Electronic Medical Record reveals History of malignantmesothelioma, epithelioid type. Restaging/follow-up. TECHNIQUE: Multidetector-row CT of the abdomen and pelvis was performedafter administration of intravenous contrast using tailored dosemodulation techniques. Images were reconstructed in the axial, coronal,and sagittal planes. COMPARISON: CT abdomen and pelvis 11/10/2024, 09/12/2024 and 03/29/2024.PET/CT 02/14/2024 and 10/04/2024. FINDINGS: Lower Chest: Left-sided pleural thickening again evident, similar to thatshown previously, shown to have uptake on PET/CT. Liver: Normal size, shape and density to the liver. No liver mass orsurface irregularity. Biliary: Nondistended gallbladder. Mild dependent density within thegallbladder may represent sludge or small non-calcified calculi. Nobiliary dilation. Spleen: Normal size, shape and density to the spleen other than forredemonstration of focal calcification lateral aspect of the spleenposteriorly. Pancreas: Normal. No masses or ductal dilatation. Adrenal Glands: Normal. No nodules. Kidneys/Ureters: Normal. No solid masses, stones, or hydronephrosis. Bowel: Multiple diverticula within the left colon and sigmoid colonwithout wall thickening or acute change in adjacent fat density. Noevidence of superimposed diverticulitis. No intestinal dilation. Peritoneum/Retroperitoneum: Localized fluid within the upper abdomen immediately underneath thediaphragm, adjacent to the liver, spleen and stomach. No sizablecollection within the lower abdomen/pelvic. Lymph Nodes: Normal. No lymphadenopathy. Pelvic Organs/Bladder: Normal. No mass. Vessels: Mural calcification affects nondilated abdominal aorta. No flowlimiting stenosis identified affecting aorta or major branch vessels.Normal portal venous and mesenteric enhancement. Variant venous anatomywithin the abdomen. Duplicated IVC, separate left-sided IVC continues upinto the upper abdomen than joints left renal vein which passes in aretroaortic location. 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 Bones/Soft Tissues: Multilevel degenerative changes throughout the spine.Mild scoliosis convex left thoracolumbar junction and right within the midto lower lumbar spine. No aggressive focal bony lesion identified. IMPRESSION: 1. Development of mild free fluid within the upper abdomen (would bedifficult to drain). 2. No evidence of metastatic disease within the abdomen and pelvis. 3. 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 Josefina Erazo NP IMG CT ABD/PELVIS Final Result * (ABNORMAL) Comprehensive metabolic panel (12/26/2024 1:51 PM EDT) Only the most recent of4 resultswithin the time period is included. SODIUM 136 133 - 146 mmol/L [facility] POTASSIUM 4.5 3.3 - 5.1 mmol/L [facility] CHLORIDE 98 96 - 108 mmol/L [facility] CO2 29 21 - 35 mmol/L [facility] BUN 16 6 - 19 mg/dL [facility] CREATININE 1.00 0.5 - 1.5 mg/dL [facility] GLUCOSE 128(H) 70 - 99 mg/dL [facility] ALBUMIN 4.1 3.9 - 4.8 g/dL [facility] TOTAL PROTEIN 7.5 6.5 - 8.0 g/dL [facility] CALCIUM 9.3 8.4 - 10.3 mg/dL [facility] ALKALINE PHOSPHATASE 89 39 - 117 U/L [facility] TOTAL BILIRUBIN 0.3 0.0 - 1.2 mg/dL [facility] AST 28 0 - 37 U/L [facility] ALT 28 0 - 40 U/L [facility] GLOBULIN 3.4 1 - 4.8 g/dL [facility] EGFR 75 >59 mL/min/1.7 3m2 [facility] Comment:Estimated glomerular filtration rate calculated using the CKD-EPI refit equation. ANION GAP 14 10 - 20 mmol/L [facility] Blood 12/26/2024 1:51 PM EDT 12/26/2024 1:57 PM EDT Josefina Erazo NP LAB BLOOD ORDERABLES Fin al Result [address] [id number] * (ABNORMAL) CBC and differential (12/26/2024 1:51 PM EDT) Only the most recent of4 resultswithin the time period is included. WBC 5.75 4.00 - 11.00 K/uL [facility] RBC 3.83(L) 4.50 - 5.90 M/uL [facility] HGB 11.6(L) 13.5 - 17.5 g/dL [facility] HCT 35.9(L) 41.0 - 53.0 % [facility] PLT 381 150 - 450 K/uL [facility] MCV 93.7 80.0 - 100.0 fL [facility] MCH 30.3 27.0 - 31.0 pg [facility] MCHC 32.3 32.0 - 36.0 g/dL [facility] RDW 14.7(H) 11.5 - 14.5 % [facility] MPV 9.3 8.4 - 12.0 fL [facility] NRBC 0.00 0.00 /100 WBCs [facility] ABSOLUTE NRBC 0.00 0.00 K/uL [facility] DIFF METHOD Auto [facility] NEUTS 89.8(H) 48.0 - 76.0 % [facility] LYMPHS 5.4(L) 18.0 - 41.0 % [facility] MONOS 2.6(L) 4.0 - 11.0 % [facility] EOS 1.0 0.0 - 5.0 % [facility] BASOS 0.7 0.0 - 1.5 % [facility] Granulocytes, immature (%) 0.5 0.0 - 0.9 % [facility] ABSOLUTE NEUTS 5.16 1.92 - 7.60 K/uL [facility] ABSOLUTE LYMPHS 0.31(L) 0.72 - 4.10 K/uL [facility] ABSOLUTE MONOS 0.15(L) 0.16 - 1.10 K/uL [facility] ABSOLUTE EOS 0.06 0.00 - 0.50 K/uL [facility] ABSOLUTE BASOS 0.04 0.00 - 0.15 K/uL [facility] Granulocytes, immature 0.03 0.00 - 0.09 K/uL [facility] Blood 12/26/2024 1:51 PM EDT 12/26/2024 1:57 PM EDT Josefina Erazo [facility] LAB BLOOD ORDERABLES Fin al Result [facility] [address] [place] [address] * Ambulatory referral to [facility] Physical Therapy (11/23/2024 12:31 PM EDT) Other us Grissom W Alejandra DO AMB [facility] REFERRALS Final Res ult * MRI BRAIN WITH AND WITHOUT CONTRAST (11/20/2024 10:17 PM EDT) Anatomical Region Laterality Modality Head Magnetic Resonan ce 11/22/2024 5:02 PM EDT Impressions 11/22/2024 5:16 PM EDT 1. No evidence of intracranial metastatic disease. 2. Several indeterminate osseous lesions in the left parietal bone and right skull base. The right skull base lesion has been present dating back to the PET/CT from 02/14/2024 and there was no significant associated FDG uptake. The left parietal bone lesions were not included within the [id number] on the prior PET/CTs. RECOMMENDATION: Follow-up brain MRI in 3 months. Narrative 11/22/2024 5:16 PM EDT MRI BRAIN WITH AND WITHOUT CONTRAST Referring clinician's provided indication for this examination in Epic: * Non- small cell lung cancer, metastatic, assess treatment response; mesothelioma, dizziness TECHNIQUE: MRI BRAIN WITH AND WITHOUT CONTRAST Multi-sequence, multi-planar MRI of the brain was performed without and with intravenous contrast. COMPARISON: PET CTs dated 02/14/2024 and 10/04/2024 FINDINGS: Brain Parenchyma: No evidence of acute infarct, mass lesion, or acute hemorrhage. No abnormal enhancement. Mild to moderate scattered foci of T2 hyperintensity in the cerebral white matter, likely a manifestation of chronic small vessel disease. There is a punctate focus of susceptibility artifact in the right cerebellum, consistent with a chronic microhemorrhage. Ventricular System and Extra-Axial Spaces: No midline shift. No hydrocephalus. No extra-axial collections. Extracranial Structures: Arterial flow voids in the skull base are present. There are several T1 hypointense enhancing lesions in the left parietal bone (images 143 and 136, series 3)). There is also a T1 hypointense lesion in the right paramedian skull base involving the right clivus and right basiocciput. There is a corresponding sclerotic lesion in the right skull base on the PET CT from 10/04/2024, but no significant associated FDG uptake. This sclerosis was also present on the prior PET/CT from 02/14/2024. Procedure Note Nomi Alvarado MD - 11/22/2024 MRI BRAIN WITH AND WITHOUT CONTRAST Referring clinician's provided indication for this examination in Epic: *Non- small cell lung cancer, metastatic, assess treatment response;mesothelioma, dizziness TECHNIQUE: MRI BRAIN WITH AND WITHOUT CONTRAST Multi-sequence, multi-planar MRI of the brain was performed without andwith intravenous contrast. COMPARISON: PET CTs dated 02/14/2024 and 10/04/2024 FINDINGS: Brain Parenchyma: No evidence of acute infarct, mass lesion, or acutehemorrhage. No abnormal enhancement. Mild to moderate scattered foci ofT2 hyperintensity in the cerebral white matter, likely a manifestation ofchronic small vessel disease. There is a punctate focus of susceptibilityartifact in the right cerebellum, consistent with a chronicmicrohemorrhage. Ventricular System and Extra-Axial Spaces: No midline shift. Nohydrocephalus. No extra-axial collections. Extracranial Structures: Arterial flow voids in the skull base arepresent. There are several T1 hypointense enhancing lesions in the leftparietal bone (images 143 and 136, series 3)). There is also a [id number] lesion in the right paramedian skull base involving the rightclivus and right basiocciput. There is a corresponding sclerotic lesion inthe right skull base on the PET CT from 10/04/2024, but no significantassociated FDG uptake. This sclerosis was also present on the prior PET/CTfrom 02/14/2024. IMPRESSION: 1. No evidence of intracranial metastatic disease. 2. Several indeterminate osseous lesions in the left parietal bone andright skull base. The right skull base lesion has been present dating backto the PET/CT from 02/14/2024 and there was no significant associated FDGuptake. The left parietal bone lesions were not included within potacxiq-nq-lody on the prior PET/CTs. RECOMMENDATION: Follow-up brain MRI in 3 months. us Jaciel W Alejandra DO IMG MR HEAD/NECK Final Resu lt * CT CHEST WITH CONTRAST (11/10/2024 10:54 AM EDT) Anatomical Region Laterality Modality Chest Computed Tomogra phy 11/13/2024 3:03 PM EDT Impressions 11/13/2024 3:11 PM EDT 1. No substantial change in the left pleural thickening. 2. Similar subaortic and left anterior diaphragmatic lymph nodes. Narrative 11/13/2024 3:[address] CHEST WITH CONTRAST Referring clinician's provided indication for this examination in Epic: Mesothelioma assess response to treatment TECHNIQUE: Multidetector CT of the chest was performed with intravenous contrast using tailored dose modulation techniques. COMPARISON: NM PET CT SKULL BASE TO MID THIGHS ; CT CHEST WITH CONTRAST FINDINGS: Devices/Tubes/Lines: None. Lungs: Similar mild atelectasis of the left lung. Stable mild biapical scarring. Few scattered calcified granulomas. Patent central airways. Pleura: No substantial change in the left pleural thickening. Resistor Inspector examples include 10 mm in thickness of the lower medial pleura (2:43). Mediastinum: Trace pericardial effusion. 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 Status post left partial thyroidectomy. Patulous esophagus. Lymph Nodes: Similar 10 mm short subaortic lymph node (2:53), previously 11 mm and a 9 mm left diaphragmatic lymph node (3:113), previously 10 mm. Upper Abdomen: Please see concurrent abdominal CT for abdominal findings. Chest Wall: Postsurgical changes are in the left chest wall. Bones: No destructive osseous lesions. Status post median sternotomy. Degenerative changes are in the imaged spine. There is partial fusion of the T9, T10, and T11 vertebral bodies. Procedure Note Gloria Mitchell MD - 11/13/2024 CT CHEST WITH CONTRAST Referring clinician's provided indication for this examination in Epic:Mesothelioma assess response to treatment TECHNIQUE: Multidetector CT of the chest was performed with intravenouscontrast using tailored dose modulation techniques. COMPARISON: NM PET CT SKULL BASE TO MID THIGHS ; CT CHEST WITHCONTRAST FINDINGS: Devices/Tubes/Lines: None. Lungs: Similar mild atelectasis of the left lung. Stable mild biapicalscarring. Few scattered calcified granulomas. Patent central airways. Pleura: No substantial change in the left pleural thickening.Resistor Inspector examples include 10 mm in thickness of the lower medialpleura (2:43). Mediastinum: Trace pericardial effusion. Severe amount of coronarycalcifications status post CABG. Status post left partial thyroidectomy.Patulous esophagus. Lymph Nodes: Similar 10 mm short subaortic lymph node (2:53), [id number] mm and a 9 mm left diaphragmatic lymph node (3:113), previously 10mm. Upper Abdomen: Please see concurrent abdominal CT for abdominalfindings. Chest Wall: Postsurgical changes are in the left chest wall. Bones: No destructive osseous lesions. Status post median sternotomy.Degenerative changes are in the imaged spine. There is partial fusion ofthe T9, T10, and T11 vertebral bodies. IMPRESSION: 1. No substantial change in the left pleural thickening. 2. Similar subaortic and left anterior diaphragmatic lymph nodes. us Bhavya BORREGO IMG CT CHEST Final Result * CT ABDOMEN/PELVIS WITH CONTRAST (11/10/2024 10:54 AM EDT) Anatomical Region Laterality Modality Abdomen, Pelvis Computed Tomogra phy 11/13/2024 6:19 PM EDT Impressions 11/13/2024 6:26 PM EDT 1. Interval decrease in the perihilar and left upper quadrant peritoneal fat stranding. 2. No new or growing suspicious abdominal/pelvic lymphadenopathy. Please see separately dictated CT chest for findings above the level of the diaphragm. Narrative 11/13/2024 6:[address] ABDOMEN/PELVIS WITH CONTRAST Referring clinician's provided indication for this examination in Epic: * Mesothelioma, assess treatment response TECHNIQUE: Multidetector-row CT of the abdomen and pelvis was performed after administration of intravenous contrast using tailored dose modulation techniques. Images were reconstructed in the axial, coronal, and sagittal planes. COMPARISON: Same-day CT chest. CT abdomen/pelvis 09/12/2024. PET/CT 10/04/2024. FINDINGS: Lower Chest: CT chest from the same day is reported separately. Liver: Subcentimeter hypodense lesions are too small to definitively characterize, but most likely represent cysts. Biliary: The gallbladder is unremarkable. No biliary ductal dilatation. Spleen: Coarse calcification of the spleen, unchanged. No new or suspicious splenic lesions. Pancreas: Normal. No masses or ductal dilatation. Adrenal Glands: Normal. No nodules. Kidneys/Ureters: Normal. No solid masses, stones, or hydronephrosis. Bowel: Normal. No distention or wall thickening. Peritoneum/Retroperitoneum: Interval decrease in the perihepatic fat stranding (2-49). Similar slightly decreased fat stranding in the left upper quadrant (2- 28). Suspect bilateral inguinal cord lipoma. Lymph Nodes: Normal. No lymphadenopathy by CT size criteria. Pelvic Organs/Bladder: Prostatic calcifications. No mass. Vessels: Moderate vascular calcifications of the abdominal aorta. No abdominal aortic aneurysm. 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 The splenic vein, portal vein and SMV are patent. Bones/Soft Tissues: Similar fusion of the lower thoracic vertebral bodies. Multilevel degenerative changes of the spine, similar to prior. No destructive osseous lesions. Procedure Note Sarah Roque MD - 11/13/2024 CT ABDOMEN/PELVIS WITH CONTRAST Referring clinician's provided indication for this examination in Epic: *Mesothelioma, assess treatment response TECHNIQUE: Multidetector-row CT of the abdomen and pelvis was performedafter administration of intravenous contrast using tailored dosemodulation techniques. Images were reconstructed in the axial, coronal,and sagittal planes. COMPARISON: Same-day CT chest. CT abdomen/pelvis 09/12/2024. PET/CT10/04/2024. FINDINGS: Lower Chest: CT chest from the same day is reported separately. Liver: Subcentimeter hypodense lesions are too small to definitivelycharacterize, but most likely represent cysts. Biliary: The gallbladder is unremarkable. No biliary ductal dilatation. Spleen: Coarse calcification of the spleen, unchanged. No new orsuspicious splenic lesions. Pancreas: Normal. No masses or ductal dilatation. Adrenal Glands: Normal. No nodules. Kidneys/Ureters: Normal. No solid masses, stones, or hydronephrosis. Bowel: Normal. No distention or wall thickening. Peritoneum/Retroperitoneum: Interval decrease in the perihepatic fatstranding (2-49). Similar slightly decreased fat stranding in the leftupper quadrant (2-28). Suspect bilateral inguinal cord lipoma. Lymph Nodes: Normal. No lymphadenopathy by CT size criteria. Pelvic Organs/Bladder: Prostatic calcifications. No mass. Vessels: Moderate vascular calcifications of the abdominal aorta. Noabdominal aortic aneurysm. Incidental note is made of duplicated IVC, which merges in the upperabdomen. The splenic vein, portal vein and SMV are patent. Bones/Soft Tissues: Similar fusion of the lower thoracic vertebral bodies.Multilevel degenerative changes of the spine, similar to prior. Nodestructive osseous lesions. IMPRESSION: 1. Interval decrease in the perihilar and left upper quadrant peritonealfat stranding. 2. No new or growing suspicious abdominal/pelvic lymphadenopathy. Please see separately dictated CT chest for findings above the level ofthe diaphragm. us Bhavya BORREGO IMG CT ABD/PELVIS Final Resul t from Last 3 Months Insurance MEDICARE PART A & B [employer] SUPPLEMENT MEDICARE PART A & B [employer] MED[employer] SUPPLEMENT MEDICARE PART A & B [facility] MEDEX SUPPLEMENT MEDICARE PART A & B Member Subscriber Plan / Payer (Ef fective 2007-Present) Name:Parish Ibanez Member ID:[id number] Relation to Subscriber:Self Name:Parish Ibanez Subscriber ID:[id number] Payer ID:[id number] Group ID:Not on file Type:Medicare Address: [employer] [address] [place] [id number] [employer] MEDEX SUPPLEMENT MEDICARE PART A & B [employer] MEDEX SUPPLEMENT MEDICARE PART A & B [employer] MED[employer] SUPPLEMENT MEDICARE PART A & B [employer] MED[employer] SUPPLEMENT MEDICARE PART A & B [employer] MED[employer] SUPPLEMENT MEDICARE PART A & B [employer] MED[employer] SUPPLEMENT Advance Directives For more information, please contact: [phone] (9AM - 5PM [facility], Tuesday-Tuesday) Documents on File Type Date Recorded Patient Resistor Inspector Expl anation Healthcare Proxy 04/02/2024 Healthcare Proxy signed by PT 03/25/24 Care Teams School Bus Attendant Relationship Specialty Start Date End Date Nash Brown MD [address] [place] [address] Drive [address] [place] [phone] PCP - General Internal Medicine 09/07/23 Jaciel Roberts DO [address] [place] [phone] [email or web address] Primary Oncologist Hematology and Oncology 03/14/24 Bhavya Hudson FNP [address] [place] [phone] Nurse Practitioner Medical Oncology 05/15/24 Josefina Erazo NP [address] [place] [phone] Nurse Practitioner 11/26/24 Nika Otto CNP [address] [place] [phone] Nurse Practitioner Nurse Practitioner 01/10/25 Additional Source Comments The information contained in this document represents components of the legal health record. It is not the complete legal health record.[facility]
--- OUTSIDE RECORDS SUMMARY | 2025-02-05 13:39 | XMS_ITS | Encounter Summary ---
Author Organization [facility] Address [facility] [employer] [facility] [address] [place] [address] Phone Care Team Providers Care Visual Manager Name Role Phone Nash Brown MD Primary Care Provider Jaciel Roberts DO Unavailable Bhavya Hudson PRODUCT SAFETY MANAGER Unavailable [phone] Josefina Erazo KINDERGARTNERS HELPER Unavailable Nika Otto NATURE PHOTOGRAPHER Unavailable Encounter Details Date Type Department Care Team (Late st Contact Info) Description 03/21/2024 Procedure Pass [facility] [address] [place] [address] Social History Tobacco Use Types Packs/Day Years [...] (Latest Contact Info) Description 01/11/2025 Procedure Pass [address] [address] 01/11/2025 Procedure Pass [address] [address] 02/06/2025 2:30 PM EDT Office Visit [facility] [address] [place] [phone] Jaciel Roberts, DO [address] [place] [phone] [email or web address] Annika Bowles, PT [address] [place] [address] 03/27/2025 11:15 AM EDT Appointment [address] [address] Nika Otto CNP [address] [place] [phone] 04/03/2025 2:30 PM EDT Appointment [facility] [address] [place] [phone] Jaciel Roberts, DO [address] [place] [phone] [email or web address] 04/03/2025 3:30 PM EDT Office Visit [facility] at [address] [address] Jaciel Roberts, DO [address] [place] [phone] [email or web address] 2025 10:00 AM EST Telemedicine - audio only [facility] [address] [place] [address] Jonathon Gallardo MD [address] [place] [address] Division [place] [address] [email or web address] documented as of this encounter Visit Diagnoses Not on filedocumented in this encounter Additional Health Concerns Infection Onset Date Last Indicated Resolved Time CDiff-Risk 04/02/2024 04/04/2024 04/04/2024 4:35 PM EDT CoV-Risk 07/23/2024 07/23/2024 08/03/2024 1:21 AM EST Assessment Noted Time PHQ-2 Depression Total Score: 0 03/12/20 12:23 PM EDT documented as of this encounter Care Teams Visual Manager Relationship Specialty Start Date End Date Nash Brown MD [address] [place] [phone] PCP - General Internal Medicine 09/07/23 Jaciel Roberts DO [address] [place] [phone] [email or web address] Primary Oncologist Hematology and Oncology 03/14/24 Bhavya Hudson FNP [address] [place] [address] [email or web address] Nurse Practitioner Medical Oncology 05/15/24 Josefina Erazo NP [address] [place] [phone] [email or web address] Nurse Practitioner 11/26/24 Nika Otto CNP [address] [place] [id number] [email or web address] Nurse Practitioner Nurse Practitioner 01/10/25 documented as of this encounter Additional Source Comments The information contained in this document represents components of the legal health record. It is not the complete legal health record.[facility]
--- OUTSIDE RECORDS SUMMARY | 2025-02-05 13:39 | XMS_ITS | Encounter Summary ---
Author Organization [facility] Address [address] [place] [address] Phone Care Team Providers Care Trimmer Hand Name Role Phone Nash Brown MD Primary Care Provider [phone] Jaciel Roberts DO Unavailable Bhavya Hudson GLOBAL POSITION SYSTEM TECHNICIAN Unavailable Josefina Erazo OFFSHORE DIVER Unavailable Nika Otto PACKAGE LINE OPERATOR Unavailable Reason for Referral * MRI/CAT Scan - Closed Specialty Diagnoses / Procedures Referred By Ray t Referred To Contact Radiology Diagnoses Diverticulitis of intestine without perforation or abscess with bleeding, unspecified part of intestinal tract Procedures CT Abdomen/Pelvis Nash Brown MD Phone: tel: fax: Referral ID Status Reason Start Date Expiration Date Visits Re quested Visits Authorized [id number] Closed 03/29/2024 03/29/2025 1 1 Encounter Details Date Type Department Care Team (Latest Contact Info) Description 03/29/2024 Transcribe Orders Virtual Department [address] [place] [address] Nash Brown MD [address] [place] [address] Diverticulitis of intestine without perforation or abscess with bleeding, unspecified part of intestinal tract (Primary Dx) Social History Tobacco Use Types Packs/Day Years [...] (Latest Contact Info) Description 01/11/2025 Procedure Pass [address] [address] 01/11/2025 Procedure Pass [address] [address] 02/06/2025 2:30 PM EDT Office Visit [facility] [address] [place] [address] Jaciel Roberts, DO [address] [place] [address] [email or web address] [email or web address] Annika Bowles, PT [address] [place] [address] 03/27/2025 11:15 AM EDT Appointment [address] [address] Nika Otto, GIGI [address] [place] [address] 04/03/2025 2:30 PM EDT Appointment [facility] [address] [place] [address] Jaciel Roberts, DO [address] [place] [address] [email or web address] 04/03/2025 3:30 PM EDT Office Visit [facility] [address] [place] [address] Jaciel Roberts, DO [address] [place] [address] [email or web address] 2025 10:00 AM EST Telemedicine - audio only [facility] [address] [place] [address] Jonathon Gallardo MD [address] [place] [address] Division [place] [address] [email or web address] documented as of this encounter Results * CT ABDOMEN/PELVIS WITH CONTRAST (03/29/2024 6:34 PM EDT) Anatomical Region Laterality Modality Abdomen, Pelvis Computed Tomogra phy 03/29/2024 6:48 PM EDT Impressions 03/29/2024 7:04 PM EDT 1. New extensive omental nodularity with omental caking, small volume ascites and peritoneal/retroperitoneal thickening, suspicious for metastatic disease. 2. Enlarged upper abdominal lymph nodes, suspicious for lizeth metastases. 3. Multiple colonic diverticuli. No definite focally inflamed diverticulum identified, noting that acute uncomplicated diverticulitis is difficult to exclude given the multiple areas of peritoneal thickening and fluid along the colon. A clinically significant result was initiated on 03/29/2024 7:04 PM, Message ID [id number]. Narrative 03/29/2024 7:[address] ABDOMEN/PELVIS WITH CONTRAST Referring clinician's provided indication for this examination in Epic: Outside Radiology Order; diverticulitis TECHNIQUE: Multidetector-row CT of the abdomen and pelvis was performed after administration of intravenous contrast using tailored dose modulation techniques. Images were reconstructed in the axial, coronal, and sagittal planes. COMPARISON: NM PET CT SKULL BASE TO MID THIGHS FINDINGS: Lower Chest: Dictated separately. Liver: No suspicious focal lesions. Biliary: No biliary ductal dilatation. Noninflamed gallbladder. Spleen: No splenomegaly. Pancreas: No focal mass or main pancreatic ductal dilatation. Adrenal Glands: No nodules. Kidneys/Ureters: No hydronephrosis or solid renal masses. No stones. Bowel: Multiple colonic diverticuli. There is a peripherally enhancing structure along the proximal descending colon measuring 18 x 18 mm (3:104) likely representing a metastatic deposit with adjacent ascitic fluid. No definite focally inflamed diverticulum is identified. Peritoneum/Retroperitoneum: Small volume ascites. New extensive omental nodularity with omental caking, for example, in the left upper quadrant a discrete nodule measuring 13 x 21 mm on series 3 image 71. Peritoneal/retroperitoneal thickening, for example on the left near the sigmoid colon as seen on series 3 image 157. Lymph Nodes: Enlarged periceliac lymph node measuring 10 mm (3:47), enlarged para-aortic node on the left measuring 12 mm (3:63). Pelvic Organs/Bladder: Prostatomegaly. Vessels: Azygous continuation of the IVC noted. Severe calcified and noncalcified atherosclerotic plaque in the abdominal aorta and branch vessels. Bones/Soft Tissues: No destructive osseous lesions. No acute fractures identified. Multilevel degenerative changes of the spine. Multiple fused vertebral bodies. Small fat-containing bilateral inguinal hernias. Procedure Note Messi Duque MD - 03/29/2024 CT ABDOMEN/PELVIS WITH CONTRAST Referring clinician's provided indication for this examination in Epic:Outside Radiology Order; diverticulitis TECHNIQUE: Multidetector-row CT of the abdomen and pelvis was performedafter administration of intravenous contrast using tailored dosemodulation techniques. Images were reconstructed in the axial, coronal,and sagittal planes. COMPARISON: TN PET CT SKULL BASE TO MID THIGHS FINDINGS: Lower Chest: Dictated separately. Liver: No suspicious focal lesions. Biliary: No biliary ductal dilatation. Noninflamed gallbladder. Spleen: No splenomegaly. Pancreas: No focal mass or main pancreatic ductal dilatation. Adrenal Glands: No nodules. Kidneys/Ureters: No hydronephrosis or solid renal masses. No stones. Bowel: Multiple colonic diverticuli. There is a peripherally enhancingstructure along the proximal descending colon measuring 18 x 18 mm (3:104)likely representing a metastatic deposit with adjacent ascitic fluid. Nodefinite focally inflamed diverticulum is identified. Peritoneum/Retroperitoneum: Small volume ascites. New extensive omentalnodularity with omental caking, for example, in the left upper quadrant adiscrete nodule measuring 13 x 21 mm on series 3 image 71.Peritoneal/retroperitoneal thickening, for example on the left near thesigmoid colon as seen on series 3 image 157. Lymph Nodes: Enlarged periceliac lymph node measuring 10 mm (3:47),enlarged para-aortic node on the left measuring 12 mm (3:63). Pelvic Organs/Bladder: Prostatomegaly. Vessels: Azygous continuation of the IVC noted. Severe calcified andnoncalcified atherosclerotic plaque in the abdominal aorta and branchvessels. Bones/Soft Tissues: No destructive osseous lesions. No acute fracturesidentified. Multilevel degenerative changes of the spine. Multiple fusedvertebral bodies. Small fat-containing bilateral inguinal hernias. IMPRESSION: 1. New extensive omental nodularity with omental caking, small volumeascites and peritoneal/retroperitoneal thickening, suspicious formetastatic disease. 2. Enlarged upper abdominal lymph nodes, suspicious for nodalmetastases. 3. Multiple colonic diverticuli. No definite focally inflameddiverticulum identified, noting that acute uncomplicated diverticulitis isdifficult to exclude given the multiple areas of peritoneal thickening andfluid along the colon. A clinically significant result was initiated on 03/29/2024 7:04 PM,Message ID [id number]. Nash Brown MD IMG CT ABD/PELVIS Final Resul t documented in this encounter Visit Diagnoses Diagnosis Diverticulitis of intestine without perforation or abscess with bleeding, unspecified part of intestinal tract- Primary Diverticulitis of intestine without perforation or abscess with bleeding, unspecified part of intestinal tract documented in this encounter Additional Health Concerns Infection Onset Date Last Indicated Resolved Time CDiff-Risk 04/02/2024 04/04/2024 04/04/2024 4:35 PM EDT CoV-Risk 07/23/2024 07/23/2024 08/03/2024 1:21 AM EST Assessment Noted Time PHQ-2 Depression Total Score: 0 03/12/20 12:23 PM EDT documented as of this encounter Care Teams Trimmer Hand Relationship Specialty Start Date End Date PoNash MD [address] [place] [address] [place] [phone] PCP - General Internal Medicine 09/07/23 Jaciel Roberts DO [address] [place] [address] [email or web address] [email or web address] Primary Oncologist Hematology and Oncology 03/14/24 Bhavya Hudson FNP [address] [place] [address] Nurse Practitioner Medical Oncology 05/15/24 Josefina Erazo NP [address] [place] [address] Nurse Practitioner 11/26/24 Nika Otto CNP [address] [place] [address] Nurse Practitioner Nurse Practitioner 01/10/25 documented as of this encounter Additional Source Comments The information contained in this document represents components of the legal health record. It is not the complete legal health record.[facility]
--- OUTSIDE RECORDS SUMMARY | 2025-02-05 13:39 | XMS_ITS | Encounter Summary ---
Author Organization [facility] Address [address] [place] [address] [address] [place] [address] Phone Care Team Providers Care Tyre Retreader Name Role Phone Nash Brown MD Primary Care Provider Jaciel Roberts DO Unavailable Bhavya Hudson TRAM DRIVER Unavailable Josefina Erazo ANALYSIS MANAGER Unavailable Nika Otto FIRE PREVENTION RESEARCH ENGINEER Unavailable Encounter Details Date Type Department Care Team (Late st Contact Info) Description 06/04/2024 Procedure Pass [facility], Ct Scan - [address] [address] Social History Tobacco Use Types Packs/Day Years Used Date Smoking Tobacco: Former Cigarettes Smokeless Tobacco: Never Comments:20 PY history (age 20-40, 1PPD) Alcohol Use Standard Drinks/Week Comments Yes 0 (1 standard drink = 0.6 oz pur e alcohol) rarely Home Health Assessment: Transportation Answer Date Recorded Lack of Transportation (Medical) No 04/13/2024 Lack of Transportation (Non-Medical) No 04/13/2024 Patient Unable or Declines to Respond No 04/13/2024 Education Answer Date Recorded Are you interested [...] as food, clothing, or medical care? No 04/05/2024 In the past 12 months have y ou been in a relationship with a person who hurts, threatens, or tries to control you? No 04/05/2024 Are you denied basic needs s uch as food, clothing, or medical care? No 04/05/2024 In the past 12 months have y ou been in a relationship with a person who hurts, threatens, or tries to control you? No 04/05/2024 Sex and Gender Information Value Date Recorded Sex Assigned at Male 09/07/2023 9:21 AM EDT Legal Sex Male 5:02 PM EST Gender Identity Male 09/07/2023 9:21 AM EDT Sexual Orientation Straight 09/07/2023 9: 21 AM EDT documented as of this encounter Plan of Treatment Upcoming Encounters Date Type Department Care Team (Latest Contact Info) Description 01/11/2025 Procedure Pass [address] [address] 01/11/2025 Procedure Pass [address] [address] 02/06/2025 2:30 PM EDT Office Visit [facility] 8 [place] [address] Jaciel Roberts, 30 [place] [address] [email or web address] Annika Bowles, PT 8 [place] [address] 03/27/2025 11:15 AM EDT Appointment [address] [address] Nika Otto, FIRE PREVENTION RESEARCH ENGINEER [address] [place] [address] 04/03/2025 2:30 PM EDT Appointment [facility] 30 [place] [address] Jaciel Roberts, DO [address] [place] [address] [email or web address] 04/03/2025 3:30 PM EDT Office Visit [facility] 30 [place] [address] Jaciel Roberts, DO [address] [place] [address] [email or web address] 2025 10:00 AM EST Telemedicine - audio only [facility] [address] [place] [address] Jonathon Gallardo MD [address] [place] [address] Division [place] [address] [email or web address] documented as of this encounter Visit Diagnoses Not on filedocumented in this encounter Additional Health Concerns Infection Onset Date Last Indicated Resolved Time CoV-Risk 07/23/2024 07/23/2024 08/03/2024 1:21 AM EST Assessment Noted Time PHQ-2 Depression Total Score: 0 03/12/20 12:23 PM EDT documented as of this encounter Care Teams Tyre Retreader Relationship Specialty Start Date End Date Nash Brown MD [address] [place] [phone] PCP - General Internal Medicine 09/07/23 Jaciel Roberts DO [address] [place] [address] [email or web address] Primary Oncologist Hematology and Oncology 03/14/24 Bhavya Hudson FNP [address] [place] [address] [email or web address] Nurse Practitioner Medical Oncology 05/15/24 Josefina Erazo NP [address] [place] [address] [email or web address] Nurse Practitioner 11/26/24 Nika Otto CNP [address] [place] [address] [email or web address] Nurse Practitioner Nurse Practitioner 01/10/25 documented as of this encounter Additional Source Comments The information contained in this document represents components of the legal health record. It is not the complete legal health record.[facility]
--- OUTSIDE RECORDS SUMMARY | 2025-02-05 13:39 | XMS_ITS | Encounter Summary ---
Author Organization [facility] Address Counts include 234 beds at the [facility] [employer] [facility] [address] [place] [address] Phone Care Team Providers Care Facility Rehab Director Name Role Phone Nash Brown MD Primary Care Provider [phone] Jaciel Roberts DO Unavailable [phone] Bhavya Hudson CLIENT MANAGER Unavailable [phone] Josefina Erazo PUNCHBOARD STUFFER Unavailable [phone] Nika Otto [employer]MER Unavailable Encounter Details Date Type Department Care Team (Late st Contact Info) Description 03/29/2024 Procedure Pass [facility], Ct Scan - [address] [address] Social History Tobacco Use Types Packs/Day Years [...] (Latest Contact Info) Description 01/11/2025 Procedure Pass [address] [address] 01/11/2025 Procedure Pass [address] [address] 02/06/2025 2:30 PM EDT Office Visit [facility] [address] [place] [address] Jaciel Roberts, DO [address] [place] [address] [email or web address] Annika Bowles, PT 8 [place] [address] 03/27/2025 11:15 AM EDT Appointment [address] [address] Nika Otto CNP [address] [place] [address] 04/03/2025 2:30 PM EDT Appointment [facility] [address] [place] [address] Jaciel Roberts, DO [address] [place] [address] [email or web address] 04/03/2025 3:30 PM EDT Office Visit [facility] at [address] [address] Jaciel Roberts, DO 30 [place] [address] [email or web address] 2025 10:00 AM EST Telemedicine - audio only [facility] [address] [place] [address] Jonathon Gallardo MD [address] [place] [address] Division [place] [address] [email or web address] documented as of this encounter Visit Diagnoses Not on filedocumented in this encounter Additional Health Concerns Infection Onset Date Last Indicated Resolved Time CDiff-Risk 04/02/2024 04/04/2024 04/04/2024 4:35 PM EDT CoV-Risk 07/23/2024 07/23/2024 08/03/2024 1:21 AM EST Assessment Noted Time PHQ-2 Depression Total Score: 0 03/12/20 12:23 PM EDT documented as of this encounter Care Teams Facility Rehab Director Relationship Specialty Start Date End Date Kevin, Nash Chirinos MD [address] [place] [phone] PCP - General Internal Medicine 09/07/23 Jaciel Roberts DO [address] [place] [address] [email or web address] Primary Oncologist Hematology and Oncology 03/14/24 Bhavya Hudson FNP 30 [place] [address] [email or web address] Nurse Practitioner Medical Oncology 05/15/24 Josefina Erazo NP [address] [place] [address] [email or web address] Nurse Practitioner 11/26/24 Nika Otto CNP [address] [place] [address] Nurse Practitioner Nurse Practitioner 01/10/25 documented as of this encounter Additional Source Comments The information contained in this document represents components of the legal health record. It is not the complete legal health record.[facility]
--- OUTSIDE RECORDS SUMMARY | 2025-02-05 13:39 | XMS_ITS | Encounter Summary ---
Author Organization [facility] Address [address] [place] [address] [address] [place] [address] Phone Care Team Providers Care Inside Meter Tester Name Role Phone Nash Brown MD Primary Care Provider [phone] Jaciel Roberts DO Unavailable [phone] Bhavya Hudson DELIVERY DIRECTOR Unavailable Josefina Erazo TINWARE LITHOGRAPH PRESS OPERATOR Unavailable Nika Otto TALENT CONSULTANT Unavailable Encounter Details Date Type Department Care Team (Late st Contact Info) Description 08/29/2024 Procedure Pass [facility], Ct Scan - [address] [address] Social History Tobacco Use Types Packs/Day Years [...] (Latest Contact Info) Description 01/11/2025 Procedure Pass [address] [address] 01/11/2025 Procedure Pass [address] [address] 02/06/2025 2:30 PM EDT Office Visit [facility] Services 8 [place] [address] Jaciel Roberts, [address] [place] [address] [email or web address] Annika Bowles, PT 8 [place] [address] 03/27/2025 11:15 AM EDT Appointment [address] [address] Nika Otto, TALENT CONSULTANT [address] [place] [address] 04/03/2025 2:30 PM EDT Appointment [facility] 30 [place] [address] aJciel Roberts, DO [address] [place] [address] [email or web address] 04/03/2025 3:30 PM EDT Office Visit [facility] 30 [place] [address] Jaciel Roberts, DO [address] [place] [address] [email or web address] 2025 10:00 AM EST Telemedicine - audio only [facility] [address] [place] [address] Jonathon Gallardo MD [address] [place] [address] Division [place] [address] [email or web address] documented as of this encounter Visit Diagnoses Not on filedocumented in this encounter Additional Health Concerns Assessment Noted Time PHQ-2 Depression Total Score: 0 03/12/20 24 12:23 PM EDT documented as of this encounter Care Teams Inside Meter Tester Relationship Specialty Start Date End Date Nash Brown MD [address] [place] [phone] PCP - General Internal Medicine 09/07/23 Jaciel Roberts DO [address] [place] [address] [email or web address] Primary Oncologist Hematology and Oncology 03/14/24 Bhavya Hudson FNP [address] [place] [address] [email or web address] Nurse Practitioner Medical Oncology 05/15/24 Josefina Erazo NP [address] [place] [address] [email or web address] Nurse Practitioner 11/26/24 Nika Otto CNP [address] [place] [address] [email or web address] Nurse Practitioner Nurse Practitioner 01/10/25 documented as of this encounter Additional Source Comments The information contained in this document represents components of the legal health record. It is not the complete legal health record.[facility]
--- OUTSIDE RECORDS SUMMARY | 2025-02-05 13:39 | XMS_ITS | Clinical Summary ---
Author Organization [facility] [employer] 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 He denies any clinical symptoms of heart failure and appears euvolemic on physical examination. Blood pressure abnormally low 05/07/2024 Hemidiaphragm paralysis 05/07/2024 Chest pain 05/07/2024 NSTEMI (non-ST elevated myoc ardial infarction) (CMS/HCC V24, CMS/HCC V28) 05/07/2024 Encounters Date Type Department Care Team Description 11/20/2024 1:10 PM EDT Office Visit [facility] Cardiology [facility] [address] [facility] [address] [place] [address] Camryn Carlos NP Coronary artery disease, unspecified vessel or lesion type, unspecified whether angina present, unspecified whether [place] or transplanted heart (Primary Dx); Atrial fibrillation, [...] Description 02/26/2025 8:10 AM EDT Office Visit [facility] [address] [place] [phone] Camryn Carlos NP [facility] [address] [place] [phone] Health Maintenance Due Date Last Done Comments [...] type, unspecified whether angina present, unspecified whether [place] or transplanted heart Atrial fibrillation, unspecified type (CMS/[facility] V24, CMS/[facility] V28) ANNUAL BMP BLOOD TEST Routine 02/20/2024 from Last 3 Months or Most Recently Relevant to Health Maintenance Results * ECG 12 lead (11/20/2024 1:13 PM EDT) Ventricular Rate ECG 68 BPM GEMUSE Atrial Rate 68 BPM GEMUSE QRS Duration 96 ms GEMUSE Q-T Interval 402 ms GEMUSE QTc 427 ms GEMUSE R [place] 104 degrees GEMUSE T [place] 147 degrees GEMUSE ECG Interpretation Normal sinus rhythm Lateral infarct , age undetermined Abnormal ECG No previous ECGs available Confirmed by Minnie KANG JAMES ([id number]) on 11/20/2024 3:37:51 PM GEMUSE 11/20/2024 1:13 PM EDT 11/20/2024 3:37 PM EDT us Camryn Carlos CASING FLUID TENDER ECG ORDERABLES Final Result GEMUSE from Last 3 Months Insurance MEDICARE [facility] Care Teams Automobile Salesman Relationship Specialty Start Date End Date Nash Brown MD [address] [facility] [address] [facility] [place] [address] PCP - General Internal Medicine 05/07/24
--- OUTSIDE RECORDS SUMMARY | 2025-02-05 13:39 | XMS_ITS | Encounter Summary ---
Author Organization [facility] Address [facility] [employer] [facility] [address] [place] [address] Phone Care Team Providers Care Atm Mechanic Name Role Phone Nash Brown MD Primary Care Provider [phone] Jaciel Roberts DO Unavailable Bhavya Hudson SAS ETL DEVELOPER Unavailable Josefina Eraoz BEATER HEAD Unavailable Nika Otto ELEMENTARY SUPERVISOR Unavailable Encounter Details Date Type Department Care Team (Late st Contact Info) Description 02/15/2024 Procedure Pass [facility] Cross Sectional Interventional Radiology [address] [place] [address] Social History Tobacco Use Types Packs/Day Years [...] (Latest Contact Info) Description 01/11/2025 Procedure Pass [address] [address] 01/11/2025 Procedure Pass [address] [address] 02/06/2025 2:30 PM EDT Office Visit [facility] [address] [place] [address] Jaciel Roberts, DO [address] [place] [address] [email or web address] Annika Bowles, PT 8 [place] [address] 03/27/2025 11:15 AM EDT Appointment [address] [address] Nika Otto CNP [address] [place] [address] 04/03/2025 2:30 PM EDT Appointment [facility] [address] [place] [address] Jaciel Roberts, DO [address] [place] [address] [email or web address] 04/03/2025 3:30 PM EDT Office Visit [facility] at [address] [address] Jaciel Roberts, DO [address] [place] [address] [email or web address]@[email or web address] 2025 10:00 AM EST Telemedicine - audio only [facility] 15 [place] [address] Jonathon Gallardo MD [address] [place] [address] Division [place] [address] [email or web address] documented as of this encounter Visit Diagnoses Not on filedocumented in this encounter Additional Health Concerns Infection Onset Date Last Indicated Resolved Time CDiff-Risk 04/02/2024 04/04/2024 04/04/2024 4:35 PM EDT CoV-Risk 07/23/2024 07/23/2024 08/03/2024 1:21 AM EST Assessment Noted Time PHQ-2 Depression Total Score: 2 02/20/20 9:55 AM EDT documented as of this encounter Care Teams Atm Mechanic Relationship Specialty Start Date End Date Nash Brown MD [address] [place] [phone] PCP - General Internal Medicine 09/07/23 Jaciel Roberts DO [address] [place] [address] [email or web address] Primary Oncologist Hematology and Oncology 03/14/24 Bhavya Hudson FNP [address] [place] [address] Nurse Practitioner Medical Oncology 05/15/24 Josefina Erazo NP [address] [place] [address] Nurse Practitioner 11/26/24 Nika Otto CNP [address] [place] [address] Nurse Practitioner Nurse Practitioner 01/10/25 documented as of this encounter Additional Source Comments The information contained in this document represents components of the legal health record. It is not the complete legal health record.[facility]
--- OUTSIDE RECORDS SUMMARY | 2025-02-05 13:39 | XMS_ITS | Encounter Summary ---
Author Organization [facility] Address [address] [place] [address] [address] [place] [address] Phone Care Team Providers Care Die Maker Name Role Phone Nash Brown MD Primary Care Provider [phone] Jaciel Roberts DO Unavailable [phone] Bhavya Hudson CREDIT RATING CHECKER Unavailable [phone] Josefina Erazo CMO & PRESIDENT Unavailable Nika Otto ORNAMENT SETTER Unavailable Encounter Details Date Type Department Care Team (Late st Contact Info) Description 08/29/2024 Procedure Pass [facility], Ct Scan - [address] [address] Social History Tobacco Use Types Packs/Day Years [...] (Latest Contact Info) Description 01/11/2025 Procedure Pass [address] [address] 01/11/2025 Procedure Pass [address] [address] 02/06/2025 2:30 PM EDT Office Visit [facility] 8 [place] [address] Jaciel Roberts, 30 [place] [address] [email or web address] Annika Bowles, PT 8 [place] [address] 03/27/2025 11:15 AM EDT Appointment [address] [address] Nika Otto, ORNAMENT SETTER [address] [place] [address] 04/03/2025 2:30 PM EDT Appointment [facility] 30 [place] [address] Jaciel Roberts, DO 30 [place] [address] [email or web address]@[email or web address] 04/03/2025 3:30 PM EDT Office Visit [facility] 30 [place] [address] Jaciel Roberts, DO 30 [place] [address] [email or web address]@[email or web address] 2025 10:00 AM EST Telemedicine - audio only [facility] [address] [place] [address] Jonathon Gallardo MD [address] [place] [address] Division [place] [address] [email or web address] documented as of this encounter Visit Diagnoses Not on filedocumented in this encounter Additional Health Concerns Assessment Noted Time PHQ-2 Depression Total Score: 0 03/12/20 24 12:23 PM EDT documented as of this encounter Care Teams Die Maker Relationship Specialty Start Date End Date Nash Brown MD [address] [place] [phone] PCP - General Internal Medicine 09/07/23 Jaciel Roberts DO [address] [place] [address] [email or web address] Primary Oncologist Hematology and Oncology 03/14/24 Bhavya Hudson FNP [address] [place] [address] [email or web address] Nurse Practitioner Medical Oncology 05/15/24 Josefina Erazo NP [address] [place] [address] [email or web address] Nurse Practitioner 11/26/24 Nika Otto CNP [address] [place] [address] [email or web address] Nurse Practitioner Nurse Practitioner 01/10/25 documented as of this encounter Additional Source Comments The information contained in this document represents components of the legal health record. It is not the complete legal health record.[facility]
--- OUTSIDE RECORDS SUMMARY | 2025-02-05 13:39 | XMS_ITS | Encounter Summary ---
Author Organization [facility] Address [address] [place] [address] [address] [place] [address] Phone Care Team Providers Care Claims Director Name Role Phone Nash Brown MD Primary Care Provider [phone] Jaciel Roberts DO Unavailable Bhavya Hudson LABOR GANG SUPERVISOR Unavailable Josefina Erazo CELL LEAD Unavailable Nika Otto LENS EDGER Unavailable Encounter Details Date Type Department Care Team (Late st Contact Info) Description 11/06/2024 Procedure Pass [facility], Ct Scan - [address] [address] Social History Tobacco Use Types Packs/Day Years [...] (Latest Contact Info) Description 01/11/2025 Procedure Pass [address] [address] 01/11/2025 Procedure Pass [address] [address] 02/06/2025 2:30 PM EDT Office Visit [facility] 8 [place] [address] Jaciel Roberts, 30 [place] [address] [email or web address] Annika Bowles, PT 8 [place] [address] 03/27/2025 11:15 AM EDT Appointment [address] [address] Nika Otto, LENS EDGER [address] [place] [address] 04/03/2025 2:30 PM EDT Appointment [facility] 30 [place] [address] Jaciel Roberts, DO 30 [place] [address] JERRY@[facility] 04/03/2025 3:30 PM EDT Office Visit [facility] [employer] 30 [place] [address] Jaciel Roberts, DO 30 [place] [address] [email or web address]@[facility] 2025 10:00 AM EST Telemedicine - audio only [facility] [address] [place] [address] Jonathon Gallardo MD [address] [place] [address] Division [place] [address] [email or web address] documented as of this encounter Visit Diagnoses Not on filedocumented in this encounter Additional Health Concerns Assessment Noted Time PHQ-2 Depression Total Score: 0 03/12/20 24 12:23 PM EDT documented as of this encounter Care Teams Claims Director Relationship Specialty Start Date End Date Nash Brown MD [address] [facility] [address] [place] [phone] PCP - General Internal Medicine 09/07/23 Jaciel Roberts DO [address] [place] [address] [email or web address] Primary Oncologist Hematology and Oncology 03/14/24 Bhavya Hudson FNP [address] [place] [address] [email or web address] Nurse Practitioner Medical Oncology 05/15/24 Josefina Erazo NP [address] [place] [address] [email or web address] Nurse Practitioner 11/26/24 Nika Otto CNP [address] [place] [address] [email or web address] Nurse Practitioner Nurse Practitioner 01/10/25 documented as of this encounter Additional Source Comments The information contained in this document represents components of the legal health record. It is not the complete legal health record.[facility]
--- OUTSIDE RECORDS SUMMARY | 2025-02-05 13:39 | XMS_ITS | Encounter Summary ---
Author Organization [facility] Address [facility] [employer] [facility] [address] [place] [address] Phone Care Team Providers Care Can Sterilizer Name Role Phone Nash Brown MD Primary Care Provider Jaciel Roberts DO Unavailable Bhavya Hudson AERODYNAMICS PROFESSOR Unavailable [phone] Josefina Erazo OVEN DUMPER Unavailable [phone] Nika Otto FEDERAL AGENT Unavailable Reason for Visit * Reason Onset Date Comments ?blood clot 01/10/2025 BN Encounter Details Date Type Department Care Team (Late st Contact Info) Description 01/10/2025 Telephone [facility] at [address] [address] Jaciel Roberts DO 30 [place] [address] [email or web address] ?blood clot (BN) Social History Tobacco Use Types Packs/Day Years [...] AM EDT documented as of this encounter Progress Notes * Kriss Beach RN - 02/01/2025 11:18 AM EDT Called Ray recommended he follow up with his primary re swelling of hand/arm. Reassured him ultrasound was negative for clot. He was appreciative of the follow up call * Kriss Beach RN - 02/01/2025 9:05 AM EDT Ray calls in this morning with same complaints, swelling of right arm/hand. Notes hardness above elbow. Ultrasound was negative for DVT, suggestions on next steps?pcp? * Priya Castano RN - 01/23/2025 9:32 AM EDT Ultrasound scheduled for 3pm today. Pt aware. * Kriss Beach RN - 01/23/2025 9:15 AM EDT Ray calls in reporting swelling of right arm above the elbow, down into hand. States at the last evaluation it was thought to be a bug bite causing the reddness and swelling. Hereports that did improve but now swelling of entire arm into hand with hardness above elbow in a back of arm * Kriss Beach RN - 01/10/2025 10:05 AM EDT Called and spoke with Ray, scheduled for visit tomorrow morning with Nika for evaluation * Kriss Beach RN - 01/10/2025 9:14 AM EDT Ray calls in stating he has an area on his right arm that is reddened and there is a hard nodule there. Been using ice pack with no improvement. Last infusion was in right arm per nursing notes. He questions if there is concern for blood clot. ? Need for ultrasound to r/o clot? documented in this encounter Plan of Treatment Upcoming Encounters Date Type Department Care Team (Latest Contact Info) Description 01/11/2025 Procedure Pass [address] [address] 01/11/2025 Procedure Pass [address] [address] 02/06/2025 2:30 PM EDT Office Visit [facility] 8 [place] [address] Jaciel Roberts, DO 30 [place] [address] [email or web address] Annika Bowles, PT 8 [place] [address] [email or web address] 03/27/2025 11:15 AM EDT Appointment [facility], Ct Scan - [address] [address] Nika Otto, GIGI 30 [place] [address] [email or web address] 04/03/2025 2:30 PM EDT Appointment [facility] [address] [place] [address] Jaciel Roberts, DO 30 [place] [address] [email or web address] 04/03/2025 3:30 PM EDT Office Visit [facility] at [address] [address] Jaciel Roberts, DO [address] [place] [address] [email or web address] 2025 10:00 AM EST Telemedicine - audio only [facility] [address] [place] [address] Jonathon Gallardo MD [address] [place] [address] Division of [place] [address] [email or web address] documented as of this encounter Visit Diagnoses Not on filedocumented in this encounter Additional Health Concerns Assessment Noted Time PHQ-2 Depression Total Score: 0 03/12/20 24 12:23 PM EDT documented as of this encounter Care Teams Can Sterilizer Relationship Specialty Start Date End Date Nash Brown MD [address] [place] [address] [address] [place] [phone] PCP - General Internal Medicine 09/07/23 Jaciel Roberts DO [address] [place] [address] [email or web address] Primary Oncologist Hematology and Oncology 03/14/24 Bhavya Hudson FNP [address] [place] [address] Nurse Practitioner Medical Oncology 05/15/24 Josefina Erazo NP [address] [place] [address] Nurse Practitioner 11/26/24 Nika Otto CNP [address] [place] [address] Nurse Practitioner Nurse Practitioner 01/10/25 documented as of this encounter Additional Source Comments The information contained in this document represents components of the legal health record. It is not the complete legal health record.[facility]
--- OUTSIDE RECORDS SUMMARY | 2025-02-05 13:39 | XMS_ITS | Encounter Summary ---
Author Organization [facility] Address [facility] [employer] [facility] [address] [place] [address] Phone Care Team Providers Care Hand Buffing Wheel Former Name Role Phone Nash Brown MD Primary Care Provider [phone] Jaciel Roberts DO Unavailable Bhavya Hudson REGULATOR ASSEMBLER Unavailable Josefina Erazo REMEDIATION CONSULTANT Unavailable Nika Otto DRILLING MACHINE OPERATOR Unavailable Encounter Details Date Type Department Care Team (Late st Contact Info) Description 03/21/2024 Procedure Pass [facility], Ct Scan - [address] [address] Social History Tobacco Use Types Packs/Day Years [...] (Latest Contact Info) Description 01/11/2025 Procedure Pass [address] [address] 01/11/2025 Procedure Pass [address] [address] 02/06/2025 2:30 PM EDT Office Visit [facility] [address] [place] [address] Jaciel Roberts, DO [address] [place] [address] [email or web address]@[email or web address] Annika Bowles, PT 8 [place] [address] 03/27/2025 11:15 AM EDT Appointment [address] [address] Nika Otto CNP [address] [place] [address] 04/03/2025 2:30 PM EDT Appointment [facility] [address] [place] [address] Jaciel Roberts, DO [address] [place] [address] JERRY@[facility] 04/03/2025 3:30 PM EDT Office Visit [facility] Center at [address] [address] Jaciel Roberts, DO 30 [place] [address] [email or web address] 2025 10:00 AM EST Telemedicine - audio only [facility] 15 [place] [address] Jonathon Gallardo MD [address] [place] [address] Division [place] [address] [email or web address] documented as of this encounter Visit Diagnoses Not on filedocumented in this encounter Additional Health Concerns Infection Onset Date Last Indicated Resolved Time CDiff-Risk 04/02/2024 04/04/2024 04/04/2024 4:35 PM EDT CoV-Risk 07/23/2024 07/23/2024 08/03/2024 1:21 AM EST Assessment Noted Time PHQ-2 Depression Total Score: 0 03/12/20 12:23 PM EDT documented as of this encounter Care Teams Hand Buffing Wheel Former Relationship Specialty Start Date End Date Kevin, Nash Chirinos MD [address] [place] [phone] PCP - General Internal Medicine 09/07/23 Jaciel Roberts DO 30 [place] [address] [email or web address] [place] Primary Oncologist Hematology and Oncology 03/14/24 Bhavya Hudson FNP 30 [place] [address] [email or web address] Nurse Practitioner Medical Oncology 05/15/24 Josefina Erazo NP 30 [place] [address] [email or web address] Nurse Practitioner 11/26/24 Nika Otto CNP [address] [place] [address] Nurse Practitioner Nurse Practitioner 01/10/25 documented as of this encounter Additional Source Comments The information contained in this document represents components of the legal health record. It is not the complete legal health record.[facility]
--- OUTSIDE RECORDS SUMMARY | 2025-02-05 13:39 | XMS_ITS | Encounter Summary ---
Author Organization [facility] Address [address] [place] [address] [address] [place] [address] Phone Care Team Providers Care Experimental Aircraft Mechanic Name Role Phone Nash Brown MD Primary Care Provider [phone] Jaciel Roberts DO Unavailable Bhavya Hudson INTEGRATED MARKETING INTERN Unavailable [phone] Josefina Erazo STEAM CONDITIONER FILLING Unavailable [phone] Nika Otto SUPERINTENDENT MENAGERIE Unavailable Encounter Details Date Type Department Care Team (Late st Contact Info) Description 11/06/2024 Procedure Pass [facility], Ct Scan - [address] [address] Social History Tobacco Use Types Packs/Day Years [...] Contact Info) Description 01/11/2025 Procedure Pass [address] [address] 01/11/2025 Procedure Pass [address] [address] 02/06/2025 2:30 PM EDT Office Visit [facility] Services 8 [place] [address] Jaciel Roberts, [address] [place] [address] [email or web address] Annika Bowles, PT 8 [place] [address] 03/27/2025 11:15 AM EDT Appointment [address] [address] Nika Otto, SUPERINTENDENT MENAGERIE [address] [place] [address] 04/03/2025 2:30 PM EDT Appointment [facility] 30 [place] [address] Jaciel Roberts, DO [address] [place] [address] [email or web address] 04/03/2025 3:30 PM EDT Office Visit [facility] 30 [place] [address] Jaciel Roberts, DO [address] [place] [address] JERRY@[email or web address] 2025 10:00 AM EST Telemedicine - audio only [facility] [address] [place] [address] Jonathon Gallardo MD [address] [place] [address] Division [place] [address] [email or web address] documented as of this encounter Visit Diagnoses Not on filedocumented in this encounter Additional Health Concerns Assessment Noted Time PHQ-2 Depression Total Score: 0 03/12/20 24 12:23 PM EDT documented as of this encounter Care Teams Experimental Aircraft Mechanic Relationship Specialty Start Date End Date Nash Brown MD [address] [place] [phone] PCP - General Internal Medicine 09/07/23 Jaciel Roberts DO [address] [place] [address] [email or web address] Primary Oncologist Hematology and Oncology 03/14/24 Bhavya Hudson FNP [address] [place] [address] [email or web address] Nurse Practitioner Medical Oncology 05/15/24 Josefina Erazo NP [address] [place] [address] [email or web address] Nurse Practitioner 11/26/24 Nika Otto CNP [address] [place] [address] [email or web address] Nurse Practitioner Nurse Practitioner 01/10/25 documented as of this encounter Additional Source Comments The information contained in this document represents components of the legal health record. It is not the complete legal health record.[facility]
--- OUTSIDE RECORDS SUMMARY | 2025-02-05 13:39 | XMS_ITS | Encounter Summary ---
Author Organization [facility] Address [facility] [employer] [facility] [address] [place] [address] Phone Care Team Providers Care Corrective Therapist Name Role Phone Nash Brown MD Primary Care Provider [phone] Jaciel Roberts DO Unavailable Bhavya Hudson CANDY ROLLING MACHINE OPERATOR Unavailable Josefina Erazo HAT FORMING MACHINE FEEDER Unavailable [phone] Nika Otto NURSE GYNECOLOGY Unavailable Encounter Details Date Type Department Care Team (Late st Contact Info) Description 01/10/2025 Orders Only [facility] [address] [place] [address] Uma Reyna 30 [place] [address] Mesothelioma (pleural) (Primary Dx) Social History Tobacco Use Types [...] Team (Latest Contact Info) Description 01/11/[address] [address] 01/11/[address] [address] 02/06/2025 2:30 PM EDT Office Visit [facility] 8 [place] [address] Jaciel Roberts, DO [address] [place] [address] [email or web address] Annika Bowles, PT 8 [place] [address] 03/27/2025 11:15 AM EDT Appointment [facility], Ct Scan - [address] [address] Nika Otto, GIGI [address] [place] [address] [email or web address] 04/03/2025 2:30 PM EDT Appointment [facility] [address] [place] [address] Jaciel Roberts, DO [address] [place] [address] [email or web address] 04/03/2025 3:30 PM EDT Office Visit [facility] at [address] [address] Jaciel Roberts, DO [address] [place] [address] [email or web address] 2025 10:00 AM EST Telemedicine - audio only [facility] [address] [place] [address] Jonathon Gallardo MD [address] [place] [address] Division [place] [address] [email or web address] Scheduled Orders Name Type Priority Associated Diagnoses Orde r Schedule CBC and differential Lab Routine Mesothelioma (pleural) Expected: 01/10/2025, Expires: 01/10/2026 Comprehensive metabolic panel Lab Routine Mesothelioma (pleural) Expected: 01/10/2025, Expires: 01/10/2026 documented as of this encounter Visit Diagnoses Diagnosis Mesothelioma (pleural)- Primary Malignant neoplasm of pleura, unspecified site documented in this encounter Additional Health Concerns Assessment Noted Time PHQ-2 Depression Total Score: 0 03/12/20 24 12:23 PM EDT documented as of this encounter Care Teams Corrective Therapist Relationship Specialty Start Date End Date Nash Brown MD [address] [place] [address] [place] [phone] PCP - General Internal Medicine 09/07/23 Jaciel Roberts DO [address] [place] [address] [email or web address] Primary Oncologist Hematology and Oncology 03/14/24 Bhavya Hudson FNP [address] [place] [address] Nurse Practitioner Medical Oncology 05/15/24 Josefina Erazo NP [address] [place] [address] Nurse Practitioner 11/26/24 Nika Otto CNP [address] [place] [address] Nurse Practitioner Nurse Practitioner 01/10/25 documented as of this encounter Additional Source Comments The information contained in this document represents components of the legal health record. It is not the complete legal health record.[facility]
--- OUTSIDE RECORDS SUMMARY | 2025-02-05 13:39 | XMS_ITS | Encounter Summary ---
Author Organization [facility] Address [address] [place] [address] [address] [place] [address] Phone Care Team Providers Care Grill Cook Name Role Phone Nash Brown MD Primary Care Provider [phone] Jaciel Roberts DO Unavailable [phone] Bhavya Hudson SHORTAGE WORKER Unavailable Josefina Erazo NUCLEAR CHEMISTRY TECHNICIAN Unavailable Nika Otto SHIPPING CLERK CRATING Unavailable Encounter Details Date Type Department Care Team (Late st Contact Info) Description 06/04/2024 Procedure Pass [facility], Ct Scan - [address] [address] Social History Tobacco Use Types Packs/Day Years [...] (Latest Contact Info) Description 01/11/2025 Procedure Pass [address] [address] 01/11/2025 Procedure Pass [address] [address] 02/06/2025 2:30 PM EDT Office Visit [facility] 8 [place] [address] Jaciel Roberts, 30 [place] [address] [email or web address] Annika Bowles, PT 8 [place] [address] 03/27/2025 11:15 AM EDT Appointment [address] [address] Nika Otto, SHIPPING CLERK CRATING [address] [place] [address] 04/03/2025 2:30 PM EDT Appointment [facility] [address] [place] [address] Jaciel Roberts, DO 30 [place] [address] [email or web address] 04/03/2025 3:30 PM EDT Office Visit [facility] 30 [place] [address] Jaciel Roberts, DO 30 [place] [address] [email or web address] 2025 10:00 AM EST Telemedicine - audio only [facility] [address] [place] [address] Jonathon Gallardo MD [address] [place] [address] Division [place] [address] [email or web address] documented as of this encounter Visit Diagnoses Not on filedocumented in this encounter Additional Health Concerns Infection Onset Date Last Indicated Resolved Time CoV-Risk 07/23/2024 07/23/2024 08/03/2024 1:21 AM EST Assessment Noted Time PHQ-2 Depression Total Score: 0 03/12/20 12:23 PM EDT documented as of this encounter Care Teams Grill Cook Relationship Specialty Start Date End Date Nash Brown MD [address] [place] [phone] PCP - General Internal Medicine 09/07/23 Jaciel Roberts DO 30 [place] [address] [email or web address] Primary Oncologist Hematology and Oncology 03/14/24 Bhavya Hudson FNP [address] [place] [address] [email or web address] Nurse Practitioner Medical Oncology 05/15/24 Josefina Erazo NP [address] [place] [address] [email or web address] Nurse Practitioner 11/26/24 Nika Otto CNP [address] [place] [address] [email or web address] Nurse Practitioner Nurse Practitioner 01/10/25 documented as of this encounter Additional Source Comments The information contained in this document represents components of the legal health record. It is not the complete legal health record.[facility]
== END 2025-02-05 13:53 | disposition home or self-care (01) ==
LOC: HO.HMCH 12:55
PROVIDERS: PCP Internal Medicine; Visit Provider Internal Medicine
DX: I89.0 Lymphedema, not elsewhere classified (principal); C45.9 Mesothelioma, unspecified

== ENCOUNTER → 2025-02-05 12:55 | Outpatient (BNVA) | payer MEDICARE, SELFPAY | PROVIDERS: PCP Internal Medicine; Visit Provider Internal Medicine | DX: I89.0 Lymphedema, not elsewhere classified (principal); C45.9 Mesothelioma, unspecified | CPT/HCPCS: 96127; 99212 ==

== ENCOUNTER 2025-03-05 14:35 | Outpatient (AMB) | payer MEDICARE, SELFPAY ==
--- OUTSIDE RECORDS SUMMARY | 2025-02-28 09:00 | XMS_ITS | Encounter Summary ---
Author Organization [facility] Address [address] [place] [address] Phone Care Team Providers Care Eyelet Cutter Name Role Phone Nash Brown MD Primary Care Provider [phone] Jaciel Roberts DO Unavailable [phone] Bhavya Hudson METAL FRAMER Unavailable [phone] Josefina Erazo ENGLISH LANGUAGE ARTS TEACHER Unavailable Nika Otto TINNING EQUIPMENT TENDER Unavailable Reason for Referral * MRI/CAT Scan - Closed Specialty Diagnoses / Procedures Referred By Ray keene Referred To Contact Radiology Diagnoses Mesothelioma (pleural) Soft tissue mass Procedures MRI Humerus (Right) Jaciel Roberts DO [address] [place] [address] Phone: tel: fax: mailto:[email or web address] Referral ID Status Reason Start Date Expiration Date Visits Re quested Visits Authorized [id number] Closed 02/28/2025 02/28/2026 1 1 Reason for Visit * Reason Comments Follow Up Visit Encounter Details Date Type Department Care Team ([facility] st Contact Info) Description 02/28/2025 9:00 AM EDT Office Visit [facility] 30 [place] [address] Jaciel Roberts DO [address] [place] [address] [email or web address] Mesothelioma (pleural) (Primary Dx); Soft tissue mass Social History Tobacco Use Types Packs/Day Years Used Date Smoking Tobacco: Former Cigarettes Smokeless Tobacco: Never Comments:20 PY history (age 20-40, 1PPD) Alcohol Use Standard Drinks/Week Comments Not Currently [...] Sign Reading Time Taken Comments Blood Pressure 147/76 02/28/2025 8:58 AM EDT Pulse 77 02/28/2025 8:58 AM EDT Temperature 36.4 C (97.5 F) 02/28/2025 8:58 AM EDT Respiratory Rate - - Oxygen Saturation 99% 02/28/2025 8:5 8 AM EDT Inhaled Oxygen Concentration - - Weight 88.4 kg (194 lb 12.8 oz) 025 8:58 AM EDT with shoes Height 180.3 cm (5' 10.98 ) 02/28/2025 8:58 AM EDT Body Mass Index 27.18 02/28/2025 8:58 AM EDT documented in this encounter Progress Notes * AlejandraJaciel, DO - 02/28/2025 9:00 AM EDT Patient initially presented in 2021 after having recurrent left-sided pleural effusions post triplebypass surgery. At 1 point a Pleurx drain was placed for about 8 months which was subsequently removed. Ultimately a CT scan of the chest was performed February 01, 2024 which showed severe left pleural thickening with nodular appearance. Lymphadenopathy was also noted within the prevascular subaortic lymph nodes. PET CT scan was ultimately done showing uptake as outlined below. Patient was seen by thoracic surgery at [facility]. Biopsy was performed was alsonoted to have a left-sided breast/chest wall mass which was symptomatic. Patient ultimately underwent a IR guided biopsy of the left anterior chest wall mass. 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 Patient is seen back in the office today. Completed 4 cycles of carboplatin and pemetrexed. Continued on maintenance pemetrexed up until January of 2025 which was subsequently discontinued secondary to poor tolerance and questionable benefit in mesothelioma. Subjective Parish Ibanez is a 84 y.o. male. History of Present Illness The patient is a male who presents for a mass in his arm. Patient's last chemotherapy was administered December 27, 2024. He noticed the onset of a tender mass in his arm. He suspects it may be related to a previous spider bite that had caused a lump, which subsequently resolved. However, the mass reappeared a few weeks later, causing discomfort and fluid accumulation in his hand. Despite attempts to alleviate the swelling by elevating his hand during sleep, the swelling persists. The condition has worsened over time, limiting his ability to bend his arm.And has now migrated to the biceps area. He also experiences a burning sensation on the back of hisarm when it comes into contact with a blanket, and a throbbing pain when positioned incorrectly. He reports no similar symptoms in his legs. He experiences shortness of breath, which has increasedslightly over the past month. He also reports morning soreness on the right side of his neck, wherehe had a thyroidectomy. He is curious if his chemotherapy could have damaged his lymph nodes. He has sought medical attention from his primary care physician and a walk-in clinic, but they were unable to provide a definitive diagnosis. He manages his pain with Tylenol, which provides relief for 4 to 5 hours. He also finds that placing a pillow under his arm while sitting in a recliner helps to drain the fluid. PAST SURGICAL HISTORY: Thyroidectomy Review of Systems Objective Physical Exam Musculoskeletal: Swelling and tenderness noted in the right arm in the biceps area it is not red. Limited flexion observed in the right arm. It is quite tender to touch Results Assessment & Plan 1. Arm mass. The arm mass is firm and tender, with swelling and limited flexion. Differential diagnoses include metastasis or infection, possibly an abscess from a spider bite. Right upper extremity duplex ultrasound was performed January 23, 2025 with no evidence of thrombosis an MRI of the arm will be ordered to further investigate the mass. Continuation of scheduled CT scans of the chest, abdomen, and pelvis is recommended to monitor the status of the cancer. We discussed this could represent metastatic deposit however i could also represent something like an abscess it is not red it is slightly warm and is quite tender. MRI will be done J[place]. If the MRI reveals a metastatic site, radiation therapy may be considered. If there is growth elsewhere, treatment options such as resuming the previous chemotherapy regimen or initiating a new one will be discussed. I obtained verbal consent from the patient or their proxy to record this visit for purposes of producing a draft of the encounter documentation. I personally spent a total of 40 minutes on care for this patient on the date of the encounter. This includes mhoy-fg-woqj time during the visit as well as non tnqs-sg-bndo time spent on chart review, documentation, and care coordination. ???I have maintained a long-term (or longitudinal) relationship with the patient, overseeing the care of their mesothelioma documented in this encounter Plan of Treatment Upcoming Encounters Date Type Department Care Team (Late st Contact Info) Description 01/11/2025 Procedure Pass [address] [address] 01/11/2025 Procedure Pass [address] [address] 03/27/2025 11:15 AM EDT Appointment [address] [address] Nika Otto, GIGI [address] [place] [address] 04/03/2025 2:30 PM EDT Appointment [facility] [address] [place] [address] Jaciel Roberts, DO [address] [place] [address] [email or web address] 04/03/2025 3:30 PM EDT Office Visit [facility] at [address] [address] Jaciel Roberts, DO [address] [place] [address] [email or web address] 2025 10:00 AM EST Telemedicine - audio only [facility] [address] [place] [address] Jonathon Gallardo MD [address] [place] [address] Division [place] [address] [email or web address] Pending Results Name Type Priority Associated Diagnoses Date /Time MRI Humerus (Right) Imaging Routine Mesothelioma (pleural) Soft tissue mass 03/05/2025 10:01 AM EDT Scheduled Orders Name Type Priority Associated Diagnoses Orde r Schedule MRI Humerus (Right) Imaging Routine Mesothelioma (pleural) Soft tissue mass Expected: 03/01/2025, Expires: 05/30/2025 documented as of this encounter Visit Diagnoses Diagnosis Mesothelioma (pleural)- Primary Malignant neoplasm of pleura, unspecified site Soft tissue mass Disorders of soft tissue, unspecified documented in this encounter Additional Health Concerns Assessment Noted Time PHQ-2 Depression Total Score: 0 03/12/20 24 12:23 PM EDT documented as of this encounter Care Teams Eyelet Cutter Relationship Specialty Start Date End Date Nash Brown MD [address] [facility] [address] [place] [phone] PCP - General Internal Medicine 09/07/23 Jaciel Roberts DO [address] [place] [address] [email or web address] [email or web address] Primary Oncologist Hematology and Oncology 03/14/24 Bhavya Hudson FNP [address] [place] [address] Nurse Practitioner Medical Oncology 05/15/24 Josefina Erazo NP [address] [place] [address] Nurse Practitioner 11/26/24 Nika Otto CNP [address] [place] [address] Nurse Practitioner Nurse Practitioner 01/10/25 documented as of this encounter Additional Source Comments The information contained in this document represents components of the legal health record. It is not the complete legal health record.[facility]
--- OUTSIDE RECORDS SUMMARY | 2025-03-05 07:57 | XMS_ITS | Encounter Summary ---
Author Organization [facility] Address [address] [place] [address] Phone Care Team Providers Care Supply Chain Manager Name Role Phone Nash Brown MD Primary Care Provider [phone] Jaciel Roberts DO Unavailable [phone] Bhavya Hudson PLAYGROUND OFFICIAL Unavailable [phone] Josefina Erazo TECHNICIAN Unavailable [phone] Nika Otto TURRET PRESS OPERATOR Unavailable Reason for Visit * MRI/CAT Scan - Closed Specialty Diagnoses / Procedures Referred By Ray keene Referred To Contact Radiology Diagnoses Mesothelioma (pleural) Soft tissue mass Procedures MRI Humerus (Right) Jaciel Roberts, DO 30 [place] [address] Phone: tel: fax: mailto:[email or web address] Referral ID Status Reason Start Date Expiration Date Visits Re quested Visits Authorized [id number] Closed 02/28/2025 02/28/2026 1 1 Encounter Details Date Type Department Care Team (Late st Contact Info) Description 03/05/2025 7:57 AM EDT Hospital Encounter [facility], [facility] - [address] [address] Jaciel Roberts, DO [address] [place] [address] [email or web address] Arrived Social History Tobacco Use Types Packs/Day Years [...] st Contact Info) Description 01/11/2025 Procedure Pass [address] [address] 01/11/2025 Procedure Pass [address] [address] 03/27/2025 11:15 AM EDT Appointment [facility], Ct Scan - [address] [address] Nika Otto CNP 30 [place] [address] 04/03/2025 2:30 PM EDT Appointment [facility] [address] [place] [address] Jaciel Roberts, DO [address] [place] [address] [email or web address] 04/03/2025 3:30 PM EDT Office Visit [facility] at [address] [address] Jaciel Roberts, DO [address] [place] [address] [email or web address] 2025 10:00 AM EST Telemedicine - audio only [facility] [address] [place] [address] Jonathon Gallardo MD [address] [place] [address] Division [place] [address] [email or web address] documented as of this encounter Visit Diagnoses Not on filedocumented in this encounter Administered Medications Inactive Administered Medications - up to 3 most recent administrations Medication Order MAR Action Action Date Dose Rate Site gadoterate meglumine (DOTAREM/CLARISCAN) 0.5 mmol/mL (376.9 mg/mL) injection 17.5 mL 17.5 mL (rounded from 17.42 mL = 0.2 mL/kg 87.1 kg), Intravenous, Once as needed, imaging, Starting on Tue03/05/25 at 0843, For 1 dose, Procedural Contrast/Med Active Now Given 03/05/2025 9:40 AM EDT 17.5 mL documented in this encounter Additional Health Concerns Assessment Noted Time PHQ-2 Depression Total Score: 0 03/12/20 12:23 PM EDT documented as of this encounter Care Teams Supply Chain Manager Relationship Specialty Start Date End Date Nash Brown MD [address] [place] [address] [address] [place] [phone] PCP - General Internal Medicine 09/07/23 Jaciel Roberts DO [address] [place] [address] [email or web address] Primary Oncologist Hematology and Oncology 03/14/24 Bhavya Hudson FNP [address] [place] [address] Nurse Practitioner Medical Oncology 05/15/24 Josefina Erazo NP [address] [place] [address] Nurse Practitioner 11/26/24 Nika Otto CNP [address] [place] [address] Nurse Practitioner Nurse Practitioner 01/10/25 documented as of this encounter Additional Source Comments The information contained in this document represents components of the legal health record. It is not the complete legal health record.[facility]
--- NOTE | 2025-03-05 14:50 | MHC.PC.OV ---
Vital Signs 03/05/25 14:51 Height 5 ft 10 in Weight 202 lb BMI 29.0 BP 124/76 Blood Pressure Location Rt brachial Position Sitting Pulse 82 Pulse Source Pulse Oximeter Temp 97.5 F Temp Source Temporal Artery Scan Pulse Oximetry (%) 97 Oxygen Delivery Method Room Air Intake Visit Reasons: dizziness, CAd Soa Integration Architect Required: No Accompanied by: Self / Same As Patient Allergies nitroglycerin Allergy (Severe, Verified 03/05/25 14:51) low blood pressure Medication List - Last Reconciled 03/05/25 by Nash Brown MD aspirin 81 mg PO DAILY atorvastatin 80 mg PO DAILY carvedilol 6.25 mg PO BID cholecalciferol (vitamin D3) 50 mcg PO DAILY compression sleeve and gauntlet As directed folic acid 1 mg PO DAILY furosemide 20 mg PO BID levothyroxine 25 mcg PO DAILY multivitamin 1 tab PO DAILY tamsulosin 0.4 mg PO BEDTIME 90 days Tobacco use date assessed: 03/05/25 Fall risk assessment: 1 Fall in past year (PT felt two weeks ago ) Last assessed Fall Risk: 03/05/25 Dental Screening Dental Screen Date: 03/05/25 Did you have a dental visit in the last 12 months?: Yes Did you have a dental problem in the last 6 months where you did not have access to dental care?: No HPI dizziness, CAd HPI Details PAtient has lymphedema R arm but concern on - had MRI on the R [facility]. Patient is having chemo but stopped (dr. Fernandez and Gentry - doctors) [facility] Medical History PAF (paroxysmal atrial fibrillation) Enlarged prostate Pleural effusion Pleural mass Recurrent left pleural effusion CVA (cerebral vascular accident) TIA (transient ischemic attack) Coronary artery disease Hypertension Hypothyroidism PUD (peptic ulcer disease) Fatigue Surgical History History of coronary artery bypass graft x 3 History of heart artery stent History of lobectomy of thyroid Hx of colonoscopy H/O melanoma excision History of surgery on arm Family History (Updated 03/05/25 @ 15:02 by Kaye Lofton MA) Father Lung cancer Mother Heart disease Social History Household Members: Spouse Housing: House Do you presently have visiting nurse or other home services: No Alcohol intake: current Alcohol intake frequency: a few times a month Alcohol type: beer Comment: once a week 1 drink stopped 07/2024 Patient Tobacco Use Status: Former Tobacco user Tobacco use type: Cigarette Years Smoked: quit 22 years old e-Cigarette/Vaping Use: Never Used Second Hand Smoke Exposure: No Advance Directives Date on File: 01/18/24 service: No Current occupational status: retired Current occupational exposures/hazards: No Cognitive needs: No Hearing needs: No Vision needs: Yes Questionnaire PHQ-9 Over the last 2 weeks, how often have you been bothered by any of the following problems? 1. Little interest or pleasure in doing things: not at all 2. Feeling down, depressed, or hopeless: nearly every day 3. Trouble falling or staying asleep, or sleeping too much: several days 4. Feeling tired or having little energy: nearly every day 5. Poor appetite or overeating: not at all 6. Feeling bad about yourself - or that you are a failure or have let yourself or your family down: not at all 7. Trouble concentrating on things, such as reading the newspaper or watching television: not at all Source: Developed by Drs. Madhav Donahue, Sangeeta Nichole, Kalpesh Potter and colleagues, with an educational eliseo from [employer]. Thrive Questionnaire Date Thrive assessed: 03/05/25 I am a: Patient Within the past 12 months, did the food you bought not last and you didn't have the money to get more?: Never true Within the past 12 months, did you worry whether your food would run out before you got money to buy more?: Never true Do you have trouble paying for medicines?: No Do you have trouble getting transportation to medical appointments?: No Do you have trouble paying your heating and electricity bill?: No Do you have trouble taking care of your child, family member or friend?: No Do you have trouble with day-to-day activities such as bathing, preparing meals, shopping, managing finances, etc.?: No Are you currently unemployed and looking for a job?: No Are you interested in more education?: No THRIVE Score: 0 AUDIT C Alcohol Use Questionnaire (AUDIT-C) 1. How often do you have a drink containing alcohol?: Never 3. How often do you have six or more drinks on one occasion?: Never Total Score: 0 TEDDY-7 AMB Questionnaire TEDDY-7 Date TEDDY - 7 assessed: 03/05/25 Feeling nervous, anxious, or on edge: 1 = Several days Not being able to stop or control worryin = Not at all Worrying too much about different things: 0 = Not at all Trouble relaxin = Not at all Being so restless that it is hard to sit still: 0 = Not at all Becoming easily annoyed or irritable: 0 = Not at all Feeling afraid as if something awful might happen: 0 = Not at all Total TEDDY-7 score (0-4 normal; 5-9 mild; 10-14 moderate; 15-21 severe): 1 Source: Developed by Drs. Madhav Donahue, Sangeeta Nichole, Kalpesh Potter and colleagues, with an educational eliseo from [employer]. Physical exam (Primary Care) Vital Signs: Last Vital Signs Temp 97.5 F 03/05/25 14:51 Pulse 82 03/05/25 14:51 BP 124/76 03/05/25 14:51 Pulse Ox 97 03/05/25 14:51 Oxygen Delivery Method Room Air 03/05/25 14:51 BMI result Body Mass Index 29.0 Tobacco/Smoking Status: Tobacco use Status Tobacco use date assessed 03/05/25 03/05/25 14:52 Patient Tobacco Use Status Former Tobacco user 03/05/25 14:52 Tobacco use type Cigarette 03/05/25 14:52 e-Cigarette/Vaping Use Never Used 03/05/25 14:52 Thrive Assessment: Date of Thrive Assessment Date Thrive assessed 03/05/25 03/05/25 14:52 Const General: alert; No acute distress Eyes Conjunctivae: conjunctivae normal Resp Auscultation: clear to auscultation bilaterally Cardio Rate: regular rate Rhythm: regular rhythm GI Inspection: Yes normal to inspection Extrem General: Yes normal to inspection and No edema Coding Level of Care Code Est Pt Level 4 (99967) Complex EM visit Add On G2211 Diagnoses Coronary artery disease involving [place] coronary artery of [place] heart without angina pectoris I25.10 Associated angina: without angina Coronary Disease-Associated Artery/Lesion type: [place] artery [place] vs. transplanted heart: [place] heart Hypercholesterolemia E78.00 Acquired hypothyroidism E03.9 Hypothyroidism type: acquired Primary hypertension I10 Hypertension type: primary hypertension Epithelioid mesothelioma C45.9 Lymphedema of right upper extremity I89.0 Depression F32.A Right arm pain M79.601 Assessment & Plan Assessment & Plan (1) Coronary artery disease: Comment: CABG 2021 Code(s): I25.10 - Atherosclerotic heart disease of [place] coronary artery without angina pectoris Category: Medical Qualifiers: Associated angina: without angina Coronary Disease-Associated Artery/Lesion type: [place] artery [place] vs. transplanted heart: [place] heart Qualified Code(s): I25.10 - Atherosclerotic heart disease of [place] coronary artery without angina pectoris Plan: Control the cholesterol, weight, blood pressure, on aspirin 81 mg once a day (2) Hypercholesterolemia: Code(s): E78.00 - Pure hypercholesterolemia, unspecified Category: Medical Plan: Avoid fried foods, chicken skin, eggs, butter margarine, pastries and meat. Be it pork or beef they have a lot of cholesterol atorvastatin 80 mg once a day (3) Hypothyroidism: Code(s): E03.9 - Hypothyroidism, unspecified Category: Medical Qualifiers: Hypothyroidism type: acquired Qualified Code(s): E03.9 - Hypothyroidism, unspecified Plan: Continue with thyroid medication and continue to monitor (4) Hypertension: Code(s): I10 - Essential (primary) hypertension Category: Medical Qualifiers: Hypertension type: primary hypertension Qualified Code(s): I10 - Essential (primary) hypertension Plan: Continue with blood pressure medication. Decrease salt intake and exercise patient is on carvedilol 6.25 mg twice a day (5) Epithelioid mesothelioma: Comment: 03/12/2024 Code(s): C45.9 - Mesothelioma, unspecified Category: Medical Plan: Patient continues continues to follow-up with Hematology-Oncology. (6) Lymphedema of right upper extremity: Code(s): I89.0 - Lymphedema, not elsewhere classified Category: Medical Plan: Patient has been prescribed compression sleeve. MRI done results pending (7) Depression: Code(s): F32.A - Depression, unspecified Category: Medical Plan: Continue to be hydrated and keep active (8) Right arm pain: Code(s): M79.601 - Pain in right arm Category: Medical Plan: MRI done Plan History of Present Illness The patient is an 84-year-old male presenting for follow-up of multiple chronic conditions including coronary artery disease, hypertension, hypothyroidism, hypercholesterolemia, benign prostatic hyperplasia, mesothelioma, and lymphedema of the right upper extremity. The patient has a history of coronary artery disease and is currently on aspirin 81 mg once daily for management. He also has hypercholesterolemia, for which he is taking atorvastatin 80 mg once daily. Hypertension is managed with carvedilol 6.25 mg twice daily. The patient also continues with thyroid medication for hypothyroidism. The patient has a diagnosis of benign prostatic hyperplasia and mesothelioma, with ongoing follow-up in hematology oncology. He reports lymphedema of the right upper extremity, with a negative ultrasound for deep vein thrombosis and has been advised to use a compression sleeve. Recent blood work in December 2024 showed anemia with hemoglobin at 11.6 g/dL and hematocrit at 35.9%, and elevated blood sugar at 128 mg/dL. The patient also has a history of gout. Health Maintenance Social History Review of Systems - Cardiovascular: Reports swelling in the right upper extremity. Denies chest pain. - Endocrine: Reports hypothyroidism. - Hematologic: Reports anemia. - Metabolic: Reports elevated blood sugar. - Musculoskeletal: Reports gout. Physical Exam Results - Labs: Hemoglobin 11.6 g/dL, Hematocrit 35.9%, Blood sugar 128 mg/dL. - Ultrasound: Negative for deep vein thrombosis in the right upper extremity. Plan Patient was informed and verbally consented to the use of an ambient scribe for clinic note documentation during this visit. 1. Coronary Artery Disease The patient is on aspirin 81 mg once daily for the management of coronary artery disease. 2. Hypertension Hypertension is managed with carvedilol 6.25 mg twice daily. 3. Hypothyroidism The patient continues with thyroid medication for hypothyroidism. 4. Hypercholesterolemia The patient is taking atorvastatin 80 mg once daily for hypercholesterolemia. 5. Benign Prostatic Hyperplasia The patient has benign prostatic hyperplasia and continues follow-up with hematology oncology. 6. Mesothelioma The patient is undergoing follow-up in hematology oncology for mesothelioma. 7. Lymphedema Of The Right Upper Extremity The patient has been advised to use a compression sleeve for lymphedema of the right upper extremity. 8. Anemia Recent blood work showed anemia with hemoglobin at 11.6 g/dL and hematocrit at 35.9%. 9. Elevated Blood Sugar Blood work indicated elevated blood sugar at 128 mg/dL. 10. Gout The patient has a history of gout. Discussion Notes Patient Instructions
[2025-03-05 14:51] VITALS: BP 124/76; PULSE 82; TEMP 36.4; O2SAT 97; BMI 29.0
--- OUTSIDE RECORDS SUMMARY | 2025-03-05 17:47 | XMS_ITS | Encounter Summary ---
Author Organization [facility] Address [address] [place] [address] [address] [place] [address] Phone Care Team Providers Care Hydrologic Engineer Name Role Phone Nash Brown MD Primary Care Provider [phone] Jaciel Roberts DO Unavailable [phone] Bhavya Hudson POINTER HELPER Unavailable Josefina Erazo MEDICAL LABORATORY TECHNOLOGIST Unavailable Nika Otto DIRECTOR OF ROOMS Unavailable Encounter Details Date Type Department Care Team (Late st Contact Info) Description 11/06/2024 Procedure Pass [facility], Ct Scan - [address] [address] Social History Tobacco Use Types Packs/Day Years [...] st Contact Info) Description 01/11/2025 Procedure Pass [address] [address] 01/11/2025 Procedure Pass [address] [address] 03/27/2025 11:15 AM EDT Appointment [address] [address] Nika Otto CNP [address] [place] [address] 04/03/2025 2:30 PM EDT Appointment [facility] [address] [place] [address] Jaciel Roberts DO [address] [place] [address] [email or web address] 04/03/2025 3:30 PM EDT Office Visit [facility] [place] [address] [place] [address] Jaciel Roberts DO [address] [place] [address] [email or web address] 10:00 AM EST Telemedicine - audio only [facility] [address] [place] [address] Jonathon Gallardo MD [address] [place] [address] [place] [address] [email or web address] documented as of this encounter Visit Diagnoses Not on filedocumented in this encounter Additional Health Concerns Assessment Noted Time PHQ-2 Depression Total Score: 0 03/12/20 12:23 PM EDT documented as of this encounter Care Teams Hydrologic Engineer Relationship Specialty Start Date End Date Nash Brown MD [address] [place] [address] Drive [address] [place] [phone] PCP - General Internal Medicine 09/07/23 Jaciel Roberts DO [address] [place] [address] [email or web address] Primary Oncologist Hematology and Oncology 03/14/24 Bhavya Hudson FNP [address] [place] [address] [email or web address] Nurse Practitioner Medical Oncology 05/15/24 Josefina Erazo, VALDO [address] [place] [address] [email or web address] Nurse Practitioner 11/26/24 Nika Otto CNP [address] [place] [address] [email or web address] Nurse Practitioner Nurse Practitioner 01/10/25 documented as of this encounter Additional Source Comments The information contained in this document represents components of the legal health record. It is not the complete legal health record.[facility]
--- OUTSIDE RECORDS SUMMARY | 2025-03-05 17:47 | XMS_ITS | Encounter Summary ---
Author Organization [facility] Address [address] [place] [address] [address] [place] [address] Phone Care Team Providers Care Nursing Service Director Name Role Phone Nash Brown MD Primary Care Provider [phone] Jaciel Roberts DO Unavailable Bhavya Hudson WICKER MOLDED CANDLES Unavailable Josefina Erazo AUDIO VISUAL SECRETARY Unavailable Nika Otto WOOD MILLER Unavailable Encounter Details Date Type Department Care Team (Late st Contact Info) Description 10/12/2024 Procedure Pass [facility], Ct Scan - [address] [address] Social History Tobacco Use Types Packs/Day Years [...] st Contact Info) Description 01/11/2025 Procedure Pass [address] [address] 01/11/2025 Procedure Pass [address] [address] 03/27/2025 11:15 AM EDT Appointment [address] [address] Nika Otto CNP [address] [place] [address] 04/03/2025 2:30 PM EDT Appointment [facility] [address] [place] [address] Jaciel Roberts DO [address] [place] [address] [email or web address] 04/03/2025 3:30 PM EDT Office Visit [facility] [place] [address] [place] [address] Jaciel Roberts DO 30 [place] [address] [email or web address] 10:00 AM EST Telemedicine - audio only [facility] [address] [place] [address] Jonathon Gallardo MD [address] [place] [address] Division [place] [address] [email or web address] documented as of this encounter Visit Diagnoses Not on filedocumented in this encounter Additional Health Concerns Assessment Noted Time PHQ-2 Depression Total Score: 0 03/12/20 12:23 PM EDT documented as of this encounter Care Teams Nursing Service Director Relationship Specialty Start Date End Date Nash Brown MD [address] [place] [address] [address] [place] [phone] PCP - General Internal Medicine 09/07/23 Jaciel Robetrs DO 30 [place] [address] [email or web address] Primary Oncologist Hematology and Oncology 03/14/24 Bhavya Hudson FNP [address] [place] [address] [email or web address] Nurse Practitioner Medical Oncology 05/15/24 Josefina Erazo, VALDO [address] [place] [address] [email or web address] Nurse Practitioner 11/26/24 Nika Otto CNP [address] [place] [address] [email or web address] Nurse Practitioner Nurse Practitioner 01/10/25 documented as of this encounter Additional Source Comments The information contained in this document represents components of the legal health record. It is not the complete legal health record.[facility]
--- OUTSIDE RECORDS SUMMARY | 2025-03-05 17:47 | XMS_ITS | Encounter Summary ---
Author Organization [facility] Address [address] [place] [address] [address] [place] [address] Phone Care Team Providers Care Frame Operator Name Role Phone Nash Brown MD Primary Care Provider Jaciel Roberts DO Unavailable Bhavya Hudson CASING BUILDER Unavailable Josefina Erazo INSURANCE SOLICITOR Unavailable [phone] Nika Otto FISHING LURE ASSEMBLER Unavailable Encounter Details Date Type Department Care Team (Late st Contact Info) Description 02/27/2025 Orders Only [facility] Thoracic Surgery 15 [facility] 204 [place] [address] Oscar Townsend 15 [facility] [place] [address] [email or web address] Social History Tobacco Use Types Packs/Day Years [...] st Contact Info) Description 01/11/2025 Procedure Pass [address] [address] 01/11/2025 Procedure Pass [address] [address] 03/27/2025 11:15 AM EDT Appointment [address] [address] Nika Otto CNP [address] [place] [address] 04/03/2025 2:30 PM EDT Appointment [facility] [address] [place] [address] Jaciel Roberts DO [address] [place] [address] [email or web address] 04/03/2025 3:30 PM EDT Office Visit [facility] [place] [address] [place] [address] Jaciel Roberts DO 30 [place] [address] [email or web address] 2025 10:00 AM EST Telemedicine - audio only [facility] [address] [place] [address] Jonathon Gallardo MD [address] [place] [address] Division [place] [address] [email or web address] documented as of this encounter Visit Diagnoses Not on filedocumented in this encounter Additional Health Concerns Assessment Noted Time PHQ-2 Depression Total Score: 0 03/12/20 24 12:23 PM EDT documented as of this encounter Care Teams Frame Operator Relationship Specialty Start Date End Date Po, Nash Chirinos MD [address] [place] [address] Drive [address] [place] [phone] PCP - General Internal Medicine 09/07/23 Jaciel Roberts DO [address] [place] [address] [email or web address] Primary Oncologist Hematology and Oncology 03/14/24 Bhavya Hudson FNP [address] [place] [address] [email or web address] Nurse Practitioner Medical Oncology 05/15/24 Josefina Erazo NP [address] [place] [address] Nurse Practitioner 11/26/24 Nika Otto CNP [address] [place] [address] [email or web address] Nurse Practitioner Nurse Practitioner 01/10/25 documented as of this encounter Additional Source Comments The information contained in this document represents components of the legal health record. It is not the complete legal health record.[facility]
--- OUTSIDE RECORDS SUMMARY | 2025-03-05 17:47 | XMS_ITS | Encounter Summary ---
Author Organization [facility] Address [facility] [address] [place] [address] [place] [address] Phone Care Team Providers Care Knife Finisher Name Role Phone Nash Brown MD Primary Care Provider Jaciel Roberts DO Unavailable [phone] Bhavya Hudson SENIOR GRAPHIC DESIGNER Unavailable Josefina Erazo CHILDREN COUNSELOR Unavailable Nika Otto SEAWEED HARVESTER Unavailable Encounter Details Date Type Department Care Team (Late st Contact Info) Description 02/01/2024 Procedure Pass [facility] [address] [place] [address] Social History Tobacco Use Types Packs/Day Years [...] st Contact Info) Description 01/11/2025 Procedure Pass [address] [address] 01/11/2025 Procedure Pass [address] [address] 03/27/2025 11:15 AM EDT Appointment [address] [address] Nika Otto, GIGI [address] [place] [address] 04/03/2025 2:30 PM EDT Appointment [facility] [address] [place] [address] Jaciel Roberts, DO [address] [place] [address] [email or web address] 04/03/2025 3:30 PM EDT Office Visit [facility] at [address] [address] Jaciel Roberts, DO [address] [place] [address] [email or web address] 2025 10:00 AM EST Telemedicine - audio only [facility] [address] [place] [address] Jonathon Gallardo MD [address] [place] [address] Division [place] [address] [email or web address] documented as of this encounter Visit Diagnoses Not on filedocumented in this encounter Additional Health Concerns Infection Onset Date Last Indicated Resolved Time CDiff-Risk 04/02/2024 04/04/2024 04/04/2024 4:35 PM EDT CoV-Risk 07/23/2024 07/23/2024 08/03/2024 1:21 AM EST Assessment Noted Time PHQ-2 Depression Total Score: 0 02/01/20 10:26 AM EDT documented as of this encounter Care Teams Knife Finisher Relationship Specialty Start Date End Date Nash Brown MD [address] [place] [address] [address] [place] [phone] PCP - General Internal Medicine 09/07/23 Jaciel Roberts DO [address] [place] [address] [email or web address] Primary Oncologist Hematology and Oncology 03/14/24 Bhavya Hudson FNP [address] [place] [address] Nurse Practitioner Medical Oncology 05/15/24 Josefina Erazo NP [address] [place] [address] Nurse Practitioner 11/26/24 Nika Otto CNP [address] [place] [address] Nurse Practitioner Nurse Practitioner 01/10/25 documented as of this encounter Additional Source Comments The information contained in this document represents components of the legal health record. It is not the complete legal health record.[facility]
--- OUTSIDE RECORDS SUMMARY | 2025-03-05 17:47 | XMS_ITS | Encounter Summary ---
Author Organization Formerly [facility] Address [address] [place] [address] [address] [place] [address] Phone Care Team Providers Care Transition Program Manager Name Role Phone Nash Brown MD Primary Care Provider Jaciel Robetrs DO Unavailable Bhavya Hudson MEDICAL LAB ASSISTANT Unavailable Josefina Erazo STORAGE BATTERY INSPECTOR AND TESTER Unavailable Nika Otto FRONT DESK MONITOR Unavailable Encounter Details Date Type Department Care Team (Late st Contact Info) Description 02/28/2025 Orders Only [facility] [address] [place] [address] Nika Otto CNP 30 [place] [address] Social History Tobacco Use Types Packs/Day Years [...] st Contact Info) Description 01/11/2025 Procedure Pass [address] [address] 01/11/2025 Procedure Pass [address] [address] 03/27/2025 11:15 AM EDT Appointment [address] [address] Nika Otto CNP [address] [place] [address] 04/03/2025 2:30 PM EDT Appointment [facility] [address] [place] [address] Jaciel Roberts, DO 30 [place] [address] [email or web address] 04/03/2025 3:30 PM EDT Office Visit [facility] [address] [place] [address] Jaciel Roberts, DO [address] [place] [address] [email or web address] 2025 10:00 AM EST Telemedicine - audio only [facility] [address] [place] [address] Jonathon Gallardo MD [address] [place] [address] Division of [place]acic [place] [address] [email or web address] documented as of this encounter Visit Diagnoses Not on filedocumented in this encounter Additional Health Concerns Assessment Noted Time PHQ-2 Depression Total Score: 0 03/12/20 24 12:23 PM EDT documented as of this encounter Care Teams Transition Program Manager Relationship Specialty Start Date End Date Kevin, Nash Chirinos MD [address] [place] [address] [place] [phone] PCP - General Internal Medicine 09/07/23 Jaciel Roberts DO [address] [place] [address] [email or web address] Primary Oncologist Hematology and Oncology 03/14/24 Bhavya Hudson FNP [address] [place] [address] [email or web address] Nurse Practitioner Medical Oncology 05/15/24 Josefina Erazo NP [address] [place] [address] [email or web address] Nurse Practitioner 11/26/24 Nika Otto CNP [address] [place] [address] [email or web address] Nurse Practitioner Nurse Practitioner 01/10/25 documented as of this encounter Additional Source Comments The information contained in this document represents components of the legal health record. It is not the complete legal health record.[facility]
--- OUTSIDE RECORDS SUMMARY | 2025-03-05 17:47 | XMS_ITS | Encounter Summary ---
Author Organization [facility] Address [address] [place] [address] [address] [place] [address] Phone Care Team Providers Care Car Coupler Name Role Phone Nash Brown MD Primary Care Provider Jaciel Roberts DO Unavailable Bhavya Hudson HIGH PRESSURE BOILER OPERATOR Unavailable [phone] Josefina Erazo HEAVY TRUCK MECHANIC Unavailable Nika Otto DRUM SANDER OFFBEARER Unavailable Encounter Details Date Type Department Care Team (Late st Contact Info) Description 11/16/2024 Procedure Pass [facility], [address] [address] Social History Tobacco Use Types Packs/Day Years [...] st Contact Info) Description 01/11/2025 Procedure Pass [facility] Scan [address] [address] 01/11/2025 Procedure Pass [address] [address] 03/27/2025 11:15 AM EDT Appointment [address] [address] Nika Otto, GIGI [address] [place] [address] 04/03/2025 2:30 PM EDT Appointment [facility] [address] [place] [address] Jaciel Roberts, [address] [place] [address] [email or web address] 04/03/2025 3:30 PM EDT Office Visit [facility] [address] [place] [address] Jaciel Roberts DO [address] [place] [address] [email or web address] 10:00 AM EST Telemedicine - audio only [facility] [address] [place] [address] Jonathon Gallardo MD [address] [place] [address] Division [place] [address] [email or web address] documented as of this encounter Visit Diagnoses Not on filedocumented in this encounter Additional Health Concerns Assessment Noted Time PHQ-2 Depression Total Score: 0 03/12/20 24 12:23 PM EDT documented as of this encounter Care Teams Car Coupler Relationship Specialty Start Date End Date Nash Brown MD [address] [place] [address] [address] [place] [phone] PCP - General Internal Medicine 09/07/23 Jaciel Roberts DO [address] [place] [address] [email or web address] Primary Oncologist Hematology and Oncology 03/14/24 Bhavya Hudson FNP [address] [place] [address] [email or web address] Nurse Practitioner Medical Oncology 05/15/24 Josefina Erazo NP [address] [place] [address] [email or web address] Nurse Practitioner 11/26/24 Nika Otto CNP [address] [place] [address] [email or web address] Nurse Practitioner Nurse Practitioner 01/10/25 documented as of this encounter Additional Source Comments The information contained in this document represents components of the legal health record. It is not the complete legal health record.[facility]
--- OUTSIDE RECORDS SUMMARY | 2025-03-05 17:47 | XMS_ITS | Clinical Summary ---
Author Organization [facility] Address [address] [place] [address] Phone Care Team Providers Care Fabrication Technician Name Role Phone Nash Brown MD Primary Care Provider [phone] Jaciel Roberts DO Unavailable [phone] Bhavya Hudson REMOTE MEDICAL CODER Unavailable [phone] Josefina Erazo METAL ANNEALER Unavailable [phone] Nika Otto SECONDS GRADER Unavailable Allergies Active Allergy Reactions Criticality Noted Date Comments Nitroglycerin Other (See Comments) 02/20/2024 Medications aspirin 81 mg chewable tablet Take 81 mg by mouth daily. Active cholecalciferol (VITAMIN D3) 2,000 unit capsule Take by mouth daily. Active levothyroxine (SYNTHROID,LEVO THROID) 25 MCG tablet Take 25 mcg by mouth every morning. Active atorvastatin (LIPITOR) 80 MG tablet Take 80 mg by mouth daily. 024 Active furosemide (LASIX) 20 MG tablet Take 20 mg by mouth daily. 023 Active tamsulosin (FLOMAX) 0.4 mg Cap Take 0.4 mg by mouth daily. 023 Active therapeutic multivitamin tablet Take 1 tablet by mouth daily. Active docusate sodium (COLACE) 50 MG capsule Take 50 mg by mouth daily. Active clopidogrel (PLAVIX) 75 mg tablet Take 75 mg by mouth daily. Active carvedilol (COREG) 6.25 MG tablet Take 6.25 mg by mouth 2 (two) times a day with meals. Active celecoxib (CELEBREX) 200 MG capsule Active clotrimazole-be tamethasone (LOTRISONE) cream Apply topically 2 (two) times a day. APPLY TO AFFECTED AREA Active finasteride (PROSCAR) 5 mg tablet Active losartan (COZAAR) 100 MG tablet Active psyllium (METAMUCIL) 0.4 gram capsule Active dexAMETHasone (DECADRON) 4 MG tablet 4 mg tab, 4 mg po bid the day before and daily x 2 days starting the day after chemotherapy. 24 tablet 3 Active metroNIDAZOLE (FLAGYL) 500 MG tablet Take 500 mg by mouth every 8 (eight) hours. Active nystatin (MYCOSTATIN) 100,000 units/mL suspension Take 5 mL (500,000 Units total) by mouth 4 (four) times a day. 437 mL Active hydrocortisone 2.5 % ointment Apply 1 Application topically 2 (two) times a day. Active simethicone 125 mg Cap Take 1 capsule (125 mg total) by mouth 4 (four) times a day as needed (gas). 28 capsule 3 Active fluorouraciL (EFUDEX) 5 % cream Apply 1 Application topically 2 (two) times a day. prescribed by Active clotrimazole (MYCELEX MIGUEL ÁNGEL) 10 mg miguel ángel Take 1 Miguel Ángel (10 mg total) by mouth 5 (five) times a day. For 14 days. 70 Miguel Ángel Active chlorhexidine (PERIDEX) 0.12 % solution Use as directed 15 mL in the mouth or throat 2 (two) times a day. 120 mL 1 Active lidocaine 2 % Soln Use as directed 15 mL in the mouth or throat every 4 (four) hours as needed (pain from mouth sore.). 100 mL Active metoclopramide HCl (REGLAN) 10 MG tablet Take 1 tablet (10 mg total) by mouth every 6 (six) hours as needed for nausea or vomiting. 30 tablet 05/27/2 025 Active folic acid (FOLVITE) 1 MG tablet TAKE 1 TABLET BY MOUTH EVERY DAY 90 tablet 3 025 Active LORazepam (ATIVAN) 0.5 MG tablet Take 1 tablet (0.5 mg total) by mouth once for 1 dose. Take 30 minutes prior to MRI for claustrophobia 1 tablet 025 Active folic acid (FOLVITE) 1 MG tablet Take 1 tablet (1 mg total) by mouth daily. 90 tablet 3 024 2024 Discontinued Active Problems Problem Noted Date Diagnosed Date Chemotherapy management, encounter for Mesothelioma (pleural) 03/21/2024 CAD (coronary artery disease) 02/20/2024 Dyslipidemia 02/20/2024 Gouty arthritis of right ankle 02/20/2024 Nontoxic multinodular goiter 02/20/2024 NSTEMI (non-ST elevated myocardial infarction) 0 02/20/2024 Skin cancer 11/24/2020 High cholesterol 11/24/2020 Primary localized osteoarthrosis of right lower leg 11/24/2020 Encounters Date Type Department Care Team Description 03/05/2025 7:57 AM EDT Hospital Encounter [address] [address] Jaciel Roberts DO Arrived 03/04/[address] [facility] at [address] [address] Bhavya Hudson FNP 03/04/[address] [facility] at [address] [address] Jaciel Roberts DO MRI - Rx - accomodations 02/28/2025 9:00 AM EDT Office Visit [facility] at [address] [address] Jaciel Roberts DO Mesothelioma (pleural) (Primary Dx); Soft tissue mass 02/28/2025 Procedure Pass [address] [address] 02/28/2025 Telephone [facility] - Virtual Department [address] [place] [address] Maryam Jacques, OT 02/28/2025 Orders Only [facility] at [address] [address] Nika Otto CNP 02/27/2025 Orders Only [facility] at [address] [address] Nika Otto, GIGI Arm mass, right (Primary Dx) 02/27/2025 Telephone [facility] [address] [place] [address] Charlotte Gottlieb PA-C 02/27/2025 Orders Only [facility] Thoracic Surgery [address] [address] Oscar Townsend 02/27/2025 Telephone [facility] [address] [place] [address] Maryam Jacques, OT 02/27/2025 Telephone [facility] at [address] [address] Jaciel Roberts DO 02/22/2025 10:00 AM EDT Office Visit [facility] [address] [place] [address] Maykel Lombardo MD McCutcheon, Lisa Noel, OT Lymphedema (Primary Dx) 02/14/2025 Telephone [facility] Occupational Therapy - Virtual Department [address] [place] [address] Maryam Jacques, OT 02/14/2025 Documentation [facility] Occupational Therapy - Virtual Department [address] [place] [address] Maryam Jacques, OT 02/09/2025 Refill [facility] at [address] [address] Tami Cheema, REMOTE MEDICAL CODER Medication Refill 02/07/2025 Orders Only [facility] Palliative Care [address] [place] [address] Maykel Lombardo MD Mesothelioma (pleural) (Primary Dx) 02/07/2025 Telephone [facility] at [address] [address] Lizet Self, RN OT? 02/06/2025 2:30 PM EDT Office Visit [facility] [address] [place] [address] Jaciel Roberts, Annika Burnette, PT BPPV (benign paroxysmal positional vertigo), right (Primary Dx) 01/23/2025 2:35 PM EDT - 01/23/2025 11:59 PM EDT Hospital Encounter [facility], [address] [address] Bhavya Hudson, SALIMA Discharge Disposition: Home or Self Care 01/23/2025 Orders Only [facility] at [address] [address] Bhavya Hudson, REMOTE MEDICAL CODER Edema, unspecified type (Primary Dx) 01/11/2025 10:00 AM EDT Infusion [facility] at [address] [address] Nika Otto CNP Bang, Samantha J, RN Mesothelioma (pleural) (Primary Dx) 01/11/2025 9:30 AM EDT Infusion [facility] at [address] [address] Nika Otto CNP Mesothelioma (pleural) (Primary Dx); Dermatitis 01/10/2025 Orders Only [facility] at [address] [address] Uma Reyna Mesothelioma (pleural) (Primary Dx) 01/10/2025 Telephone [facility] at [address] [address] Jaciel Roberts DO ?blood clot (BN) 01/09/2025 Telephone [facility] at [address] [address] Jaciel Roberts, DO treatment schedule 01/08/2025 Telephone [facility] Thoracic Surgery [address] [address] Lisa Menard CNP 01/04/2025 10:00 AM EDT Telemedicine - audio only [facility] [address] [place] [address] Jonathon Gallardo MD Mesothelioma (Primary Dx) 12/27/2024 12:45 PM EDT Office Visit [facility] [address] [place] [address] Maykel Lombardo MD Palliative care encounter (Primary Dx); Mesothelioma (pleural) 12/27/2024 12:00 PM EDT Infusion [facility] at [address] [address] Jonathon Gallardo MD Romero Losada, Martha Katherine, SEBASTIAN Mesothelioma (pleural) (Primary Dx) 12/27/2024 9:18 AM EDT - 12/27/2024 11:59 PM EDT Hospital Encounter [address] [address] Jonathon Gallardo MD Discharge Disposition: Home or Self Care 12/26/2024 2:30 PM EDT Office Visit [facility] at [address] [address] Josefina Erazo NP Mesothelioma (pleural) (Primary Dx); Chemotherapy management, encounter for 12/26/2024 1:50 PM EDT - 12/26/2024 11:59 PM EDT Hospital Encounter [facility] [address] [place] [address] Jaciel Roberts DO Discharge Disposition: Home or Self Care 12/26/2024 Procedure Pass [address] [address] 12/26/2024 Orders Only [facility] at [address] [address] Josefina Erazo NP 12/19/2024 Orders Only [facility] at [address] [address] Leslie Espinoza [place] Mesothelioma (pleural) (Primary Dx) 12/18/2024 1:00 PM EDT Office Visit [facility] [address] [place] [address] Jaciel Roberts DO Engel, Lori A, PT BPPV (benign paroxysmal positional vertigo), right (Primary Dx) 12/17/2024 Telephone [facility] at [address] [address] Suly Cheung, RN Dental Pain 12/11/2024 Telephone [facility] at [address] [address] Jaciel Roberts DO Provider call / med question 12/04/2024 10:00 AM EDT Office Visit [facility] [address] [place] [address] Jaciel Roberts DO Johndrow, Jennifer, JUANJO BPPV (benign paroxysmal positional vertigo), right (Primary Dx) 10/12/2024 Procedure Pass [facility], Ct Scan - [address] [address] from Last 3 Months Immunizations Immunization Administration [...] F) 02/28/2025 8:58 AM EDT Respiratory Rate 16 12/27/2024 12:05 PM EDT Oxygen Saturation 99% 02/28/2025 8:58 AM EDT Inhaled Oxygen Concentration - - Weight 87.1 kg (192 lb) 02/28/2025 5:39 PM EDT Height 177.8 cm (5' 10 ) 02/28/2025 5:39 PM EDT Body Mass Index 27.55 02/28/2025 5:39 PM EDT Plan of Treatment Upcoming Encounters Date Type Department Care Team (Late st Contact Info) Description 01/11/2025 Procedure Pass [address] [address] 01/11/2025 Procedure Pass [address] [address] 03/27/2025 11:15 AM EDT Appointment [address] [address] Nika Otto, SECONDS GRADER [address] [place] [address] 04/03/2025 2:30 PM EDT Appointment [facility] [address] [place] [address] Jaciel Roberts, DO [address] [place] [address] [email or web address] 04/03/2025 3:30 PM EDT Office Visit [facility] at [address] [address] Jaciel Roberts, DO [address] [place] [address] [email or web address] 2025 10:00 AM EST Telemedicine - audio only [facility] [address] [place] [address] Jonathon Gallardo MD [address] [place] [address] Division [place] [address] [email or web address] Health Maintenance Due Date Last Done Comments Adult Td,Tdap Booster 1942 TSH LEVEL 1942 ZOSTER VACCINES (1 of 2) 1961 RSV VACCINE (1 - 1-dose 75+ series) 2017 INFLUENZA VACCINE (#1) 2025 , 03/11/2023, 03/27/2022, Additional history exists COVID-19 VACCINE (2024- season) 2025 04/07/2021, 08/12/2020, 07/22/2020 DEPRESSION SCREENING 03/12/2025 03/12/2024 BLOOD PRESSURE 08/28/2025 02/28/2025 CREATININE LEVEL 12/26/2025 12/26/2024, , 11/21/2024, Additional [...] Routine 12/26/2024 1:51 PM EDT Mesothelioma (pleural) from Last 3 Months Results * US [...] clinician's provided indication for this examination in [facility]: Arm deep vein thrombosis (DVT) suspected; [...] clinician's provided indication for this examination in [facility]:Arm deep vein thrombosis (DVT) suspected; Edema [...] right upper extremity. us Bhavya A Hudson REMOTE MEDICAL CODER CV US VASCULAR Final Result * CT [...] clinician's provided indication for this examination in [facility]: Mesothelioma staging TECHNIQUE: Multidetector CT of the [...] clinician's provided indication for this examination in [facility]:Mesothelioma staging TECHNIQUE: Multidetector CT of the chest [...] similarsubaortic lymph node. us Jonathon Gallardo MD IMG CT CHEST Final Result * CT [...] azygous continuation of the IVC. Josefina Erazo METAL ANNEALER IMG CT ABD/PELVIS Final Result * (ABNORMAL) Comprehensive metabolic panel (12/26/2024 1:51 PM EDT) SODIUM 136 133 - 146 mmol/L [facility] POTASSIUM 4.5 3.3 - 5.1 mmol/L [facility] CHLORIDE 98 96 - 108 mmol/L [facility] CO2 29 21 - 35 mmol/L [facility] BUN 16 6 - 19 mg/dL [facility] CREATININE 1.00 0.5 - 1.5 mg/dL [facility] GLUCOSE 128(H) 70 - 99 mg/dL [facility] ALBUMIN 4.1 3.9 - 4.8 g/dL [facility] TOTAL PROTEIN 7.5 6.5 - 8.0 g/dL [facility] CALCIUM 9.3 8.4 - 10.3 mg/dL [facility] ALKALINE PHOSPHATASE 89 39 - 117 U/L [facility] TOTAL BILIRUBIN 0.3 0.0 - 1.2 mg/dL [facility] AST 28 0 - 37 U/L [facility] ALT 28 0 - 40 U/L [facility] GLOBULIN 3.4 1 - 4.8 g/dL [facility] EGFR 75 >59 mL/min/1.7 3m2 [facility] Comment:Estimated glomerular filtration rate calculated using the CKD-EPI refit equation. ANION GAP 14 10 - 20 mmol/L [facility] Blood 12/26/2024 1:51 PM EDT 12/26/2024 1:57 PM EDT Josefina Erazo NP LAB BLOOD ORDERABLES Fin al Result [facility] [address] [place] [address] * (ABNORMAL) CBC and differential (12/26/2024 1:51 PM EDT) WBC 5.75 4.00 - 11.00 K/uL [facility] RBC 3.83(L) 4.50 - 5.90 M/uL [facility] HGB 11.6(L) 13.5 - 17.5 g/dL [facility] HCT 35.9(L) 41.0 - 53.0 % [facility] PLT 381 150 - 450 K/uL [facility] MCV 93.7 80.0 - 100.0 fL [facility] MCH 30.3 27.0 - 31.0 pg [facility] MCHC 32.3 32.0 - 36.0 g/dL [facility] RDW 14.7(H) 11.5 - 14.5 % [facility] MPV 9.3 8.4 - 12.0 fL [facility] NRBC 0.00 0.00 /100 WBCs [facility] ABSOLUTE NRBC 0.00 0.00 K/uL [facility] DIFF [employer] Auto [facility] NEUTS 89.8(H) 48.0 - 76.0 % [facility] LYMPHS 5.4(L) 18.0 - 41.0 % [facility] MONOS 2.6(L) 4.0 - 11.0 % [facility] EOS 1.0 0.0 - 5.0 % [facility] BASOS 0.7 0.0 - 1.5 % [facility] Granulocytes, immature (%) 0.5 0.0 - 0.9 % [facility] ABSOLUTE NEUTS 5.16 1.92 - 7.60 K/uL [facility] ABSOLUTE LYMPHS 0.31(L) 0.72 - 4.10 K/uL [facility] ABSOLUTE MONOS 0.15(L) 0.16 - 1.10 K/uL [facility] ABSOLUTE EOS 0.06 0.00 - 0.50 K/uL [facility] ABSOLUTE BASOS 0.04 0.00 - 0.15 K/uL [facility] Granulocytes, immature 0.03 0.00 - 0.09 K/uL [facility] Blood 12/26/2024 1:51 PM EDT 12/26/2024 1:57 PM EDT Josefina Erazo NP LAB BLOOD ORDERABLES Fin al Result [facility] [address] [place] [address] from Last 3 Months Insurance MEDICARE PART A & [place] [address] [place] [address] MEDEX SUPPLEMENT MEDICARE PART A & B [employer] MEDEX SUPPLEMENT MEDICARE PART A & B [employer] MEDEX SUPPLEMENT MEDICARE PART A & B [employer] MEDEX SUPPLEMENT MEDICARE PART A & B [employer] SUPPLEMENT MEDICARE PART A & B [employer] SUPPLEMENT MEDICARE PART A & B [employer] MED[employer] SUPPLEMENT MEDICARE PART A & B [facility] MEDEX SUPPLEMENT MEDICARE PART A & B [employer] MEDEX SUPPLEMENT Advance Directives For more information, please contact: [phone] (9AM - 5PM [facility], Tuesday-Tuesday) Documents on File Type Date Recorded Patient Grinding And Spraying Supervisor Expl anation Healthcare Proxy 04/02/2024 Healthcare Proxy signed by PT 03/25/24 Care Teams Fabrication Technician Relationship Specialty Start Date End Date Nash Brown MD [address] [place] [address] [address] [place] [phone] PCP - General Internal Medicine 09/07/23 Jaciel Roberts DO [address] [place] [address] [email or web address] Primary Oncologist Hematology and Oncology 03/14/24 Bhavya Hudson FNP [address] [place] [address] [email or web address] Nurse Practitioner Medical Oncology 05/15/24 Josefina Erazo NP [address] [place] [address] Nurse Practitioner 11/26/24 Nika Otto CNP [address] [place] [address] [email or web address] Nurse Practitioner Nurse Practitioner 01/10/25 Additional Source Comments The information contained in this document represents components of the legal health record. It is not the complete legal health record.[facility]
--- OUTSIDE RECORDS SUMMARY | 2025-03-05 17:47 | XMS_ITS | Encounter Summary ---
Author Organization [facility] Address [address] [place] [address] [address] [place] [address] Phone Care Team Providers Care Park Warden Name Role Phone Nash Brown MD Primary Care Provider Jaciel Roberts DO Unavailable Bhavya Hudson SEA AIR LAND OFFICER Unavailable Josefina Erazo BUSINESS ANALYST MANAGER Unavailable Nika Otto WEIGHER PRODUCTION Unavailable Encounter Details Date Type Department Care Team (Late st Contact Info) Description 02/28/2025 Telephone [facility] Occupational Therapy - Virtual Department [address] [place] [address] Maryam Jacques, OT [address] [place] [address] Social History Tobacco Use Types Packs/Day Years [...] as of this encounter Progress Notes * Maryam Jacques, [place] - 02/28/2025 5:03 PM EDT Received message back from Dr Roberts that they are going to be completing a MRI for RUE and spoke with Ray who informed therapist of the same and that MRI is set for 03/04 and then will meet with Dr Roberts or onc staff to discuss results and plan moving forward. Will await direction from oncology team with re to CDT tx documented in this encounter Plan of Treatment Upcoming Encounters Date Type Department Care Team (Late st Contact Info) Description 01/11/2025 Procedure Pass [facility], [address] [address] 01/11/2025 Procedure Pass [address] [address] 03/27/2025 11:15 AM EDT Appointment [facility], Ct Scan - [address] [address] Nika Otto CNP 30 [place] [address] 04/03/2025 2:30 PM EDT Appointment [facility] 30 [place] [address] Jaciel Roberts, DO [address] [place] [address] [email or web address] 04/03/2025 3:30 PM EDT Office Visit [facility] Center at [address] [address] Jaciel Roberts DO 30 [place] [address] [email or web address] 2025 10:00 AM EST Telemedicine - audio only [facility] [address] [place] [address] Jonathon Gallardo MD [address] [place] [address] Division of [place] [address] [email or web address] documented as of this encounter Visit Diagnoses Not on filedocumented in this encounter Additional Health Concerns Assessment Noted Time PHQ-2 Depression Total Score: 0 03/12/20 24 12:23 PM EDT documented as of this encounter Care Teams Park Warden Relationship Specialty Start Date End Date Nash Brown MD [address] [place] [phone] PCP - General Internal Medicine 09/07/23 Jaciel Roberts DO [address] [place] [address] [email or web address] Primary Oncologist Hematology and Oncology 03/14/24 Bhavya Hudson FNP [address] [place] [address] Nurse Practitioner Medical Oncology 05/15/24 Josefina Erazo NP [address] [place] [address] [email or web address] Nurse Practitioner 11/26/24 Nika Otto CNP [address] [place] [address] Nurse Practitioner Nurse Practitioner 01/10/25 documented as of this encounter Additional Source Comments The information contained in this document represents components of the legal health record. It is not the complete legal health record.[facility]
--- OUTSIDE RECORDS SUMMARY | 2025-03-05 17:47 | XMS_ITS | Encounter Summary ---
Author Organization [facility] Address [address] [place] [address] [address] [place] [address] Phone Care Team Providers Care Apple Picker Name Role Phone Nash Brown MD Primary Care Provider [phone] Jaciel Roberts DO Unavailable Bhavya Hudson BABY FORMULA MIXER Unavailable Josefina Erazo AUTOMATION ENGINEER Unavailable Nika Otto MILLROOM SUPERVISOR Unavailable Encounter Details Date Type Department Care Team (Late st Contact Info) Description 12/26/2024 Procedure Pass [facility], Ct Scan - [address] [address] Social History Tobacco Use Types Packs/Day Years [...] Contact Info) Description 01/11/2025 Procedure Pass [address] [address] 01/11/2025 Procedure Pass [address] [address] 03/27/2025 11:15 AM EDT Appointment [address] [address] Nika Otto CNP [address] [place] [address] 04/03/2025 2:30 PM EDT Appointment [facility] [address] [place] [address] Jaciel Roberts DO [address] [place] [address] [email or web address] 04/03/2025 3:30 PM EDT Office Visit [facility] [place] [address] [place] [address] Jaciel Roberts DO 30 [place] [address] [email or web address] 2025 10:00 AM EST Telemedicine - audio only [facility] [address] [place] [address] Jonathon Gallardo MD [address] [place] [address] Division [place] [address] [email or web address] documented as of this encounter Visit Diagnoses Not on filedocumented in this encounter Additional Health Concerns Assessment Noted Time PHQ-2 Depression Total Score: 0 03/12/20 12:23 PM EDT documented as of this encounter Care Teams Apple Picker Relationship Specialty Start Date End Date Nash Brown MD [address] [place] [address] [address] [place] [phone] PCP - General Internal Medicine 09/07/23 Jaciel Roberts DO 30 [place] [address] [email or web address] [email or web address] Primary Oncologist Hematology and Oncology 03/14/24 Bhavya Hudson FNP [address] [place] [address] [email or web address] Nurse Practitioner Medical Oncology 05/15/24 Josefina Erazo, VALDO [address] [place] [address] [email or web address] Nurse Practitioner 11/26/24 Nika Otto CNP [address] [place] [address] [email or web address] Nurse Practitioner Nurse Practitioner 01/10/25 documented as of this encounter Additional Source Comments The information contained in this document represents components of the legal health record. It is not the complete legal health record.[facility]
--- OUTSIDE RECORDS SUMMARY | 2025-03-05 17:47 | XMS_ITS | Encounter Summary ---
Author Organization [facility] Address [address] [place] [address] [address] [place] [address] Phone Care Team Providers Care Ham Curer Name Role Phone Nash Brown MD Primary Care Provider Jaciel Roberts DO Unavailable [phone] Bhavya Hudson INSTRUCTIONAL SUPERVISOR Unavailable Josefina Erazo EDGE TRIMMER MECHANIC Unavailable Nika Otto NET LEAD DEVELOPER Unavailable Encounter Details Date Type Department Care Team (Late st Contact Info) Description 02/28/2025 Procedure Pass [facility], [address] [address] Social History Tobacco Use Types Packs/Day Years [...] - Inhaled Oxygen Concentration - - Weight 87.1 kg (192 lb) 02/28/2025 5:39 PM EDT Height 177.8 cm (5' 10 ) 02/28/2025 5:39 PM EDT Body Mass Index 27.55 02/28/2025 5:39 PM EDT documented in this encounter Plan of Treatment Upcoming Encounters Date Type Department Care Team (Late st Contact Info) Description 01/11/2025 Procedure Pass [facility] Ct Scan [address] [address] 01/11/2025 Procedure Pass [facility] Ct [address] [address] 03/27/2025 11:15 AM EDT Appointment [address] [address] Nika Otto, GIGI 30 [place] [address] 04/03/2025 2:30 PM EDT Appointment [facility] 30 [place] [address] Jaciel Roberts, 30 [place] [address] [email or web address] 04/03/2025 3:30 PM EDT Office Visit [facility] 30 [place] [address] Jaciel Roberts DO 30 [place] [address] [email or web address] 2025 10:00 AM EST Telemedicine - audio only [facility] [place] [address] [place] [address] Jonathon Gallardo MD [address] [place] [address] Division [place] [address] [email or web address] documented as of this encounter Visit Diagnoses Not on filedocumented in this encounter Additional Health Concerns Assessment Noted Time PHQ-2 Depression Total Score: 0 03/12/20 24 12:23 PM EDT documented as of this encounter Care Teams Ham Curer Relationship Specialty Start Date End Date Nash Brown MD [address] [place] [address] [address] [place] [phone] PCP - General Internal Medicine 09/07/23 Jaciel Roberts DO [address] [place] [address] [email or web address] [email or web address] Primary Oncologist Hematology and Oncology 03/14/24 Bhavya Hudson FNP [address] [place] [address] [email or web address] Nurse Practitioner Medical Oncology 05/15/24 Josefina Erazo NP [address] [place] [address] [email or web address] [email or web address] Nurse Practitioner 11/26/24 Nika Otto CNP [address] [place] [address] [email or web address] [email or web address] Nurse Practitioner Nurse Practitioner 01/10/25 documented as of this encounter Additional Source Comments The information contained in this document represents components of the legal health record. It is not the complete legal health record.[facility]
--- OUTSIDE RECORDS SUMMARY | 2025-03-05 17:47 | XMS_ITS | Encounter Summary ---
Author Organization [facility] Address [address] [place] [address] [address] [place] [address] Phone Care Team Providers Care Dependency Case Manager Name Role Phone Nash Brown MD Primary Care Provider Jaciel Roberts DO Unavailable Bhavya Hudson RENEWABLE ENERGY BROKER Unavailable Josefina Erazo CURB SUPERVISOR Unavailable Nika Otto HAND MEAT SALTER Unavailable Encounter Details Date Type Department Care Team (Late st Contact Info) Description 02/14/2025 Documentation [facility] Occupational Therapy - Virtual Department [address] [place] [address] Maryam Jacques, OT 30 [place] [address] Social History Tobacco Use Types Packs/Day Years [...] st Contact Info) Description 01/11/2025 Procedure Pass [address] [address] 01/11/[address] [address] 03/27/2025 11:15 AM EDT Appointment [address] [address] Nika Otto CNP [address] [place] [address] 04/03/2025 2:30 PM EDT Appointment [facility] [address] [place] [address] Jaciel Roberts, 30 [place] [address] [email or web address] 04/03/2025 3:30 PM EDT Office Visit [facility] at [facility] 30 [place] [address] Jaciel Roberts DO 30 [place] [address] [email or web address]@[email or web address] 2025 10:00 AM EST Telemedicine - audio only [facility] [place] [address] [place] [address] Jonathon Gallardo MD [address] [place] [address] Division [place] [address] [email or web address] documented as of this encounter Visit Diagnoses Not on filedocumented in this encounter Additional Health Concerns Assessment Noted Time PHQ-2 Depression Total Score: 0 03/12/20 12:23 PM EDT documented as of this encounter Care Teams Dependency Case Manager Relationship Specialty Start Date End Date Kevin, Nash Chirinos MD [address] [place] [address] [place] [phone] PCP - General Internal Medicine 09/07/23 Jaciel Roberts DO [address] [place] [address] [email or web address] Primary Oncologist Hematology and Oncology 03/14/24 Bhavya Hudson FNP [address] [place] [address] [email or web address] Nurse Practitioner Medical Oncology 05/15/24 Josefina Erazo NP [address] [place] [address] [email or web address] Nurse Practitioner 11/26/24 Nika Otto CNP [address] [place] [address] [email or web address] Nurse Practitioner Nurse Practitioner 01/10/25 documented as of this encounter Additional Source Comments The information contained in this document represents components of the legal health record. It is not the complete legal health record.[facility]
--- OUTSIDE RECORDS SUMMARY | 2025-03-05 17:47 | XMS_ITS | Encounter Summary ---
Author Organization [facility] Address [address] [place] [address] [address] [place] [address] Phone Care Team Providers Care Loan Closer Name Role Phone Nash Brown MD Primary Care Provider [phone] Jaciel Roberts DO Unavailable Bhavya Hudson UTILITY TELLER Unavailable Josefina Erazo RESCUE INSTRUCTOR Unavailable Nika Otto SOFTWARE PROJECT MANAGER Unavailable Encounter Details Date Type Department Care Team (Late st Contact Info) Description 07/23/2024 Procedure Pass [facility], Ct Scan - [address] [address] Social History Tobacco Use Types Packs/Day Years [...] 07/23/2024 10:00 AM Melody Mendoza RN * [place] Suicide Severity Rating Scale (Screener/Recent Self-Report) Question [...] (Late st Contact Info) Description 01/11/[address] [address] 01/11/[address] [address] 03/27/2025 11:15 AM EDT Appointment [facility], Ct Scan - [address] [address] Nika Otto CNP 30 [place] [address] 04/03/2025 2:30 PM EDT Appointment [facility] [address] [place] [address] Jaciel Roberts, DO [address] [place] [address] [email or web address]@[email or web address] 04/03/2025 3:30 PM EDT Office Visit [facility] at [address] [address] Jaciel Roberts, DO [address] [place] [address] [email or web address]@[email or web address] 2025 10:00 AM EST Telemedicine - audio only [facility] [address] [place] [address] Jonathon Gallardo MD [address] [place] [address] Division [place] [address] [email or web address] documented as of this encounter Visit Diagnoses Not on filedocumented in this encounter Additional Health Concerns Infection Onset Date Last Indicated Resolved Time CoV-Risk 07/23/2024 07/23/2024 08/03/2024 1:21 AM EST Assessment Noted Time PHQ-2 Depression Total Score: 0 03/12/20 24 12:23 PM EDT documented as of this encounter Care Teams Loan Closer Relationship Specialty Start Date End Date Nash Brown MD [address] [place] [phone] PCP - General Internal Medicine 09/07/23 Jaciel Roberts DO [address] [place] [address] [email or web address] Primary Oncologist Hematology and Oncology 03/14/24 Bhavya Hudson FNP [address] [place] [address] [email or web address] Nurse Practitioner Medical Oncology 05/15/24 Josefina Erazo NP [address] [place] [address] [email or web address] Nurse Practitioner 11/26/24 Nika Otto CNP [address] [place] [address] [email or web address] Nurse Practitioner Nurse Practitioner 01/10/25 documented as of this encounter Additional Source Comments The information contained in this document represents components of the legal health record. It is not the complete legal health record.[facility]
--- OUTSIDE RECORDS SUMMARY | 2025-03-05 17:47 | XMS_ITS | Encounter Summary ---
Author Organization [facility] Address [address] [place] [address] [place] [address] Phone Care Team Providers Care Tool Setter Name Role Phone Nash Brown MD Primary Care Provider [phone] Jaciel Roberts DO Unavailable Bhavya Hudson FLAT BED OPERATOR Unavailable Josefina Erazo RESEARCH CHEMICAL ENGINEER Unavailable Nika Otto DIALYSIS PATIENT CARE TECHNICIAN Unavailable Reason for Visit * Reason Onset Date Comments MRI - Rx - accomodations 03/04/2025 Encounter Details Date Type Department Care Team (Late st Contact Info) Description 03/04/2025 Telephone [facility] at [address] [address] Jaciel Roberts DO 30 [place] [address] [email or web address] [place] MRI - Rx - accomodations Social History Tobacco Use Types Packs/Day Years [...] as of this encounter Progress Notes * Helen Lorenzo - 03/04/2025 3:19 PM EDT Pt came to c/o just after presenting to [facility] Pt worried about whether he might be by the phone when they call him to let him know his Rx is in Pt concerned that the Rx be available to him in-time for MRI tomorrow, 03/05/25 8:35am arrival time at [facility]. Also, Does pt need separate f/u from that which is already scheduled? Pt concerned about waiting until already-scheduled f/u (~04/01) to discuss arm- mobility concerns. * Tana Quezada - 03/04/2025 3:14 PM EDT Pt came to check-in requesting to have the medication that helps w/ being in confined spaces in preparation for the MRI he is scheduled for tomorrow. Pt's preferred pharmacy is [facility] in [facility]. Please call pt back to discuss further as appropriate at [phone]. Thank you! documented in this encounter Plan of Treatment Upcoming Encounters Date Type Department Care Team (Late st Contact Info) Description 01/11/2025 Procedure Pass [address] [address] 01/11/2025 Procedure Pass [address] [address] 03/27/2025 11:15 AM EDT Appointment [address] [address] Nika Otto, DIALYSIS PATIENT CARE TECHNICIAN [address] [place] [address] 04/03/2025 2:30 PM EDT Appointment [facility] [address] [place] [address] Jaciel Roberts, DO [address] [place] [address] [email or web address] 04/03/2025 3:30 PM EDT Office Visit [facility] at [address] [address] Jaciel Roberts, DO [address] [place] [address] [email or web address] 2025 10:00 AM EST Telemedicine - audio only [facility] [address] [place] [address] Jonathon Gallardo MD [address] [facility] Division [place] [address] [email or web address] documented as of this encounter Visit Diagnoses Not on filedocumented in this encounter Additional Health Concerns Assessment Noted Time PHQ-2 Depression Total Score: 0 03/12/20 24 12:23 PM EDT documented as of this encounter Care Teams Tool Setter Relationship Specialty Start Date End Date Po, Nash Chirinos MD [address] [place] [address] Drive [address] [place] [phone] PCP - General Internal Medicine 09/07/23 Jaciel Roberts DO [address] [place] [address] [email or web address] [email or web address] Primary Oncologist Hematology and Oncology 03/14/24 Bhavya Hudson FNP [address] [place] [address] [email or web address] Nurse Practitioner Medical Oncology 05/15/24 Josefina Erazo NP [address] [place] [address] Nurse Practitioner 11/26/24 Nika Otto CNP [address] [place] [address] Nurse Practitioner Nurse Practitioner 01/10/25 documented as of this encounter Additional Source Comments The information contained in this document represents components of the legal health record. It is not the complete legal health record.[facility]
--- OUTSIDE RECORDS SUMMARY | 2025-03-05 17:47 | XMS_ITS | Patient Health Record ---
Author Organization [facility] Aaliyah elisa Landeros Address [address] [facility] [place] [address] Care Team Providers Care Research And Evaluation Analyst Name Role Phone Nash Brown Primary Care Provider Nika Reardon Unavailable [phone] Allergies Allergen (clinical drug ingredient) Drug/Non Drug Allergy documented on EMR Reaction Allergy Type Onset Date Status Substance with 4-pvkuqmf-7-methylgluta ryl-coenzyme A reductase inhibitor mechanism of action [...] Vaccine Route Administration Date Status Comme nts Influenza Unknown 02/12/2024 Administered COVID-19 Pfizer BioNTech Vaccine Unknown 08/12/2020 Administered [...] Notes Problem 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 Problem Idiopathic gout (11403024) 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 confirmed Vital Signs Blood pressure diastolic 70 mm Hg 12/11/2024 Height 5 ft 11 in in 12/11/2024 Blood pressure systolic 120 mm Hg 12/11/2024 Weight 190 lbs 12/11/2024 BMI 26.5 kg/m2 12/11/2024 Encounters Encounter Location Date Provider Diagnosis [address] [phone] 03/23/2024 Nika Perica Tinea unguium B35.1 ; Pain in right toe(s) M79.674 and Pain in left toe(s) M79.[facility] [address] 06/22/2024 Nika Perica Tinea unguium B35.1 ; Pain in right toe(s) M79.674 and Pain in left toe(s) M79.[address] [address] 09/14/2024 Nika Perica Tinea unguium B35.1 ; Pain in right toe(s) M79.674 ; Pain in left toe(s) M79.675 ; Drug-induced polyneuropathy G62.0 and Adverse effect of antineoplastic and immunosuppressive drugs, initial encounter T45.1X5A [facility] [address] [address] 12/11/2024 Nika Gale Pain in right ankle and joints of right foot M25.571 ; Acute idiopathic gout of right foot M10.071 ; Tinea unguium B35.1 ; Pain in right toe(s) M79.674 ; Pain in left toe(s) M79.675 ; Drug-induced polyneuropathy G62.0 and Adverse effect of antineoplastic and immunosuppressive drugs, initial encounter T45.1X5A [facility] [address] 12/11/2024 Nika Gale [facility] [phone] 12/13/2024 Nika Gale Assessments Encounter Date Diagnosis [...] X ray : Foot, right 3V 04/18/2019 [id number] NAIL, 6 OR MORE 01/26/2018 [id number] NAIL, 6 OR MORE 04/10/2018 [id number] NAIL, 1-5 07/19/2017 [id number] NAIL, 1-5 10/05/2017 [id number] NAIL, 1-5 10/20/2020 13554- Debride <25 sq cm 07/10/2013 79543 I&D ABSCESS- SIMPLE,SINGLE 014 10504, J0702- Neuroma/Injection 04/29/20 11 [address]95, J0702- Neuroma/Injection 06/20/19 13 X ray : Ankle, right 3V 04/18/2019 Next Appt Details Provider Name:Nika Arciniega Urmila arciniega, 03/15/2025 11:15:00 AM, [address] [facility], [place], [address], Insurance Providers Payer Name Payer Address Payer Phone Subscriber Number Group Number Insured Name Patient Relationship to Insured Coverage Start Date Coverage End Date Medicare National [employer]t [employer] [address] [place] [address] [id number] Angel ttZia georgesParish Self - patient is the insured MedRAP Index [facility] [address] [place] [address] [id number] Tino Parish ortiz Self - patient is the insured 8 Medical (General) History Medical History History ICD Code chicken pox measles mumps Cancer Thyroid disorder Heart attack Mesothelioma Surgical History Surgery Date(Month/Year) Thyroid Surgery 02/2017 melanoma 2016 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
--- OUTSIDE RECORDS SUMMARY | 2025-03-05 17:47 | XMS_ITS | Encounter Summary ---
Author Organization [facility] Address [address] [place] [address] [address] [place] [address] Phone Care Team Providers Care Cell Room Supervisor Name Role Phone Nash Brown MD Primary Care Provider [phone] Jaciel Roberts DO Unavailable Bhavya Hudson MALTED MILK MASHER Unavailable Josefina Erazo AREA SALES MANAGER Unavailable Nika Otto TIRE CURER Unavailable Encounter Details Date Type Department Care Team (Late st Contact Info) Description 11/06/2024 Procedure Pass [facility], Ct Scan - [address] [address] Social History Tobacco Use Types Packs/Day Years [...] st Contact Info) Description 01/11/2025 Procedure Pass [address] [address] 01/11/2025 Procedure Pass [address] [address] 03/27/2025 11:15 AM EDT Appointment [address] [address] Nika Otto CNP [address] [place] [address] 04/03/2025 2:30 PM EDT Appointment [facility] [address] [place] [address] Jaciel Roberts DO [address] [place] [address] [email or web address] 04/03/2025 3:30 PM EDT Office Visit [facility] Center at [place] [address] [place] [address] Jaciel Roberts DO [address] [place] [address] [email or web address] 2025 10:00 AM EST Telemedicine - audio only [facility] 15 [place] [address] Jonathon Gallardo MD [address] [place] [address] Division [place] [address] [email or web address] documented as of this encounter Visit Diagnoses Not on filedocumented in this encounter Additional Health Concerns Assessment Noted Time PHQ-2 Depression Total Score: 0 03/12/20 12:23 PM EDT documented as of this encounter Care Teams Cell Room Supervisor Relationship Specialty Start Date End Date Nash Brown MD [address] [place] [address] [address] [place] [phone] PCP - General Internal Medicine 09/07/23 Jaciel Roberts DO [address] [place] [address] [email or web address] Primary Oncologist Hematology and Oncology 03/14/24 Bhavya Hudson FNP [address] [place] [address] [email or web address] Nurse Practitioner Medical Oncology 05/15/24 Josefina Erazo, VALDO [address] [place] [address] [email or web address] Nurse Practitioner 11/26/24 Nika Otot CNP [address] [place] [address] [email or web address] Nurse Practitioner Nurse Practitioner 01/10/25 documented as of this encounter Additional Source Comments The information contained in this document represents components of the legal health record. It is not the complete legal health record.[facility]
--- OUTSIDE RECORDS SUMMARY | 2025-03-05 17:47 | XMS_ITS | Encounter Summary ---
Author Organization [facility] Address [facility] [address] [place] [address] Phone Care Team Providers Care Five Roll Refiner Batch Mixer Name Role Phone Nash Brown MD Primary Care Provider Jaciel Roberts DO Unavailable [phone] Bhavya Hudson SANDBLASTER PAINT SPRAYER Unavailable Josefina Erazo TWIST PACKER Unavailable [phone] Nika Otto BEAD BUILDER Unavailable Encounter Details Date Type Department Care Team (Late st Contact Info) Description 04/06/2024 Procedure Pass , Ct Scan - [address] [address] Social History Tobacco Use Types Packs/Day Years [...] st Contact Info) Description 01/11/2025 Procedure Pass [address] [address] 01/11/2025 Procedure Pass [address] [address] 03/27/2025 11:15 AM EDT Appointment [address] [address] Nika Otto, GIGI [address] [place] [address] 04/03/2025 2:30 PM EDT Appointment [facility] [address] [place] [address] Jaciel Roberts, DO [address] [place] [address] [email or web address] 04/03/2025 3:30 PM EDT Office Visit [facility] Center at [address] [address] Jaciel Roberts, DO [address] [place] [address] [email or web address]@[email or web address] 2025 10:00 AM EST Telemedicine - audio only [facility] [address] [place] [address] Jonathon Gallardo MD [address] [place] [address] Division [place] [address] [email or web address] documented as of this encounter Visit Diagnoses Not on filedocumented in this encounter Additional Health Concerns Infection Onset Date Last Indicated Resolved Time CoV-Risk 07/23/2024 07/23/2024 08/03/2024 1:21 AM EST Assessment Noted Time PHQ-2 Depression Total Score: 0 03/12/20 12:23 PM EDT documented as of this encounter Care Teams Five Roll Refiner Batch Mixer Relationship Specialty Start Date End Date Po, Nash Chirinos MD [address] [place] [address] [address] [place] [phone] PCP - General Internal Medicine 09/07/23 Jaciel Roberts DO [address] [place] [address] [email or web address] Primary Oncologist Hematology and Oncology 03/14/24 Bhavya Hudson FNP [address] [place] [address] [email or web address] Nurse Practitioner Medical Oncology 05/15/24 Josefina Erazo NP [address] [place] [address] [email or web address] Nurse Practitioner 11/26/24 Nika Otto CNP [address] [place] [address] [email or web address] Nurse Practitioner Nurse Practitioner 01/10/25 documented as of this encounter Additional Source Comments The information contained in this document represents components of the legal health record. It is not the complete legal health record.[facility]
--- OUTSIDE RECORDS SUMMARY | 2025-03-05 17:47 | XMS_ITS | Encounter Summary ---
Author Organization [facility] Address [address] [place] [address] [address] [place] [address] Phone Care Team Providers Care Cordwood Cutter Name Role Phone Nash Brown MD Primary Care Provider Jaciel Roberts DO Unavailable Bhavya Hudson SALES OPERATIONS ANALYST Unavailable [phone] Josefina Erazo MANAGER CARDIOVASCULAR Unavailable [phone] Nika Otto TECHNICAL SUPPORT PROFESSIONAL Unavailable Encounter Details Date Type Department Care Team (Late st Contact Info) Description 03/04/2025 Orders Only [facility] at [address] [address] Bhavya Hudson, SALES OPERATIONS ANALYST 30 [place] [address] Social History Tobacco Use Types Packs/Day Years [...] st Contact Info) Description 01/11/2025 Procedure Pass [address] [address] 01/11/2025 Procedure Pass [address] [address] 03/27/2025 11:15 AM EDT Appointment [address] [address] Nika Otto CNP [address] [place] [address] 04/03/2025 2:30 PM EDT Appointment [facility] [address] [place] [address] Jaciel Roberts, DO 30 [place] [address] [email or web address] 04/03/2025 3:30 PM EDT Office Visit [facility] at [facility] 30 [place] [address] Jaciel Roberts, DO 30 [place] [address] [email or web address] 2025 10:00 AM EST Telemedicine - audio only [facility] [place] [address] [place] [address] Jonathon Gallardo MD [address] [place] [address] Division [place] [address] [email or web address] documented as of this encounter Visit Diagnoses Not on filedocumented in this encounter Additional Health Concerns Assessment Noted Time PHQ-2 Depression Total Score: 0 03/12/20 24 12:23 PM EDT documented as of this encounter Care Teams Cordwood Cutter Relationship Specialty Start Date End Date Nash Brown MD [address] [place] [address] [place] [phone] PCP - General Internal Medicine 09/07/23 Jaciel Roberts DO [address] [place] [address] [email or web address] Primary Oncologist Hematology and Oncology 03/14/24 Bhavya Hudson FNP [address] [place] [address] [email or web address] Nurse Practitioner Medical Oncology 05/15/24 Josefina Erazo NP [address] [place] [address] [email or web address] Nurse Practitioner 11/26/24 Nika Otto CNP [address] [place] [address] [email or web address] Nurse Practitioner Nurse Practitioner 01/10/25 documented as of this encounter Additional Source Comments The information contained in this document represents components of the legal health record. It is not the complete legal health record.[facility]
--- OUTSIDE RECORDS SUMMARY | 2025-03-05 17:47 | XMS_ITS ---
Author Organization [facility] Address [address] [place] [address] Phone Care Team Providers Care All Round Logger Name Role Phone Nash Brown MD Primary Care Provider [phone] Jaciel Roberts DO Unavailable Bhavya Hudson RELOCATION DIRECTOR Unavailable [phone] Josefina Erazo CUT PLUG PACKER Unavailable [phone] Nika Otto BUFFET SERVER Unavailable Active Problems Problem Noted Date Diagnosed [...] B (by AUC) 270 mLPEMEtrexed (ALIMTA)PEMEtrexed (ALIMTA) in NS IVPB PEMEtrexed disodium (ALIMTA) 1,050 mg in sodium chloride 0.9% 152 mL IVPB VITAMIN B-12 (CYANOCOBALAMIN)* Plan Start Date:03/28/2024 Plan Provider:Jaciel Roberts DO Linked Problems Mesothelioma (pleural) Treatment Medications No medications scheduled. Past Treatment and Therapy Plans No past plan information found.
--- OUTSIDE RECORDS SUMMARY | 2025-03-05 17:48 | XMS_ITS | Encounter Summary ---
Author Organization [facility] Address [address] [place] [address] [address] [place] [address] Phone Care Team Providers Care Concentrator Operator Name Role Phone Nsah Brown MD Primary Care Provider [phone] Jaciel Roberts DO Unavailable [phone] Bhavya Hudson CUSTOMER EXPERIENCE ASSOCIATE Unavailable Josefina Erazo ENGINEER ASSISTANT Unavailable [phone] Nika Otto GREEN PIPEFITTER Unavailable Encounter Details Date Type Department Care Team (Late st Contact Info) Description 06/04/2024 Procedure Pass [facility], Ct Scan - [address] [address] Social History Tobacco Use Types Packs/Day Years [...] st Contact Info) Description 01/11/2025 Procedure Pass [address] [address] 01/11/2025 Procedure Pass [address] [address] 03/27/2025 11:15 AM EDT Appointment [address] [address] Nika Otto CNP [address] [place] [address] 04/03/2025 2:30 PM EDT Appointment [facility] [address] [place] [address] Jaciel Roberts DO [address] [place] [address] [email or web address] 04/03/2025 3:30 PM EDT Office Visit [facility] Center at [place] [place] 30 [place] [address] Jaciel Roberts DO 30 [place] [address] [email or web address] 2025 10:00 AM EST Telemedicine - audio only [facility] 15 [place] [address] Jonathon Gallardo MD [address] [place] [address] Division [place] [address] [email or web address] documented as of this encounter Visit Diagnoses Not on filedocumented in this encounter Additional Health Concerns Infection Onset Date Last Indicated Resolved Time CoV-Risk 07/23/2024 07/23/2024 08/03/2024 1:21 AM EST Assessment Noted Time PHQ-2 Depression Total Score: 0 03/12/20 12:23 PM EDT documented as of this encounter Care Teams Concentrator Operator Relationship Specialty Start Date End Date Kevin, Nash Chirinos MD [address] [place] [address] Drive [address] [place] [phone] PCP - General Internal Medicine 09/07/23 Jaciel Roberts DO 30 [place] [address] [email or web address]. [place]ERRE[place] Primary Oncologist Hematology and Oncology 03/14/24 Bhavya Hudson FNP 30 [place] [address] [email or web address] Nurse Practitioner Medical Oncology 05/15/24 Josefina Erazo NP 30 [place] [address] Nurse Practitioner 11/26/24 Nika Otto CNP [address] [place] [address] [email or web address] Nurse Practitioner Nurse Practitioner 01/10/25 documented as of this encounter Additional Source Comments The information contained in this document represents components of the legal health record. It is not the complete legal health record.[facility]
--- OUTSIDE RECORDS SUMMARY | 2025-03-05 17:48 | XMS_ITS | Encounter Summary ---
Author Organization [facility] Address [address] [place] [address] [address] [place] [address] Phone Care Team Providers Care Lime Kiln And Recausticizing Operator Name Role Phone Nash Brown MD Primary Care Provider [phone] Jaciel Roberts DO Unavailable [phone] Bhavya Hudson WORM GROWER Unavailable Josefina Erazo PORK CUTLET MAKER Unavailable Nika Otto HVAC JOURNEYMAN Unavailable Encounter Details Date Type Department Care Team (Late st Contact Info) Description 08/29/2024 Procedure Pass [facility], Ct Scan - [address] [address] Social History Tobacco Use Types Packs/Day Years [...] st Contact Info) Description 01/11/2025 Procedure Pass [address] [address] 01/11/2025 Procedure Pass [address] [address] 03/27/2025 11:15 AM EDT Appointment [address] [address] Nika Otto CNP [address] [place] [address] 04/03/2025 2:30 PM EDT Appointment [facility] [address] [place] [address] Jaciel Roberts DO [address] [place] [address] [email or web address] 04/03/2025 3:30 PM EDT Office Visit [facility] Center at [place] [address] [place] [address] Jaciel Roberts DO 30 [place] [address] [email or web address] 2025 10:00 AM EST Telemedicine - audio only [facility] 15 [place] [address] Jonathon Gallardo MD [address] [place] [address] Division [place] [address] [email or web address] documented as of this encounter Visit Diagnoses Not on filedocumented in this encounter Additional Health Concerns Assessment Noted Time PHQ-2 Depression Total Score: 0 03/12/20 12:23 PM EDT documented as of this encounter Care Teams Lime Kiln And Recausticizing Operator Relationship Specialty Start Date End Date Nash Brown MD [address] [place] [address] [address] [place] [phone] PCP - General Internal Medicine 09/07/23 Jaciel Roberts DO 30 [place] [address] [email or web address] Primary Oncologist Hematology and Oncology 03/14/24 Bhavya Hudson FNP [address] [place] [address] [email or web address] Nurse Practitioner Medical Oncology 05/15/24 Josefina Erazo, VALDO [address] [place] [address] [email or web address] Nurse Practitioner 11/26/24 Nika Otto CNP [address] [place] [address] [email or web address] Nurse Practitioner Nurse Practitioner 01/10/25 documented as of this encounter Additional Source Comments The information contained in this document represents components of the legal health record. It is not the complete legal health record.[facility]
--- OUTSIDE RECORDS SUMMARY | 2025-03-05 17:48 | XMS_ITS | Encounter Summary ---
Author Organization [facility] Address [facility] [employer] [facility] [address] [place] [address] Phone Care Team Providers Care Store Worker Name Role Phone Nash Brown MD Primary Care Provider Jaciel Roberts DO Unavailable Bhavya Hudson RESTAURANT SHIFT LEADER Unavailable Josefina Erazo STREET CLEANER Unavailable Nika Otto FOUNTAIN ROLLER ASSEMBLER Unavailable Encounter Details Date Type Department Care Team (Late st Contact Info) Description 03/21/2024 Procedure Pass [facility] 30 [place] [address] Social History Tobacco Use Types Packs/Day Years [...] Contact Info) Description 01/11/2025 Procedure Pass [address] [address] 01/11/2025 Procedure Pass [address] [address] 03/27/2025 11:15 AM EDT Appointment [address] [address] Nika Otto, GIGI [address] [place] [address] 04/03/2025 2:30 PM EDT Appointment [facility] [address] [place] [address] Jaciel Roberts, DO [address] [place] [address] [email or web address] 04/03/2025 3:30 PM EDT Office Visit [facility] Center at [address] [address] Jaciel Roberts, DO [address] [place] [address] [email or web address] 2025 10:00 AM EST Telemedicine - audio only [facility] [address] [place] [address] Jonathon Gallardo MD [address] [place] [address] [place] [address] [email or web address] documented as of this encounter Visit Diagnoses Not on filedocumented in this encounter Additional Health Concerns Infection Onset Date Last Indicated Resolved Time CDiff-Risk 04/02/2024 04/04/2024 04/04/2024 4:35 PM EDT CoV-Risk 07/23/2024 07/23/2024 08/03/2024 1:21 AM EST Assessment Noted Time PHQ-2 Depression Total Score: 0 03/12/20 12:23 PM EDT documented as of this encounter Care Teams Store Worker Relationship Specialty Start Date End Date Nash Brown MD [address] [facility] [address] [place] [phone] PCP - General Internal Medicine 09/07/23 Jaciel Roberts DO [address] [place] [address] [email or web address] Primary Oncologist Hematology and Oncology 03/14/24 Bhavya Hudson FNP [address] [place] [address] Nurse Practitioner Medical Oncology 05/15/24 Josefina Erazo NP [address] [place] [address] Nurse Practitioner 11/26/24 Nika Otto CNP [address] [place] [address] Nurse Practitioner Nurse Practitioner 01/10/25 documented as of this encounter Additional Source Comments The information contained in this document represents components of the legal health record. It is not the complete legal health record.[facility]
--- OUTSIDE RECORDS SUMMARY | 2025-03-05 17:48 | XMS_ITS | Clinical Summary ---
Author Organization [facility] Address [address] [place] [address] Phone Care Team Providers Care Optimization Specialist Name Role Phone Nash Brown MD Primary Care Provider [phone] Allergies Active Allergy Reactions Criticality Noted Date Comments Nitroglycerin Other 02/20/2024 BP drops Medications folic acid (FOLVITE) 1 mg tablet Take 1 Tablet by mouth daily. Active tamsulosin (FLOMAX) 0.4 mg 24 hr capsule Take by mouth. TAKE 1 CAPSULE BY MOUTH DAILY. TAKE 30 MINS AFTER SAME MEAL EVERY DAY. 4 Active docusate calcium (Stool Softener, docusate caity,) [...] Take 1 Tablet by mouth daily. Active atorvastatin (LIPITOR) 40 mg tabletIndication s:Coronary artery disease involving coronary bypass graft of [place] heart with other forms of angina pectoris (CMS/HCC V24) Take 1 tablet (40 mg total) by mouth 1 (one) time each day. 90 each 3 5 Active carvediloL (COREG) 6.25 mg tablet Take 1 tablet (6.25 mg total) by mouth 2 (two) times a day with meals. 180 tablet 1 5 Active furosemide (LASIX) 20 mg tabletIndication s:Dyspnea, unspecified Take 1 tablet (20 mg total) by mouth 2 (two) times a day. 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 30 each 11 5 02/27/20 25 Discontinu ed(Reorder ) clopidogreL (PLAVIX) 75 mg tablet TAKE 1 TABLET BY MOUTH EVERY DAY 90 tablet 2 5 02/27/20 25 Discontinu ed(Prescri leah Discontinu ed) Active Problems Problem Noted Date Diagnosed Date Chronic heart failure with p reserved ejection fraction (CMS/HCC V24, CMS/HCC V28) 02/26/2025 Assessment & Plan (02/26/2025 8:33 AM EDT): Patient has history of HFpEF-EF 70% on last echocardiogram. He is experiencing some abdominal distention likely secondary to metastatic cancer. He is on furosemide 20 mg twice daily. I have asked him to increase this temporarily to 40 mg twice daily for 3 days to see if this helps with his abdominal distention. His weight has been stable and he is otherwise euvolemic. Primary hypertension 02/26/2025 Assessment & Plan (02/26/2025 8:33 AM EDT): Blood pressure is quite reasonable with a reading today of 120/74. Continue with medical therapies as above. Mixed hyperlipidemia 02/26/2025 Assessment & Plan (02/26/2025 8:33 AM EDT): Goal LDL cholesterol is less than 70. We will update a lipid panel. Continue with statin as prescribed. Dizziness 11/20/2024 Assessment & Plan (02/26/2025 8:33 AM EDT): Patient reports vertigo and is following with vestibular therapy. Assessment & Plan (11/20/2024 4:16 PM EDT): [...] and he has no evidence of orthostasis. CAD (coronary artery disease) 05/07/2024 Assessment & Plan (02/26/2025 8:33 AM EDT): Patient has history of coronary artery disease status post bypass and subsequent need for angioplasty of an unbypassed ramus branch due to unstable angina in the setting of NSTEMI. He is doing well and denies any recurrent anginal symptoms. Patient's last angioplasty was 11/2023. He will continue on cardioprotective medical therapy with aspirin, carvedilol and atorvastatin as prescribed. I have reviewed with the patient the importance of a heart healthy lifestyle which includes eating a low-fat low- salt diet, getting regular exercise, maintaining a healthy weight, not smoking, and following up with routine medical care. Assessment & Plan (02/26/2025 8:33 AM EDT): Patient has history of coronary artery disease status post bypass and subsequent need for angioplasty of an unbypassed ramus branch due to unstable angina in the setting of NSTEMI. He is doing well and denies any recurrent anginal symptoms. Patient's last angioplasty was 11/2023. He will continue on cardioprotective medical therapy with aspirin, carvedilol and atorvastatin as prescribed. I have reviewed with the patient the importance of a heart healthy lifestyle which includes eating a low-fat low- salt diet, getting regular exercise, maintaining a healthy weight, not smoking, and following up with routine medical care. Assessment & Plan (11/20/2024 4:16 PM EDT): [...] by mouth 1 (one) time each day. Muscle pain 05/07/2024 Pleural effusion 05/07/2024 Assessment [...] edema Aortic stenosis 05/07/2024 Assessment & Plan (02/26/2025 8:33 AM EDT): Patient's last echocardiogram was completed at [facility] 03/2024. He denies any clinical symptoms of heart failure and appears euvolemic on physical examination. Assessment & Plan (11/20/2024 4:16 PM EDT): Patient's last echocardiogram was completed at [facility] 03/2024. He denies any clinical symptoms of heart failure and appears euvolemic on physical examination. 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 Resolved Problems Problem Noted Date Diagnosed Date Resolved Date Aortic ejection murmur 06/29/202402/26 Assessment & Plan (06/29/2024 2:38 PM EST): Patient's last echocardiogram at [facility] showed an EF of 65 to 70% RV was suboptimally visualized. No mitral insufficiency no tricuspid insufficiency and a 9 mmHg peak gradient across the aortic valve patient does have a fairly substantial aortic outflow tract murmur without Atrial fibrillation (CMS/HCC V24, CMS/HCC V28) 05/07/2024 02/26/2025 Assessment & Plan (02/26/2025 7:54 AM EDT): Patient has history of episodic atrial fibrillation after cardiac surgery. He was on amiodarone for some time and Eliquis but then this was discontinued with no evidence of recurrent atrial fibrillation. Assessment & Plan (11/20/2024 4:16 PM EDT): Patient has history of episodic atrial fibrillation after cardiac surgery. He was on amiodarone for some time and Eliquis but then this was discontinued with no evidence of recurrent atrial fibrillation. Dyspnea 05/07/2024 02/26/2025 Blood pressure abnormally low 05/07/2024 02/26/2025 Chest pain 05/07/2024 02/26/2025 NSTEMI (non-ST elevated myoc ardial infarction) (CMS/HCC V24, CMS/HCC V28) 05/07/2024 0 02/26/2025 Encounters Date Type Department Care Team Description 02/26/2025 8:10 AM EDT Office Visit [facility] [address] [place] [address] Camryn Carlos NP Coronary artery disease involving chalk[place] coronary artery of [place] heart without angina pectoris (Primary Dx); Aortic valve stenosis, etiology of cardiac valve disease unspecified; Chronic heart failure with preserved ejection fraction ([facility] V24, [facility] V28); Primary hypertension; Mixed hyperlipidemia; Coronary artery disease involving coronary bypass graft of [place] heart with other forms of angina pectoris ([facility] V24); Hemidiaphragm paralysis; Dizziness; Dyspnea, unspecified from Last 3 Months Medical History Medical History Date Comments Atrial fibrillation ([facility] V24, [facility] V28) 1 07/07/2023 NSTEMI (non-ST elevated myoc ardial infarction) ([facility] V24, [facility] V28) 05/07/2024 Social History Tobacco Use Types Packs/Day Years [...] Sign Reading Time Taken Comments Blood Pressure 120/74 02/26/2025 7:51 AM EDT Pulse 74 02/26/2025 7:51 AM EDT Temperature - - Respiratory Rate - - Oxygen Saturation 97% 02/26/2025 7:51 AM EDT Inhaled Oxygen Concentration - - Weight 89.4 kg (197 lb) 02/26/2025 7:51 AM EDT Height 179.1 cm (5' 10.5 ) 02/26/2025 7:51 AM ED T Body Mass Index 27.87 02/26/2025 7:51 AM EDT Plan of Treatment Health Maintenance Due Date Last Done Comments DTaP,Tdap,and Td Vaccines (1 - Tdap) 1959 Zoster Vaccines (1 of 2) 1961 RSV Immunization Adult Patients (1 - 1-dose 75+ series) 2017 Falls Risk Assessment 2023 Medicare Annual Wellness Visit 2023 04/27/2022 Social Influencers of Health Screening 2023 Depression Screening 06/13/2024 COVID-19 Vaccine (4 - season) 2025 04/07/2021, 08/12/2020, 07/22/2020 Influenza Vaccine (#1) 2025 , 02/12/2024, 03/11/2023, Additional history exists Hypertension/CHF/CAD Annual BMP Blood Test 12/26/2025 12/26/2024, 11/28/2024, 11/21/2024, Additional history exists Cholesterol Screening (Lipid Panel) 02/26/2030 02/26/2025, 02/26/2025, 02/26/2025 Pneumococcal Vaccine: 50+ Years Completed 06/12/2024 HIB [...] Procedure Name Priority Date/Time Associated Diagnosis Comments TRIGLYCERIDES Routine 02/26/2025 8:52 AM EDT Coronary artery disease involving chalky[place]ik coronary artery of [place] heart without angina pectoris LDL CHOLESTEROL, DIRECT Routine 02/26/2025 8:52 AM EDT Coronary artery disease involving chalk[place] coronary artery of [place] heart without angina pectoris CHOLESTEROL, TOTAL Routine 02/26/2025 8: 52 AM EDT Coronary artery disease involving [place] coronary artery of [place] heart without angina pectoris HDL CHOLESTEROL Routine 02/26/2025 8:52 AM EDT Coronary artery disease involving chalk[place] coronary artery of [place] heart without angina pectoris HM ANNUAL BMP BLOOD TEST Routine 02/20/2024 from Last 3 Months or Most Recently Relevant to Health Maintenance Results * Triglycerides (02/26/2025 8:52 AM EDT) Pathologist [facility] Triglycerides 134 0 - 149 mg/dL [facility] 1 Blood Venous blood specimen / Unknown 02/26/2025 8:52 AM EDT 02/26/2025 Narrative [facility] 1 - 02/27/2025 4:06 AM EDT Performed at: - [facility] [id number] Rehabilitation Liaison: Sara Mahan MD, Phone: [phone] Camryn Carlos FITNESS SUPERVISOR LAB BLOOD ORDERABLES Final R esult Performing Organization Address [facility] Co de Phone Number [facility] 1 * LDL cholesterol, direct (02/26/2025 8:52 AM EDT) Pathologist [facility] LDL Chol. (Direct) 81 0 - 99 mg/dL [facility] 1 Blood Venous blood specimen / Unknown 02/26/2025 8:52 AM EDT 02/26/2025 Narrative [facility] 1 - 02/27/2025 4:08 PM EDT Performed at: 01 - [facility] [address] [id number] Rehabilitation Liaison: Sara Mahan MD, Phone: [phone] Camryn Bartolucci FITNESS SUPERVISOR LAB BLOOD ORDERABLES Final R esult Performing Organization Address [facility] Co de Phone Number [facility] 1 * HDL cholesterol (02/26/2025 8:52 AM EDT) HDL Cholesterol 40 >39 mg/dL [facility] 1 Blood Venous blood specimen / Unknown 02/26/2025 8:52 AM EDT 02/26/2025 Narrative [facility] 1 - 02/27/2025 4:06 AM EDT Performed at: - [facility] [address] [id number] Rehabilitation Liaison: Sara Mahan MD, Phone: [phone] Camryn Carlos FITNESS SUPERVISOR LAB BLOOD ORDERABLES Final R esult Performing Organization Address [facility] de Phone Number [facility] 1 * Cholesterol, total (02/26/2025 8:52 AM EDT) Cholesterol Total 151 100 - 199 mg/dL [facility] 1 Blood Venous blood specimen / Unknown 02/26/2025 8:52 AM EDT 02/26/2025 Narrative [facility] 1 - 02/27/2025 4:06 AM EDT Performed at: - [facility] [address] [id number] Rehabilitation Liaison: Sara Mahan MD, Phone: [phone] us Camryn Carlos FITNESS SUPERVISOR LAB BLOOD ORDERABLES Final R esult Performing Organization Address [facility] Co de Phone Number [facility] 1 from Last 3 Months Insurance MEDICARE [facility] Care Teams Optimization Specialist Relationship Specialty Start Date End Date Nash Brown MD [address] [place] [address] [address] [facility] [place] [address] PCP - General Internal Medicine 05/07/24
--- OUTSIDE RECORDS SUMMARY | 2025-03-05 17:48 | XMS_ITS | Encounter Summary ---
Author Organization [facility] Address [address] [place] [address] [address] [place] [address] Phone Care Team Providers Care Advertising Teacher Name Role Phone Nash Brown MD Primary Care Provider [phone] Jaciel Roberts DO Unavailable Bhavya Hudson MIRROR DEPARTMENT SUPERVISOR Unavailable Josefina Erazo DAIRY MANUFACTURING TECHNOLOGIST Unavailable Nika Otto DRY PRESS OPERATOR HELPER Unavailable Encounter Details Date Type Department Care Team (Late st Contact Info) Description 08/29/2024 Procedure Pass [facility], Ct Scan - [address] [address] Social History Tobacco Use Types Packs/Day Years [...] st Contact Info) Description 01/11/2025 Procedure Pass [address] [address] 01/11/2025 Procedure Pass [address] [address] 03/27/2025 11:15 AM EDT Appointment [address] [address] Nika Otto CNP [address] [place] [address] 04/03/2025 2:30 PM EDT Appointment [facility] [address] [place] [address] Jaciel Roberts DO [address] [place] [address] [email or web address] 04/03/2025 3:30 PM EDT Office Visit [facility] [place] [address] [place] [address] Jaciel Roberts DO [address] [place] [address] [email or web address] 10:00 AM EST Telemedicine - audio only [facility] [address] [place] [address] Jonathon Gallardo MD [address] [place] [address] Division [place] [address] [email or web address] documented as of this encounter Visit Diagnoses Not on filedocumented in this encounter Additional Health Concerns Assessment Noted Time PHQ-2 Depression Total Score: 0 03/12/20 12:23 PM EDT documented as of this encounter Care Teams Advertising Teacher Relationship Specialty Start Date End Date Nash Brown MD [address] [place] [address] [address] [place] [phone] PCP - General Internal Medicine 09/07/23 Jaciel Roberts DO [address] [place] [address] [email or web address] Primary Oncologist Hematology and Oncology 03/14/24 Bhavya Hudson FNP [address] [place] [address] [email or web address] Nurse Practitioner Medical Oncology 05/15/24 Josefina Erazo, VALDO [address] [place] [address] [email or web address] Nurse Practitioner 11/26/24 Nika Otto CNP [address] [place] [address] [email or web address] Nurse Practitioner Nurse Practitioner 01/10/25 documented as of this encounter Additional Source Comments The information contained in this document represents components of the legal health record. It is not the complete legal health record.[facility]
--- OUTSIDE RECORDS SUMMARY | 2025-03-05 17:48 | XMS_ITS | Encounter Summary ---
Author Organization [facility] Address [address] [place] [address] [address] [place] [address] Phone Care Team Providers Care Contract Agent Name Role Phone Nash Brown MD Primary Care Provider [phone] Jaciel Roberts DO Unavailable [phone] Bhavya Hudson [employer] WARRANT OFFICER Unavailable [phone] Josefina Erazo MATERIAL ASSISTANT Unavailable Nika Otto COMPANY SECRETARY Unavailable Encounter Details Date Type Department Care Team (Late st Contact Info) Description 06/04/2024 Procedure Pass [facility], Ct Scan - [address] [address] Social History Tobacco Use Types Packs/Day Years [...] st Contact Info) Description 01/11/2025 Procedure Pass [address] [address] 01/11/2025 Procedure Pass [address] [address] 03/27/2025 11:15 AM EDT Appointment [address] [address] Nika Otto CNP [address] [place] [address] 04/03/2025 2:30 PM EDT Appointment [facility] [address] [place] [address] Jaciel Roberts DO [address] [place] [address] [email or web address] 04/03/2025 3:30 PM EDT Office Visit [facility] [address] [place] [address] Jaciel Roberts DO [address] [place] [address] [email or web address] 10:00 AM EST Telemedicine - audio only [facility] [address] [place] [address] Jonathon Gallardo MD [address] [place] [address] Division [place] [address] [email or web address] documented as of this encounter Visit Diagnoses Not on filedocumented in this encounter Additional Health Concerns Infection Onset Date Last Indicated Resolved Time CoV-Risk 07/23/2024 07/23/2024 08/03/2024 1:21 AM EST Assessment Noted Time PHQ-2 Depression Total Score: 0 03/12/20 12:23 PM EDT documented as of this encounter Care Teams Contract Agent Relationship Specialty Start Date End Date Kevin, Nash Chirinos MD [address] [place] [address] Drive [address] [place] [phone] PCP - General Internal Medicine 09/07/23 Jaciel Roberts DO [address] [place] [address] [email or web address] Primary Oncologist Hematology and Oncology 03/14/24 Bhavya Hudson FNP [address] [place] [address] [email or web address] Nurse Practitioner Medical Oncology 05/15/24 Josefina Erazo NP [address] [place] [address] Nurse Practitioner 11/26/24 Nika Otto CNP [address] [place] [address] [email or web address] Nurse Practitioner Nurse Practitioner 01/10/25 documented as of this encounter Additional Source Comments The information contained in this document represents components of the legal health record. It is not the complete legal health record.[facility]
--- OUTSIDE RECORDS SUMMARY | 2025-03-05 17:48 | XMS_ITS | Encounter Summary ---
Author Organization [facility] Address [facility] [address] [place] [address] Phone Care Team Providers Care Sales And Marketing Administrator Name Role Phone Nash Brown MD Primary Care Provider Jaciel Roberts DO Unavailable Bhavya Hudson ASPHALT MIXER Unavailable Josefina Erazo METAL POLISHER AND BUFFER APPRENTICE Unavailable Nika Otto SHREDDING MACHINE OPERATOR Unavailable Encounter Details Date Type Department Care Team (Late st Contact Info) Description 03/29/2024 Procedure Pass [facility], Ct Scan - [address] [address] Social History Tobacco Use Types Packs/Day Years [...] st Contact Info) Description 01/11/2025 Procedure Pass [address] [address] 01/11/2025 Procedure Pass [address] [address] 03/27/2025 11:15 AM EDT Appointment [address] [address] Nika Otto, SHREDDING MACHINE OPERATOR [address] [place] [address] 04/03/2025 2:30 PM EDT Appointment [facility] [address] [place] [address] Jaciel Roberts, DO [address] [place] [address] [email or web address] 04/03/2025 3:30 PM EDT Office Visit [facility] Center at [address] [address] Jaciel Roberts, DO [address] [place] [address] [email or web address] 10:00 AM EST Telemedicine - audio only [facility] [address] [place] [address] Jonathon Gallardo MD [address] [place] [address] Division [place] [address] [email or web address] documented as of this encounter Visit Diagnoses Not on filedocumented in this encounter Additional Health Concerns Infection Onset Date Last Indicated Resolved Time CDiff-Risk 04/02/2024 04/04/2024 04/04/2024 4:35 PM EDT CoV-Risk 07/23/2024 07/23/2024 08/03/2024 1:21 AM EST Assessment Noted Time PHQ-2 Depression Total Score: 0 03/12/20 12:23 PM EDT documented as of this encounter Care Teams Sales And Marketing Administrator Relationship Specialty Start Date End Date Nash Brown MD [address] [place] [phone] PCP - General Internal Medicine 09/07/23 Jaciel Roberts DO [address] [place] [address] [email or web address] Primary Oncologist Hematology and Oncology 03/14/24 Bhavya Hudson FNP [address] [place] [address] Nurse Practitioner Medical Oncology 05/15/24 Josefina Erazo NP [address] [place] [address] Nurse Practitioner 11/26/24 Nika Otto CNP [address] [place] [address] Nurse Practitioner Nurse Practitioner 01/10/25 documented as of this encounter Additional Source Comments The information contained in this document represents components of the legal health record. It is not the complete legal health record.[facility]
--- OUTSIDE RECORDS SUMMARY | 2025-03-05 17:48 | XMS_ITS | Encounter Summary ---
Author Organization [facility] Address [address] [place] [address] Phone Care Team Providers Care Electrical Engineering Teacher Name Role Phone Nash Brown MD Primary Care Provider [phone] Jaciel Roberts DO Unavailable Bhavya Hudson BUZZSAW OPERATOR Unavailable Josefina Erazo DESIGN QUALITY ENGINEER Unavailable Nika Otto TRAINING ASSOCIATE Unavailable Reason for Referral * MRI/CAT Scan - Closed Specialty Diagnoses / Procedures Referred By Ray t Referred To Contact Radiology Diagnoses Diverticulitis of intestine without perforation or abscess with bleeding, unspecified part of intestinal tract Procedures CT Abdomen/Pelvis Nash Brown MD Phone: tel: fax: Referral ID Status Reason Start Date Expiration Date Visits Re quested Visits Authorized [id number] Closed 03/29/2024 03/29/2025 1 1 Encounter Details Date Type Department Care Team (Latest Contact Info) Description 03/29/2024 Transcribe Orders Virtual Department [address] [place] [address] Nash Brown MD [address] [place] [address] Diverticulitis of intestine without perforation [...] st Contact Info) Description 01/11/2025 Procedure Pass [address] [address] 01/11/2025 Procedure Pass [address] [address] 03/27/2025 11:15 AM EDT Appointment [address] [address] Nika Otto CNP [address] [place] [address] 04/03/2025 2:30 PM EDT Appointment [facility] [address] [place] [address] Jaciel Roberts, [address] [place] [address] [email or web address] 04/03/2025 3:30 PM EDT Office Visit [facility] [address] [place] [address] AlejandraJaciel gamaDO [address] [place] [address] [email or web address] 2025 10:00 AM EST Telemedicine - audio only [facility] [address] [place] [address] Jonathon Gallardo MD [address] [place] [address] Division [place] [address] [email or web address] documented as of this encounter Results * [...] initiated on 03/29/2024 7:04 PM, Message ID [id number]. Narrative 03/29/2024 7:[address] ABDOMEN/PELVIS WITH CONTRAST Referring clinician's provided indication for this examination in Epic: Outside Radiology Order; diverticulitis TECHNIQUE: Multidetector-row CT of the abdomen and pelvis was performed after administration of intravenous contrast using tailored dose modulation techniques. Images were reconstructed in the axial, coronal, and sagittal planes. COMPARISON: PA PET CT SKULL BASE TO MID THIGHS [...] in the axial, coronal,and sagittal planes. COMPARISON: PA PET CT SKULL BASE TO MID THIGHS [...] was initiated on 03/29/2024 7:04 PM,Message ID [id number]. Nash Brown MD IMDamian CT ABD/PELVIS Final Resul t documented in [...] documented as of this encounter Care Teams Electrical Engineering Teacher Relationship Specialty Start Date End Date Nash Brown MD [address] [place] [address] [address] [place] [phone] PCP - General Internal Medicine 09/07/23 Jaciel Roberts DO [address] [place] [address] [email or web address] Primary Oncologist Hematology and Oncology 03/14/24 Bhavya Hudson FNP [address] [place] [address] Nurse Practitioner Medical Oncology 05/15/24 Josefina Erazo NP [address] [place] [address] Nurse Practitioner 11/26/24 Nika Otto CNP [address] [place] [address] Nurse Practitioner Nurse Practitioner 01/10/25 documented as of this encounter Additional Source Comments The information contained in this document represents components of the legal health record. It is not the complete legal health record.[facility]
--- OUTSIDE RECORDS SUMMARY | 2025-03-05 17:48 | XMS_ITS | Encounter Summary ---
Author Organization [facility] Address [facility] [address] [place] [address] Phone Care Team Providers Care Monomer Recovery Operator Name Role Phone Nash Brown MD Primary Care Provider Jaciel Roberts DO Unavailable [phone] Bhavya Hudson ECONOMIC DEVELOPMENT SPECIALIST Unavailable [phone] Josefina Erazo GRINDER LAP Unavailable [phone] Nika Otto SHOP FOREMAN Unavailable Encounter Details Date Type Department Care Team (Late st Contact Info) Description 03/21/2024 Procedure Pass [facility], Ct Scan - [address] [address] Social History Tobacco Use Types Packs/Day Years [...] st Contact Info) Description 01/11/2025 Procedure Pass [address] [address] 01/11/2025 Procedure Pass [address] [address] 03/27/2025 11:15 AM EDT Appointment [address] [address] Nika Otto, SHOP FOREMAN [address] [place] [address] 04/03/2025 2:30 PM EDT Appointment [facility] [address] [place] [address] Jaciel Roberts, DO [address] [place] [address] [email or web address] 04/03/2025 3:30 PM EDT Office Visit [facility] Center at [address] [address] Jaciel Roberts, DO [address] [place] [address] [email or web address] 2025 10:00 AM EST Telemedicine - audio only [facility] [address] [place] [address] Jonathon Gallardo MD [address] [place] [address] Division [place] [address] [email or web address] documented as of this encounter Visit Diagnoses Not on filedocumented in this encounter Additional Health Concerns Infection Onset Date Last Indicated Resolved Time CDiff-Risk 04/02/2024 04/04/2024 04/04/2024 4:35 PM EDT CoV-Risk 07/23/2024 07/23/2024 08/03/2024 1:21 AM EST Assessment Noted Time PHQ-2 Depression Total Score: 0 03/12/20 12:23 PM EDT documented as of this encounter Care Teams Monomer Recovery Operator Relationship Specialty Start Date End Date Nash Brown MD [address] [place] [phone] PCP - General Internal Medicine 09/07/23 Jaciel Roberts DO [address] [place] [address] [email or web address] Primary Oncologist Hematology and Oncology 03/14/24 Bhavya Hudson FNP [address] [place] [address] Nurse Practitioner Medical Oncology 05/15/24 Josefina Erazo NP [address] [place] [address] Nurse Practitioner 11/26/24 Nika Otto CNP [address] [place] [address] Nurse Practitioner Nurse Practitioner 01/10/25 documented as of this encounter Additional Source Comments The information contained in this document represents components of the legal health record. It is not the complete legal health record.[facility]
--- OUTSIDE RECORDS SUMMARY | 2025-03-05 17:48 | XMS_ITS | Encounter Summary ---
Author Organization [facility] Address [facility] [address] [place] [address] Phone Care Team Providers Care Chucking And Sawing Machine Operator Name Role Phone Nash Brown MD Primary Care Provider Jaciel Roberts DO Unavailable Bhavya Hudson HARNESS MENDER Unavailable Josefina Erazo WEB DESIGNER DEVELOPER Unavailable Nika Otto HYDROELECTRIC PLANT ELECTRICAL ENGINEER Unavailable Encounter Details Date Type Department Care Team (Late st Contact Info) Description 02/15/2024 Procedure Pass [facility] Cross Sectional Interventional Radiology [address] [place] [address] Social History Tobacco Use Types Packs/Day Years [...] Contact Info) Description 01/11/2025 Procedure Pass [address] [address] 01/11/2025 Procedure Pass [address] [address] 03/27/2025 11:15 AM EDT Appointment [address] [address] Nika Otto, GIGI [address] [place] [address] 04/03/2025 2:30 PM EDT Appointment [facility] [address] [place] [address] Jaciel Roberts, DO [address] [place] [address] [email or web address] 04/03/2025 3:30 PM EDT Office Visit [facility] Center at [address] [address] Jaciel Roberts, DO [address] [place] [address] [email or web address] 2025 10:00 AM EST Telemedicine - audio only [facility] [address] [place] [address] Jonathon Gallardo MD [address] [place] [address] Division [place] [address] [email or web address] documented as of this encounter Visit Diagnoses Not on filedocumented in this encounter Additional Health Concerns Infection Onset Date Last Indicated Resolved Time CDiff-Risk 04/02/2024 04/04/2024 04/04/2024 4:35 PM EDT CoV-Risk 07/23/2024 07/23/2024 08/03/2024 1:21 AM EST Assessment Noted Time PHQ-2 Depression Total Score: 2 02/20/20 9:55 AM EDT documented as of this encounter Care Teams Chucking And Sawing Machine Operator Relationship Specialty Start Date End Date Nash Brown MD [address] [place] [phone] PCP - General Internal Medicine 09/07/23 Jaciel Roberts DO [address] [place] [address] [email or web address] Primary Oncologist Hematology and Oncology 03/14/24 Bhavya Hudson FNP [address] [place] [address] Nurse Practitioner Medical Oncology 05/15/24 Josefina Erazo NP [address] [place] [address] Nurse Practitioner 11/26/24 Nika Otto CNP [address] [place] [address] Nurse Practitioner Nurse Practitioner 01/10/25 documented as of this encounter Additional Source Comments The information contained in this document represents components of the legal health record. It is not the complete legal health record.[facility]
== END 2025-03-05 15:27 | disposition home or self-care (01) ==
LOC: HO.HMCH 14:36
PROVIDERS: PCP Internal Medicine; Visit Provider Internal Medicine
DX: I25.10 Atherosclerotic heart disease of native coronary artery without angina pectoris (principal); C45.9 Mesothelioma, unspecified; E78.00 Pure hypercholesterolemia, unspecified; E03.9 Hypothyroidism, unspecified; I10 Essential (primary) hypertension; I89.0 Lymphedema, not elsewhere classified; F32.A Depression, unspecified; M79.601 Pain in right arm

== ENCOUNTER → 2025-03-05 14:35 | Outpatient (BNVA) | payer MEDICARE, SELFPAY | PROVIDERS: PCP Internal Medicine; Visit Provider Internal Medicine | DX: I25.10 Atherosclerotic heart disease of native coronary artery without angina pectoris (principal); E78.00 Pure hypercholesterolemia, unspecified; E03.9 Hypothyroidism, unspecified; I10 Essential (primary) hypertension; C45.9 Mesothelioma, unspecified; I89.0 Lymphedema, not elsewhere classified; F32.A Depression, unspecified; M79.601 Pain in right arm; Z87.891 Personal history of nicotine dependence | CPT/HCPCS: 99212 ==

== ENCOUNTER 2025-03-26 08:23 | Outpatient (REF) | payer MEDICARE, SELFPAY ==
[2025-03-26 11:04] LABS: Anion Gap 12 (12-20); Blood Urea Nitrogen 20 mg/dL (9-16); Calcium 8.5 mg/dL (8.4-10.2); Carbon Dioxide 32 mmol/L (22-29); Chloride 100 mmol/L (96-108); Estimated Glomerular Filt Rate > 60; Potassium 4.0 mmol/L (3.3-5.1); Sodium 140 mmol/L (135-145)
== END 2025-03-26 08:24 | disposition home or self-care (01) ==
LOC: HO.HMGCLDS 08:23
PROVIDERS: PCP Internal Medicine; Visit Provider Internal Medicine Cardiovascular Disease
DX: I50.32 Chronic diastolic (congestive) heart failure (principal)
CPT/HCPCS: 36415; 80048